=== PATIENT | female | born 1965 | race Caucasian/White ===

== ENCOUNTER → 2019-07-25 09:21 | Outpatient (CLI) | payer OTHER, MEDICARE, SELFPAY ==
--- NOTE | ~2019-07-25 | CT_ITS ---
EXAMINATION: CT chest abdomen pelvis w con EXAM DATE: 07/25/2019 10:00 INDICATION: Secondary malignant neoplasm of liver, intrahepatic bile duct, small cell lung cancer, le ft lower lobectomy, history and irritable bowel syndrome, cholecystectomy, hysterectomy. Nausea and d iarrhea. TECHNIQUE: Spiral CT of the chest, abdomen and pelvis was performed following intravenous injection o f 100 mL Omnipaque 350. Axial, coronal and sagittal images were reviewed. Coronal maximum intensity pixel images of chest reviewed. The dose-length product (DLP) for this examination was 521.46 mGy-c m. The exposure was tailored according to patient size (auto mA exposure control), and iterative rec onstruction (ASIR) was used as additional dose reduction technique. Comparison is made to prior exami nation from 05/01/2019. FINDINGS: CHEST: Again there is left suprahilar paramedian opacity, appearance most consistent with treated ca ncer, radiation fibrosis. There is left-sided volume loss from partial pneumonectomy. Some faint righ t upper lobe groundglass airspace disease, probably perihilar distribution. Possible mild pulmonary e vidya. There is mild emphysema. There are no pleural or pericardial effusions. Previously seen smal l left pleural effusion has essentially resolved. There is a right-sided Chemo-Port. There is no med iastinal, hilar or axillary lymphadenopathy. There is no pneumothorax. Heart normal in size. Th ere is mild coronary arterial calcification, arterial sclerosis. There are no central pulmonary embo li. ABDOMEN PELVIS: Again there are about 5 subcentimeter liver hypodensities, likely the treated liver m etastatic disease previously described, stable. There are cholecystectomy clips. Portal and splenic veins are patent. Kidneys enhance symmetrically. There is no hydronephrosis. The uterus is not i dentified and has likely been surgically resected. The bladder is distended but otherwise unremarkab le. There is no retroperitoneal or pelvic lymphadenopathy. There is mild scattered arterioscleroti c disease. The appendix is normal. There is mild to moderate scattered colonic diverticulosis. There is scatter ed is no adjacent inflammatory change to suggest diverticulitis. Tiny umbilical fat-containing herni a. There is a 3 cm duodenal cyst along its third portion. There is expected amount of colonic stool . No free intraperitoneal gas. There are no osteoblastic or osteolytic lesions identified. IMPRESSION: 1. Left suprahilar airspace disease, volume loss consistent with treated cancer, radiation fibrosis. 2. Stable scattered liver lesions. 3. Mild to moderate colonic diverticulosis. 4. Possible mild pulmonary edema. 5. Mild emphysema. 6. Duodenal diverticulum. Reviewed, dictated and finalized at location B. LY [employer] MANAGEMENT SPECIALIST IMPRESSION: 1. Left suprahilar airspace disease, volume loss consistent with treated cance r, radiation fibrosis. 2. Stable scattered liver lesions. 3. Mild to moderate colonic diverticulosis. 4. Possible mild pulmonary edema. 5. Mild emphysema. 6. Duodenal diverticulum.
== END ==
PROVIDERS: PCP Internal Medicine; Visit Provider Internal Medicine Hematology & Oncology
DX: C78.7 Secondary malignant neoplasm of liver and intrahepatic bile duct (principal); K76.89 Other specified diseases of liver; R91.8 Other nonspecific abnormal finding of lung field; J43.9 Emphysema, unspecified; K57.10 Diverticulosis of small intestine without perforation or abscess without bleeding
CPT/HCPCS: 71260; 74177; Q9967

== ENCOUNTER → 2019-09-10 09:48 | Outpatient (CLI) | payer OTHER, MEDICARE, SELFPAY ==
--- NOTE | ~2019-09-10 | CT_ITS ---
EXAMINATION: CT facial bones wo con EXAM DATE: 09/10/2019 10:10 INDICATION: Small cell lung cancer. Left mandibular lesion. TECHNIQUE: Spiral CT of the facial bones was acquired in the axial plane without contrast. Coronal reformatted images were also reviewed. The dose-length product (DLP) for this examination was 286.85 mGy-cm. The exposure was tailored according to patient size, and iterative reconstruction (ASIR) wa s used as additional dose reduction technique. There is no prior study for comparison. FINDINGS: There is a mandibular angle lesion deep to the impacted left lower wisdom tooth (#17) which is expanding the medial aspect of the mandible, including small region of complete bone dehiscence, and causing endosteal scalloping along the outer aspect. This is also touching the adjacent molar nora t (#18). Osteolytic region measures 2.4 x 1.3 cm in greatest axial dimensions. 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 Oral maxillofacial jose de jesus gical consult for probable curettage. No upper cervical lymphadenopathy. Submandibular, parotid gland s are symmetric and unremarkable. Sinuses, mastoid air cells are well aerated. Upper cervical spondyl osis. IMPRESSION: Left mandibular osteolytic expansile mass; recommend or oral maxillofacial surgical cons ult for probable curettage, histologic correlation. Reviewed, dictated and finalized at location A. IMPRESSION: Left mandibular osteolytic expansile mass; recommend or oral maxil lofacial surgical consult for probable curettage, histologic correlation.
== END ==
PROVIDERS: PCP Internal Medicine
DX: M27.40 Unspecified cyst of jaw (principal)
CPT/HCPCS: 70486

== ENCOUNTER 2019-10-12 14:29 | Emergency (ER) | payer OTHER, MEDICARE, SELFPAY ==
--- NOTE | ~2019-10-12 | CT_ITS ---
EXAMINATION: CT abdomen pelvis wo con DATE: 10/12/2019 15:39 INDICATION: Pelvic and left flank pain TECHNIQUE: Computed tomography (CT) of the abdomen and pelvis was performed without intravenous contr ast. The dose-length product was 262.37 mGy-cm. Automated exposure control and iterative reconstructi on technique were employed. COMPARISON: CT dated 07/25/2019 FINDINGS: Lung bases are unremarkable. No significant pleural or pericardial effusion. Small hiatal h ernia. No significant vascular abnormality. There are multiple nonobstructing bilateral renal stones. No ureteral stones or hydronephrosis. There is mild thickening of the sigmoid colon. Colonic diverti culosis without evidence for diverticulitis. Bladder is unremarkable. Status post cholecystectomy. No rmal appendix. No free air or free fluid. The liver, spleen, pancreas, adrenal glands are unremarkable. No acute osseous abnormality. IMPRESSION: 1. Mild thickening of the sigmoid colon without obstruction. Consider colitis in the appropriate clin ical setting. No evidence for diverticulitis. 2: Nonobstructing bilateral nephrolithiasis. Reviewed, dictated and finalized at location A. IMPRESSION: 1. Mild thickening of the sigmoid colon without obstruction. Consider colitis i n the appropriate clinical setting. No evidence for diverticulitis. 2: Nonobstructing bilateral nephrolithiasis.
[2019-10-12 14:40] VITALS: BP 145/89; PULSE 78; RESP 16; TEMP 36.9; O2SAT 100
[2019-10-12 15:01] LABS: Add Urine Microscopic? YES; Appearance Urine Clear (Clear); Bilirubin Urine Negative (Negative); Blood Urine 2+ (Negative); Color Urine Straw (Yellow); Glucose Urine UA Negative (Negative); Ketones Urine Negative (Negative); Leukocyte Esterase Ur Negative LEU/UL (Negative); Mucus Urine Rare /lpf; Nitrate Urine Negative (Negative); Protein Urine Negative (Negative); RBC Urine 0-2 /hpf (0-2); Squamous Epithelial Cell Urine Moderate /hpf (Few); Urobilinogen Urine Negative mg/dL (<2.0); WBC Urine 0-3 /hpf
[2019-10-12 15:05] LABS: Specific Grav Ur 1.004 (1.001-1.035)
--- NOTE | 2019-10-12 15:10 | ED.ABDPAIN ---
HPI - Abdominal Pain General Chief Complaint: Urogenital-Female Stated Complaint: Flank pain Time Seen by Provider: 10/12/19 14:36 History of Present Illness HPI narrative: Patient presents with 2 days of severe pelvic pain and left flank pain. Her PCP put her on nitrofurantoin antibiotic yesterday. She has had 3 doses of that already without improvement of her symptoms. She says her urine has odor and she has had UTIs before with similar odor. She has no burning urination or increase in frequency. She has diffuse pelvic pain, and left flank pain. She has a history of kidney stones that have bad to be removed with lithotripsy. She suspects this is a kidney stone. She has had no fever chills lethargy or malaise. Her appetite is good she has no diarrhea or constipation. She has nausea with codeine and morphine, so I offered fentanyl with Zofran. Her pain is 5 out of 10 both the flank and the pelvis. She has a history of small cell lung cancer, with partial left lung resection. That was 2 years ago and she has no known mets. She has no cough or fever, and has been staying at home to be safe. MD elicited complaint: abdominal pain and flank pain Onset (ago): day(s) Pain Consistency: constant Location: L flank and suprapubic Severity: moderate Quality: aching and fullness Radiation: L flank Relieving factors: nothing Context: denies foreign travel, denies possible food poisoning, denies sick contacts, confirms recent antibiotic use, denies recent surgery/procedure, denies recent injury and confirms history of similar episodes Associated symptoms: nausea, vomiting, diarrhea, fever, chills and constipation Treatments prior to arrival: other (Macrobid BID) Related Data Patient : No Home Medications Medication Instructions Recorded Confirmed aspirin 81 mg PO DAILY 04/18/19 10/12/19 budesonide-formoterol [Symbicort] 2 puff INHALATION Q12H 04/18/19 10/12/19 elderberry fruit and flower 1 cap PO DAILY 04/18/19 10/12/19 lorazepam 0.5 mg tablet 0.5 mg PO DAILY PRN 06/01/19 10/12/19 mirtazapine 15 mg tablet 15 mg PO DAILY 06/01/19 10/12/19 omeprazole 40 mg capsule,delayed 40 mg PO DAILY 06/01/19 08/21/19 release trazodone 50 mg tablet 50 mg PO TID 06/01/19 08/21/19 Allergies Allergy/AdvReac Type Severity Reaction Status Date / Time amoxicillin Allergy Unknown Unknown Verified 10/12/19 14:43 clindamycin Allergy Unknown Unknown Verified 10/12/19 14:43 codeine Allergy Unknown Nausea and Verified 10/12/19 14:43 Vomiting Iodinated Contrast Media Allergy Unknown Unknown Verified 10/12/19 14:43 levofloxacin Allergy Unknown itching, Verified 10/12/19 16:26 better with benadryl morphine Allergy Unknown Nausea and Verified 10/12/19 14:43 Vomiting Penicillins Allergy Unknown Unknown Verified 10/12/19 14:43 piperacillin Allergy Unknown Unknown Verified 10/12/19 14:43 tazobactam Allergy Unknown Unknown Verified 10/12/19 14:43 Review of Systems Review of Systems: All systems reviewed & are unremarkable except as noted in HPI and below Constitutional: Constitutional: Reports no additional constitutional complaints, Denies chills, Denies fever(s) and Denies weakness Cardiovascular: Cardiovascular: Reports no additional cardiovascular complaints Respiratory: Respiratory: Reports no additional respiratory complaints Gastrointestinal: Gastrointestinal: Reports no additional gastrointestinal complaints and Denies nausea Genitourinary: Genitourinary: Reports as per HPI, Denies nocturia, Denies dysuria, Reports pelvic pain, Reports flank pain and Denies urinary incontinence Musculoskeletal: Musculoskeletal: Reports no additional musculoskeletal complaints Neurologic: Reports system reviewed and no additional complaints, except as documented Psychiatric: Psychiatric: Reports no additional psychiatric complaints PMFSH Past Medical History Medical History Anxiety Ar
[2019-10-12] MEDS: SODIUM CHLORIDE 0.9% IV 1,000 ML 999 ML IV CONT (15:19)
[2019-10-12] MEDS: ONDANSETRON INJ 4 MG/2 ML VIAL IV PUSH (15:19)
[2019-10-12 15:22] LABS: Basophils Percent Auto 0.5 % (0.2-1.2); Eosinophils Absolute Auto 0.1 K/mm3 (0-0.3); Eosinophils Percent Auto 1.4 % (0-4.4); Hematocrit 33.4 % (37.0-47.0); Immature Granulocyte Absolute 0.04 K/mm3 (0.00-0.031); Immature Granulocyte Percent A 0.6 % (0-0.5); Lymphocytes Absolute Auto 1.26 K/mm3 (0.9-3.2); Mean Corpuscular HGB Conc 32.9 g/dl (32-36); Mean Corpuscular Hemoglobin 32.7 pg (26-34); Mean Corpuscular Volume 99.4 fl (80-100); Mean Platelet Volume 9.8 fl (7.4-10.4); Monocytes Absolute Auto 0.3 K/mm3 (0.1-0.6); Monocytes Percent Auto 5.2 % (2.6-8.5); Neutrophils Absolute Auto 4.6 K/mm3 (1.3-6.7); Neutrophils Percent Auto 72.3 % (45.5-73.1); Platelet Count Result 331 k/mm3 (150-375); Red Blood Count 3.36 M/mm3 (4.2-5.4); White Blood Count 6.3 K/mm3 (4.5-10.0)
[2019-10-12 15:29] LABS: Alanine Aminotransferase 18 U/L (4-35); Alkaline Phosphatase 111 U/L (38-126); Aspartate Amino Transferase 25 U/L (14-36); Bilirubin,Total 0.5 mg/dL (0.2-1.3); Blood Urea Nitrogen 12 mg/dL (7-17); Calcium 8.7 mg/dL (8.4-10.2); Carbon Dioxide 31 mmol/L (22-30); Chloride 100 mmol/L (98-107); Estimated CRCL calculation 51 ml/min; Estimated Glomerular Filt Rate > 60; Glucose 95 mg/dL (65-105); Potassium 3.5 mmol/L (3.4-5.0); Sodium 138 mmol/L (137-145)
[2019-10-12] MEDS: metroNIDAZOLE 250 MG TABLET 500 MG PO (16:39)
[2019-10-12] MEDS: CIPROFLOXACIN 500 MG TAB PO (16:40)
== END 2019-10-12 17:05 | disposition home or self-care (01) ==
PROVIDERS: Emergency Provider Emergency Medicine; PCP Internal Medicine
DX: K52.9 Noninfective gastroenteritis and colitis, unspecified (principal); C34.32 Malignant neoplasm of lower lobe, left bronchus or lung; F41.9 Anxiety disorder, unspecified; M19.90 Unspecified osteoarthritis, unspecified site; I10 Essential (primary) hypertension; K21.9 Gastro-esophageal reflux disease without esophagitis; Z79.82 Long term (current) use of aspirin
CPT/HCPCS: 36415; 74176; 80053; 81001; 85025; 96361; 96374; 96375; 99284; A9270; J2405; J3010; J7030

== ENCOUNTER 2019-10-16 09:02 | Outpatient (CLI) | payer OTHER, MEDICARE, SELFPAY ==
--- NOTE | ~2019-10-16 | CT_ITS ---
EXAMINATION: CT chest abdomen pelvis w con EXAM DATE: 10/16/2019 09:55 INDICATION: Small cell lung cancer, right lung. TECHNIQUE: Spiral CT of the chest, abdomen and pelvis was performed following intravenous injection o f 100 mL Omnipaque 350. Axial, coronal and sagittal images were reviewed. Coronal maximum intensity pixel images of chest reviewed. The dose-length product (DLP) for this examination was 361.34 mGy-c m. The exposure was tailored according to patient size (auto mA exposure control), and iterative rec onstruction (ASIR) was used as additional dose reduction technique. Comparison is made to prior exami nation from 07/25/2019. FINDINGS: There is a right-sided Chemo-Port. No central pulmonary emboli. There is left suprahilar pa ramedian opacity, appearance most consistent with treated cancer, radiation fibrosis. There is left-s ided volume loss from partial pneumonectomy. Some faint right upper lobe groundglass airspace disease , probably perihilar distribution. There is mild emphysema. There are no pleural or pericardial effu sions. There is no mediastinal, hilar or axillary lymphadenopathy. There is no pneumothorax. He art normal in size. There is mild coronary arterial calcification, arterial sclerosis. There are n o central pulmonary emboli. ABDOMEN PELVIS: Again there are about 5 subcentimeter liver hypodensities, likely the treated liver m etastatic disease previously described, stable. There are cholecystectomy clips. Portal and splenic veins are patent. Kidneys enhance symmetrically. There is no hydronephrosis. Bilateral kidney ston es probably visualized on this postcontrast study. The uterus is not identified and has likely been s urgically resected. The bladder is distended but otherwise unremarkable. There is no retroperitonea l or pelvic lymphadenopathy. There is mild scattered arteriosclerotic disease. Tiny umbilical fat-c ontaining hernia. The appendix is normal. There is mild to moderate scattered colonic diverticulosis. There is scatter ed is no adjacent inflammatory change to suggest diverticulitis. Tiny umbilical fat-containing herni a. There is a 3 cm duodenal diverticulum along its third portion. There is expected amount of colon ic stool. No free intraperitoneal gas. There are no osteoblastic or osteolytic lesions identified . IMPRESSION: 1. Stable left perihilar treated cancer, radiation fibrosis. 2. Stable scattered liver lesions. 3. Mild to moderate colonic diverticulosis. 4. Bilateral nonobstructing kidney stones. 5. Mild emphysema. 6. Duodenal diverticulum. Reviewed, dictated and finalized at location G.
== END 2019-10-16 09:03 | disposition home or self-care (01) ==
LOC: ANHIMG 09:06
PROVIDERS: PCP Internal Medicine; Visit Provider Internal Medicine Hematology & Oncology
DX: C34.91 Malignant neoplasm of unspecified part of right bronchus or lung (principal); J70.1 Chronic and other pulmonary manifestations due to radiation; K76.9 Liver disease, unspecified; K57.90 Diverticulosis of intestine, part unspecified, without perforation or abscess without bleeding; N20.0 Calculus of kidney; J43.9 Emphysema, unspecified; K57.10 Diverticulosis of small intestine without perforation or abscess without bleeding
CPT/HCPCS: 71260; 74177; Q9967

== ENCOUNTER 2020-01-08 08:37 | Outpatient (CLI) | payer OTHER, MEDICARE, SELFPAY ==
--- NOTE | ~2020-01-08 | CT_ITS ---
EXAMINATION: CT chest abdomen pelvis w con DATE: 01/08/2020 09:05 INDICATION: Malignant neoplasm of lower lobe of left lung. TECHNIQUE: Computed tomography (CT) of the chest, abdomen, and pelvis was performed with 100 mL Omnip aque 350 intravenous contrast. Automated exposure control and iterative reconstruction technique were employed. The dose-length product was 350.14 mGy-cm. COMPARISON: CT chest, abdomen, and pelvis 10/16/2019, 07/24/18, 10/06/17 FINDINGS: CHEST CT: There is mild emphysema. There are airspace opacities in perihilar left upper lobe with volume loss, architectural distortion, and varicose bronchiectasis, consistent with radiation fibrosis. There are changes of left lower lobectomy. A calcified right lung nodule and calcified right hilar and mediasti nal lymph nodes are consistent with old granulomatous disease. There is chronic pleural thickening in left upper lung zone. No pleural effusion. The heart size is normal. No pericardial effusion. There is a right subclavian port with tip in superior vena cava. ABDOMEN/PELVIS CT: There is a small sliding hiatal hernia. There are two 6 mm low-attenuation lesions in the liver witho ut change. Other liver lesions have resolved. There are changes of cholecystectomy. The spleen, pancr eas, adrenal glands are normal. There is a 7 mm stone in right kidney. There is a 4 mm stone in right renal pelvis. There are 4 mm and 4 mm stones in left kidney. There is diverticulosis of the colon wi thout evidence of diverticulitis. There are no dilated loops of bowel. The appendix is normal. There are no pathologically enlarged lymph nodes. There is no free intraperitoneal fluid. There is a 7 mm n onaggressive lytic lesion in right ilium without change, likely benign. IMPRESSION: 1. Two 6 mm low-attenuation lesions in the liver without change, which may be cysts or metastatic dis ease. Other liver masses have resolved. 2. Perihilar radiation fibrosis in left lung. Reviewed, dictated and finalized at location A. IMPRESSION: 1. Two 6 mm low-attenuation lesions in the liver without change, which may be c ysts or metastatic disease. Other liver masses have resolved. 2. Perihilar radiation fibrosis in left lung.
== END 2020-01-08 08:38 | disposition home or self-care (01) ==
LOC: ANHIMG 08:38
PROVIDERS: PCP Internal Medicine; Visit Provider Internal Medicine Hematology & Oncology
DX: C34.32 Malignant neoplasm of lower lobe, left bronchus or lung (principal); K76.9 Liver disease, unspecified; J70.1 Chronic and other pulmonary manifestations due to radiation
CPT/HCPCS: 71260; 74177; Q9967

== ENCOUNTER 2020-03-19 07:41 | Outpatient (CLI) | payer OTHER, MEDICARE, SELFPAY ==
--- NOTE | ~2020-03-19 | DEXA_ITS ---
Bone Density Report Name: Divina Harrington Age: 54 Sex: Female Ethnicity: White Date of : 1965 Indication: postmenopausal; height loss; inflammatory bowel disease; cancer; asthma or emphysema; hysterectomy; Referring Provider: Joseph Arshad Study: Bone densitometry was performed. Exam Date: March 19, 2020 Accession number: [id number] Bone Density: Region BMD T-score Z-score Classification AP Spine (L1-L4) 0.722 -3.0 -1.8 Osteoporosis Femoral Neck (Left) 0.591 -2.3 -1.2 Osteopenia Total Hip (Left) 0.655 -2.4 -1.6 Osteopenia Total Hip Bilateral Avg 0.675 -2.2 -1.5 Osteopenia Femoral Neck (Right) 0.615 -2.1 -1.0 Osteopenia Total Hip (Right) 0.695 -2.0 -1.3 Osteopenia World Health Organization criteria for BMD impression classify patients as: Normal (T-score at or above -1.0), Osteopenia (T-score between -1.0 and -2.5), or Osteoporosis (T-score at or below -2.5). 10-year Fracture Risk: FRAX not reported because: Some T-score for Spine Total or Hip Total or Femoral Neck at or below -2.5 Clinical Information Provided by Patient: Has used the following medications: Vitamin D Has the following medical conditions: Asthma or Emphysema, Cancer, Inflammatory bowel diseases, Hysterectomy Patient maximum height was 64 Menopause Age: 40 No regular weight bearing exercise Drinks caffeinated beverages Onset of menses at age 10 Number of children 3 Impression: The patient has osteoporosis, based on the Total Spine T-score. Discussion: INCREASED RISK OF FRACTURE. BONE DENSITY IS UNDESIRABLY LOW AT ONE OR MORE SKELETAL SITES, CONSISTENT WITH POSTMENOPAUSAL OSTEOPOROSIS. This patient's lowest T-score meets the World Health Organization's (WHO) criteria for osteoporosis at one or more sites (T-score -2.5 or below). In untreated patients, the risk of osteoporotic fracture increases approximately two-fold for each 1.0 SD decrease in T-score. Low bone density is not the only risk factor for fracture; also consider factors such as patient's age, frailty or poor health, risk of falling, risk of injury, previous osteoporotic fracture, family history of osteoporosis, cigarette smoking, low body weight, etc. Not everyone with low bone mineral density has osteoporosis; osteomalacia and other metabolic bone disorders should also be considered. Patients who have osteoporosis should be evaluated for specific diseases and conditions (secondary causes) that may cause or contribute to bone loss. The [place] [employer]ocrinologists (AACE) and National Osteoporosis Foundation (NOF) recommend pharmacologic intervention for all postmenopausal women whose T-score is in this range. The patient should follow a healthful lifestyle (good nutrition with adequate calcium and vitamin D, and appropriate weight-bearing exercise). Follow
== END 2020-03-19 07:42 | disposition home or self-care (01) ==
LOC: ANHIMG 07:45
PROVIDERS: PCP Internal Medicine; Visit Provider Internal Medicine Hematology & Oncology
DX: M81.0 Age-related osteoporosis without current pathological fracture (principal); M85.852 Other specified disorders of bone density and structure, left thigh; M85.851 Other specified disorders of bone density and structure, right thigh
CPT/HCPCS: 77080

== ENCOUNTER 2020-04-02 07:28 | Outpatient (CLI) | payer OTHER, MEDICARE, SELFPAY ==
--- NOTE | ~2020-04-02 | CT_ITS ---
EXAMINATION: CT chest abdomen pelvis w con EXAM DATE: 04/02/2020 08:07 INDICATION: Malignant neoplasm of the left lower lobe. TECHNIQUE: Spiral CT of the chest, abdomen and pelvis was performed following intravenous injection o f 100 mL Omnipaque 350. Axial, coronal and sagittal images were reviewed. Coronal maximum intensity pixel images of chest reviewed. The dose-length product (DLP) for this examination was 365.98 mGy-c m. The exposure was tailored according to patient size (auto mA exposure control), and iterative rec onstruction (ASIR) was used as additional dose reduction technique. Comparison is made to prior exami nation from 01/08/2020. FINDINGS: CHEST: There is a right-sided Chemo-Port. Again there is left-sided volume loss, partial pneumonecto my, with medial opacity consistent with scarring and radiation fibrosis. This is stable compared to p rior study. No superimposed acute airspace disease. There is calcified right lower lobe granuloma. Tr acheobronchial tree is patent. There is no mediastinal, hilar or axillary lymphadenopathy. There is no pneumothorax. Mild cardiomegaly. No evidence of coronary arterial calcification. ABDOMEN PELVIS: Several tiny liver lesions are less well visualized on this examination, could be vesna ated metastatic disease or cysts. There are cholecystectomy clips. Bilateral nephrolithiasis, larges t on the right up to 1.2 cm. There is a 5 mm stone in the dependent aspect of the right renal pelvis. No hydronephrosis. Kidneys enhance symmetrically. The uterus is not identified and has likely been surgically resected. The bladder is undistended at time of imaging. There is no retroperitoneal or pelvic lymphadenopathy. There is mild scattered arteriosclerotic disease. Small umbilical fat-conta ining hernia. The appendix is normal. The stomach and small bowel are unremarkable. There is moderate amount of c olonic stool. There is moderate scattered colonic diverticulosis. There is no adjacent inflammatory change to suggest diverticulitis. No free intraperitoneal gas. There are no osteoblastic or osteol ytic lesions identified. IMPRESSION: 1. Stable left lung surgical changes, scarring/radiation fibrosis. 2. Several subcentimeter liver hypodensities, continued decrease in conspicuity. Cyst versus treated metastatic disease. Reviewed, dictated and finalized at location B. IMPRESSION: 1. Stable left lung surgical changes, scarring/radiation fibrosis. 2. Several subcentimeter liver hypodensities, continued decrease in conspicuit y. Cyst versus treated metastatic disease.
== END 2020-04-02 07:29 | disposition home or self-care (01) ==
PROVIDERS: PCP Internal Medicine; Referring Provider Internal Medicine Gastroenterology; Visit Provider Internal Medicine Hematology & Oncology
DX: C34.32 Malignant neoplasm of lower lobe, left bronchus or lung (principal); K76.9 Liver disease, unspecified
CPT/HCPCS: 71260; 74177; Q9967

== ENCOUNTER 2020-06-24 08:46 | Outpatient (CLI) | payer OTHER, MEDICARE, SELFPAY ==
--- NOTE | ~2020-06-24 | CT_ITS ---
EXAMINATION: CT chest abdomen pelvis w con DATE: 06/24/2020 09:19 INDICATION: Restaging of malignant neoplasm of left lower lobe TECHNIQUE: Computed tomography (CT) of the chest, abdomen, and pelvis was performed with 100 cc Omnip aque 350 intravenous contrast. Automated exposure control and iterative reconstruction technique were employed. Exam dose: 349.60 mGy-cm total exam DLP. COMPARISON: 04/02/2020 CT chest abdomen pelvis FINDINGS: CHEST CT: Again noted is right-sided Port-A-Cath catheter, with catheter tip at superior cavoatrial junction. Status post left lower lobectomy. Stable chronic prominent left upper paramediastinal soft tissue thickening and left perihilar soft ti ssue opacification with air bronchograms, likely postradiation fibrosis. No hilar or mediastinal mass lesion or lymphadenopathy. Cardiomegaly. No thoracic aortic aneurysm or dissection. Calcified right lower lobe pulmonary granuloma. Calcified right hilar and mediastinal lymph nodes. Fi ndings are consistent with old granulomatous disease. No interval pulmonary infiltrate or consolidation or pulmonary mass lesion is detected. No pleural effusion. Small sliding hiatal hernia. ABDOMEN/PELVIS CT: Approximately 6 mm left hepatic hypoattenuating lesion may be a small cyst, less likely a metastasis. Numerous other hypoattenuating lesions noted on 07/24/2018 CT examination nearly completely resolved, consistent with nearly complete resolution of hepatic metastatic lesions. Status post cholecystectomy. No bile duct dilatation. No pancreatic mass lesion, calcification or ductal dilatation. Splenic size is within normal limits. There is occasional calcified splenic granulomas consistent with old granulomatous disease. No adrenal mass lesion. Bilateral nephrolithiasis. No ureteral calculus or hydroureteronephrosis. The urinary bladder is unre markable. Status post hysterectomy. Normal caliber of the abdominal aorta. No intraperitoneal or retroperitoneal or pelvic mass lesion or adenopathy or ascites. Normal appendix. Diverticulosis of left and right colon; no CT evidence of diverticulitis. No bowel obstruction, bowel wall thickening, pneumatosis or intraperitoneal free air. No suspicious osteolytic or osteoblastic lesions are noted. IMPRESSION: No interval pulmonary mass or metastatic disease is identified Status post left lower lobectomy and stable left postradiation changes Reviewed, dictated and finalized at Location A. Reviewed, dictated and finalized at location A. ER OPERATOR
== END 2020-06-24 08:47 | disposition home or self-care (01) ==
PROVIDERS: PCP Internal Medicine; Visit Provider Internal Medicine Hematology & Oncology
DX: C34.32 Malignant neoplasm of lower lobe, left bronchus or lung (principal)
CPT/HCPCS: 71260; 74177; Q9967

== ENCOUNTER 2020-09-02 09:15 | Outpatient (CLI) | payer BC, MEDICARE, SELFPAY ==
--- NOTE | ~2020-09-02 | CT_ITS ---
EXAMINATION: CT diagnostic chest w con EXAM DATE: 09/02/2020 09:50 INDICATION: Left-sided lung cancer. TECHNIQUE: Spiral CT of the chest following intravenous injection of 75 mL Omnipaque 350. Axial, cor onal and sagittal images were reviewed. Coronal maximum intensity pixel images of chest reviewed. T he dose-length product (DLP) for this examination was 150.98 mGy-cm. The exposure was tailored accor ding to patient size (auto mA exposure control), and iterative reconstruction (ASIR) was used as huyen tional dose reduction technique. Comparison is made to prior examination from 06/24/2020. FINDINGS: There is a right-sided portacatheter. Left-sided volume loss, likely from both partial pne umonectomy and perihilar scarring/radiation fibrosis. This appears stable compared to prior study. Th ere is mild emphysema. No suspicious pulmonary nodules. Scattered granulomata. Cholecystectomy clips. There are no pleural or pericardial effusions. Tracheobronchial tree is patent. There is no med iastinal, hilar or axillary lymphadenopathy. There is no pneumothorax. Heart normal in size. No evidence of coronary arterial calcification. There is thoracic spondylosis without osteoblastic o r osteolytic lesions identified. IMPRESSION: 1. Stable lung scarring consistent with treated lung cancer, radiation fibrosis. 2. Mild emphysema. Reviewed, dictated and finalized at location B. LY SERVICE ASSISTANT IMPRESSION: 1. Stable lung scarring consistent with treated lung cancer, radiation fibrosi s. 2. Mild emphysema.
== END 2020-09-02 09:16 | disposition home or self-care (01) ==
PROVIDERS: PCP Internal Medicine; Visit Provider Internal Medicine Hematology & Oncology
DX: C34.32 Malignant neoplasm of lower lobe, left bronchus or lung (principal); J43.9 Emphysema, unspecified
CPT/HCPCS: 71260; Q9967

== ENCOUNTER 2020-12-01 09:04 | Outpatient (CLI) | payer BC, MEDICARE, SELFPAY ==
--- NOTE | ~2020-12-01 | CT_ITS ---
EXAMINATION: CT diagnostic chest w con EXAM DATE: 12/01/2020 09:32 INDICATION: Left-sided lung cancer, follow-up. TECHNIQUE: Spiral CT of the chest following intravenous injection of 75 mL Omnipaque 350. Axial, cor onal and sagittal images of the chest were reviewed. Coronal maximum intensity pixel images of chest reviewed. The dose-length product (DLP) for this examination was 144.81 mGy-cm. The exposure was t ailored according to patient size (auto mA exposure control), and iterative reconstruction (ASIR) was used as additional dose reduction technique. Comparison is made to prior examination from 09/02/2020. FINDINGS: Mild emphysema. There is a right-sided portacatheter. There is left-sided volume loss with medial opacity, consistent with radiation fibrosis, treated lung cancer. Appearance is stable compare d to previous exam. There are no pleural or pericardial effusions. Tracheobronchial tree is patent . There is no mediastinal, hilar or axillary lymphadenopathy. There is no pneumothorax. Heart n ormal in size. No evidence of coronary arterial calcification. There is small sliding gastroesophag eal hiatal hernia. There are cholecystectomy clips. There is hepatic steatosis. There is thoracic s pondylosis without osteoblastic or osteolytic lesions identified. IMPRESSION: 1. Stable treated left-sided lung cancer, radiation fibrosis. 2. Mild emphysema. Reviewed, dictated and finalized at location A.
== END 2020-12-01 09:05 | disposition home or self-care (01) ==
PROVIDERS: PCP Internal Medicine; Visit Provider Internal Medicine Hematology & Oncology
DX: C34.32 Malignant neoplasm of lower lobe, left bronchus or lung (principal); J43.9 Emphysema, unspecified; J70.1 Chronic and other pulmonary manifestations due to radiation
CPT/HCPCS: 71260; Q9967

== ENCOUNTER 2021-02-13 09:26 | Outpatient (CLI) | payer BC, MEDICARE, SELFPAY ==
--- NOTE | ~2021-02-13 | CT_ITS ---
EXAMINATION:CT diagnostic chest w con DATE: 02/13/2021 10:10 INDICATION: Malignant neoplasm of lower lobe of left lung. TECHNIQUE: Computed tomography (CT) of the chest was performed with 75 mL Omnipaque 350 intravenous c ontrast. Automated exposure control and iterative reconstruction technique were employed. The dose-le ngth product (DLP) was 139.62 mGy-cm. COMPARISON: Chest CT 12/01/20, 03/08/2017, 04/18/18 FINDINGS: There is mild emphysema. Calcified pulmonary nodules and calcified hilar and mediastinal ly mph nodes are consistent with old granulomatous disease. There are changes of left lower lobectomy. T here are airspace opacities with volume loss and varicose bronchiectasis in left perihilar region, co nsistent with radiation fibrosis. No pleural effusion. The heart the heart size is normal. No pericar dial effusion. There is a right subclavian port with tip in superior vena cava. There is a small slid ing hiatal hernia. There are changes of cholecystectomy. The adrenal glands are normal. There is a 6 mm stone in left kidney. There is mild thoracic spondylosis. There is an old healed fracture of left eighth rib. There is a chronic sclerotic lesion in T10 vertebral body. IMPRESSION: 1. Stable sclerotic lesion in T10 vertebral body, consistent with metastatic disease. 2. Stable left perihilar radiation fibrosis. 3. Left lower lobectomy. 4. Mild emphysema. Reviewed, dictated and finalized at location A. IMPRESSION: 1. Stable sclerotic lesion in T10 vertebral body, consistent with metastatic di sease. 2. Stable left perihilar radiation fibrosis. 3. Left lower lobectomy. 4. Mild emphysema.
== END 2021-02-13 09:27 | disposition home or self-care (01) ==
LOC: ANHIMG 09:31
PROVIDERS: PCP Internal Medicine; Visit Provider Internal Medicine Hematology & Oncology
DX: C34.32 Malignant neoplasm of lower lobe, left bronchus or lung (principal); J43.9 Emphysema, unspecified; R91.8 Other nonspecific abnormal finding of lung field
CPT/HCPCS: 71260; Q9967

== ENCOUNTER 2021-04-14 09:17 | Outpatient (CLI) | payer BC, MEDICARE, SELFPAY ==
--- NOTE | ~2021-04-14 | XR_ITS ---
EXAMINATION: XR fl port a cath w contrast DATE: 04/14/2021 10:09 INDICATION: Port dysfunction. Malignant neoplasm of lower lobe of left lung. TECHNIQUE: I performed fluoroscopy while the port was injected with contrast. 496 images were obtaine d. Fluoroscopy exposure time was 0.3 minutes. COMPARISON: Chest CT 02/13/2021 FINDINGS: There is a right subclavian port with tip at superior cavoatrial junction. There is materia l around the tip of the catheter. Injected contrast collects around the tip of the catheter, and some contrast moves retrograde into the superior vena cava before then continuing with the blood flow int o the right atrium. Calcified mediastinal and right hilar lymph nodes are consistent with old granulo matous disease. IMPRESSION: 1. Material around the tip of the port catheter, likely a fibrin sheath. Reviewed, dictated and finalized at location A.
== END 2021-04-14 09:18 | disposition home or self-care (01) ==
LOC: ANHIMG 09:22
PROVIDERS: PCP Internal Medicine; Visit Provider Internal Medicine Hematology & Oncology
DX: C34.32 Malignant neoplasm of lower lobe, left bronchus or lung (principal)
CPT/HCPCS: 36598; Q9966

== ENCOUNTER 2021-05-11 07:50 | Outpatient (CLI) | payer BC, MEDICARE, SELFPAY ==
--- NOTE | ~2021-05-11 | CT_ITS ---
EXAMINATION: CT diagnostic chest w con EXAM DATE: 05/11/2021 08:23 INDICATION: Malignant Neoplasm Of Lower Lobe Of Left Lung. Shortness of breath. TECHNIQUE: Spiral CT of the chest following intravenous injection of 75 mL Omnipaque 350. Axial, cor onal and sagittal images of the chest were reviewed. Coronal maximum intensity pixel images of chest reviewed. The dose-length product (DLP) for this examination was 126.67 mGy-cm. The exposure was t ailored according to patient size (auto mA exposure control), and iterative reconstruction (ASIR) was used as additional dose reduction technique. Comparison is made to prior examination from 02/13/2021. FINDINGS: There is a right-sided portacatheter. Partial left-sided pneumonectomy. There is left upper lobe scarring and volume loss, radiation fibrosis and possibly treated lung cancer, appearance uncha nged. There is right lower lobe calcified granuloma. There are no pleural or pericardial effusions. Tracheobronchial tree is patent. There is no mediastinal, hilar or axillary lymphadenopathy. The re is no pneumothorax. Heart normal in size. No evidence of coronary arterial calcification. The re are cholecystectomy clips. Small vague slightly increased sclerotic area in T10 unchanged. IMPRESSION: 1. Stable partial left pneumonectomy, suprahilar radiation fibrosis. 2. Small vague sclerotic T10 region unchanged. Reviewed, dictated and finalized at location B. OFFICER
== END 2021-05-11 07:51 | disposition home or self-care (01) ==
PROVIDERS: PCP Internal Medicine; Visit Provider Internal Medicine Hematology & Oncology
DX: C34.32 Malignant neoplasm of lower lobe, left bronchus or lung (principal)
CPT/HCPCS: 71260; Q9967

== ENCOUNTER 2021-08-02 10:43 | Emergency (ER) | payer BC, MEDICARE, SELFPAY ==
--- NOTE | ~2021-08-02 | CT_ITS ---
EXAMINATION: CT abdomen pelvis wo con DATE: 08/02/2021 11:47 INDICATION: Left flank pain. History of kidney stones. TECHNIQUE: Computed tomography (CT) of the abdomen and pelvis was performed without intravenous contr ast. The dose-length product was 311.01 mGy-cm. Automated exposure control and iterative reconstructi on technique were employed. COMPARISON: CT dated 06/24/2020. FINDINGS: Lung bases are unremarkable. No significant pleural or pericardial effusion. Small hiatal h ernia. Status post cholecystectomy. Fatty infiltration of the liver. No significant vascular abnormal ity. No lymphadenopathy. Colonic diverticulosis without evidence for diverticulitis. There is a 3 mm proximal left ureteral stone with mild left hydronephrosis and perinephric edema. There are nonobstru cting bilateral renal stones. No free air or free fluid. Normal appendix. IMPRESSION: 1. Proximal right ureteral stone measuring 3 mm with mild hydronephrosis and periureteral edema. 2: Nonobstructing bilateral nephrolithiasis. Reviewed, dictated and finalized at location A. MOUNTER OPERATOR IMPRESSION: 1. Proximal right ureteral stone measuring 3 mm with mild hydronephrosis and pe riureteral edema. 2: Nonobstructing bilateral nephrolithiasis.
--- NOTE | ~2021-08-02 | XR_ITS ---
EXAMINATION: XR abdomen/kub 1V EXAM DATE: 08/02/2021 16:04 INDICATION: Ureterolithiasis, Abd Pain To Back Pain X 1 Week, Hx Stones. TECHNIQUE: Frontal projection(s) of the abdomen for interpretation. Correlation is made to CT abdomen pelvis same date. FINDINGS: The left UPJ 5 mm stone seen on CT at the L3 inferior endplate level is not specifically i dentified on this x-ray despite its size. Bilateral nephrolithiasis is identified. Nonobstructive bow el gas pattern. There are cholecystectomy clips. Right basilar granuloma. IMPRESSION: 1. Left UPJ 5 mm stone confirmed on CT not well visualized. 2. Bilateral nephrolithiasis. Reviewed, dictated and finalized at location G. S LINED TANK REPAIRER
[2021-08-02 10:48] VITALS: PULSE 67; RESP 14; TEMP 36.3; O2SAT 100
[2021-08-02 11:24] LABS: Basophils Percent Auto 0.8 % (0.2-1.2); Eosinophils Absolute Auto 0.1 K/mm3 (0-0.3); Hemoglobin 11.6 g/dL (12.0-15.0); Immature Granulocyte Absolute 0.06 K/mm3 (0.00-0.031); Immature Granulocyte Percent A 1.2 % (0-0.5); Lymphocytes Absolute Auto 1.05 K/mm3 (0.9-3.2); Lymphocytes Percent Auto 21.3 % (18.3-44.2); Mean Corpuscular HGB Conc 33.1 g/dl (32-36); Mean Corpuscular Volume 99.7 fl (80-100); Mean Platelet Volume 9.1 fl (7.4-10.4); Monocytes Absolute Auto 0.5 K/mm3 (0.1-0.6); Monocytes Percent Auto 10.5 % (2.6-8.5); Neutrophils Absolute Auto 3.2 K/mm3 (1.3-6.7); Neutrophils Percent Auto 64.2 % (45.5-73.1); Platelet Count Result 297 k/mm3 (150-375); Red Blood Count 3.51 M/mm3 (4.2-5.4); Red Cell Distribution Width 14.6 % (11.5-14.5); White Blood Count 4.9 K/mm3 (4.5-10.0)
[2021-08-02 11:35] LABS: Alanine Aminotransferase 19 U/L (4-35); Albumin Level 3.9 g/dL (3.5-5.1); Alkaline Phosphatase 88 U/L (38-126); Anion Gap 5 mmol/L (8-16); Aspartate Amino Transferase 27 U/L (14-36); Bilirubin,Total 0.5 mg/dL (0.2-1.3); Blood Urea Nitrogen 13 mg/dL (7-17); Calcium 8.9 mg/dL (8.4-10.2); Carbon Dioxide 27 mmol/L (22-30); Chloride 107 mmol/L (98-107); Estimated CRCL calculation 37 ml/min; Estimated Glomerular Filt Rate 42; Glucose 116 mg/dL (65-110); Lipase 62 U/L (23-300); Potassium 4.3 mmol/L (3.4-5.0); Sodium 139 mmol/L (137-145)
[2021-08-02] MEDS: ONDANSETRON INJ 4 MG/2 ML VIAL IV PUSH (11:36)
[2021-08-02] MEDS: MORPHINE SULFATE (*CRX) 4 MG/ML INJ IV PUSH (12:00)
[2021-08-02 12:11] VITALS: BP 140/72; PULSE 51; RESP 13; O2SAT 93
--- NOTE | 2021-08-02 12:39 | ED.BACK ---
HPI - Back Pain/Injury General Chief Complaint: Back Pain/Injury Stated Complaint: FLANK PAIN, HX STONES Time Seen by Provider: 08/02/21 11:06 Source: patient Mode of arrival: ambulatory Limitations: no limitations History of Present Illness HPI Narrative: This is a 55-year-old female that presents to the emergency department for left flank pain present x2 days. Reports history of kidney stones and that this pain feels similar. The pain radiates into her abdomen. Associated with nausea. Denies fever, vomiting, dysuria, or hematuria. Related Data Home Medications Medication Instructions Recorded Confirmed aspirin 81 mg PO DAILY 04/18/19 07/21/21 budesonide-formoterol [Symbicort] 2 puff INHALATION Q12H 04/18/19 07/21/21 elderberry fruit and flower 1 cap PO DAILY 04/18/19 07/21/21 lorazepam 0.5 mg tablet 0.5 mg PO DAILY PRN 06/01/19 07/21/21 omeprazole 40 mg capsule,delayed 40 mg PO BID 06/01/19 07/21/21 release trazodone 50 mg tablet 50 mg PO TID PRN 06/01/19 07/21/21 loperamide [Imodium A-D] 2 mg PO Q4H PRN 12/11/19 07/21/21 cholecalciferol (vitamin D3) 50 mcg PO DAILY 03/18/20 07/21/21 mirtazapine 15 mg tablet 15 mg PO DAILY 11/12/20 07/21/21 Allergies Allergy/AdvReac Type Severity Reaction Status Date / Time amoxicillin Allergy Unknown Rash Verified 08/02/21 10:55 clindamycin Allergy Unknown Itching Verified 08/02/21 10:55 codeine Allergy Unknown Nausea and Verified 08/02/21 10:55 Vomiting Iodinated Contrast Media Allergy Unknown Hives Verified 08/02/21 10:55 levofloxacin Allergy Unknown itching, Verified 08/02/21 10:55 better with benadryl morphine Allergy Unknown Nausea and Verified 08/02/21 10:55 Vomiting Penicillins Allergy Unknown rash Verified 08/02/21 10:55 piperacillin Allergy Unknown Rash Verified 08/02/21 10:55 tazobactam Allergy Unknown Rash Verified 08/02/21 10:55 doxycycline Allergy Vomiting Verified 08/02/21 10:55 Review of Systems Review of Systems: CONSTITUTIONAL: Denies fever GASTROINTESTINAL: Reports abdominal pain, nausea. Denies vomiting, or diarrhea. GENITOURINARY: Denies dysuria or hematuria. All systems reviewed & are unremarkable except as noted in HPI and below PMFSH Past Medical History Medical History (Updated 08/02/21 @ 15:54 by Sary Harp PA-C) Anxiety Arthritis Benign essential hypertension Cholecystectomy planned Chronic GERD FH: cholecystectomy Insomnia disorder Irritable bowel syndrome Lesion of pelvic bone Lumbar spondylosis Malignant neoplasm of lower lobe of left lung Other and unspecified hyperlipidemia Small cell carcinoma of right lung Surgical History Surgical History H/O: hysterectomy History of bilateral tubal ligation Family History Family History Other Family history of alcoholism Family history of kidney disease Family history of malignant neoplasm Family history of seizure disorder Social History Social History Smoking status: Former smoker Alcohol intake: current Gender identity (if verbalized by the patient): Female Exam Narrative: GENERAL: Well-appearing, well-nourished, and in no acute distress. HEAD: Normocephalic, atraumatic. EYES: EOMI. CHEST: Clear to auscultation. No respiratory distress. No wheezes rales or rhonchi HEART: Regular rate and rhythm. No murmur heard. Normal peripheral pulses. ABDOMEN: Soft, nondistended, normal active bowel sounds. Mild tenderness to palpation throughout the left side of the abdomen, without guarding. No CVA tenderness EXTREMITIES: Normal range of motion. No edema. SKIN: Warm, dry, no rash. NEURO: No focal deficits. Alert and oriented x3. PSYCH: Normal mood and affect Course Consultations Consultation #1: Spoke with Dr. Marques about patient and workup. Date: 08/02/21 Time: 15:30 Vital Signs Vital
[2021-08-02] MEDS: SODIUM CHLORIDE 0.9% IV 1,000 ML 999 ML IV CONT (13:28)
[2021-08-02 13:30] VITALS: BP 155/75; PULSE 61; RESP 14; O2SAT 100
--- NOTE | 2021-08-02 13:30 | PC.NURSE ---
pt unable to urinate at this time. pt refusing straight cath at this time. pt states she will try after receiving fluids.
[2021-08-02 14:42] LABS: Add Urine Microscopic? YES; Appearance Urine Clear (Clear); Bacteria Urine Trace /hpf; Bilirubin Urine Negative (Negative); Blood Urine 2+ (Negative); Color Urine Straw (Yellow); Glucose Urine UA Negative (Negative); Ketones Urine Negative (Negative); Leukocyte Esterase Ur 2+ LEU/UL (Negative); Mucus Urine Rare /lpf; Nitrate Urine Negative (Negative); Protein Urine Negative (Negative); Squamous Epithelial Cell Urine Moderate /hpf (Few); Urobilinogen Urine Negative mg/dL (<2.0)
[2021-08-02 16:11] VITALS: BP 150/83; PULSE 66; RESP 18; O2SAT 97
[2021-08-02 16:34] VITALS: BP 150/83; PULSE 72; RESP 18; O2SAT 99
== END 2021-08-02 16:37 | disposition home or self-care (01) ==
PROVIDERS: Physician Assistant; Emergency Provider Emergency Medicine; PCP Internal Medicine
DX: N13.2 Hydronephrosis with renal and ureteral calculous obstruction (principal); E78.5 Hyperlipidemia, unspecified; I10 Essential (primary) hypertension; K21.9 Gastro-esophageal reflux disease without esophagitis; K58.9 Irritable bowel syndrome, unspecified; M19.90 Unspecified osteoarthritis, unspecified site; G47.00 Insomnia, unspecified; F41.9 Anxiety disorder, unspecified; Z79.82 Long term (current) use of aspirin; Z87.891 Personal history of nicotine dependence
CPT/HCPCS: 36415; 74018; 74176; 80053; 81001; 83690; 85025; 87086; 87088; 96361; 96365; 96375; 99284; J0131; J2270; J2405; J7030

== ENCOUNTER 2021-08-17 07:05 | Outpatient (CLI) | payer BC, MEDICARE, SELFPAY ==
--- NOTE | ~2021-08-17 | CT_ITS ---
EXAMINATION: CT diagnostic chest w con DATE: 08/17/2021 07:40 INDICATION: Malignant neoplasm of the left lung TECHNIQUE: Transaxial computed tomographic images of the chest were obtained after the administration of 75 cc of Omnipaque 350 intravenous contrast. The dose-length product (DLP) was 126.49 mGy-cm. Ite rative reconstruction was used. COMPARISON: 05/11/2021 FINDINGS: There are surgical changes of left lower lobectomy. Left perihilar bronchiectasis and airsp blanca opacities persist without significant change. No new airspace opacities are identified. There is no pleural effusion or pneumothorax. There is mild emphysema. Calcified pulmonary nodules and calcifi ed mediastinal lymph nodes are consistent with old granulomatous disease. No pathologically enlarged thoracic lymph nodes are identified. The heart size is normal. A right subclavian Port-A-Cath ends wi th its tip in the distal superior vena cava. A small sliding hiatal hernia is noted. There is mild th oracic spondylosis. Again noted is a subtle, stable sclerotic lesion of the T10 vertebral body. IMPRESSION: 1. Stable radiation fibrosis in the left perihilar region. No suspicious interval change. 2. Stable subtle sclerotic lesion of the T10 vertebral body, consistent with metastatic disease. Reviewed, dictated and finalized at location F. L HOLE GAUGER IMPRESSION: 1. Stable radiation fibrosis in the left perihilar region. No suspicious interv al change. 2. Stable subtle sclerotic lesion of the T10 vertebral body, consistent with me tastatic disease.
--- NOTE | ~2021-08-17 | XR_ITS ---
EXAMINATION: XR abdomen/kub 1V INDICATION: Left ureteral stone TECHNIQUE: Supine views of the abdomen were obtained on 2 radiographs. COMPARISON: 08/02/2021 FINDINGS: A 1.2 cm stone projects in the lower pole of the right kidney. There is a 3 mm stone of the left kidney lower pole. Punctate left upper quadrant calcifications are consistent with old granulom atous disease of the spleen. Cholecystectomy clips are noted. The bowel gas pattern is normal. IMPRESSION: 1. Bilateral nephrolithiasis. Reviewed, dictated and finalized at location F. URE ANALYSIS ENGINEER
--- NOTE | ~2021-08-17 | CT_ITS ---
EXAMINATION: CT abdomen pelvis wo con DATE: 08/17/2021 07:40 INDICATION: Left ureteral stone TECHNIQUE: Computed tomography (CT) of the abdomen and pelvis was performed without intravenous contr ast. The dose-length product (DLP) was 176.53 mGy-cm. Automated exposure control and iterative recons truction technique were employed. COMPARISON: 08/02/2021 FINDINGS: The lung bases are clear. The heart size is normal. Again noted is volume loss in the left hemithorax related to left lower lobectomy. The gallbladder is surgically absent. Punctate calcificat ions in an otherwise normal spleen likely represent healed granulomatous disease. The liver, pancreas , and adrenal glands are normal. The previously described 3 mm stone of the left proximal ureter is n o longer identified. No stones are identified in the ureters or bladder. There is no hydronephrosis o r hydroureter. A 9 mm nonobstructing stone is present in the lower pole of the right kidney. Nonobstr ucting stones of the left kidney measure up to 7 mm. No pathologically enlarged abdominal or pelvic l ymph nodes are identified. There is calcified atherosclerosis of the aorta and many of the other anthony dmitriy. There is no free intraperitoneal gas or evidence of bowel obstruction. The appendix is normal. Colonic diverticulosis is present without evidence of diverticulitis. IMPRESSION: 1. Interval treatment or passage of the previously described proximal left ureteral stone. 2. Bilateral nonobstructing nephrolithiasis. Reviewed, dictated and finalized at location F. LAYER MACHINE OPERATOR IMPRESSION: 1. Interval treatment or passage of the previously described proximal left uret eral stone. 2. Bilateral nonobstructing nephrolithiasis.
== END 2021-08-17 07:06 | disposition home or self-care (01) ==
PROVIDERS: PCP Internal Medicine; Visit Provider Internal Medicine Hematology & Oncology
DX: C34.32 Malignant neoplasm of lower lobe, left bronchus or lung (principal); N20.0 Calculus of kidney; R91.8 Other nonspecific abnormal finding of lung field
CPT/HCPCS: 71260; 74018; 74176; Q9967

== ENCOUNTER 2021-09-01 14:29 | Outpatient (CLI) | payer BC, MEDICARE, SELFPAY ==
--- NOTE | 2021-09-01 14:28 | ECG_ITS ---
Measurements Intervals [place] Rate: 69 P: 39 ND: 170 QRS: 50 QRSD: 85 T: 48 QT: 373 QTc: 401 Interpretive Statements SINUS RHYTHM NORMAL ECG NO PREVIOUS ECG AVAILABLE FOR COMPARISON Electronically Signed On 09-01-2021 14:59:46 PEARL RESTORER by Cricket Zamudio M.D.
[2021-09-01 15:14] LABS: Prothrombin Time 13.1 Seconds (11.1-14.7)
[2021-09-01 15:15] LABS: Partial Thromboplastin Time 24.8 SECONDS (22.3-36.8)
== END 2021-09-01 14:30 | disposition home or self-care (01) ==
LOC: ANHSURGERY 14:32
PROVIDERS: PCP Internal Medicine; Visit Provider Urology
DX: N20.0 Calculus of kidney (principal); Z87.891 Personal history of nicotine dependence; Z01.818 Encounter for other preprocedural examination
CPT/HCPCS: 36415; 85610; 85730; 87086; 93005

== ENCOUNTER 2021-09-04 02:20 | Day surgery (SDC) | payer BC, MEDICARE, SELFPAY ==
[2021-08-31 09:12] VITALS: BMI 23.7
--- NOTE | 2021-08-31 09:29 | PC.NURSE ---
Report to the Outpatient Waiting Room, entrance under the green pavilion located off [facility], at time 8:00 on date 09/04/21. OR Time: 10:00. - You and your visitor will be asked a series of questions to screen for COVID 19 for your protection. - A mask is required within the hospital. One visitor will be allowed to accompany the patient into the hospital. Patients visitor will be instructed to remain with patient at all times or leave the building. We will allow the visitor to come back to the postoperative area when patient is ready. Preoperative COVID Testing Requirements: No COVID Test needed if: (proof is required; if not received patient will have Rapid Test prior to entry) - Patient has received COVID Vaccine at least 14 days prior to procedure date or - Patient has positive COVID test result within last 90 days of surgery date. COVID Test needed if above criteria is not met Patients may have clear liquids (water, carbonated beverages, clear teas, apple juice) until 3 hours prior to surgery (7:00) with a maximum of 20 ounces. - No food from midnight until time of surgery Take the following medications with a SIP of water the morning of surgery: INHALER, LORAZEPAM (IF NEEDED) Medications to discontinue per physician: VITAMINS/SUPPLEMENTS Date to take last dose: 08/31/21 ASPIRIN STOPPED 3/ PER PT. Please no make-up, nail frisian, hairspray, perfume, deodorant, or body powder the day of surgery. No jewelry (including any body piercings) or valuables the day of surgery, leave them at home. Please take a shower or bath the night before, or the morning of, surgery with an antibacterial soap. Wear comfortable, loose fitting clothing. - Jewelry must be removed prior to entering the operating room. Rings and piercings that are not removed may be cut off. - The hospital will not accept responsibility for valuables. - Please leave all valuables, including medications, at home the day of surgery. If you are going home after surgery, a licensed [employer] driver must drive you home. - NO public transportation without another adult. - We recommend that an adult stay with you for 24 hours following discharge. - We also recommend that you do not drive, make important decision, drink alcoholic beverages, or take any drugs that were not prescribed by your health care provider for at least 24 hours after your discharge time. Follow any additional instructions given to you from your surgeon. Telephone instructions given to VELVET KIRK and asked if any additional questions and then verbalized understanding. Patient advised to call surgeon office or pre surgery nurse liaison [phone] if any additional questions.
[2021-09-04] VITALS (9 sets, daily range): BP systolic 104–139; BP diastolic 57–77; PULSE 58–74; RESP 14–21; TEMP 36.4–36.7; O2SAT 94–99; BMI 23.4
--- NOTE | ~2021-09-04 | XR_ITS ---
EXAMINATION: XR abdomen/kub 1V DATE: 09/04/2021 08:21 INDICATION: Urolithiasis. TECHNIQUE: A supine view of the abdomen on 2 radiographs was obtained. COMPARISON: Abdomen radiographs 08/17/2021, CT abdomen and pelvis 08/17/2021 FINDINGS: There are no dilated loops of bowel. Surgical clips in the right upper quadrant are likely from cholecystectomy. There is a 10 mm stone in right kidney. There is a 4 mm on the left kidney. The re are phleboliths in the pelvis. IMPRESSION: 1. Bilateral kidney stones. Reviewed, dictated and finalized at location A. L ORDER CUTTER IMPRESSION: 1. Bilateral kidney stones.
--- NOTE | 2021-09-04 06:33 | WPDHPUPDATE1 ---
History and Physical Update Update Date/Time: 09/04/21 06:33 History and Physical has been reviewed, including an updated exam of the patient. There are NO changes in the patient's condition. Risks, benefits, and alternatives have been discussed and questions answered. Patient agrees to proceed with procedure.
[2021-09-04] MEDS: LACTATED RINGERS 1,000 ML 30 ML IV CONT (08:55)
--- NOTE | 2021-09-04 09:05 | P.OP_ITS ---
Procedure Note - Detailed Date of Procedure 09/04/21 Pre-op Diagnosis Left renal stone Post-op Diagnosis Same Procedure Performed Cystoscopy, left stent removal and left ESWL Surgeon Terence Puckett MD Anesthesia General Description of Procedure The patient was brought to the operative suite where she was placed in the frog- legged position on the Dornier lithotripter table. Flexible cystoscopy was undertaken with a 16F flexible cystoscopy. Her urethra and bladder neck were endoscopically normal. The bladder mucosa was normal and there was a single, orthotopic ureteral orifice bilaterally. The indwelling stent was grasped and removed with ease. The patient was then repositioned in the supine position and the focal point of the lithotriptor was placed at a 6-7mm left mid-ureteral calculus. A total of 2500 shocks were delivered at a power setting of 4. There appeared to be good fragmentation of the stone. The patient tolerated the procedure well and was taken to the recovery room in good condition. Estimated Blood Loss 0 Drains No Packing No Pathology None sent Complications No immediate complications Condition Stable Disposition PACU
--- NOTE | 2021-09-04 09:21 | WPDANESEPPF ---
Anes - Initial Pre Proc Eval Procedure: Operation Date: 09/04/21 10:00 Proposed Procedures p Right Extracorporeal Shock Wave Lithotripsy - Terence Puckett MD Date/Time: 09/04/21 09:21 Surgeon: Terence Puckett MD Pre Op Diagnosis: renal stones Patient Data Age: 55 Gender: F Height: 1.61 m Weight: 61 kg Last Vital Signs Temp 36.7 C 09/04/21 08:58 Pulse 62 09/04/21 08:58 Resp 18 09/04/21 08:58 BP 128/76 09/04/21 08:58 Pulse Ox 98 09/04/21 08:58 Allergies Allergy/AdvReac Type Severity Reaction Status Date / Time amoxicillin Allergy Unknown Rash Verified 09/04/21 08:21 clindamycin Allergy Unknown Itching Verified 09/04/21 08:21 codeine Allergy Unknown Nausea and Verified 09/04/21 08:21 Vomiting Iodinated Contrast Media Allergy Unknown Hives Verified 09/04/21 08:21 levofloxacin Allergy Unknown itching, Verified 09/04/21 08:21 better with benadryl morphine Allergy Unknown Nausea and Verified 09/04/21 08:21 Vomiting Penicillins Allergy Unknown rash Verified 09/04/21 08:21 piperacillin Allergy Unknown Rash Verified 09/04/21 08:21 tazobactam Allergy Unknown Rash Verified 09/04/21 08:21 doxycycline Allergy Vomiting Verified 09/04/21 08:21 Home Medications Medication Instructions Recorded Confirmed Type aspirin 81 mg PO DAILY 04/18/19 09/04/21 History budesonide-formoterol [Symbicort] 2 puff INHALATION Q12H 04/18/19 08/31/21 History elderberry fruit and flower 1 cap PO DAILY 04/18/19 09/04/21 History lorazepam 0.5 mg tablet 0.5 mg PO DAILY PRN 06/01/19 08/31/21 History omeprazole 40 mg capsule,delayed 40 mg PO DAILY 06/01/19 08/31/21 History release loperamide [Imodium A-D] 2 mg PO Q4H PRN 12/11/19 08/31/21 History cholecalciferol (vitamin D3) 50 mcg PO DAILY 03/18/20 09/04/21 History mirtazapine 15 mg tablet 15 mg PO DAILY PRN 11/12/20 08/31/21 History hydrocodone-acetaminophen 1 - 2 tablet PO Q6H PRN #20 tablet 09/04/21 Rx sulfamethoxazole-trimethoprim 1 tablet PO Q12H #6 tablet 09/04/21 Rx Patient hx anesthesia problems: none Family hx anesthesia problems: none Results Review: All pre-operative results and documents have been reviewed as part of the pre-operative evaluation. [facility] Past Medical History Medical History Anxiety Arthritis Benign essential hypertension Cholecystectomy planned Chronic GERD FH: cholecystectomy Insomnia disorder Irritable bowel syndrome Lesion of pelvic bone Lumbar spondylosis Malignant neoplasm of lower lobe of left lung Other and unspecified hyperlipidemia Small cell carcinoma of right lung Surgical History Surgical History H/O: hysterectomy History of bilateral tubal ligation Family History Family History Other Family history of alcoholism Family history of kidney disease Family history of malignant neoplasm Family history of seizure disorder Social History Social History Smoking packs per day: 1 Smoking cigarettes per day: 20.0 Years smoked: 32 Smoking pack-years: 32.00 Smoking status: Former smoker Tobacco type: cigarettes Smoking end date: 06/27/15 Alcohol intake: current Alcohol use details: 1-2 EVERY FEW MONTHS Substance use: current Substance use type: marijuana Other substance usage details: CBD OIL Living arrangements: with family Gender identity (if verbalized by the patient): Female Spiritual care concerns: No Anes - Eval Final PreProcedure Day of Procedure 09/04/21 09:21 Patient weight: normal Heart: regular rate and rhythm Lungs: decreased breath sounds Airway: Mallampati scale class II Neurological: alert and oriented Last oral intake: >/= 8 hours ASA classification: III Emergent: no Anesthetic plan: proceed Anesthes
--- NOTE | 2021-09-04 10:36 | W.PM.PROC2 ---
Procedure Note - Detailed Date of Procedure 09/04/21 Pre-op Diagnosis Bilateral renal stones Post-op Diagnosis Same Procedure Performed Right ESWL Surgeon Terence Puckett MD Anesthesia General Description of Procedure The patient was brought to the operative suite where he was placed in the supine position on the Dornier lithotripsy table. The focal point of the lithotripter was placed at a 10mm right renal calculus. A total of 2500 shocks were delivered at a power setting of 4. There appeared to be good fragmentation of the stone. The patient tolerated the procedure well and was taken to the recovery room in good condition. Estimated Blood Loss 0 Drains No Packing No Pathology None sent Complications No immediate complications Condition Stable Disposition PACU
== END 2021-09-04 13:27 | disposition home or self-care (01) ==
PROVIDERS: PCP Internal Medicine; Visit Provider Urology
PROC: (CPT 50590; principal; 2021-09-04 10:00)
DX: N20.2 Calculus of kidney with calculus of ureter (principal); I10 Essential (primary) hypertension; K21.9 Gastro-esophageal reflux disease without esophagitis; K58.9 Irritable bowel syndrome, unspecified; E78.5 Hyperlipidemia, unspecified; F41.9 Anxiety disorder, unspecified; F12.90 Cannabis use, unspecified, uncomplicated; Z87.891 Personal history of nicotine dependence; Z79.82 Long term (current) use of aspirin; Z79.84 Long term (current) use of oral hypoglycemic drugs
CPT/HCPCS: 50590; 74018; J0131; J1100; J2250; J2405; J2704; J7120

== ENCOUNTER 2021-12-17 09:20 | Outpatient (CLI) | payer OTHER, MEDICARE, SELFPAY ==
--- NOTE | ~2021-12-17 | XR_ITS ---
EXAMINATION: XR abdomen/kub 1V INDICATION: Bilateral renal stones follow-up TECHNIQUE: Supine views of the abdomen were obtained on 2 radiographs. COMPARISON: 09/04/2021 FINDINGS: A 10 mm stone previously seen in the right kidney lower pole is no longer identified. There is a 4 mm stone of the left kidney. No stone fragments are identified along the expected courses of ureters or within the urinary bladder. There are phleboliths in the pelvis. The bowel gas pattern is normal. There is moderate lower lumbar spondylosis. IMPRESSION: 1. Interval treatment of the previously described 10 mm right kidney stone. Reviewed, dictated and finalized at location F.
== END 2021-12-17 09:21 | disposition home or self-care (01) ==
PROVIDERS: PCP Internal Medicine; Visit Provider Urology
DX: N20.0 Calculus of kidney (principal)
CPT/HCPCS: 74018

== ENCOUNTER 2022-01-06 08:32 | Outpatient (CLI) | payer OTHER, MEDICARE, SELFPAY ==
--- NOTE | ~2022-01-06 | CT_ITS ---
EXAMINATION: CT chest abdomen pelvis w con DATE: 01/06/2022 09:21 INDICATION: TECHNIQUE: Computed tomography (CT) of the chest, abdomen, and pelvis was performed without intraveno us contrast. Automated exposure control and iterative reconstruction technique were employed. Exam do se: 403.90 mGy-cm total exam DLP. COMPARISON: 08/17/2021 CT chest FINDINGS: CHEST CT: Right kena-cath, catheter tip in lower superior vena cava. Status post left lower lobectomy. Chronic left upper lobe scarring, stable since 08/17/2021. Bilateral calcified hilar and mediastinal nodes and bilateral calcified pulmonary granulomas, consist ent with old pulmonary granulomatous disease No pulmonary infiltrate or consolidation or interval pulmonary mass lesion. No hilar or mediastinal mass lesion or lymphadenopathy. No thoracic aortic aneurysm or dissection. ABDOMEN/PELVIS CT: There is diffuse hepatic steatosis. No hepatic space occupying mass lesion. Status post cholecystectomy. No abnormal bile duct or pancreatic duct dilatation is evident consideri ng cholecystectomy. No pancreatic mass lesion or calcification. Normal splenic size. Calcified spleni c granulomas. Normal morphology of the adrenal glands. No renal mass lesion. Nonobstructing 2.5 x 5 mm and 2 mm left renal calculi. No ureteral calculus or hydroureteronephrosis. Normal caliber of the abdominal aorta. No intraperitoneal or retroperitoneal or pelvic mass lesion or adenopathy or ascites. Diverticulosis of the left and right colon; no CT evidence of diverticulitis. Normal appendix. No bow el obstruction, bowel wall thickening, pneumatosis or intraperitoneal free air. Small fat-containing umbilical hernia. Subtle sclerotic area in the posterior inferior 10th thoracic vertebral body is again noted, of uncer tain significance. Consider including bone scan No suspicious osteolytic or osteosclerotic lesions ar e noted otherwise. IMPRESSION: Status post left lower lobectomy for lung cancer; stable chronic left upper lobe scarrin g Old granulomatous disease Hepatic steatosis Nonobstructive left nephrolithiasis Diverticulosis of the colon; no evidence of diverticulitis Subtle sclerotic area in the posterior inferior 10th thoracic vertebral body; consider bone scan for further evaluation Reviewed, dictated and finalized at Location A. Reviewed, dictated and finalized at location A. IMPRESSION: Status post left lower lobectomy for lung cancer; stable chronic l eft upper lobe scarring Old granulomatous disease Hepatic steatosis Nonobstructive left nephrolithiasis Diverticulosis of the colon; no evidence of diverticulitis Subtle sclerotic area in the posterior inferior 10th thoracic vertebral body; c onsider bone scan for further evaluation
--- NOTE | ~2022-01-06 | NM_ITS ---
EXAMINATION: NM bone scan whole body DATE: 01/06/2022 12:49 INDICATION: Malignant neoplasm of the lower lobe of the left lung. TECHNIQUE: 23.6 mCi Tc-99m HDP was administered intravenously. Delayed whole-body scintigrams were o btained. COMPARISON: Bone scan dated 03/21/[address] chest, abdomen and pelvis dated 01/06/2022 FINDINGS: Likely degenerative mild joint centered uptake at the bilateral acromioclavicular joints, bilateral s acroiliac joints and right sternoclavicular articulation. There is increased uptake at the left side of the mandible or bone scan with corresponding to an expansile lytic lesion surrounding an impacted left posterior molar on CT dated 09/10/2019. Additional likely degenerative facet joint centered uptak e at the left and to lesser degree right sides of the mid cervical spine. No evident bone uptake asso ciated with a likely benign 8 mm peripherally sclerotic lesion in the right ilium just remained uncha nged since PET CT dated 03/15/2017. No other suspicious foci of abnormal bone activity. IMPRESSION: 1. . Increased uptake at the left side of the mandible corresponds to expansile lytic lesion associat ed with an unerupted tooth on CT dated 09/11/2019. The lesion at that time was increased in present si ze but had been present since at least PET/CT dated 03/15/2017 favoring a benign etiology such as a de ntigerous cyst. Oral maxillofacial surgical consultation was recommended at that time and would corre late with clinical history. 2. A few scattered foci of likely degenerative joint centered uptake with typical distribution. No ot her lesions suspicious for metastatic disease. Reviewed, dictated and finalized at location B. IMPRESSION: 1. . Increased uptake at the left side of the mandible corresponds to expansile lytic lesion associated with an unerupted tooth on CT dated 09/11/2019. The les ion at that time was increased in present size but had been present since at le ast PET/CT dated 03/15/2017 favoring a benign etiology such as a dentigerous cys t. Oral maxillofacial surgical consultation was recommended at that time and wo uld correlate with clinical history. 2. A few scattered foci of likely degenerative joint centered uptake with typic al distribution. No other lesions suspicious for metastatic disease.
== END 2022-01-06 08:33 | disposition home or self-care (01) ==
PROVIDERS: PCP Internal Medicine; Visit Provider Internal Medicine Hematology & Oncology
DX: C34.32 Malignant neoplasm of lower lobe, left bronchus or lung (principal); K76.0 Fatty (change of) liver, not elsewhere classified; K57.30 Diverticulosis of large intestine without perforation or abscess without bleeding; N20.0 Calculus of kidney; K42.9 Umbilical hernia without obstruction or gangrene; Z90.49 Acquired absence of other specified parts of digestive tract
CPT/HCPCS: 71260; 74177; 78306; A9561; Q9967

== ENCOUNTER 2022-05-28 09:30 | Outpatient (RCR) | payer OTHER, MEDICARE, SELFPAY ==
--- NOTE | 2022-04-21 15:58 | PTOPEVAL1 ---
Assessment and note entered by Ginger Corbin, PT Evaluation Information Assessment Status Evaluation Diagnosis neck pain Onset December 2021 Subjective Information was driving and heard a car, jerked her head quickly to the L and instant pain; improved since onset, but still hurts; delayed in starting therapy due to change in her insurance and issues with insurance. Reported Pain Level Pain Score Self Report Additional Pain Score Comments pain range of 0-4/10; R lateral-upper neck ache and tender; increase pain with turning head to the L/R and when wake up in AM; problems getting comfortable to fall asleep; decrease pain--lie down and support head; use heat pad PRN--helps; Assessment PT Clinical Summary Divina has the diagnosis of neck pain. Onset of pain with quickly turning her head when driving in January, pain has decreased since but still there. She is able to do her usual home and self care tasks, but slower due to neck pain. Reports having difficulty getting her neck comfortable for falling asleep, pain when awaken in AM and when turning her head to R and L sides. Her medical history includes lung cancer and she is currently undergoing chemotherapy once/week. And she has a port a cath in R upper trunk. With the evaluation, she reports increased neck pain with cervical rotation to R and L, flexion and side bending to R; has poor standing position of cervical-thoracic spine and spasms over neck and upper traps. B shoulder AROM is WNL and not painful. Skilled PT services are indicated for modalities to decrease pain and spasms, therapeutic exercises to stretch and strengthen her cervical-thoracic musculature and education for home exercises and posture correction. Plan of Care Interventions Hot Pack/Cold Pack,Manual Therapy,Neuro Re- education,Patient/Caregiver Education,Therapeutic Activities,Therapeutic Exercise PT Services Indicated Yes Treatment Frequency and 1x/wk for 5 weeks Duration These treatments will address the objective and functional deficits as defined above. The patient will be advanced safely and appropriately in order for the patient to progress towards his/her prior level of function. Additional exercises will be introduced and as well as a comprehensive home exercise program upon discharge, if needed, ?to ensure carryover of functional gains achieved in the clinic. This treatment plan has been reviewed and a
--- NOTE | 2022-05-28 10:17 | PTOPDC ---
Assessment and note entered by Ginger Corbin, PT Evaluation Information Assessment Status Discharge Diagnosis neck pain Onset December 2021 Subjective Information Divina reports: neck is better, not hurting as much; sometimes pops in neck, but not painful; can feel sometimes when turn head, but less than it was; doing the exercises at home; agrees to discharge from therapy. Reported Pain Level Pain Score Self Report Additional Pain Score Comments pain range of 0-1/10, neck, sharp pain that is short, pressure pain; no issues with falling asleep, use a towel roll under neck and helps; decrease pain with reposition neck, heat; pain is not that bad now, is better; the kinesiotape helps and have some at home; demo and used self massage tools--theracane and occipital release tools; she reported good reduction of tightness with them and is interested in obtaining--wrote the names on paper and issued to her. Assessment PT Clinical Summary Divina has received 4 PT sessions for cervical pain. Compared to the initial evaluation: pain rating has decreased from 5 to 1/10 at the worst; does not have issues with sleeping and getting comfortable; posture has improved; active motion of cervical rotation to R has increased; no longer has pain with rotation R and L, or flexion. Kinesiotape and self massage tools help to decrease her pain. She is independent with her home exercises. The goals were achieved, except continues to have pain with side bending to R. Discharge PT services and she is to continue with her home exercises. Plan of Care PT Services Indicated No
== END 2022-07-05 11:34 | disposition home or self-care (01) ==
LOC: ANHPT 09:30
PROVIDERS: PCP Internal Medicine; Visit Provider Internal Medicine
DX: S16.1XXD Strain of muscle, fascia and tendon at neck level, subsequent encounter (principal)
CPT/HCPCS: 97110; 97140; 97161; 97530

== ENCOUNTER 2022-06-01 12:40 | Outpatient (CLI) | payer OTHER, MEDICARE, SELFPAY ==
--- NOTE | 2022-06-01 | ECG_ITS ---
Measurements Intervals [place] Rate: 67 P: -12 PA: 165 QRS: 70 QRSD: 84 T: 58 QT: 414 QTc: 438 Interpretive Statements SINUS RHYTHM COMPARED TO ECG 09/01/2021 14:56:44 NO SIGNIFICANT CHANGES Electronically Signed On 06-01-2022 15:34:00 ACCOUNT CONTACT ASSOCIATE by Indira Nichols M.D.
== END 2022-06-01 12:41 | disposition home or self-care (01) ==
PROVIDERS: PCP Internal Medicine; Visit Provider Internal Medicine Hematology & Oncology
DX: R07.9 Chest pain, unspecified (principal)
CPT/HCPCS: 36415; 80047; 80053; 85025; 85380; 93005; 96367; 96372; 96375; 96413; 96415; J0461; J1100; J2469; J7040; J9206

== ENCOUNTER 2022-06-02 15:03 | Outpatient (CLI) | payer OTHER, MEDICARE, SELFPAY ==
--- NOTE | ~2022-06-02 | CT_ITS ---
EXAMINATION: CTA chest PE protocol DATE: 06/02/2022 15:27 INDICATION: Chest pain. Shortness of breath. Elevated d-dimer. History of lung cancer. TECHNIQUE: Computed tomography angiography (CTA) of the chest was performed with 100 mL Omnipaque-350 intravenous contrast timed to evaluate the pulmonary arteries. Coronal maximum intensity projection 3D-reconstructions were created by the technologist. Automated exposure control and iterative reconst ruction technique were employed. Exam dose: 263.04 mGy-cm total exam DLP. COMPARISON: 01/06/2022 CT chest abdomen pelvis 05/11/2021 CT chest FINDINGS: There is diagnostic contrast enhancement of the pulmonary arteries and no evidence of pulmo nary embolism. Right Port-A-Cath catheter in superior vena cava. No thoracic aortic aneurysm or dissection. Borderline heart size. No pericardial or pleural effusion. No hilar or mediastinal mass lesion or lymphadenopathy. Status post left lower lobectomy. Left upper lobe atelectasis/scarring is again noted, present since 05/11/2021. Left inferior vena cava, anatomic variant. Status post cholecystectomy.. Left nephrolithiasis is noted. No adrenal mass lesion is detected. IMPRESSION: No evidence of pulmonary embolism Prominent stable left upper lung scarring Status post left lower lobectomy Status post cholecystectomy Left nephrolithiasis Reviewed, dictated and finalized at Location A. Reviewed, dictated and finalized at location B. ATIONS OFFICER
== END 2022-06-02 15:04 | disposition home or self-care (01) ==
LOC: ANHIMG 15:04
PROVIDERS: PCP Internal Medicine; Visit Provider Internal Medicine Hematology & Oncology
DX: R07.9 Chest pain, unspecified (principal); N20.0 Calculus of kidney
CPT/HCPCS: 71275; Q9967

== ENCOUNTER 2022-06-10 13:11 | Outpatient (CLI) | payer OTHER, MEDICARE, SELFPAY ==
--- NOTE | ~2022-06-10 | DEXA_ITS ---
Bone Density Report Name: VELVET KIRK Age: 56 Sex: Female Ethnicity: White Date of : 1965 Indication: postmenopausal; screening for osteoporosis; height loss; inflammatory bowel disease; history of glucocorticoids; cancer; asthma or emphysema; hysterectomy; secondary osteoporosis; Referring Provider: LEX SHELL Study: Bone densitometry was performed. Exam Date: June 10, 2022 Accession number: [id number] Bone Density: Region BMD T-score Z-score Classification AP Spine(L1-L4) 0.746 -2.7 -1.4 Osteoporosis Femoral Neck (Left) 0.595 -2.3 -1.1 Osteopenia Total Hip (Left) 0.722 -1.8 -0.9 Osteopenia Femoral Neck (Right) 0.623 -2.0 -0.8 Osteopenia Total Hip (Right) 0.723 -1.8 -0.9 Osteopenia Total Hip Mean 0.723 -1.8 -0.9 Osteopenia World Health Organization criteria for BMD impression classify patients as: Normal (T-score at or above -1.0), Osteopenia (T-score between -1.0 and -2.5), or Osteoporosis (T-score at or below -2.5). 10-year Fracture Risk: FRAX not reported because: Some T-score for Spine Total or Hip Total or Femoral Neck at or below -2.5 Clinical Information Provided by Patient: Has taken Glucocorticoids Has secondary osteoporosis Has used the following medications: HRT (i.e. estrogen/hormone therapy), Vitamin D Has the following medical conditions: Asthma or Emphysema, Cancer, Inflammatory bowel diseases, Hysterectomy Patient maximum height was 64 Menopause Age: 40 No regular weight bearing exercise Drinks caffeinated beverages Onset of menses at age 10 Number of children 3 Impression: The patient has osteoporosis, based on the Total Spine T-score. The patient has risk factors, including: history of glucocorticoid therapy. Discussion: INCREASED RISK OF FRACTURE. BONE DENSITY IS UNDESIRABLY LOW AT ONE OR MORE SKELETAL SITES, CONSISTENT WITH POSTMENOPAUSAL OSTEOPOROSIS. This patient's lowest T-score meets the World Health Organization's (WHO) criteria for osteoporosis at one or more sites (T-score -2.5 or below). In untreated patients, the risk of osteoporotic fracture increases approximately two-fold for each 1.0 SD decrease in T-score. Low bone density is not the only risk factor for fracture; also consider factors such as patient's age, frailty or poor health, risk of falling, risk of injury, previous osteoporotic fracture, family history of osteoporosis, cigarette smoking, low body weight, etc. Not everyone with low bone mineral density has osteoporosis; osteomalacia and other metabolic bone disorders should also be considered. Patients who have osteoporosis should be evaluated for specific diseases and conditions (secondary causes) that may cause or contribute to bone loss. The [place] [employer] (AACE) and National Osteoporosis Foun
== END 2022-06-10 13:12 | disposition home or self-care (01) ==
PROVIDERS: PCP Internal Medicine; Visit Provider Internal Medicine Hematology & Oncology
DX: M81.0 Age-related osteoporosis without current pathological fracture (principal); M85.852 Other specified disorders of bone density and structure, left thigh; M85.851 Other specified disorders of bone density and structure, right thigh
CPT/HCPCS: 77080

== ENCOUNTER 2022-09-21 08:28 | Outpatient (CLI) | payer OTHER, MEDICARE, SELFPAY ==
--- NOTE | ~2022-09-21 | CT_ITS ---
Clinical Indication: Lung cancer CT Scan of the Chest with Contrast: Technique: Contiguous sections were acquired throughout the chest after intravenous administration of 75 cc of Omnipaque 350. Dose reduction technique was used on this scan by utilizing automated exposu re control and iterative reconstruction technique. The dose-length product (DLP) was 140.84 mGy-cm. COMPARISON: 06/02/2022 Findings: There is no evidence of any significant mediastinal, hilar or axillary lymphadenopathy. Calcified med iastinal and hilar lymphadenopathy is present. There is no filling defect in the pulmonary arterial t ree to suggest pulmonary embolus. There is no evidence of aortic dissection or aneurysm. There is no evidence of pleural or pericardial effusion. There is evidence of prior left lower lobectomy. There is stable chronic left-sided volume loss, with stable consolidative change and possible bronchiectatic change in the left upper lobe/left apex celeste on. Stable mild pleural thickening of the left apex region. Right lung is hyperinflated, and remains clear aside from calcified right lower lobe granuloma. Images through the upper abdomen reveal no abnormalities. Impression: No acute abnormality seen. No definite evidence for active malignancy or metastatic disease. Prior left lower lobectomy with chronic left-sided volume loss and chronic consolidative change and p ossible bronchial ectatic change in the left upper lobe/left lung apex. Evidence of prior granulomatous disease. Reviewed, dictated and finalized at location . Impression: No acute abnormality seen. No definite evidence for active malignancy or metast atic disease. Prior left lower lobectomy with chronic left-sided volume loss and chronic cons olidative change and possible bronchial ectatic change in the left upper lobe/l eft lung apex. Evidence of prior granulomatous disease.
== END 2022-09-21 08:29 | disposition home or self-care (01) ==
PROVIDERS: PCP Internal Medicine; Visit Provider Internal Medicine Hematology & Oncology
DX: C34.32 Malignant neoplasm of lower lobe, left bronchus or lung (principal)
CPT/HCPCS: 71260; Q9967

== ENCOUNTER 2023-01-11 08:40 | Outpatient (CLI) | payer OTHER, MEDICARE, SELFPAY ==
--- NOTE | ~2023-01-11 | CT_ITS ---
CT Scan of the Chest without Contrast: Clinical Indication: Lung cancer Technique: Contiguous sections were acquired throughout the chest without intravenous contrast. Dose reduction technique was used on this scan by utilizing automated exposure control and iterative recon struction technique. The dose-length product (DLP) was 127.88 mGy-cm. COMPARISON: 09/21/2022 Findings: There is no evidence of any significant mediastinal, hilar or axillary lymphadenopathy. Calcified med iastinal and right hilar lymph nodes are present. The mediastinal soft tissues appear normal. There is no evidence of pleural or pericardial effusion. Patient is status post left lower lobectomy. There is stable airspace disease and bronchiectatic moeller ge at the left lung apex, which could reflect chronic post radiation change. Right lung is clear asid e from calcified granuloma. Images through the upper abdomen reveal 7 mm nonobstructing left renal stone. Impression: No evidence for recurrent malignancy or metastatic disease. Status post left lower lobectomy with stable right-sided volume loss. Stable left apical airspace con solidation and bronchiectatic change, possibly postradiation change. Evidence of prior granulomatous disease. Reviewed, dictated and finalized at location . Impression: No evidence for recurrent malignancy or metastatic disease. Status post left lower lobectomy with stable right-sided volume loss. Stable le ft apical airspace consolidation and bronchiectatic change, possibly postradiat ion change. Evidence of prior granulomatous disease.
== END 2023-01-11 08:41 | disposition home or self-care (01) ==
PROVIDERS: PCP Family Medicine; Visit Provider Internal Medicine Hematology & Oncology
DX: C34.32 Malignant neoplasm of lower lobe, left bronchus or lung (principal)
CPT/HCPCS: 71250

== ENCOUNTER 2023-02-24 08:41 | Outpatient (CLI) | payer OTHER, MEDICARE, SELFPAY ==
--- NOTE | ~2023-02-24 | XR_ITS ---
EXAMINATION: XR fl port a cath w contrast DATE: 02/24/2023 09:48 INDICATION: Left lower lobe lung cancer. No blood return from a right subclavian central venous port catheter. TECHNIQUE: 408 fluoroscopic images of the upper chest were obtained during injection of a total of 8 mL Omnipaque 240 contrast in the patient's existing port catheter. The amount of fluoroscopy time use d during this procedure was 0.3 minutes. COMPARISON: Chest CT dated 01/11/2023 FINDINGS: The tip of a right subclavian central venous port catheter projects over the caudal superior vena cav a. Calcified right paratracheal lymph node projects in the tip of the catheter and along with additio nal calcified right hilar lymph nodes is likely related to old granulomatous disease. Contrast inject ion demonstrates tracking for approximately 3.5 cm from the tip of the catheter in retrograde fashion along side the catheter likely within a fibrin sleeve. IMPRESSION: 1. Likely fibrin sleeve surrounding the distal 3.5 cm of a right subclavian central venous port faith ter which interferes with the free flow of contrast from the tip of the catheter. Reviewed, dictated and finalized at location A. IMPRESSION: 1. Likely fibrin sleeve surrounding the distal 3.5 cm of a right subclavian zoila tral venous port catheter which interferes with the free flow of contrast from the tip of the catheter.
== END 2023-02-24 08:42 | disposition home or self-care (01) ==
PROVIDERS: PCP Family Medicine; Visit Provider Internal Medicine Hematology & Oncology
DX: C34.32 Malignant neoplasm of lower lobe, left bronchus or lung (principal)
CPT/HCPCS: 36598; Q9966

== ENCOUNTER 2023-03-01 11:04 | Observation (INO) | payer OTHER, MEDICARE, SELFPAY ==
[2023-03-01] VITALS (40 sets, daily range): BP systolic 90–111; BP diastolic 65–83; PULSE 84–105; RESP 14–33; TEMP 36.6; O2SAT 95–100
--- NOTE | ~2023-03-01 | CT_ITS ---
EXAMINATION: CTA chest PE protocol DATE: 03/02/2023 13:21 INDICATION: Cough. Lung cancer. TECHNIQUE: Computed tomography angiography (CTA) of the chest was performed with 100 mL Omnipaque-350 intravenous contrast timed to evaluate the pulmonary arteries. Coronal maximum intensity projection 3D-reconstructions were created by the technologist. Automated exposure control and iterative reconst ruction technique were employed. The dose-length product was 200.95 mGy-cm. COMPARISON: Chest CT 01/11/2023 FINDINGS: There are changes of left lower lobectomy. There is mild emphysema. There are airspace opac ities with volume loss and varicose bronchiectasis involving left upper lobe in the mid and upper julian g zones, consistent with radiation fibrosis. There are groundglass opacities in the upper lobes and r ight lower lobe. A calcified right lung nodule and calcified right hilar and mediastinal lymph nodes are consistent with old granulomatous disease. There is a trace left pleural effusion. There is a rig ht subclavian port with tip at superior cavoatrial junction. There is thrombus in superior vena cava around the catheter. The heart size is normal. No pericardial effusion. There is no pulmonary embolus . There is a 6 mm stone in left kidney. There is a small sliding hiatal hernia. There is mild thoraci c spondylosis. IMPRESSION: 1. No pulmonary embolus. 2. Thrombus in superior vena cava around the port catheter. 3. Groundglass opacities in the upper lobes and right lower lobe, likely mild pulmonary edema. 4. Left lower lobectomy. Radiation fibrosis in left upper lobe. Reviewed, dictated and finalized at location A. IMPRESSION: 1. No pulmonary embolus. 2. Thrombus in superior vena cava around the port catheter. 3. Groundglass opacities in the upper lobes and right lower lobe, likely mild p ulmonary edema. 4. Left lower lobectomy. Radiation fibrosis in left upper lobe.
--- NOTE | ~2023-03-01 | NM_ITS ---
EXAMINATION: NM lung vent and perfusion DATE: 03/01/2023 20:39 INDICATION: Dyspnea. History of lung cancer, recent Covid infection, and recent immobility. Reported contrast allergy. Prior left lower lobectomy. TECHNIQUE: The patient breathed 21.6 mCi xenon-133 for ventilation images. 5.34 mCi Tc-99m MAA was ad ministered intravenously for perfusion images. Scintigraphic images of the chest were obtained. COMPARISON: X-ray chest, same date; CT chest 01/11/2023 FINDINGS: The single breath ventilation image demonstrates Decreased ventilation on the left with an upper lung ventilation defect. Ventilation washout images show persistence of the left upper lung defect with l eft lower lung air trapping. Perfusion images show a triple matched defect in the left upper lung co rresponding with a region of scar/treated malignancy. Moderate sized lingular defects in the left julian g. IMPRESSION: Intermediate probability for pulmonary embolism (20-80% chance of pulmonary embolism). Recommend eboni tment based on pretest probability. Consider CTPA following appropriate pretreatment. Reviewed, dictated and finalized at location K. IMPRESSION: Intermediate probability for pulmonary embolism (20-80% chance of pulmonary emb olism). Recommend treatment based on pretest probability. Consider CTPA followi ng appropriate pretreatment.
--- NOTE | ~2023-03-01 | XR_ITS ---
EXAMINATION: XR chest 2V DATE: 03/01/2023 14:35 INDICATION: Shortness of breath, recent COVID, history of lung cancer TECHNIQUE: PA and lateral views of the chest are obtained. COMPARISON: 02/24/2023, 06/17/2019 FINDINGS: The lungs are free of acute opacities. There is chronic volume loss of the left hemithorax. There is stable left perihilar masslike opacity, consistent with treated malignancy. A right subclav lucia Port-A-Cath ends with its tip in the superior vena cava. Calcified pulmonary nodules and calcifie d right hilar and subcarinal lymph nodes are consistent with old granulomatous disease. Surgical clip s in the right upper quadrant are likely from prior cholecystectomy. There is mild thoracic spondylos is. IMPRESSION: 1. Changes consistent with treated malignancy in the left lung without acute cardiopulmonary abnormal ity identified. Reviewed, dictated and finalized at location L. IMPRESSION: 1. Changes consistent with treated malignancy in the left lung without acute ca rdiopulmonary abnormality identified.
--- NOTE | 2023-03-01 14:18 | ECG_ITS ---
Measurements Intervals [place] Rate: 83 P: 39 [place]: 165 QRS: 80 QRSD: 78 T: 144 QT: 371 QTc: 436 Interpretive Statements SINUS RHYTHM LOW QRS VOLTAGE IN PRECORDIAL LEADS CANNOT RULE OUT SEPTAL INFARCT, AGE INDETERMINATE BORDERLINE T WAVE ABNORMALITY- DIFFUSE LEADS BASELINE ARTIFACT- I, III, AVR, AVL, V1, V4-V6 ABNORMAL ECG COMPARED TO ECG 06/01/2022 13:31:08 NO SIGNIFICANT CHANGES Electronically Signed On 03-01-2023 15:14:12 CDT by Anthony Vines D.O.
[2023-03-01 15:18] LABS: Basophils Absolute Auto 0.1 K/mm3 (0.0-0.1); Basophils Percent Auto 0.8 % (0.2-1.2); Eosinophils Percent Auto 0.3 % (0-4.4); Hematocrit 36.4 % (37.0-47.0); Hemoglobin 11.6 g/dL (12.0-15.0); Immature Granulocyte Absolute 0.48 K/mm3 (0.00-0.031); Immature Granulocyte Percent A 4.5 % (0-0.5); Lymphocytes Absolute Auto 1.35 K/mm3 (0.9-3.2); Lymphocytes Percent Auto 12.7 % (18.3-44.2); Mean Corpuscular HGB Conc 31.9 g/dl (32-36); Mean Corpuscular Hemoglobin 32.8 pg (26-34); Mean Corpuscular Volume 102.8 fl (80-100); Mean Platelet Volume 9.9 fl (7.4-10.4); Monocytes Absolute Auto 1.2 K/mm3 (0.1-0.6); Monocytes Percent Auto 11.4 % (2.6-8.5); Neutrophils Absolute Auto 7.5 K/mm3 (1.3-6.7); Neutrophils Percent Auto 70.3 % (45.5-73.1); Nucleated Red Blood Cells Perc 0.2 % (0.0-0.2); Platelet Count Result 259 k/mm3 (150-375); Red Blood Count 3.54 M/mm3 (4.2-5.4); Red Cell Distribution Width 13.4 % (11.5-14.5); White Blood Count 10.7 K/mm3 (4.5-10.0)
[2023-03-01 15:29] LABS: Alanine Aminotransferase 21 U/L (6-35); Albumin Level 3.5 g/dL (3.5-5.1); Alkaline Phosphatase 120 U/L (38-126); Anion Gap 7 mmol/L (8-16); Aspartate Amino Transferase 40 U/L (14-36); Bilirubin,Total 1.2 mg/dL (0.2-1.3); Blood Urea Nitrogen 14 mg/dL (7-17); Calcium 8.5 mg/dL (8.4-10.2); Carbon Dioxide 31 mmol/L (22-30); Chloride 97 mmol/L (98-107); Estimated CRCL calculation 40 ml/min; Estimated Glomerular Filt Rate 51; Glucose 115 mg/dL (65-110); Potassium 3.4 mmol/L (3.4-5.0); Sodium 135 mmol/L (137-145)
--- NOTE | 2023-03-01 17:18 | ED.GENADULT ---
HPI - General Adult General Chief complaint: Shortness of Breath/Dyspnea <Edward Sánchez MD - Last Filed: 03/01/23 19:45> Stated complaint: covid + 1.5 weeks ago - shortness of breath <Edward Sánchez MD - Last Filed: 03/01/23 19:45> Time Seen by Provider: 03/01/23 16:16 <Edward Sánchez MD - Last Filed: 03/01/23 19:45> History of Present Illness HPI narrative: This is a 57-year-old female, with past history of lung cancer status post lobectomy, diagnosed with COVID 1-1/2 weeks ago, who presents emergency department complaining of persistent generalized fatigue. She states she has had dry cough without blood. She states she has had decreased appetite but denies abdominal pain, nausea, vomiting, chest pain or loss of consciousness. <Edward Sánchez MD - Last Filed: 03/01/23 19:45> Related Data Home medications: Home Medications Medication Instructions Recorded Confirmed aspirin 81 mg chewable tablet 81 mg PO DAILY 04/18/19 02/02/23 budesonide-formoterol HFA 160 2 puff inhalation Q12H 04/18/19 02/02/23 mcg-4.5 mcg/actuation aerosol inhaler (Symbicort) omeprazole 40 mg capsule,delayed 40 mg PO DAILY 06/01/19 02/02/23 release loperamide 2 mg capsule (Imodium 2 mg PO Q4H PRN Diarrhea 12/11/19 02/02/23 A-D) mirtazapine 15 mg tablet 15 mg PO DAILY PRN Nausea 11/12/20 02/02/23 <Edward Sánchez MD - Last Filed: 03/01/23 19:45> Allergies/adverse reactions: Allergies Allergy/AdvReac Type Severity Reaction Status Date / Time amoxicillin Allergy Unknown Rash Verified 02/09/23 09:52 clindamycin Allergy Unknown Itching Verified 02/09/23 09:52 codeine Allergy Unknown Nausea and Verified 02/09/23 09:52 Vomiting Iodinated Contrast Media Allergy Unknown Hives Verified 02/09/23 09:52 levofloxacin Allergy Unknown itching, Verified 02/09/23 09:52 better with benadryl morphine Allergy Unknown Nausea and Verified 02/09/23 09:52 Vomiting Penicillins Allergy Unknown rash Verified 02/09/23 09:52 piperacillin Allergy Unknown Rash Verified 02/09/23 09:52 tazobactam Allergy Unknown Rash Verified 02/09/23 09:52 doxycycline Allergy Vomiting Verified 02/09/23 09:52 Sulfa (Sulfonamide Allergy Redness of Verified 02/09/23 09:52 Antibiotics) Skin sulfamethoxazole AdvReac Mild redness Verified 02/09/23 09:52 [From Sulfamethoxazole-Trimethoprim] trimethoprim AdvReac Mild redness Verified 02/09/23 09:52 [From Sulfamethoxazole-Trimethoprim] <Edward Sánchez MD - Last Filed: 03/01/23 19:45> Review of Systems Review of Systems: CONSTITUTIONAL: Denies fever, chills, or sweats. CARDIOVASCULAR: Denies chest pain, palpitations, or edema. RESPIRATORY: Dry nonbloody cough denies dyspnea. GASTROINTESTINAL: Denies abdominal pain, nausea, vomiting, or diarrhea. GENITOURINARY: Denies dysuria or hematuria. SKIN: Denies rash or itching. MUSCULOSKELETAL: Denies back pain, joint pain, or myalgia. NEUROLOGIC: Denies headache, numbness, dizziness, or weakness. PSYCHIATRIC: Denies anxiety or depression. <Edward Sánchez MD - Last Filed: 03/01/23 19:45> [facility] Past Medical History Medical History: Medical History Anxiety Arthritis Benign essential hypertension Cholecystectomy planned Chronic GERD FH: cholecystectomy Insomnia disorder Irritable bowel syndrome Lesion of pelvic bone Lumbar spondylosis Malignant neoplasm of lower lobe of left lung Other and unspecified hyperlipidemia Small cell carcinoma of right lung <Edward Sánchez MD - Last Filed: 03/01/23 19:45> Surgical History Surgical History: Surgical History H/O: hysterectomy History of bilateral tubal ligation S/P lobectomy of lung <Edward Sánchez MD - Last Filed: 03/01/23 19:45> Family History Family History: Family History (Review
[2023-03-01 18:20] LABS: D Dimer 1.78 ug/mL (<0.48)
--- NOTE | 2023-03-01 20:17 | PC.NURSE ---
pt taken to nuclear med.
--- NOTE | 2023-03-01 20:45 | PC.NURSE ---
pt back to room @[id number]
[2023-03-01] MEDS: ALBUTEROL SULFATE (*SP) AEROSOL 1 PUFF 2 PUFF INHALATION (21:16)
[2023-03-01] MEDS: diphenhydrAMINE HCl CAP 25 MG CAPSULE 50 MG PO (21:55)
[2023-03-01] MEDS: predniSONE 40 MG, predniSONE 10 MG 50 MG PO (22:15)
--- NOTE | 2023-03-01 22:31 | PC.NURSE ---
unable to verify pt and give medication with room scanner. manual verification was needed and a work order was placed for the scanner to get fixed.
--- NOTE | 2023-03-01 23:32 | PC.NURSE ---
pt report and care given to SULLY Beltre. all questions answered.
[2023-03-02] VITALS (9 sets, daily range): BP systolic 93–112; BP diastolic 68–74; PULSE 70–101; RESP 14–26; TEMP 36.7–36.8; O2SAT 96–100; BMI 21.5
--- NOTE | 2023-03-02 01:03 | ADMGEN ---
This patient, Divina Harrington, was admitted to 2 Medical Room 254-01. Patient/family oriented to hospital policies and general routines including ID bracelet, bed and alarms, visiting hours, pain management, procedures, bathroom and other care routines, personal items, smoking policy, room service/diet, and visiting hours. Information on how to activate the Rapid Response Team has been discussed. Patient/Family are encouraged to report perceived risks to care and to ask questions if they do not understand what they are told or what they should do.
[2023-03-02] MEDS: predniSONE 40 MG, predniSONE 10 MG 50 MG PO ×2 (04:41→11:59)
[2023-03-02 08:16] LABS: Anion Gap 8 mmol/L (8-16); Blood Urea Nitrogen 12 mg/dL (7-17); Calcium 8.4 mg/dL (8.4-10.2); Carbon Dioxide 27 mmol/L (22-30); Chloride 99 mmol/L (98-107); Estimated CRCL calculation 49 ml/min; Estimated Glomerular Filt Rate > 60; Glucose 185 mg/dL (65-110); Potassium 3.4 mmol/L (3.4-5.0); Sodium 134 mmol/L (137-145)
[2023-03-02] MEDS: PANTOPRAZOLE 40 MG TABLET PO (09:39)
[2023-03-02] MEDS: ASPIRIN 81 MG CHEWABLE TABLET PO (09:39)
--- NOTE | 2023-03-02 11:10 | PM.IMHP ---
H&P: HPI History of Present Illness Date/Time: 03/02/23 11:10 Chief Complaint: Failure to thrive ?This is a 57-year-old female, with past history of lung cancer status post lobectomy, diagnosed with COVID 1-1/2 weeks ago, who presents emergency department complaining of persistent generalized fatigue.? She states she has had dry cough without blood.? She states she has had decreased appetite but denies abdominal pain, nausea, vomiting, chest pain or loss of consciousness.? Review of Systems Review of Systems: 10 point review systems negative [facility] Past Medical History Medical History Anxiety Arthritis Benign essential hypertension Cholecystectomy planned Chronic GERD FH: cholecystectomy Insomnia disorder Irritable bowel syndrome Lesion of pelvic bone Lumbar spondylosis Malignant neoplasm of lower lobe of left lung Other and unspecified hyperlipidemia Small cell carcinoma of right lung Surgical History Surgical History H/O: hysterectomy History of bilateral tubal ligation S/P lobectomy of lung Family History Family History Mother Family history of malignant neoplasm Other Family history of alcoholism Family history of kidney disease Family history of seizure disorder Social History Social History Smoking packs per day: 1 Smoking cigarettes per day: 20.0 Years smoked: 32 Smoking pack-years: 32.00 Smoking status: Former smoker Tobacco type: cigarettes Smoking end date: 06/27/16 Alcohol intake: never Alcohol use details: 1-2 EVERY FEW MONTHS Substance use: never Substance use type: does not use Other substance usage details: CBD OIL Lack of Transportation: No Lack of Food: Never True Current Housing: I Have Housing Concerned About Future Housing: No Difficulty Paying Gas/Electric Bills: No Difficulty Paying for Meds: No Currently Unemployed: No Education: High School Diploma/GED Difficulty w/ Childcare or Family Care: No Living arrangements: with family Gender identity (if verbalized by the patient): Female Spiritual care concerns: No Meds Home Medications and Allergies Home Medications Medication Instructions Recorded Confirmed Type aspirin 81 mg chewable tablet 81 mg PO DAILY 04/18/19 03/02/23 History budesonide-formoterol HFA 160 2 puff inhalation Q12H 04/18/19 03/02/23 History mcg-4.5 mcg/actuation aerosol inhaler (Symbicort) omeprazole 40 mg capsule,delayed 40 mg PO DAILY 06/01/19 03/02/23 History release loperamide 2 mg capsule (Imodium 2 mg PO Q4H PRN Diarrhea 12/11/19 03/02/23 History A-D) mirtazapine 15 mg tablet 15 mg PO DAILY PRN Nausea 11/12/20 03/02/23 History trazodone 50 mg tablet 50 mg PO QHS PRN sleep #30 tabs 01/01/22 03/02/23 Rx lorazepam 0.5 mg tablet 0.5 mg PO DAILY PRN Anxiety #30 01/07/22 03/02/23 Rx tabs Allergies Allergy/AdvReac Type Severity Reaction Status Date / Time amoxicillin Allergy Unknown Rash Verified 02/09/23 09:52 clindamycin Allergy Unknown Itching Verified 02/09/23 09:52 codeine Allergy Unknown Nausea and Verified 02/09/23 09:52 Vomiting Iodinated Contrast Media Allergy Unknown Hives Verified 02/09/23 09:52 levofloxacin Allergy Unknown itching, Verified 02/09/23 09:52 better with benadryl morphine Allergy Unknown Nausea and Verified 02/09/23 09:52 Vomiting Penicillins Allergy Unknown rash Verified 02/09/23 09:52 piperacillin Allergy Unknown Rash Verified 02/09/23 09:52 tazobactam Allergy Unknown Rash Verified 02/09/23 09:52 doxycycline Allergy Vomiting Verified 02/09/23 09:52 Sulfa (Sulfonamide Allergy Redness of Verified 02/09/23 09:52 Antibiotics) Skin sulfamethoxazole AdvReac Mild redness Verified 02/09/23 09:52 [From
--- NOTE | 2023-03-02 11:17 | PM.DS ---
DS: Admitting Diagnosis Discharge Date March 02, 2023 Admitting Diagnosis Post COVID, failure to thrive DS: Discharge Diagnosis Discharge Diagnosis (1) Dyslipidemia: Code(s): E78.5 - Hyperlipidemia, unspecified Status: Acute Assessment and Plan: Admit and monitor. Not any oxygen (2) COVID: Code(s): U07.1 - COVID-19 Status: Acute DS: Summary Hospital Course Hospital Course: Patient is an 57-year-old female came in with failure to thrive and some shortness of breath, she did not require any oxygen. She she is currently satting 100% on room air. She was diagnosed with COVID a week and half ago and is currently fighting cancer and has had chemotherapy recently as well. She is eating and drinking. Labs are okay. She wants to go home and we are not offering her anything here. She can be discharged. Time Spent with Patient Time attestation: Total time spent providing and/or coordinating discharge services: Exam Narrative: General: alert and oriented Psych: appropriate mood nad affect Eyes: PERRLA Neck: Trachea midline, no new lesions Skin: no changes Lungs: CTA Cardiac: Normal S1,S2, no MGR ABD: soft, nd, nt, nbs Ext: no new lesions, no cce Vasc: Pulses intact DS: Data Data Completed and Pending Labs on day of discharge: Labs from last 24 hours 03/02/23 03/01/23 02:17 15:09 WBC 10.7 H RBC 3.54 L Hgb 11.6 L Hct 36.4 L MCV 102.8 H MCH 32.8 MCHC 31.9 L RDW 13.4 Plt Count 259 MPV 9.9 Immature Gran % (Auto) 4.5 H Neut % (Auto) 70.3 Lymph % (Auto) 12.7 L [place] % (Auto) 11.4 H Eos % (Auto) 0.3 Baso % (Auto) 0.8 Lymph # (Auto) 1.35 [place] # (Auto) 1.2 H Eos # (Auto) 0.0 Baso # (Auto) 0.1 Abs Immat Gran (auto) 0.48 H Absolute Neuts (auto) 7.5 H Absolute Nucleated RBC 0.0 Nucleated RBC % 0.2 D-Dimer 1.78 H Sodium 134 L 135 L Potassium 3.4 3.4 Chloride 99 97 L Carbon Dioxide 27 31 H Anion Gap 8 7 L BUN 12 14 D Creatinine 0.90 1.10 H Estim Creat Clear Calc 49 40 Estimated GFR > 60 51 L Glucose 185 H 115 H Calcium 8.4 8.5 Total Bilirubin 1.2 AST 40 H ALT 21 Alkaline Phosphatase 120 Total Protein 7.0 Albumin 3.5 Discharge Plan Discharge Attending physician on discharge: Lalit Talavera Discharging Clinician: Lalit Talavera Patient Disposition: Home, Self-Care Activity: as tolerated Diet: as tolerated Patient Instructions: Antibiotic Form Patient Language: Amharic Stand Alone Forms: General Discharge Information Follow-up/Referrals: Juan Rasheed MD [Primary Care Provider] - Discharge Medications: Continued aspirin 81 mg Tablet,Chewable 81 mg PO DAILY Hold Instructions: Resume on 09/07/21. budesonide-formoterol [Symbicort] 160-4.5 mcg/actuation Hfa Aerosol Inhaler 2 puff INHALATION Q12H loperamide [Imodium A-D] 2 mg Capsule 2 mg PO Q4H PRN (Reason: Diarrhea) omeprazole 40 mg capsule,delayed release(DR/EC) 40 mg PO DAILY mirtazapine 15 mg tablet 15 mg PO DAILY PRN (Reason: Nausea) Rx Instructions: nausea and anxiety trazodone 50 mg tablet 50 mg PO QHS PRN (Reason: sleep) Qty: 30 1RF lorazepam 0.5 mg tablet 0.5 mg PO DAILY PRN (Reason: Anxiety) Qty: 30 1RF Date of admission: 03/01/23 23:04 Primary Care Provider: Juan Rasheed Admitting Provider: Milka Peralta Attending physician on admission: Milka Peralta Condition: Stable
[2023-03-02] MEDS: diphenhydrAMINE HCl CAP 25 MG CAPSULE 50 MG PO (11:58)
== END 2023-03-02 16:24 | disposition home or self-care (01) ==
LOC: ANHED 23:16 → ANH2MED 03-02 11:16
PROVIDERS: Admitting Provider Internal Medicine; Emergency Provider Preventive Medicine Aerospace Medicine; PCP Family Medicine; Visit Provider Chiropractor
DX: C34.92 Malignant neoplasm of unspecified part of left bronchus or lung (principal); Z90.2 Acquired absence of lung [part of]; U07.1 COVID-19; R63.0 Anorexia; I10 Essential (primary) hypertension; K21.9 Gastro-esophageal reflux disease without esophagitis; G47.00 Insomnia, unspecified; K58.0 Irritable bowel syndrome with diarrhea; R94.31 Abnormal electrocardiogram [ECG] [EKG]; E78.5 Hyperlipidemia, unspecified; F41.9 Anxiety disorder, unspecified; Z68.21 Body mass index [BMI] 21.0-21.9, adult; Z87.891 Personal history of nicotine dependence; F14.90 Cocaine use, unspecified, uncomplicated; Z79.82 Long term (current) use of aspirin; Z79.51 Long term (current) use of inhaled steroids; Z79.899 Other long term (current) drug therapy; Z80.9 Family history of malignant neoplasm, unspecified
CPT/HCPCS: 36415; 71046; 71275; 78582; 80048; 80053; 85025; 85380; 87040; 93005; 94664; 99285; A9270; A9540; A9558; G0378; J7512; Q9967

== ENCOUNTER 2023-04-02 18:35 | Inpatient (IN) | payer OTHER, MEDICARE, SELFPAY ==
[2023-04-02 18:38] VITALS: BP 147/91; PULSE 109; RESP 18; TEMP 36.9; O2SAT 100
--- NOTE | 2023-04-02 18:43 | ED.ANXIETY ---
HPI - Anxiety General Chief Complaint: Anxiety <Leann Zamarripa APRN - Last Filed: 04/02/23 22:40> Stated Complaint: PANIC ATTACK <Leann Zamarripa APRN - Last Filed: 04/02/23 22:40> Time Seen by Provider: 04/02/23 18:43 <Leann Zamarripa APRN - Last Filed: 04/02/23 22:40> Source: patient, family and EMS <Leann Zamarripa APRN - Last Filed: 04/02/23 22:40> Mode of arrival: wheelchair <Leann Zamarripa APRN - Last Filed: 04/02/23 22:40> Limitations: no limitations <Leann Zamarripa APRN - Last Filed: 04/02/23 22:40> History of Present Illness HPI narrative: Patient is a pleasant 57-year-old female who presents emergency department today for evaluation of an anxiety attack after she saw her sister pass out. She states her sister fell down and hit her head and it took a long time for her to wake up and she states I thought she was . she states she felt like an elephant was sitting on her chest and she was very diaphoretic and nauseated. She has known anxiety and has oral ativan prn. Shes states the EMS advised her to come here. She currently denies any chest pain, shortness of breath, dizziness, nausea, vomiting, numbness/tingling to upper or lower extremities, headache, or any other symptoms. denies hx of HTN, HLD, CAD. denies 1st degree family relative with CAD-state she is unsure of her history. <Leann Zamarripa APRN - Last Filed: 04/02/23 22:40> Related Data Home Medications: Home Medications Medication Instructions Recorded Confirmed aspirin 81 mg chewable tablet 81 mg PO DAILY 04/18/19 04/02/23 budesonide-formoterol HFA 160 2 puff inhalation Q12H 04/18/19 04/02/23 mcg-4.5 mcg/actuation aerosol inhaler (Symbicort) omeprazole 40 mg capsule,delayed 40 mg PO DAILY 12/06/19 10/07/23 release loperamide 2 mg capsule (Imodium 2 mg PO PRN PRN Diarrhea 12/11/19 04/02/23 A-D) mirtazapine 15 mg tablet 15 mg PO PRN PRN Nausea 11/12/20 04/02/23 <Leann Zamarripa, REHAB OFFICE COORDINATOR - Last Filed: 04/02/23 22:40> Allergies/Adverse Reactions: Allergies Allergy/AdvReac Type Severity Reaction Status Date / Time amoxicillin Allergy Unknown Rash Verified 03/23/23 08:41 clindamycin Allergy Unknown Itching Verified 03/23/23 08:41 codeine Allergy Unknown Nausea and Verified 03/23/23 08:41 Vomiting Iodinated Contrast Media Allergy Unknown Hives Verified 03/23/23 08:41 levofloxacin Allergy Unknown itching, Verified 03/23/23 08:41 better with benadryl morphine Allergy Unknown Nausea and Verified 03/23/23 08:41 Vomiting Penicillins Allergy Unknown rash Verified 03/23/23 08:41 piperacillin Allergy Unknown Rash Verified 03/23/23 08:41 tazobactam Allergy Unknown Rash Verified 03/23/23 08:41 doxycycline Allergy Vomiting Verified 03/23/23 08:41 Sulfa (Sulfonamide Allergy Redness of Verified 03/23/23 08:41 Antibiotics) Skin sulfamethoxazole AdvReac Mild redness Verified 03/23/23 08:41 [From Sulfamethoxazole-Trimethoprim] trimethoprim AdvReac Mild redness Verified 03/23/23 08:41 [From Sulfamethoxazole-Trimethoprim] <Leann Zamarripa, REHAB OFFICE COORDINATOR - Last Filed: 04/02/23 22:40> Review of Systems Review of Systems: CONSTITUTIONAL: Denies fever, chills, or sweats. EYES: Denies visual changes, redness, or discharge. ENT: Denies rhinorrhea, congestion, sore throat, or otalgia. CARDIOVASCULAR: chest heaviness like an elephant during anxiety attack. currently none. Denies chest pain, palpitations, or edema. RESPIRATORY: Denies cough or dyspnea. GASTROINTESTINAL: Denies abdominal pain, nausea, vomiting, or diarrhea. GENITOURINARY: Denies dysuria or hematuria. SKIN: Denies rash or itching. MUSCULOSKELETAL: Denies back pain, joint pain, or myalgia. NEUROLOGIC: Denies headache, numbness, or weakness. PSYCHIATRIC: anxiety attack. Denies depression. Denies SI/HI. <Leann Zamarripa, REHAB OFFICE COORDINATOR - Last Filed: 04/02/23 22:40> All systems reviewed & are unremarkable except as n
[2023-04-02] MEDS: LORazepam INJ (*CRX) 2 MG/ML VIAL 1.5 MG IM (18:53)
--- NOTE | 2023-04-02 19:11 | ECG_ITS ---
Measurements Intervals [place] Rate: 88 P: 44 [place]: 159 QRS: 77 QRSD: 81 T: 124 QT: 354 QTc: 429 Interpretive Statements SINUS RHYTHM NONSPECIFIC ST AND T-WAVE ABNORMALITY. ABNORMAL ECG COMPARED TO ECG 03/01/2023 15:03:48 NO SIGNIFICANT CHANGES Electronically Signed On 04-03-2023 8:50:08 CDT by Benedict Brown M.D.
[2023-04-02 19:59] LABS: Basophils Percent Auto 0.7 % (0.2-1.2); Eosinophils Percent Auto 0.7 % (0-4.4); Hematocrit 33.6 % (37.0-47.0); Immature Granulocyte Absolute 0.02 K/mm3 (0.00-0.031); Immature Granulocyte Percent A 0.3 % (0-0.5); Lymphocytes Absolute Auto 0.77 K/mm3 (0.9-3.2); Lymphocytes Percent Auto 12.9 % (18.3-44.2); Mean Corpuscular HGB Conc 32.7 g/dl (32-36); Mean Corpuscular Hemoglobin 32.3 pg (26-34); Mean Corpuscular Volume 98.5 fl (80-100); Mean Platelet Volume 9.1 fl (7.4-10.4); Monocytes Absolute Auto 0.5 K/mm3 (0.1-0.6); Monocytes Percent Auto 8.5 % (2.6-8.5); Neutrophils Absolute Auto 4.6 K/mm3 (1.3-6.7); Neutrophils Percent Auto 76.9 % (45.5-73.1); Platelet Count Result 354 k/mm3 (150-375); Red Blood Count 3.41 M/mm3 (4.2-5.4)
[2023-04-02 20:09] LABS: Alanine Aminotransferase 18 U/L (6-35); Albumin Level 4.1 g/dL (3.5-5.1); Alkaline Phosphatase 113 U/L (38-126); Anion Gap 9 mmol/L (8-16); Aspartate Amino Transferase 28 U/L (14-36); Bilirubin,Total 0.4 mg/dL (0.2-1.3); Blood Urea Nitrogen 13 mg/dL (7-17); Carbon Dioxide 26 mmol/L (22-30); Chloride 104 mmol/L (98-107); Estimated CRCL calculation 44 ml/min; Estimated Glomerular Filt Rate 57; Glucose 131 mg/dL (65-110); Potassium 3.2 mmol/L (3.4-5.0); Sodium 139 mmol/L (137-145)
[2023-04-02 20:35] LABS: Troponin I 0.455 ng/mL (0.000-0.034)
[2023-04-02 20:56] VITALS: BP 119/91; PULSE 89; RESP 15; O2SAT 96
[2023-04-02] MEDS: ASPIRIN 325 MG TABLET PO (21:00)
[2023-04-02 21:02] VITALS: BP 114/80; PULSE 91; RESP 15; O2SAT 96
[2023-04-02 21:05] VITALS: BP 97/77; PULSE 82; RESP 19; O2SAT 100
[2023-04-02 22:00] VITALS: BP 90/58; PULSE 78; RESP 14; TEMP 36.4; O2SAT 98; BMI 23.8
--- NOTE | 2023-04-02 22:11 | ADMGEN ---
This patient, Divina Harrington, was admitted to IMU Room 212-01 @2200 Patient/family oriented to hospital policies and general routines including ID bracelet, bed and alarms, visiting hours, pain management, procedures, bathroom and other care routines, personal items, smoking policy, room service/diet, and visiting hours. Information on how to activate the Rapid Response Team has been discussed. Patient/Family are encouraged to report perceived risks to care and to ask questions if they do not understand what they are told or what they should do.
[2023-04-02 22:43] VITALS: BMI 49.6
--- NOTE | 2023-04-02 23:36 | PM.IMHP ---
H&P: HPI History of Present Illness Date/Time: 04/02/23 23:36 Chief Complaint: Patient got the ER for evaluation with chest pain after having an anxiety attack Narrative: 57 years old white female was in her usual state of health when she saw her sister pass out and she had an anxiety attack. Her sister fell down and hit her head and took a long time to wake up and she thought that she was ! Her sister was taken to her hospital and she was brought to our hospital. She complained of chest pain intensity 5 out of 10, like an elephant sitting on the chest, located in anterior chest without any radiation, associated with diaphoresis but no palpitations. She was nauseated as well. She took her oral Ativan which helped with her anxiety. Patient was brought to the ER for evaluation and treated and her chest pain improved. Workup was done which showed mildly elevated troponin, which bumped significantly on follow-up of 2nd set of cardiac enzymes. Cardiology was consulted, patient was started on IV heparin and is being admitted to IMU for cardiac monitoring and close follow-up. Review of Systems Review of Systems: She denies any abdominal pain, falls, loss of consciousness or blurred vision. All systems reviewed & are unremarkable except as noted in HPI and below PMFSH Past Medical History Medical History Anxiety Arthritis Benign essential hypertension Cholecystectomy planned Chronic GERD FH: cholecystectomy Insomnia disorder Irritable bowel syndrome Lesion of pelvic bone Lumbar spondylosis Malignant neoplasm of lower lobe of left lung Other and unspecified hyperlipidemia Small cell carcinoma of right lung Surgical History Surgical History H/O: hysterectomy History of bilateral tubal ligation S/P lobectomy of lung Family History Family History Mother Family history of malignant neoplasm Other Family history of alcoholism Family history of kidney disease Family history of seizure disorder Social History Social History Smoking packs per day: 1 Smoking cigarettes per day: 20.0 Years smoked: 30 Smoking pack-years: 30.00 Smoking status: Former smoker Tobacco type: cigarettes Second hand tobacco smoke exposure: No Smoking end date: 04/10/14 Alcohol intake: current Drinks per week: 1 Alcohol use details: 1-2 EVERY FEW MONTHS Substance use: never Substance use type: does not use Other substance usage details: CBD oil Lack of Transportation: No Lack of Food: Never True Current Housing: I Have Housing Concerned About Future Housing: No Difficulty Paying Gas/Electric Bills: No Difficulty Paying for Meds: No Currently Unemployed: No Education: Trade/Vocational Certificate Difficulty w/ Childcare or Family Care: No Living arrangements: with family Gender identity (if verbalized by the patient): Female Spiritual care concerns: No Meds Home Medications and Allergies Home Medications Medication Instructions Recorded Confirmed Type aspirin 81 mg chewable tablet 81 mg PO DAILY 04/18/19 04/02/23 History budesonide-formoterol HFA 160 2 puff inhalation Q12H 04/18/19 04/02/23 History mcg-4.5 mcg/actuation aerosol inhaler (Symbicort) omeprazole 40 mg capsule,delayed 40 mg PO DAILY 06/01/19 04/02/23 History release loperamide 2 mg capsule (Imodium 2 mg PO PRN PRN Diarrhea 12/11/19 04/02/23 History A-D) mirtazapine 15 mg tablet 15 mg PO PRN PRN Nausea 11/12/20 04/02/23 History trazodone 50 mg tablet 50 mg PO QHS PRN sleep #30 tabs 01/01/22 04/02/23 Rx lorazepam 0.5 mg tablet 0.5 mg PO DAILY PRN Anxiety #30 01/07/22 04/02/23 Rx tabs apixaban 5 mg tablet 5 mg PO BID #60 tabs 03/02/23 04/02/23 Rx Allergies Allergy/AdvReac Type Severity Reac
[2023-04-02 23:41] VITALS: BP 82/58; PULSE 77; RESP 14; TEMP 36.4; O2SAT 100
[2023-04-03] VITALS (16 sets, daily range): BP systolic 91–126; BP diastolic 66–88; PULSE 70–94; RESP 12–20; TEMP 36.5–37.1; O2SAT 95–100
[2023-04-03 01:38] LABS: Basophils Percent Auto 0.8 % (0.2-1.2); Eosinophils Absolute Auto 0.1 K/mm3 (0-0.3); Eosinophils Percent Auto 1.4 % (0-4.4); Hematocrit 30.3 % (37.0-47.0); Hemoglobin 9.7 g/dL (12.0-15.0); Immature Granulocyte Absolute 0.04 K/mm3 (0.00-0.031); Immature Granulocyte Percent A 0.8 % (0-0.5); Lymphocytes Absolute Auto 1.58 K/mm3 (0.9-3.2); Lymphocytes Percent Auto 31.8 % (18.3-44.2); Mean Corpuscular Hemoglobin 32.1 pg (26-34); Mean Corpuscular Volume 100.3 fl (80-100); Mean Platelet Volume 9.5 fl (7.4-10.4); Monocytes Absolute Auto 0.5 K/mm3 (0.1-0.6); Monocytes Percent Auto 10.1 % (2.6-8.5); Neutrophils Absolute Auto 2.7 K/mm3 (1.3-6.7); Neutrophils Percent Auto 55.1 % (45.5-73.1); Platelet Count Result 329 k/mm3 (150-375); Red Blood Count 3.02 M/mm3 (4.2-5.4)
[2023-04-03 01:53] LABS: INR 1.1; Prothrombin Time 15.2 Seconds (11.1-14.7)
[2023-04-03 01:54] LABS: Partial Thromboplastin Time 29.9 SECONDS (22.3-36.8)
[2023-04-03] MEDS: POTASSIUM CHLORIDE 20 MEQ ER TABLET 40 MEQ PO (02:24)
[2023-04-03] MEDS: HEPARIN SODIUM 5,000 UNITS/ML VIAL 4000 UNITS IV PUSH (02:26)
[2023-04-03] MEDS: HEPARIN SOD/D5W 100 UNITS/ML 25,000 UNITS/250 ML BAG 10 UNITS IV CONT (02:33)
[2023-04-03] MEDS: SODIUM CHLORIDE 0.9% IV 1,000 ML 100 ML IV CONT (02:42)
[2023-04-03] MEDS: KCL 20 MEQ/SW 100 ML 100 ML 50 MEQ IVPB (02:43)
--- NOTE | 2023-04-03 07:00 | ECG_ITS ---
Measurements Intervals [place] Rate: 84 P: 41 SD: 186 QRS: 93 QRSD: 81 T: 161 QT: 417 QTc: 493 Interpretive Statements SINUS RHYTHM BORDERLINE RIGHT AXIS DEVIATION [QRS AXIS > 90] LOW QRS VOLTAGE IN PRECORDIAL LEADS [QRS DEFLECTION < 1.0 mV IN CHEST LEADS] MODERATE T-WAVE ABNORMALITY, CONSIDER LATERAL ISCHEMIA [-0.1+ mV T WAVE IN I/aVL/V5/V6] ABNORMAL ECG COMPARED TO ECG 04/02/2023 19:17:51 NO SIGNIFICANT CHANGES Electronically Signed On 04-03-2023 8:53:10 CDT by Benedict Brown M.D.
[2023-04-03 09:04] LABS: Anion Gap 4 mmol/L (8-16); Blood Urea Nitrogen 10 mg/dL (7-17); Calcium 8.5 mg/dL (8.4-10.2); Carbon Dioxide 25 mmol/L (22-30); Chloride 109 mmol/L (98-107); Estimated CRCL calculation 49 ml/min; Estimated Glomerular Filt Rate > 60; Glucose 115 mg/dL (65-110); Sodium 138 mmol/L (137-145)
[2023-04-03 09:06] LABS: Partial Thromboplastin Time 108.3 SECONDS (22.3-36.8)
[2023-04-03] MEDS: PANTOPRAZOLE 40 MG TABLET PO ×2 (09:36→16:25)
[2023-04-03] MEDS: ASPIRIN 81 MG CHEWABLE TABLET PO (09:36)
[2023-04-03] MEDS: FLUTICASONE/SALMETEROL 115-21 MCG INHALER 1 PUFF 2 PUFF INHALATION ×2 (09:39→20:32)
--- NOTE | 2023-04-03 10:30 | PM.CNCAR ---
Assessment and Plan Assessment and plan (1) NSTEMI (non-ST elevated myocardial infarction): Code(s): I21.4 - Non-ST elevation (NSTEMI) myocardial infarction Status: Acute Assessment and Plan: She appears to have had a non ST-elevation myocardial infarction. While possible that this may be related to stress-induced cardiomyopathy, given her EKG abnormalities, acute plaque rupture is also high on the list of possibilities. Will keep her NPO after midnight. Will check a 2D echocardiogram with Doppler. Heparin drip per protocol. Aspirin 81 mg p.o. daily. Will start her on atorvastatin 40 mg p.o. daily and check a lipid panel. Metoprolol tartrate 12.5 mg p.o. b.i.d. will be initiated. She likely will progress to a coronary angiogram later tomorrow or maybe Tuesday (2) Chest heaviness: Code(s): R07.89 - Other chest pain Status: Acute Assessment and Plan: Now resolved. P.r.n. nitro and treatment as above (3) Anxiety attack: Code(s): F41.0 - Panic disorder [episodic paroxysmal anxiety] Status: Acute (4) Dyslipidemia: Code(s): E78.5 - Hyperlipidemia, unspecified Status: Acute Assessment and Plan: Will initiate statin as detailed above (5) Small cell carcinoma of right lung: Code(s): C34.91 - Malignant neoplasm of unspecified part of right bronchus or lung Status: Acute Assessment and Plan: Stable History of Present Illness History of Present Illness Consult date/time: 04/03/23 10:30 Requesting physician: Bhupendra Liao MD Consult reason: chest pain and Other (Elevated troponin) Reason For Visit: Elevated Troponin Narrative: Date of service 04/03/2023 Reason for consultation: Elevated troponin, chest pain Requesting provider: Dr. Liao History: Patient 57-year-old female who does not have known coronary history. She does have anxiety issues. She also has a history of lung cancer status post partial lobectomy and is undergoing maintenance chemo. She has had a clotted port and is on Eliquis. She has not taken Eliquis in a couple of days. She saw her sister pass out yesterday and she thought that she was . She started having chest pain which is 5/10 in severity and felt like a tightness an elephant sitting on her chest. It did not radiate but she was diaphoretic and nauseated. 911 was called and EN route she started to feel little bit better. She did take Ativan which also helped her anxiety. By time she came to the ER her pain was essentially resolved but in totality her chest pain lasted about 1 hour. Her EKG has shown some lateral T-wave inversions consistent with ischemia. Troponins were elevated in and have peaked at over 4. There are now downtrending. She has been started on IV heparin she has she has not been on Eliquis for couple of days. She currently is pain free and feels okay and denies any syncope, presyncope, paroxysmal nocturnal dyspnea, orthopnea, edema or palpitations. Review of Systems Review of Systems: All systems reviewed & are unremarkable except as noted in HPI and below Constitutional: Constitutional: Denies body ache(s) Eyes: Eyes: Denies blurry vision ENT: Reports Normal hearing present Cardiovascular: Cardiovascular: Reports chest pain Respiratory: Respiratory: Denies chest congestion Gastrointestinal: Gastrointestinal: Denies abdominal pain Genitourinary: Genitourinary: Denies hematuria Musculoskeletal: Musculoskeletal: Denies back pain Integumentary/Breasts: Skin/Breast: Denies dry skin Neurologic: Denies Abnormal speech present Psychiatric: Psychiatric: Denies behavioral changes Endocrine: Endocrine: Denies excessive sweating Hematologic/Lymphatic: Hematologic/Lymphatic: Denies easy bleeding Allergic/Immunologic: Allergic/Immunologic: Denies GI upset with certain foods PMFSH Past Medical History Medical History Anxiety
[2023-04-03 11:15] LABS: Cholesterol 205 mg/dL (0-200); HDL Direct 38 mg/dL; Triglycerides 127 mg/dL (<150)
[2023-04-03 11:26] LABS: LDL Cholesterol Direct 129 mg/dL
[2023-04-03] MEDS: ATORVASTATIN 40 MG TABLET PO (11:29)
[2023-04-03] MEDS: METOPROLOL TARTRATE 12.5 MG TABLET PO ×2 (11:30→21:04)
--- NOTE | 2023-04-03 12:46 | PM.IMPN ---
Progress Note: A&P Assessment and Plan (1) NSTEMI (non-ST elevated myocardial infarction): Code(s): I21.4 - Non-ST elevation (NSTEMI) myocardial infarction Status: Acute (2) Chest heaviness: Code(s): R07.89 - Other chest pain Status: Acute (3) Anxiety attack: Code(s): F41.0 - Panic disorder [episodic paroxysmal anxiety] Status: Acute (4) Elevated troponin level: Code(s): R79.89 - Other specified abnormal findings of blood chemistry Status: Acute (5) Acute hypokalemia: Code(s): E87.6 - Hypokalemia Status: Acute (6) Dyslipidemia: Code(s): E78.5 - Hyperlipidemia, unspecified Status: Acute (7) Osteoporosis: Code(s): M81.0 - Age-related osteoporosis without current pathological fracture Status: Acute (8) Chronic pain syndrome: Code(s): G89.4 - Chronic pain syndrome Status: Acute (9) GERD (gastroesophageal reflux disease): Qualifiers: Esophagitis presence: esophagitis presence not specified Qualified Code(s): K21.9 - Gastro-esophageal reflux disease without esophagitis Code(s): K21.9 - Gastro-esophageal reflux disease without esophagitis Status: Acute (10) Anemia in neoplastic disease: Code(s): D63.0 - Anemia in neoplastic disease Status: Acute (11) Small cell carcinoma of right lung: Code(s): C34.91 - Malignant neoplasm of unspecified part of right bronchus or lung Status: Acute Plan Non ST-elevation [place] presented with chest pain along with EKG changes and elevated troponin with dynamic change. On heparin drip. Cardiology consulted. On aspirin and statin. Beta-kassandra as tolerated. Plan for echocardiogram in a.m. and eventually cardiac catheterization. LDL 129 high-intensity statin. Recent severe psychosocial stress Hypotension mild resolved Anemia mild no signs of bleeding could be hemodilutional. Hypokalemia replace and monitor History of DVT PE chest CTA 03/19 with thrombus in superior vena cava around the port catheter. On chronic anticoagulation with Eliquis. Currently switched to IV heparin History of lung cancer with metastatic disease to T10 vertebral body status post left lower lobectomy and radiation on chemotherapy Diverticulosis of left and right colon DVT prophylaxis on IV heparin Code status full code Subjective Date/time seen: 04/03/23 12:46 Interval history: Remains chest pain-free. Denies any shortness of breath. No leg swelling. Review of Systems Review of Systems: All systems reviewed & are unremarkable except as noted in HPI and below Exam Narrative: General physical exam: Morbidly obese female, lying in bed, not in acute distress Head/eyes: Atraumatic, EOMI, PERRLA ENT: Moist mucous membranes, nasal passages clear Neck: Supple, full range of motion, trachea midline CVS: S1 + S2, regular rate and rhythm, no murmurs Respiratory: Bilaterally fair air entry in both lung lea, no respiratory distress Abdomen: Soft, non-tender, bowel sounds +ve, no organomegaly Extremities: No clubbing, no cyanosis, no edema, no calf tenderness Musculoskeletal: Moves all, adequate range of motion, no muscle spasms Skin: Warm, dry, no jaundice, no cyanosis Neurological: Awake, alert, oriented x 3, cranial nerves II-XII intact, no focal neurological deficits Psychiatric: Normal mood non suicidal Objective Data Vital Signs Vital Signs: Vital Signs - 24 hr 04/02/23 18:38 04/02/23 20:56 04/02/23 21:02 Temperature 98.5 F Pulse Rate 109 H 89 91 Respiratory Rate 18 15 15 Blood Pressure 147/91 H 119/91 H 114/80 Pulse Oximetry 100 96 96 Oxygen Delivery Room Air 04/02/23 21:05 04/02/23 22:00 04/02/23 23:41 Temperature 97.5 F L 97.5 F L Pulse Rate 82 78 77 Respiratory Rate 19 14 14 Blood Pressure 97/77 L 90/58 L 82/58 L Pulse Oximetry 100 98 100 Oxygen Delivery 04/03/23 03:44 04/03/23 04:00 04/03/23 08:00 Temperature 98.4 F
[2023-04-03 16:06] LABS: Partial Thromboplastin Time 66.1 SECONDS (22.3-36.8)
[2023-04-03] MEDS: HEPARIN SODIUM 5,000 UNITS/ML VIAL 2500 UNITS IV PUSH (16:25)
[2023-04-03 22:50] LABS: Partial Thromboplastin Time 153.9 SECONDS (22.3-36.8)
[2023-04-04] VITALS (17 sets, daily range): BP systolic 89–136; BP diastolic 48–81; PULSE 68–111; RESP 16–20; TEMP 36.2–37.1; O2SAT 96–100
--- NOTE | 2023-04-04 | ECHO_ITS ---
Patient Info Name: Divina Harrington Age: 57 years : 1965 Gender: Female Ht: 63 in Wt: 128 lbs BSA: 1.61 m2 HR: 74 bpm BP: 101 / 79 mmHg Heart Rhythm: Sinus Rhythm Technical Quality: Fair Exam Date: 04/04/2023 8:16 AM Exam Location: [facility] Patient Status: Inpatient Admit Date: 04/03/2023 Staff Ordering Physician: Bhupendra Liao MD [employer] Helper: Veronica Garcia RDCS Attending Provider: Bhupendra Liao MD Exam Type: CA echo dop bubble study w con Study Info Indications - NON ST ELEVATED MD Complete two-dimensional, color flow and Doppler transthoracic echocardiogram is performed with contrast to opacify the left ventricle and to improve the deliniation of the left ventricle endocardial borders. Contrast/Agitated Saline Contrast/Ag. Saline: Definity Amount: 2.00 ml Administered By: Veronica Garcia RDCS Existing IV Access: Yes IV Access Condition: patent with no signs of infiltration Summary 1. Left ventricular chamber dimension is normal. 2. Left ventricular systolic function is mildly reduced, estimated at 45-50%. 3. There is no increased left ventricular wall thickness. 4. The left ventricular diastolic function is grade II diastolic dysfunction. 5. The apical cap is akinetic. 6. The inferior wall, anterior wall, inferoseptal wall, and anteroseptal wall are hypokinetic. 7. Left atrial chamber dimension is mildly enlarged. 8. There is mild mitral valve regurgitation. 9. There is mild tricuspid valve regurgitation. 10. There is small pericardial effusion. Left Ventricle Left ventricular chamber dimension is normal. Left ventricular systolic function is mildly reduced, estimated at 45-50%. There is no increased left ventricular wall thickness. The left ventricular diastolic function is grade II diastolic dysfunction. The apical cap is akinetic. The inferior wall, anterior wall, inferoseptal wall, and anteroseptal wall are hypokinetic. All other collins appear normal. Right Ventricle Right ventricular chamber dimension is normal. Right ventricular systolic function is normal. Left Atria Left atrial chamber dimension is mildly enlarged. Right Atria Right atrial chamber dimension is normal. Atrial Septum Intact interatrial septum visualized by color flow imaging. Aortic Valve The aortic valve is trileaflet. There is mild aortic valve sclerosis. There is no aortic valve stenosis. There is trace aortic valve regurgitation. Pulmonic Valve The pulmonic valve is normal. There is no pulmonic valve stenosis. There is trace pulmonic regurgitation. Mitral Valve The mitral valve has thickened leaflets. There is no mitral valve stenosis. There is mild mitral valve regurgitation. Tricuspid Valve The tricuspid valve leaflets are normal. There is no significant tricuspid valve stenosis. There is mild tricuspid valve regurgitation. No pulmonary hypertension, estimated pulmonary arterial systolic pressure is 32 mmHg. Pericardium/Pleural The pericardium appears normal. There is small pericardial effusion. Inferior Vena Cava Normal inferior vena cava with >50% collapse upon inspiration consistent with normal right atrial pressure, 10 mmHg. Aorta The aortic root size at the sinus of Valsalva is normal. Left Ventricular Outflow Tract Name Value Normal LVOT 2D
[2023-04-04 05:24] LABS: Eosinophils Absolute Auto 0.1 K/mm3 (0-0.3); Eosinophils Percent Auto 2.5 % (0-4.4); Hematocrit 29.2 % (37.0-47.0); Hemoglobin 9.3 g/dL (12.0-15.0); Immature Granulocyte Absolute 0.04 K/mm3 (0.00-0.031); Lymphocytes Absolute Auto 1.55 K/mm3 (0.9-3.2); Lymphocytes Percent Auto 38.2 % (18.3-44.2); Mean Corpuscular HGB Conc 31.8 g/dl (32-36); Mean Corpuscular Hemoglobin 32.2 pg (26-34); Mean Platelet Volume 9.3 fl (7.4-10.4); Monocytes Absolute Auto 0.5 K/mm3 (0.1-0.6); Monocytes Percent Auto 11.8 % (2.6-8.5); Neutrophils Absolute Auto 1.9 K/mm3 (1.3-6.7); Neutrophils Percent Auto 45.5 % (45.5-73.1); Platelet Count Result 292 k/mm3 (150-375); Red Blood Count 2.89 M/mm3 (4.2-5.4); Red Cell Distribution Width 14.1 % (11.5-14.5); White Blood Count 4.1 K/mm3 (4.5-10.0)
[2023-04-04 05:37] LABS: Anion Gap 5 mmol/L (8-16); Blood Urea Nitrogen 6 mg/dL (7-17); Calcium 8.4 mg/dL (8.4-10.2); Carbon Dioxide 24 mmol/L (22-30); Chloride 108 mmol/L (98-107); Estimated CRCL calculation 44 ml/min; Estimated Glomerular Filt Rate 57; Glucose 100 mg/dL (65-110); Magnesium 1.9 mg/dL (1.6-2.3); Partial Thromboplastin Time 86.2 SECONDS (22.3-36.8); Phosphorus 4.2 mg/dL (2.5-4.5); Potassium 3.8 mmol/L (3.4-5.0); Sodium 137 mmol/L (137-145)
[2023-04-04] MEDS: HEPARIN SOD/D5W 100 UNITS/ML 25,000 UNITS/250 ML BAG 8 UNITS IV CONT (07:49)
[2023-04-04] MEDS: PERFLUTREN LIPID MICROSPHERES 1.5 ML VIAL DILUTED TO 10 ML TOTAL VOLUME IV PUSH (09:00)
[2023-04-04] MEDS: FLUTICASONE/SALMETEROL 115-21 MCG INHALER 1 PUFF 2 PUFF INHALATION ×2 (09:22→20:29)
[2023-04-04] MEDS: ASPIRIN 81 MG CHEWABLE TABLET PO (09:27)
[2023-04-04] MEDS: ATORVASTATIN 40 MG TABLET PO (09:27)
[2023-04-04] MEDS: PANTOPRAZOLE 40 MG TABLET PO ×2 (09:27→17:25)
[2023-04-04 09:37] LABS: Partial Thromboplastin Time 54.4 SECONDS (22.3-36.8)
--- NOTE | 2023-04-04 09:47 | PM.IMPN ---
Progress Note: A&P Assessment and Plan (1) NSTEMI (non-ST elevated myocardial infarction): Code(s): I21.4 - Non-ST elevation (NSTEMI) myocardial infarction Status: Acute (2) Chest heaviness: Code(s): R07.89 - Other chest pain Status: Acute (3) Anxiety attack: Code(s): F41.0 - Panic disorder [episodic paroxysmal anxiety] Status: Acute (4) Elevated troponin level: Code(s): R79.89 - Other specified abnormal findings of blood chemistry Status: Acute (5) Acute hypokalemia: Code(s): E87.6 - Hypokalemia Status: Acute (6) Dyslipidemia: Code(s): E78.5 - Hyperlipidemia, unspecified Status: Acute (7) Osteoporosis: Code(s): M81.0 - Age-related osteoporosis without current pathological fracture Status: Acute (8) Chronic pain syndrome: Code(s): G89.4 - Chronic pain syndrome Status: Acute (9) GERD (gastroesophageal reflux disease): Qualifiers: Esophagitis presence: esophagitis presence not specified Qualified Code(s): K21.9 - Gastro-esophageal reflux disease without esophagitis Code(s): K21.9 - Gastro-esophageal reflux disease without esophagitis Status: Acute (10) Anemia in neoplastic disease: Code(s): D63.0 - Anemia in neoplastic disease Status: Acute (11) Small cell carcinoma of right lung: Code(s): C34.91 - Malignant neoplasm of unspecified part of right bronchus or lung Status: Acute Plan Non ST-elevation [place] presented with chest pain along with EKG changes and elevated troponin with dynamic change. On heparin drip. Cardiology consulted. On aspirin and statin. Beta-kassandra as tolerated. Plan for echocardiogram and eventual catheterization if needed. LDL 129 high-intensity statin. Recent severe psychosocial stress Hypotension mild resolved Anemia mild no signs of bleeding could be hemodilutional. Hypokalemia replace and monitor History of DVT PE chest CTA 03/19 with thrombus in superior vena cava around the port catheter. On chronic anticoagulation with Eliquis. Currently switched to IV heparin History of lung cancer with metastatic disease to T10 vertebral body status post left lower lobectomy and radiation on chemotherapy Diverticulosis of left and right colon DVT prophylaxis on IV heparin Code status full code Subjective Date/time seen: 04/04/23 09:47 Interval history: Remains chest pain-free. Denies any shortness of breath. No leg swelling. Review of Systems Review of Systems: All systems reviewed & are unremarkable except as noted in HPI and below Exam Narrative: General physical exam: Morbidly obese female, lying in bed, not in acute distress Head/eyes: Atraumatic, EOMI, PERRLA ENT: Moist mucous membranes, nasal passages clear Neck: Supple, full range of motion, trachea midline CVS: S1 + S2, regular rate and rhythm, no murmurs Respiratory: Bilaterally fair air entry in both lung lea, no respiratory distress Abdomen: Soft, non-tender, bowel sounds +ve, no organomegaly Extremities: No clubbing, no cyanosis, no edema, no calf tenderness Musculoskeletal: Moves all, adequate range of motion, no muscle spasms Skin: Warm, dry, no jaundice, no cyanosis Neurological: Awake, alert, oriented x 3, cranial nerves II-XII intact, no focal neurological deficits Psychiatric: Normal mood non suicidal Objective Data Vital Signs Vital Signs: Vital Signs - 24 hr 04/03/23 11:30 04/03/23 12:00 04/03/23 12:00 Temperature 98.8 F Pulse Rate 90 90 93 Respiratory Rate 16 Blood Pressure 126/85 Pulse Oximetry 100 04/03/23 10:00 04/03/23 14:00 04/03/23 12:00 Temperature 98.8 F Pulse Rate 93 75 90 Respiratory Rate 16 Blood Pressure 126/85 Pulse Oximetry 100 04/03/23 16:00 04/03/23 16:00 04/03/23 18:00 Temperature 98.6 F Pulse Rate 79 79 93 Respiratory Rate 16 Blood Pressure 91/66 L Pulse Oximetry 100 04/03/23 19:40
[2023-04-04] MEDS: HEPARIN SODIUM 5,000 UNITS/ML VIAL 4000 UNITS IV PUSH (10:17)
--- NOTE | 2023-04-04 10:43 | IVDEFINITY ---
Prior to administration of IV Definity the patient was educated on the risks and benefits of the imaging enhancing agent including potential adverse side effects. The patient verbalized understanding. Allergies were verified. No exclusion criteria were identified and at least one of the following inclusion criteria were met: 1) physician request, 2) patient technically difficult to image (per the [place] [employer] guidelines of two or more segments not discernable within the apical view), or 3) questionable left ventricular function. ?
[2023-04-04 11:06] LABS: Iron 62 ug/dL (37-170)
[2023-04-04 11:23] LABS: Percent Iron Saturation 32 % (20-50)
[2023-04-04 11:48] LABS: Folic Acid 7.3 ng/mL (2.76->20)
--- NOTE | 2023-04-04 14:53 | PM.PNCARD ---
Progress Note: A&P Assessment and Plan (1) NSTEMI (non-ST elevated myocardial infarction): Code(s): I21.4 - Non-ST elevation (NSTEMI) myocardial infarction Status: Acute Assessment and Plan: She appears to have had a non ST-elevation myocardial infarction. While possible that this may be related to stress-induced cardiomyopathy, given her EKG abnormalities, acute plaque rupture is also high on the list of possibilities. Will keep her NPO after midnight. Continue Heparin drip per protocol until angiogram tomorrow. Aspirin 81 mg p.o. daily. Will start her on atorvastatin 40 mg p.o. daily and check a lipid panel. Metoprolol tartrate 12.5 mg p.o. b.i.d. will be initiated. Will pre medicate for contrast allergy prior to procedure tomorrow. (2) Chest heaviness: Code(s): R07.89 - Other chest pain Status: Acute Assessment and Plan: Now resolved. P.r.n. nitro and treatment as above (3) Anxiety attack: Code(s): F41.0 - Panic disorder [episodic paroxysmal anxiety] Status: Acute (4) Dyslipidemia: Code(s): E78.5 - Hyperlipidemia, unspecified Status: Acute Assessment and Plan: Will initiate statin as detailed above (5) Small cell carcinoma of right lung: Code(s): C34.91 - Malignant neoplasm of unspecified part of right bronchus or lung Status: Acute Assessment and Plan: Stable Subjective Date/time seen: 04/04/23 14:53 Interval history: Cardiology follow up for chest pain, elevated troponin Feeling much better today. Denies any chest pain. Review of Systems Review of Systems: All systems reviewed & are unremarkable except as noted in HPI and below Constitutional: Constitutional: Denies body ache(s) and Denies excessive sweating Eyes: Eyes: Denies blurry vision ENT: Reports Normal hearing present Cardiovascular: Cardiovascular: Reports chest pain Respiratory: Respiratory: Denies chest congestion Gastrointestinal: Gastrointestinal: Denies abdominal pain Genitourinary: Genitourinary: Denies hematuria Musculoskeletal: Musculoskeletal: Denies back pain Integumentary/Breasts: Skin/Breast: Denies dry skin Neurologic: Reports Normal hearing present, Denies Abnormal speech present and Denies behavioral changes Psychiatric: Psychiatric: Denies behavioral changes Endocrine: Endocrine: Denies excessive sweating Hematologic/Lymphatic: Hematologic/Lymphatic: Denies easy bleeding Allergic/Immunologic: Allergic/Immunologic: Denies GI upset with certain foods Exam Narrative: Awake alert oriented appears to be in no acute distress. Appears stated age Const: General: comfortable and no acute distress HENMT: Face/Nose/Sinus: Normal nares present Mouth: Yes moist mucous membranes Other: Alopecia noted Eyes: General: appearance normal, both eyes and all related structures Sclera: sclerae normal Neck: Neck: supple and no JVD Carotids: no bruits Chest: Other: No reproducible chest wall pain to palpation Resp: Effort & Inspection: normal respiratory effort Auscultation: diminished lung sounds Cardio: Rate: regular rate Rhythm: regular rhythm Heart sounds: no murmurs GI: Inspection: non-distended Auscultation: normal bowel sounds Skin: General skin exam: normal color Neuro: Cranial nerves: Yes Normal hearing present Speech: normal speech and No Abnormal speech present Sensory Exam: normal sensation Extrem: General: normal to inspection Psych: Mental Status: mental status grossly normal Objective Data Vital Signs Vital Signs: Vital Signs - 24 hr 04/03/23 16:00 04/03/23 16:00 04/03/23 18:00 Temperature 37.0 C Pulse Rate 79 79 93 Respiratory Rate 16 Blood Pressure 91/66 L Pulse Oximetry 100 Oxygen Delivery 04/03/23 19:40 04/03/23 20:35 04/03/23 21:04 Temperature 36.7 C Pulse Rate 70 83 82 Respiratory Rate 12 20 Blood Pressure 93/69 L Pulse Oximetry 95 O
[2023-04-04 17:02] LABS: Partial Thromboplastin Time > 200.0 SECONDS (22.3-36.8)
[2023-04-04] MEDS: predniSONE 40 MG, predniSONE 10 MG 50 MG PO (20:25)
[2023-04-04] MEDS: METOPROLOL TARTRATE 12.5 MG TABLET PO (20:26)
[2023-04-04 23:43] LABS: Partial Thromboplastin Time 101.2 SECONDS (22.3-36.8)
[2023-04-05] VITALS (25 sets, daily range): BP systolic 95–165; BP diastolic 50–108; PULSE 62–92; RESP 14–20; TEMP 36.5–37.2; O2SAT 85–100
[2023-04-05 05:31] LABS: Basophils Percent Auto 0.7 % (0.2-1.2); Hematocrit 32.4 % (37.0-47.0); Hemoglobin 10.6 g/dL (12.0-15.0); Immature Granulocyte Absolute 0.04 K/mm3 (0.00-0.031); Immature Granulocyte Percent A 1.4 % (0-0.5); Lymphocytes Absolute Auto 0.39 K/mm3 (0.9-3.2); Lymphocytes Percent Auto 13.8 % (18.3-44.2); Mean Corpuscular HGB Conc 32.7 g/dl (32-36); Mean Corpuscular Hemoglobin 32.9 pg (26-34); Mean Corpuscular Volume 100.6 fl (80-100); Mean Platelet Volume 9.6 fl (7.4-10.4); Monocytes Absolute Auto 0.1 K/mm3 (0.1-0.6); Monocytes Percent Auto 1.8 % (2.6-8.5); Neutrophils Absolute Auto 2.3 K/mm3 (1.3-6.7); Neutrophils Percent Auto 82.3 % (45.5-73.1); Platelet Count Result 347 k/mm3 (150-375); Red Blood Count 3.22 M/mm3 (4.2-5.4); White Blood Count 2.8 K/mm3 (4.5-10.0)
[2023-04-05] MEDS: predniSONE 40 MG, predniSONE 10 MG 50 MG PO ×2 (05:34→08:35)
[2023-04-05 05:57] LABS: Anion Gap 8 mmol/L (8-16); Blood Urea Nitrogen 7 mg/dL (7-17); Calcium 9.2 mg/dL (8.4-10.2); Carbon Dioxide 25 mmol/L (22-30); Chloride 105 mmol/L (98-107); Estimated CRCL calculation 44 ml/min; Estimated Glomerular Filt Rate 57; Glucose 181 mg/dL (65-110); Magnesium 1.9 mg/dL (1.6-2.3); Potassium 4.1 mmol/L (3.4-5.0); Sodium 138 mmol/L (137-145)
[2023-04-05 06:09] LABS: Anisocytosis 1+ (NORMAL); Large Platelets Present; Ovalocytes 1+ (NORMAL); Platelet Estimate Adequate (Adequate); Schistocytes None Seen (NORMAL)
[2023-04-05 06:15] LABS: Partial Thromboplastin Time 66.5 SECONDS (22.3-36.8)
[2023-04-05] MEDS: HEPARIN SODIUM 5,000 UNITS/ML VIAL 2500 UNITS IV PUSH (06:25)
[2023-04-05] MEDS: METOPROLOL TARTRATE 12.5 MG TABLET PO ×2 (08:33→21:19)
[2023-04-05] MEDS: ASPIRIN 81 MG CHEWABLE TABLET PO (08:33)
[2023-04-05] MEDS: PANTOPRAZOLE 40 MG TABLET PO ×2 (08:34→16:43)
[2023-04-05] MEDS: ATORVASTATIN 40 MG TABLET PO (08:34)
[2023-04-05] MEDS: FLUTICASONE/SALMETEROL 115-21 MCG INHALER 1 PUFF 2 PUFF INHALATION ×2 (09:07→21:54)
[2023-04-05] MEDS: diphenhydrAMINE HCl INJ 50 MG/ML VIAL IV PUSH (09:15)
--- NOTE | 2023-04-05 10:27 | WPDMODSED ---
Moderate Sedation Note-Pt Data Patient Data Diagnosis: NSTEMI Present Complaint: NSTEMI Procedure to be performed/Plan: Coronary angiography, left heart cath, +/- PCI Allergies Allergy/AdvReac Type Severity Reaction Status Date / Time amoxicillin Allergy Unknown Rash Verified 03/23/23 08:41 clindamycin Allergy Unknown Itching Verified 03/23/23 08:41 codeine Allergy Unknown Nausea and Verified 03/23/23 08:41 Vomiting Iodinated Contrast Media Allergy Unknown Hives Verified 03/23/23 08:41 levofloxacin Allergy Unknown itching, Verified 03/23/23 08:41 better with benadryl morphine Allergy Unknown Nausea and Verified 03/23/23 08:41 Vomiting Penicillins Allergy Unknown rash Verified 03/23/23 08:41 piperacillin Allergy Unknown Rash Verified 03/23/23 08:41 tazobactam Allergy Unknown Rash Verified 03/23/23 08:41 doxycycline Allergy Vomiting Verified 03/23/23 08:41 Sulfa (Sulfonamide Allergy Redness of Verified 03/23/23 08:41 Antibiotics) Skin sulfamethoxazole AdvReac Mild redness Verified 03/23/23 08:41 [From Sulfamethoxazole-Trimethoprim] trimethoprim AdvReac Mild redness Verified 03/23/23 08:41 [From Sulfamethoxazole-Trimethoprim] Home Medications Medication Instructions Recorded Confirmed Type aspirin 81 mg chewable tablet 81 mg PO DAILY 04/18/19 04/02/23 History budesonide-formoterol HFA 160 2 puff inhalation Q12H 04/18/19 04/02/23 History mcg-4.5 mcg/actuation aerosol inhaler (Symbicort) omeprazole 40 mg capsule,delayed 40 mg PO DAILY 06/01/19 04/02/23 History release loperamide 2 mg capsule (Imodium 2 mg PO PRN PRN Diarrhea 12/11/19 04/02/23 History A-D) mirtazapine 15 mg tablet 15 mg PO PRN PRN Nausea 11/12/20 04/02/23 History trazodone 50 mg tablet 50 mg PO QHS PRN sleep #30 tabs 01/01/22 04/02/23 Rx lorazepam 0.5 mg tablet 0.5 mg PO DAILY PRN Anxiety #30 01/07/22 04/02/23 Rx tabs apixaban 5 mg tablet 5 mg PO BID #60 tabs 03/02/23 04/02/23 Rx Current Medications: Active Medications Acetaminophen (Acetaminophen 325 Mg Tablet) 650 mg PO Q4H PRN PRN Reason: Mild Pain (1-3) or Fever Al Hydrox/Mg Hydrox/Simethicone (Mag Hydrox/Al Hydrox/Simeth 30 Ml Udc) 30 ml PO QID PRN PRN Reason: Dyspepsia Alprazolam (Alprazolam (*Crx) 0.25 Mg Tablet) 0.25 mg PO TID PRN PRN Reason: Anxiety Aspirin (Aspirin 81 Mg Chewable Tablet) 81 mg PO DAILY [facility] Last Admin: 04/05/23 08:33 Dose: 81 mg Atorvastatin Calcium (Atorvastatin 40 Mg Tablet) 40 mg PO DAILY [facility] Last Admin: 04/05/23 08:34 Dose: 40 mg Heparin Sodium (Porcine) (Heparin Sodium 5,000 Units/Ml Vial) 4,000 units IV PUSH PRN PRN PRN Reason: aPTT less than 55 seconds Last Admin: 04/04/23 10:17 Dose: 4,000 units Heparin Sodium (Porcine) (Heparin Sodium 5,000 Units/Ml Vial) 2,500 units IV PUSH PRN PRN PRN Reason: aPTT 55 - 70 seconds Last Admin: 04/05/23 06:25 Dose: 2,500 units Heparin Sodium/Dextrose (Heparin Sodium/D5w 100 Units/Ml) 25,000 units in 250 mls @ 10 mls/hr IV CONT .Q24H RADHA; Protocol Last Titration: 04/05/23 06:29 Dose: 1,000 units/hr, 10 mls/hr Loperamide HCl (Loperamide Hcl 2 Mg Capsule) 2 mg PO PRN PRN PRN Reason: Diarrhea Metoprolol Tartrate (Metoprolol Tartrate 12.5 Mg Tablet) 12.5 mg PO Q12HR [facility] Last Admin: 04/05/23 08:33 Dose: 12.5 mg Mirtazapine (Mirtazapine 15 Mg Tablet) 15 mg PO PRN PRN PRN Reason: Nausea Nitroglycerin (Nitroglycerin Ointment 1 Inch Dose) 1 inch TRANSDERM Q4-6H PRN PRN Reason: chest pain Ondansetron HCl (Ondansetron Inj 4 Mg/2 Ml Vial) 4 mg IV PUSH Q4H PRN PRN Reason: Nausea Pantoprazole Sodium (Pantoprazole 40 Mg Tablet) 40 mg PO BID [facility] Last Admin: 04/05/23 08:34 Dose: 40 mg Fluticasone/Salmeterol (Fluticasone/Salmeterol 115-21 Mcg Inhaler 1 Puff) 2 puff INHALATION Q12HRT [facility] Last Admin: 04/05/23 09:07 Dose: 2 puff Trazodone HCl (Trazodone Hcl 50 Mg Tablet) 50 mg PO QHS PRN PRN Reason: sleep Sedation/Anesthes
--- NOTE | 2023-04-05 11:44 | ECG_ITS ---
Measurements Intervals [place] Rate: 83 P: 73 [place]: 189 QRS: 73 QRSD: 87 T: 132 QT: 408 QTc: 481 Interpretive Statements SINUS RHYTHM MODERATE T-WAVE ABNORMALITY, CONSIDER ANTEROLATERAL ISCHEMIA [-0.1+ mV T WAVE IN V3-V6] COMPARED TO ECG 04/03/2023 07:15:50 NO SIGNIFICANT CHANGES Electronically Signed On 04-05-2023 16:33:16 CDT by Indira Nichols M.D.
--- NOTE | 2023-04-05 11:47 | WPDCARDPROC ---
Cardiac Cath Procedure Note Date of procedure:: 04/05/23 Performing physician:: CATHETERIZATION LABORATORY REPORT Procedure Date: 04/05/2023 Photo Tube Assembler: Indira Nichols M.D., [facility]? Referring Physician: Michael Brown M.D. Anesthesia: Versed and Fentanyl were ordered and given in my presence at 10:36, procedure ended at 11:38. Supervision of nurse monitored moderate sedation with Versed and Fentanyl was provided for 62 minutes. Total of Versed 2mg and Fentanyl 100mcg were administered by the Actuary Clerk RN Matt Hernandez. Pre-op Diagnosis: NSTEMI, Coronary artery disease Post-op Diagnosis: 1. Significant obstructive mid LAD stenosis s/p successful IVUS guided PCI with RANJIT x 1. 2. Elevated left ventricular end-diastolic pressure of 39mmHg Procedure(s): 1. Moderate sedation 2. Attempted right radial artery access 3. Ultrasound-guided access of the right common femoral artery 4. Coronary angiography 5. Left heart cath 6. Left ventricular angiogram 7. IFR of the LAD 8. IVUS-guided PCI of the mid LAD with RANJIT x 1. 9. Angioseal closure of the right common femoral artery Access Site: Right common femoral artery Brief History and Clinical Indications: Patient is a 57 year old female who is referred for cardiac cath for NSTEMI. All risks, benefits and alternatives to left heart catheterization with or without percutaneous coronary intervention was discussed at length with the patient. Risk of complications including but not limited to bleeding, infection, arrhythmia, stroke, worsening kidney function, blood loss, groin hematoma, limb loss, emergency coronary artery bypass grafting, and even were discussed with the patient and all questions were answered. The patient understood and wished to proceed. Time out called, patient name, date of , medical record number, allergies, procedure performed, identify Photo Tube Assembler, patient and staff member concurred with accurate data, procedure carried on. Findings: LEFT HEART CATHETERIZATION FINDINGS: 1. Left main: Large caliber vessel. The left main coronary artery is widely patent without any significant obstructive disease. 2. Left anterior descending: Large caliber vessel that tapers to small caliber distally. There is mild ostial disease. The proximal LAD has luminal irregularities. The mid LAD has a 70-80% stenosis. Remainder of the LAD has luminal irregularities. 3. Left circumflex: Large caliber vessel. The left circumflex artery and the main marginal branches have mild luminal irregularities without any significant obstructive angiographic disease. 4. Right coronary artery: Large caliber vessel. The RCA has mild luminal irregularities without any significant obstructive angiographic disease. The RCA is the dominant vessel. 5. Left ventricle: A. End-diastolic pressure 39mmHg. B. LV gram: Left ventricular ejection fraction appears mildly reduced. The apex is hypokinetic. C. No significant gradient across aortic valve on catheter pullback. Description of Procedure and PCI: Informed consent signed and placed in the chart. Patient transferred to collaborating supervising physician room. Prepped and draped in usual sterile fashion. 2% lidocaine injected subcutaneously in right wrist area. 22-gauge venipuncture catheter used to access the right radial artery under ultrasound guidance. Unable to wire the right radial artery despite multiple attempts, therefore, femoral access pursued. Hemostasis of the radial artery obtained by manual pressure. 2% lidocaine in right groin area. Micropuncture needle used to access right common femoral artery under ultrasound guidance. J wire advanced, micropuncture cannula placed. Right iliofemoral angiogram performed, access confirmed and micropuncture cannula exchanged for 5-FR sheath. 5F FL 4 diagnostic catheter engaged Left Main Coronary Artery. 5F FR 4 diagnostic catheter engaged Right Coronary Artery. Multiple orthogonal angiogram obtained and reviewed 5F
--- NOTE | 2023-04-05 12:04 | PM.PNCARD ---
Progress Note: A&P Assessment and Plan (1) NSTEMI (non-ST elevated myocardial infarction): Code(s): I21.4 - Non-ST elevation (NSTEMI) myocardial infarction Status: Acute Assessment and Plan: Cardiac cath 04/05 showed: 1. Significant obstructive mid LAD stenosis s/p successful IVUS guided PCI with RANJIT x 1. 2. Elevated left ventricular end-diastolic pressure of 39mmHg ASA 81mg QD indefinitely. Loaded with Plavix 600mg prior to cardiac cath. Continue with Plavix 75mg once daily indefinitely. High intensity statin. Beta kassandra. Referral to cardiac rehab placed. (2) Dyslipidemia: Code(s): E78.5 - Hyperlipidemia, unspecified Status: Acute Assessment and Plan: Continue statin. (3) Cardiomyopathy: Code(s): I42.9 - Cardiomyopathy, unspecified Status: Acute Assessment and Plan: LVEF mildly reduced on echo. Will start Losartan and switch Metoprolol tartrate to Metoprolol succinate. Plan Anticipate discharge tomorrow. Subjective Date/time seen: 04/05/23 12:04 Interval history: Reason for visit: NSTEMI HPI: Patient 57-year-old female who does not have known coronary history.? She does have anxiety issues.? She also has a history of lung cancer status post partial lobectomy and is undergoing maintenance chemo.? She has had a clotted port and is on Eliquis.? She has not taken Eliquis in a couple of days.? She saw her sister pass out yesterday and she thought that she was .? She started having chest pain which is 5/10 in severity and felt like a tightness an elephant sitting on her chest.? It did not radiate but she was diaphoretic and nauseated.? 911 was called and EN route she started to feel little bit better.? She did take Ativan which also helped her anxiety.? By time she came to the ER her pain was essentially resolved but in totality her chest pain lasted about 1 hour.? Her EKG has shown some lateral T-wave inversions consistent with ischemia.? Troponins were elevated in and have peaked at over 4.? There are now downtrending.? She has been started on IV heparin she has she has not been on Eliquis for couple of days.? She currently is pain free and feels okay and denies any syncope, presyncope, paroxysmal nocturnal dyspnea, orthopnea, edema or palpitations. Date of service 04/04: Feeling much better today.? Denies any chest pain.? Date of service 04/05: Cardiac cath today. Review of Systems Review of Systems: All systems reviewed & are unremarkable except as noted in HPI and below (HPI) Exam Const: General: comfortable and no acute distress HENMT: Mouth: Yes moist mucous membranes Eyes: General: appearance normal, both eyes and all related structures Sclera: sclerae normal Neck: Neck: supple Resp: Effort & Inspection: normal respiratory effort Auscultation: clear to auscultation bilaterally Cardio: Rate: regular rate Rhythm: regular rhythm Heart sounds: no murmurs Skin: General skin exam: normal color Neuro: Speech: normal speech Psych: Mental Status: mental status grossly normal Affect: normal affect Objective Data Vital Signs Vital Signs: Vital Signs - 24 hr 04/04/23 16:00 04/04/23 16:00 04/04/23 14:00 Temperature 37.1 C Pulse Rate 97 73 Respiratory Rate 18 Blood Pressure 136/81 Pulse Oximetry 99 100 Oxygen Delivery Room Air 04/04/23 16:00 04/04/23 18:00 04/04/23 20:00 Temperature 36.6 C Pulse Rate 111 H 86 74 Respiratory Rate 18 Blood Pressure 112/63 Pulse Oximetry 100 Oxygen Delivery 04/04/23 20:26 04/04/23 20:31 04/04/23 20:35 Temperature Pulse Rate 85 72 Respiratory Rate 20 Blood Pressure Pulse Oximetry 96 Oxygen Delivery Room Air 04/04/23 20:00 04/04/23 22:17 04/04/23 20:00 Temperature Pulse Rate 72 77 81 Respiratory Rate 20 Blood Pressure Pulse Oximetry 96 Oxygen Delivery Room Air 04/04/23 23:21 04/05/23 00:00 04/05/23 00:00 Temperature 36.4 C L Pu
[2023-04-05] MEDS: SODIUM CHLORIDE 0.9% IV 1,000 ML 125 ML IV CONT (12:55)
--- NOTE | 2023-04-05 14:00 | PC.NURSE ---
Pt reports upper middle back pain/pressure rated 3-5/10. Groin site soft and free of hematoma. No discoloration to back. BP 160s/80s. Dr. Nichols made aware. No new orders noted. PRN Tylenol given.
[2023-04-05] MEDS: ACETAMINOPHEN 325 MG TABLET 650 MG PO (14:02)
--- NOTE | 2023-04-05 14:03 | PM.IMPN ---
Progress Note: A&P Assessment and Plan (1) NSTEMI (non-ST elevated myocardial infarction): Code(s): I21.4 - Non-ST elevation (NSTEMI) myocardial infarction Status: Acute (2) Chest heaviness: Code(s): R07.89 - Other chest pain Status: Acute (3) Anxiety attack: Code(s): F41.0 - Panic disorder [episodic paroxysmal anxiety] Status: Acute (4) Elevated troponin level: Code(s): R79.89 - Other specified abnormal findings of blood chemistry Status: Acute (5) Acute hypokalemia: Code(s): E87.6 - Hypokalemia Status: Acute (6) Dyslipidemia: Code(s): E78.5 - Hyperlipidemia, unspecified Status: Acute (7) Osteoporosis: Code(s): M81.0 - Age-related osteoporosis without current pathological fracture Status: Acute (8) Chronic pain syndrome: Code(s): G89.4 - Chronic pain syndrome Status: Acute (9) GERD (gastroesophageal reflux disease): Qualifiers: Esophagitis presence: esophagitis presence not specified Qualified Code(s): K21.9 - Gastro-esophageal reflux disease without esophagitis Code(s): K21.9 - Gastro-esophageal reflux disease without esophagitis Status: Acute (10) Anemia in neoplastic disease: Code(s): D63.0 - Anemia in neoplastic disease Status: Acute (11) Small cell carcinoma of right lung: Code(s): C34.91 - Malignant neoplasm of unspecified part of right bronchus or lung Status: Acute Plan Non ST-elevation [place] presented with chest pain along with EKG changes and elevated troponin with dynamic change. On heparin drip. Cardiology consulted. Echo 04/04/2023: EF 45-50% grade 2 diastolic dysfunction apical cap akinetic inferior wall and anterior wall and inferoseptal wall and anteroseptal collins are hypokinetic. Status post cardiac catheterization 04/05/2023: Significant obstructive mid LAD stenosis status post PCI with RANJIT x1 On aspirin Plavix beta-kassandra and statin. Since also on Eliquis will continue triple therapy for 1 month Hyperlipidemia: LDL 129 high-intensity statin. Cardiomyopathy EF 45-50%. On losartan and beta-kassandra Recent severe psychosocial stress Hypotension mild resolved Anemia mild no signs of bleeding could be hemodilutional. Hypokalemia replace and monitor History of DVT PE chest CTA 03/19 with thrombus in superior vena cava around the port catheter. On chronic anticoagulation with Eliquis. Currently switched to IV heparin History of lung cancer with metastatic disease to T10 vertebral body status post left lower lobectomy and radiation on chemotherapy Diverticulosis of left and right colon DVT prophylaxis on IV heparin Code status full code Subjective Date/time seen: 04/05/23 14:03 Interval history: Underwent cardiac catheterization today. Catheterization finding reviewed. Review of Systems Review of Systems: All systems reviewed & are unremarkable except as noted in HPI and below Exam Narrative: General physical exam: Morbidly obese female, lying in bed, not in acute distress Head/eyes: Atraumatic, EOMI, PERRLA ENT: Moist mucous membranes, nasal passages clear Neck: Supple, full range of motion, trachea midline CVS: S1 + S2, regular rate and rhythm, no murmurs Respiratory: Bilaterally fair air entry in both lung lea, no respiratory distress Abdomen: Soft, non-tender, bowel sounds +ve, no organomegaly Extremities: No clubbing, no cyanosis, no edema, no calf tenderness Musculoskeletal: Moves all, adequate range of motion, no muscle spasms Skin: Warm, dry, no jaundice, no cyanosis Neurological: Awake, alert, oriented x 3, cranial nerves II-XII intact, no focal neurological deficits Psychiatric: Normal mood non suicidal Objective Data Vital Signs Vital Signs: Vital Signs - 24 hr 04/04/23 16:00 04/04/23 16:00 04/04/23 16:00 Temperature 98.7 F Pulse Rate 97 111 H Respiratory Rate 18 Blood Pressure 136/81 Pulse Oximetry 99 100
[2023-04-05] MEDS: traZODone HCL 50 MG TABLET PO (21:19)
[2023-04-05] MEDS: ALPRAZolam (*CRX) 0.25 MG TABLET PO (21:19)
[2023-04-06] VITALS (9 sets, daily range): BP systolic 117–124; BP diastolic 61–74; PULSE 73–89; RESP 16–18; TEMP 36.4–37.1; O2SAT 96–100
[2023-04-06 05:23] LABS: Basophils Percent Auto 0.3 % (0.2-1.2); Hematocrit 29.9 % (37.0-47.0); Hemoglobin 9.4 g/dL (12.0-15.0); Immature Granulocyte Percent A 1.3 % (0-0.5); Lymphocytes Absolute Auto 0.92 K/mm3 (0.9-3.2); Lymphocytes Percent Auto 11.6 % (18.3-44.2); Mean Corpuscular HGB Conc 31.4 g/dl (32-36); Mean Corpuscular Hemoglobin 32.1 pg (26-34); Mean Platelet Volume 9.7 fl (7.4-10.4); Monocytes Absolute Auto 0.9 K/mm3 (0.1-0.6); Monocytes Percent Auto 11.8 % (2.6-8.5); Neutrophils Absolute Auto 5.9 K/mm3 (1.3-6.7); Platelet Count Result 334 k/mm3 (150-375); Red Blood Count 2.93 M/mm3 (4.2-5.4); Red Cell Distribution Width 14.9 % (11.5-14.5); White Blood Count 7.9 K/mm3 (4.5-10.0)
[2023-04-06 05:42] LABS: Alanine Aminotransferase 15 U/L (6-35); Albumin Level 3.5 g/dL (3.5-5.1); Alkaline Phosphatase 101 U/L (38-126); Anion Gap 5 mmol/L (8-16); Aspartate Amino Transferase 36 U/L (14-36); Bilirubin,Total 0.4 mg/dL (0.2-1.3); Blood Urea Nitrogen 14 mg/dL (7-17); Calcium 8.8 mg/dL (8.4-10.2); Carbon Dioxide 27 mmol/L (22-30); Chloride 105 mmol/L (98-107); Estimated CRCL calculation 40 ml/min; Estimated Glomerular Filt Rate 51; Glucose 133 mg/dL (65-110); Sodium 137 mmol/L (137-145)
[2023-04-06] MEDS: FLUTICASONE/SALMETEROL 115-21 MCG INHALER 1 PUFF 2 PUFF INHALATION (08:16)
[2023-04-06] MEDS: ONDANSETRON INJ 4 MG/2 ML VIAL IV PUSH (08:34)
[2023-04-06] MEDS: ATORVASTATIN 40 MG TABLET PO (09:42)
[2023-04-06] MEDS: CLOPIDOGREL BISULFATE 75 MG TABLET PO (09:42)
[2023-04-06] MEDS: PANTOPRAZOLE 40 MG TABLET PO (09:42)
[2023-04-06] MEDS: LOSARTAN POTASSIUM 25 MG TABLET PO (09:42)
[2023-04-06] MEDS: METOPROLOL SUCCINATE EXT REL 25 MG TABCR PO (09:42)
[2023-04-06] MEDS: ASPIRIN 81 MG CHEWABLE TABLET PO (09:43)
--- NOTE | 2023-04-06 13:20 | PM.PNCARD ---
Progress Note: A&P Assessment and Plan (1) NSTEMI (non-ST elevated myocardial infarction): Code(s): I21.4 - Non-ST elevation (NSTEMI) myocardial infarction Status: Acute Assessment and Plan: Cardiac cath 04/05 showed: 1. Significant obstructive mid LAD stenosis s/p successful IVUS guided PCI with RANJIT x 1. 2. Elevated left ventricular end-diastolic pressure of 39mmHg ASA 81mg QD indefinitely. Loaded with Plavix 600mg prior to cardiac cath. Continue with Plavix 75mg once daily indefinitely. Continue beta-kassandra, losartan (2) Dyslipidemia: Code(s): E78.5 - Hyperlipidemia, unspecified Status: Acute Assessment and Plan: Continue statin. (3) Cardiomyopathy: Code(s): I42.9 - Cardiomyopathy, unspecified Status: Acute Assessment and Plan: LVEF mildly reduced on echo. Continue metoprolol and losartan (4) Small cell carcinoma of right lung: Code(s): C34.91 - Malignant neoplasm of unspecified part of right bronchus or lung Status: Acute Assessment and Plan: She does have a history of a clotted port. She should remain on dual antiplatelet therapy. Will resume apixaban 5 mg p.o. b.i.d.. Dual anti-platelet therapy for 1 month with anticoagulation than likely will discontinue the aspirin Subjective Date/time seen: 04/06/23 13:20 Interval history: 57-year-old admitted for non-STEMI who underwent PCI yesterday to an LAD stenosis Date of service 04/06/2023: Feels fine. No chest pain, shortness breath, and groin pain. Review of Systems Review of Systems: All systems reviewed & are unremarkable except as noted in HPI and below (HPI) Constitutional: Constitutional: Denies body ache(s) and Denies excessive sweating Eyes: Eyes: Denies blurry vision ENT: Reports Normal hearing present Cardiovascular: Cardiovascular: Reports chest pain Respiratory: Respiratory: Denies chest congestion Gastrointestinal: Gastrointestinal: Denies abdominal pain Genitourinary: Genitourinary: Denies hematuria Musculoskeletal: Musculoskeletal: Denies back pain Integumentary/Breasts: Skin/Breast: Denies dry skin Neurologic: Reports Normal hearing present, Denies Abnormal speech present and Denies behavioral changes Psychiatric: Psychiatric: Denies behavioral changes Endocrine: Endocrine: Denies excessive sweating Hematologic/Lymphatic: Hematologic/Lymphatic: Denies easy bleeding Allergic/Immunologic: Allergic/Immunologic: Denies GI upset with certain foods Exam Narrative: Awake alert oriented appears to be in no acute distress. Appears stated age Const: General: comfortable and no acute distress HENMT: Face/Nose/Sinus: Normal nares present Mouth: Yes moist mucous membranes Other: Alopecia noted Eyes: General: appearance normal, both eyes and all related structures Sclera: sclerae normal Neck: Neck: supple and no JVD Carotids: no bruits Chest: Other: No reproducible chest wall pain to palpation Resp: Effort & Inspection: normal respiratory effort Auscultation: clear to auscultation bilaterally and diminished lung sounds Cardio: Rate: regular rate Rhythm: regular rhythm Heart sounds: no murmurs GI: Inspection: non-distended Auscultation: normal bowel sounds Skin: General skin exam: normal color Neuro: Cranial nerves: Yes Normal hearing present Speech: normal speech and No Abnormal speech present Sensory Exam: normal sensation Extrem: General: normal to inspection Other: Right groin is free of bruit or hematoma Psych: Mental Status: mental status grossly normal Affect: normal affect Objective Data Vital Signs Vital Signs: Vital Signs - 24 hr 04/05/23 13:44 04/05/23 14:00 04/05/23 14:19 Temperature 37.0 C 37.0 C Pulse Rate 87 88 86 Respiratory Rate 16 16 Blood Pressure 146/90 H 137/74 Pulse Oximetry 97 96 Oxygen Delivery Fraction of Inspired Oxygen 04/05/23 16:00 04/05/23 16:00 04/05
--- NOTE | 2023-04-06 14:29 | PM.DS ---
DS: Admitting Diagnosis Discharge Date 04/06/23 Admitting Diagnosis chest pain DS: Summary Hospital Course Reason for hospitalization: NSTEMI Hospital Course: Assessment and Plan (1) NSTEMI (non-ST elevated myocardial infarction): ?Code(s): I21.4 - Non-ST elevation (NSTEMI) myocardial infarction ?Status:?Acute (2) Chest heaviness: ?Code(s): R07.89 - Other chest pain ?Status:?Acute (3) Anxiety attack: ?Code(s): F41.0 - Panic disorder [episodic paroxysmal anxiety] ?Status:?Acute (4) Elevated troponin level: ?Code(s): R79.89 - Other specified abnormal findings of blood chemistry ?Status:?Acute (5) Acute hypokalemia: ?Code(s): E87.6 - Hypokalemia ?Status:?Acute (6) Dyslipidemia: ?Code(s): E78.5 - Hyperlipidemia, unspecified ?Status:?Acute (7) Osteoporosis: ?Code(s): M81.0 - Age-related osteoporosis without current pathological fracture ?Status:?Acute (8) Chronic pain syndrome: ?Code(s): G89.4 - Chronic pain syndrome ?Status:?Acute (9) GERD (gastroesophageal reflux disease): ?Qualifiers: ?Esophagitis presence:?esophagitis presence not specified? Qualified Code(s):?K21.9 - Gastro-esophageal reflux disease without esophagitis ?Code(s): K21.9 - Gastro-esophageal reflux disease without esophagitis ?Status:?Acute (10) Anemia in neoplastic disease: ?Code(s): D63.0 - Anemia in neoplastic disease ?Status:?Acute (11) Small cell carcinoma of right lung: ?Code(s): C34.91 - Malignant neoplasm of unspecified part of right bronchus or lung ?Status:?Acute Plan S/p cardiac cath with LAD stent cardioogy placed on Plavix, Apsirin and to continue liquis. will drop Aspirin after 1 month. ? Echo 04/04/2023: EF 45-50% grade 2 diastolic dysfunction apical cap akinetic inferior wall and anterior wall and inferoseptal wall and anteroseptal collins are hypokinetic. Continue Losartan adn Metoprolol and follow up with cardiology as instructed F/u with PCP in 3-5 days Hypokalemia and hypotension reolved Time Spent with Patient Time attestation: Total time spent providing and/or coordinating discharge services: DS: Data Data Completed and Pending Labs on day of discharge: Labs from last 24 hours 04/06/23 04:48 WBC 7.9 RBC 2.93 L Hgb 9.4 L Hct 29.9 L MCV 102.0 H MCH 32.1 MCHC 31.4 L RDW 14.9 H Plt Count 334 MPV 9.7 Immature Gran % (Auto) 1.3 H Neut % (Auto) 75.0 H Lymph % (Auto) 11.6 L [place] % (Auto) 11.8 H Eos % (Auto) 0.0 Baso % (Auto) 0.3 Lymph # (Auto) 0.92 [place] # (Auto) 0.9 H Eos # (Auto) 0.0 Baso # (Auto) 0.0 Abs Immat Gran (auto) 0.10 H Absolute Neuts (auto) 5.9 Absolute Nucleated RBC 0.0 Nucleated RBC % 0.0 Sodium 137 Potassium 4.0 Chloride 105 Carbon Dioxide 27 Anion Gap 5 L BUN 14 D Creatinine 1.10 H Estim Creat Clear Calc 40 Estimated GFR 51 L Glucose 133 H Calcium 8.8 Magnesium 2.0 Total Bilirubin 0.4 AST 36 ALT 15 Alkaline Phosphatase 101 Total Protein 6.0 L Albumin 3.5 Discharge Plan Discharge Consulting providers: Leann Zamarripa; Benedict Brown Discharging Clinician: Essie Perdomo Patient Disposition: Home, Self-Care Activity: as tolerated Diet: heart healthy Discharge Instructions: [facility] [address] [place] [address] DISCHARGE INSTRUCTIONS - POST PCI Activity 1. No driving until 04/18/
== END 2023-04-06 15:09 | disposition home or self-care (01) | DRG 322 ==
LOC: ANHED 20:58 → ANHIMU 21:28
PROVIDERS: Internal Medicine; Internal Medicine Cardiovascular Disease; Admitting Provider Family Medicine; Emergency Provider Nurse Practitioner; PCP Family Medicine; Visit Provider Internal Medicine
PROC: 4A023N7 Measurement of Cardiac Sampling and Pressure, Left Heart, Percutaneous Approach (ICD-10-PCS; CPT 93452; principal; 2023-04-05 09:30)
PROC: 4A033BC Measurement of Arterial Pressure, Coronary, Percutaneous Approach (ICD-10-PCS; CPT 93571; 2023-04-05 09:30)
PROC: 4A023N7 Measurement of Cardiac Sampling and Pressure, Left Heart, Percutaneous Approach (ICD-10-PCS; 2023-04-05 09:30)
PROC: 4A023N7 Measurement of Cardiac Sampling and Pressure, Left Heart, Percutaneous Approach (ICD-10-PCS; 2023-04-05 09:30)
PROC: 4A023N7 Measurement of Cardiac Sampling and Pressure, Left Heart, Percutaneous Approach (ICD-10-PCS; 2023-04-05 09:30)
DX: I21.4 Non-ST elevation (NSTEMI) myocardial infarction (principal); C34.91 Malignant neoplasm of unspecified part of right bronchus or lung; C79.51 Secondary malignant neoplasm of bone; I43 Cardiomyopathy in diseases classified elsewhere; I25.10 Atherosclerotic heart disease of native coronary artery without angina pectoris; D63.0 Anemia in neoplastic disease; E78.5 Hyperlipidemia, unspecified; E87.6 Hypokalemia; F41.0 Panic disorder [episodic paroxysmal anxiety]; G89.4 Chronic pain syndrome; I11.9 Hypertensive heart disease without heart failure; I95.9 Hypotension, unspecified; K57.90 Diverticulosis of intestine, part unspecified, without perforation or abscess without bleeding; K21.9 Gastro-esophageal reflux disease without esophagitis; M47.816 Spondylosis without myelopathy or radiculopathy, lumbar region; M81.0 Age-related osteoporosis without current pathological fracture; Z90.2 Acquired absence of lung [part of]; Z28.21 Immunization not carried out because of patient refusal; Z87.891 Personal history of nicotine dependence; Z79.82 Long term (current) use of aspirin; Z79.01 Long term (current) use of anticoagulants; Z88.0 Allergy status to penicillin; Z90.710 Acquired absence of both cervix and uterus; Z86.711 Personal history of pulmonary embolism
CPT/HCPCS: 36415; 80048; 80053; 80061; 82607; 82728; 82746; 83540; 83550; 83735; 84100; 84484; 85025; 85610; 85730; 92978; 93005; 93458; 93571; 94640; 96372; 96375; 99285; A9270; C1725; C1753; C1760; C1769; C1874; C1887; C1894; C8929; C9600; G0269; J0583; J1200; J1644; J2060; J2250; J2305; J2405; J3010; J3480; J7030; J7040; J7512; Q9957

== ENCOUNTER 2023-04-21 23:13 | Emergency (ER) | payer OTHER, MEDICARE, SELFPAY ==
--- NOTE | ~2023-04-21 | CT_ITS ---
EXAMINATION: CT facial & cervical spine wo DATE: 04/22/2023 01:50 INDICATION: Head injury. TECHNIQUE: Computed tomography (CT) of the maxillofacial region and cervical spine was performed with out intravenous contrast. Automated exposure control and iterative reconstruction technique were empl oyed. The dose-length product was 335.76 mGy-cm. COMPARISON: Maxillofacial CT 09/10/2019 FINDINGS: MAXILLOFACIAL CT: There are fracture deformities of the nasal processes of maxilla. There is rightward deviation of the nasal septum. The mastoid air cells are normal. There is left lateral scalp soft tissue swelling. Th e orbits are normal. CERVICAL SPINE CT: The visualized portions of the lung apices demonstrate loss of volume loss and airspace opacities in both thickening, consistent with radiation pneumonitis. A calcified left lung nodule and calcified me diastinal lymph nodes are consistent with old granulomatous disease. There is 7 degrees levocurvature of cervical spine. There is 2 mm anterolisthesis of C3 on C4. Vertebral body heights are normal. The re is mildly decreased disc height at C4-C5 and moderately decreased disc height at C5-C6 and C6-C7. The following disc levels are specifically discussed: C2-C3: There is ankylosis of right uncovertebral joint. There is severe bilateral facet joint osteoar thritis. There is mild bilateral neural foraminal stenosis. There is no central canal stenosis. C3-C4: There is severe right uncovertebral joint osteoarthritis. There is severe bilateral facet join t osteoarthritis. There is moderate right and mild left neural foraminal stenosis. There is mild cent ral canal stenosis. C4-C5: There is moderate bilateral uncovertebral joint osteoarthritis. There is severe bilateral face t joint osteoarthritis. There is mild bilateral neural foraminal stenosis. There is mild central mayra l stenosis. C5-C6: There is severe bilateral uncovertebral joint osteoarthritis. There is moderate bilateral face t joint osteoarthritis. There is mild right and moderate left neural foraminal stenosis. There is mil d central canal stenosis. C6-C7: There is severe bilateral uncovertebral joint osteoarthritis. There is severe bilateral facet joint osteoarthritis. There is mild right and moderate left neural foraminal stenosis. There is mild central canal stenosis. C7-T1: There is no uncovertebral joint osteoarthritis. There is severe bilateral facet joint osteoart hritis. There is mild bilateral neural foraminal stenosis. There is no central canal stenosis. IMPRESSION: 1. Old fracture deformities of the nasal processes of maxilla. No acute fracture. 2. Moderate cervical spondylosis. Reviewed, dictated and finalized at location E. IMPRESSION: 1. Old fracture deformities of the nasal processes of maxilla. No acute fractur e. 2. Moderate cervical spondylosis.
--- NOTE | ~2023-04-21 | XR_ITS ---
EXAMINATION: XR chest 1V portable DATE: 04/22/2023 01:12 INDICATION: Chest injury. TECHNIQUE: A single frontal view of the chest was obtained. COMPARISON: Chest 2 views 03/01/2023, chest CT 03/02/2023 FINDINGS: There is volume loss of left lung status post left lower lobectomy. There are airspace opac ities in left perihilar region and left upper lung zone with volume loss and architectural distortion , consistent with radiation pneumonitis. There is pleural thickening at left lung apex. Calcified rig ht lung nodules and calcified right hilar lymph nodes are consistent with old granulomatous disease. No pleural effusion or pneumothorax. The heart size is normal. There is a right subclavian port with tip in superior vena cava. Surgical clips in the right upper quadrant are likely from cholecystectomy . IMPRESSION: 1. Stable left lung radiation pneumonitis status post left lower lobectomy. Reviewed, dictated and finalized at location E.
--- NOTE | ~2023-04-21 | CT_ITS ---
EXAMINATION: CT brain wo con DATE: 04/22/2023 01:50 INDICATION: Head injury. TECHNIQUE: Computed tomography (CT) of the head was performed without intravenous contrast. The mA wa s adjusted according to patient size. Iterative reconstruction technique was employed. The dose-lengt h product was 605.33 mGy-cm. COMPARISON: Head CT 03/18/2017 FINDINGS: There is a 5.4 cm mass involving the right temporoparietal occipital region with surroundin g extensive vasogenic edema. There is 12 mm leftward midline shift at the foramen of Monro. There is right-sided uncal herniation. There is no acute ischemic infarct or intracranial hemorrhage. There is mild mucosal thickening in the paranasal sinuses. The mastoid air cells are normal. There is left-si ded scalp soft tissue swelling. IMPRESSION: 1. 5.4 cm mass in right temporoparietal occipital region, consistent with metastatic disease versus g lioblastoma. 2. 12 mm leftward midline shift and right-sided uncal herniation. Reviewed, dictated and finalized at location E. IMPRESSION: 1. 5.4 cm mass in right temporoparietal occipital region, consistent with metas tatic disease versus glioblastoma. 2. 12 mm leftward midline shift and right-sided uncal herniation.
[2023-04-21 23:17] VITALS: BP 141/70; PULSE 64; RESP 18; TEMP 37.2; O2SAT 100
[2023-04-22] VITALS (12 sets, daily range): BP systolic 100–141; BP diastolic 59–90; PULSE 54–84; RESP 12–16; O2SAT 99–100
--- NOTE | 2023-04-22 00:59 | ECG_ITS ---
Measurements Intervals [place] Rate: 61 P: -4 ME: 191 QRS: 87 QRSD: 88 T: 166 QT: 474 QTc: 481 Interpretive Statements SINUS RHYTHM MODERATE T-WAVE ABNORMALITY, CONSIDER LATERAL ISCHEMIA [-0.1+ mV T WAVE IN V3-V6] ABNORMAL ECG COMPARED TO ECG 04/05/2023 12:53:57 NO SIGNIFICANT CHANGES Electronically Signed On 04-22-2023 7:37:40 CDT by Lalit Suarez M.D.
--- NOTE | 2023-04-22 01:02 | ED.FALL ---
HPI - Fall General Chief Complaint: Fall Stated Complaint: fall Time Seen by Provider: 04/22/23 00:06 Source: patient and family (son and ) Limitations: no limitations History of Present Illness HPI Narrative: Patient is a 57-year-old female present to the emergency department for a fall. Patient notes the fall occurred just approxi-1 hour ago and just prior to arrival. Patient states she was getting up to go to the bathroom and was walking to the bathroom when she felt lightheaded like she was going to pass out and was feeling slightly off balance and fell hitting the left side of her face on a door. Patient denies loss of consciousness. Patient admits to use of Eliquis for blood clots. Patient admits to a history of non-small cell lung cancer for which she has been on chemotherapy in the past most recently as 1 month ago however she had a heart attack approximately 2 weeks ago and had a stent placed and so she has not been getting chemotherapy. Patient states that she has been feeling lightheaded when she stands up and off balance when she stands up since the heart attack and has not followed up with anyone about this. Patient denies chest pain, shortness of breath, abdominal pain, nausea, vomiting, melena, hematochezia, dysuria, hematuria, urinary frequency, urinary urgency, numbness, weakness, vision changes, sore throat, difficulty swallowing, dysphonia, headache, confusion. Patient admits to a small amount of pain over the left side of her face where she hit her head. Patient denies getting up to ambulate after the injury. Patient has not taken anything for the pain. Patient admits to normal p.o. intake and denies any diarrhea. Patient notes that she has upcoming appointment with a monitoring specialist in a couple weeks. Patient speech has sounds slightly slurred lately per family however unsure as to the onset. Related Data Home Medications Medication Instructions Recorded Confirmed aspirin 81 mg chewable tablet 81 mg PO DAILY 04/18/19 04/02/23 budesonide-formoterol HFA 160 2 puff inhalation Q12H 04/18/19 04/02/23 mcg-4.5 mcg/actuation aerosol inhaler (Symbicort) omeprazole 40 mg capsule,delayed 40 mg PO DAILY 06/01/19 04/02/23 release loperamide 2 mg capsule (Imodium 2 mg PO PRN PRN Diarrhea 12/11/19 04/02/23 A-D) mirtazapine 15 mg tablet 15 mg PO PRN PRN Nausea 11/12/20 04/02/23 Allergies Allergy/AdvReac Type Severity Reaction Status Date / Time amoxicillin Allergy Unknown Rash Verified 03/23/23 08:41 clindamycin Allergy Unknown Itching Verified 03/23/23 08:41 codeine Allergy Unknown Nausea and Verified 03/23/23 08:41 Vomiting Iodinated Contrast Media Allergy Unknown Hives Verified 03/23/23 08:41 levofloxacin Allergy Unknown itching, Verified 03/23/23 08:41 better with benadryl morphine Allergy Unknown Nausea and Verified 03/23/23 08:41 Vomiting Penicillins Allergy Unknown rash Verified 03/23/23 08:41 piperacillin Allergy Unknown Rash Verified 03/23/23 08:41 tazobactam Allergy Unknown Rash Verified 03/23/23 08:41 doxycycline Allergy Vomiting Verified 03/23/23 08:41 Sulfa (Sulfonamide Allergy Redness of Verified 03/23/23 08:41 Antibiotics) Skin sulfamethoxazole AdvReac Mild redness Verified 03/23/23 08:41 [From Sulfamethoxazole-Trimethoprim] trimethoprim AdvReac Mild redness Verified 03/23/23 08:41 [From Sulfamethoxazole-Trimethoprim] Review of Systems Review of Systems: A 10 system review of systems was completed on the patient and is negative except for what is stated in the HPI. Nursing and ancillary documentation was reviewed. PMFSH Past Medical History Medical History Anxiety Arthritis Benign essential hypertension Cholecystectomy planned Chronic GERD FH: cholecystectomy Insomnia disorder Irritable bowel syndrome Lesion of pelvic bone Lumbar spondylosis Malignant neoplasm of lower lobe of
[2023-04-22] MEDS: SODIUM CHLORIDE 0.9% IV 500 ML 999 ML IV CONT (01:19)
[2023-04-22 01:39] LABS: Basophils Absolute Auto 0.1 K/mm3 (0.0-0.1); Basophils Percent Auto 0.8 % (0.2-1.2); Eosinophils Absolute Auto 0.1 K/mm3 (0-0.3); Eosinophils Percent Auto 1.3 % (0-4.4); Hematocrit 33.3 % (37.0-47.0); Hemoglobin 10.7 g/dL (12.0-15.0); Immature Granulocyte Absolute 0.08 K/mm3 (0.00-0.031); Immature Granulocyte Percent A 0.9 % (0-0.5); Lymphocytes Percent Auto 15.3 % (18.3-44.2); Mean Corpuscular HGB Conc 32.1 g/dl (32-36); Mean Corpuscular Hemoglobin 32.1 pg (26-34); Mean Platelet Volume 10.1 fl (7.4-10.4); Monocytes Absolute Auto 0.7 K/mm3 (0.1-0.6); Monocytes Percent Auto 8.2 % (2.6-8.5); Neutrophils Absolute Auto 6.3 K/mm3 (1.3-6.7); Neutrophils Percent Auto 73.5 % (45.5-73.1); Platelet Count Result 308 k/mm3 (150-375); Red Blood Count 3.33 M/mm3 (4.2-5.4); Red Cell Distribution Width 14.2 % (11.5-14.5); White Blood Count 8.5 K/mm3 (4.5-10.0)
[2023-04-22 01:50] LABS: Lipase 70 U/L (23-300)
[2023-04-22 01:53] LABS: Prothrombin Time 13.4 Seconds (11.1-14.7)
[2023-04-22 01:54] LABS: Partial Thromboplastin Time 26.1 SECONDS (22.3-36.8)
[2023-04-22 02:15] LABS: Troponin I 0.051 ng/mL (0.000-0.034)
[2023-04-22 02:40] LABS: Appearance Urine Clear (Clear); Bacteria Urine None Seen /hpf; Bilirubin Urine Negative (Negative); Blood Urine Negative (Negative); Color Urine Yellow (Yellow); Glucose Urine UA Negative (Negative); Ketones Urine Negative (Negative); Leukocyte Esterase Ur 2+ LEU/UL (Negative); Nitrate Urine Negative (Negative); Non Pathogenic Casts 0-2; Protein Urine Negative (Negative); RBC Urine 0-2 /hpf (0-2); Specific Grav Ur 1.005 (1.001-1.035); Squamous Epithelial Cell Urine Occasional /hpf (Few); Urobilinogen Urine 0.2 mg/dL (<2.0); WBC Clumps Urine Present /HPF
[2023-04-22 02:44] LABS: Add Urine Microscopic? YES
[2023-04-22 02:52] LABS: NT Pro B Type Natriuretic Pept 1860 pg/mL (19.9-100)
[2023-04-22 03:19] LABS: Lactic Acid Reflex 1.5 mmol/L (0.7-2.0)
[2023-04-22 03:20] LABS: Alanine Aminotransferase 16 U/L (6-35); Albumin Level 3.6 g/dL (3.5-5.1); Alkaline Phosphatase 84 U/L (38-126); Anion Gap 6 mmol/L (8-16); Aspartate Amino Transferase 28 U/L (14-36); Bilirubin,Total 0.6 mg/dL (0.2-1.3); Blood Urea Nitrogen 10 mg/dL (7-17); Calcium 8.9 mg/dL (8.4-10.2); Carbon Dioxide 25 mmol/L (22-30); Chloride 106 mmol/L (98-107); Estimated CRCL calculation 44 ml/min; Estimated Glomerular Filt Rate 57; Glucose 100 mg/dL (65-110); Magnesium 2.1 mg/dL (1.6-2.3); Potassium 3.6 mmol/L (3.4-5.0); Sodium 137 mmol/L (137-145)
--- NOTE | 2023-04-22 03:29 | PC.NURSE ---
Report called to SULLY Camacho at [facility].
== END 2023-04-22 04:24 | disposition short-term general hospital (02) ==
PROVIDERS: Emergency Provider Student in an Organized Health Care Education/Training Program; PCP Family Medicine
DX: S02.2XXA Fracture of nasal bones, initial encounter for closed fracture (principal); S00.83XA Contusion of other part of head, initial encounter; G93.89 Other specified disorders of brain; R77.8 Other specified abnormalities of plasma proteins; C34.92 Malignant neoplasm of unspecified part of left bronchus or lung; C34.91 Malignant neoplasm of unspecified part of right bronchus or lung; I25.2 Old myocardial infarction; I10 Essential (primary) hypertension; E78.49 Other hyperlipidemia; K21.9 Gastro-esophageal reflux disease without esophagitis; K58.9 Irritable bowel syndrome, unspecified; Z95.5 Presence of coronary angioplasty implant and graft; Z87.891 Personal history of nicotine dependence; Z79.01 Long term (current) use of anticoagulants; Z79.60 Long term (current) use of unspecified immunomodulators and immunosuppressants; Z79.82 Long term (current) use of aspirin; Z90.2 Acquired absence of lung [part of]; Z90.710 Acquired absence of both cervix and uterus; R94.31 Abnormal electrocardiogram [ECG] [EKG]; W18.39XA Other fall on same level, initial encounter
CPT/HCPCS: 36415; 70450; 70486; 71045; 72125; 80053; 81001; 83605; 83690; 83735; 83880; 84484; 85025; 85610; 85730; 86850; 86900; 86901; 87086; 87088; 93005; 96360; 99285; J7040

== ENCOUNTER 2023-07-20 09:41 | Outpatient (CLI) | payer OTHER, MEDICARE, SELFPAY ==
--- NOTE | ~2023-07-20 | CT_ITS ---
Clinical Indication: Lung cancer CT Scan of the Chest, Abdomen, and Pelvis with Contrast: Technique: Contiguous sections were acquired throughout the chest, abdomen, and pelvis after intraven ous administration of 100 cc of Omnipaque 350. Dose reduction technique was used on this scan by checo wyatting automated exposure control and iterative reconstruction technique. The dose-length product (DL P) was 369.28 mGy-cm. COMPARISON: 03/02/2023 Findings: There is no evidence of any significant mediastinal, hilar or axillary lymphadenopathy. There is foca l intraluminal thrombus at the tip of the right Mediport catheter. The mediastinal soft tissues and v ascular structures otherwise appear normal. There is no evidence of pleural or pericardial effusion. Patient is status post left lower lobectomy. There is chronic left sided volume loss with stable left apical airspace consolidation and left upper lobe bronchiolectasis, which could reflect element of p ost radiation change. Right lung is clear, aside from calcified granuloma. The liver, spleen, pancreas, adrenals and kidneys are within normal limits. Cholecystectomy clips are present. No evidence of aortic aneurysm. No lymphadenopathy. Questionable areas of mild large bowel wall thickening. No bowel obstruction. No abscess or free air. Urinary bladder is unremarkable. No pelvic mass seen. No ascites. Impression: No evidence for active malignancy or metastatic disease. Stable left lower lobectomy and left upper l obe post radiation change. Focal intraluminal thrombus at the tip of the right Mediport catheter. Questionable areas of mild large bowel wall thickening. Correlate for any possibility of infectious/i nflammatory colitis, versus underdistention. Reviewed, dictated and finalized at [facility]. S FINISHER Impression: No evidence for active malignancy or metastatic disease. Stable left lower lobe ctomy and left upper lobe post radiation change. Focal intraluminal thrombus at the tip of the right Mediport catheter. Questionable areas of mild large bowel wall thickening. Correlate for any possi bility of infectious/inflammatory colitis, versus underdistention.
== END 2023-07-20 09:42 | disposition home or self-care (01) ==
LOC: ANHIMG 09:43
PROVIDERS: PCP Family Medicine; Visit Provider Internal Medicine Hematology & Oncology
DX: C34.32 Malignant neoplasm of lower lobe, left bronchus or lung (principal)
CPT/HCPCS: 71260; 74177; Q9967

== ENCOUNTER 2023-07-26 08:03 | Outpatient (CLI) | payer OTHER, MEDICARE, SELFPAY ==
[2023-07-26 10:53] LABS: Hemoglobin A1C 5.4 % (<5.7)
== END 2023-07-26 08:04 | disposition home or self-care (01) ==
LOC: ANHLAB 08:15
PROVIDERS: PCP Family Medicine; Visit Provider Internal Medicine Hematology & Oncology
DX: R73.01 Impaired fasting glucose (principal)
CPT/HCPCS: 36415; 83036

== ENCOUNTER 2023-08-16 13:41 | Outpatient (CLI) | payer OTHER, MEDICARE, SELFPAY ==
--- NOTE | ~2023-08-16 | CT_ITS ---
EXAMINATION: CT brain wo con INDICATION: Head injury COMPARISON: 04/22/2023 TECHNIQUE: Standard unenhanced head CT. The dose-length product (DLP) was 605.33 mGy-cm. The mA was a djusted according to patient size. Iterative reconstruction technique was employed. FINDINGS: No intracranial hemorrhage, acute infarction, or abnormal mass lesion. There has been inter chantel resection of the previously described right temporoparietal occipital region mass. An overlying c raniotomy defect is noted. There is an old lacunar infarct of the left basal ganglia. No abnormal mas s effect or midline shift. The love-white matter differentiation is normal. The basal cisterns are pa tent. The orbits are normal. The paranasal sinuses, mastoids and calvarium are normal. IMPRESSION: 1. Interval resection of the previously described right temporoparietal occipital region mass without acute intracranial abnormality. Reviewed, dictated and finalized at location L. BAILER IMPRESSION: 1. Interval resection of the previously described right temporoparietal occipit al region mass without acute intracranial abnormality.
== END 2023-08-16 13:42 | disposition home or self-care (01) ==
PROVIDERS: PCP Family Medicine; Visit Provider Internal Medicine Hematology & Oncology
DX: C34.32 Malignant neoplasm of lower lobe, left bronchus or lung (principal)
CPT/HCPCS: 36415; 70450; 80047; 80053; 85025; 96367; 96372; 96375; 96413; 96415; J0461; J1100; J2469; J7040; J9206

== ENCOUNTER 2023-09-16 09:29 | Outpatient (CLI) | payer OTHER, MEDICARE, SELFPAY ==
--- NOTE | ~2023-09-16 | MR_ITS ---
MRI of the brain Clinical History: Secondary malignancy Technique: Axial and sagittal T1-weighted images were acquired. These were followed by axial T2-weigh leanne, diffusion weighted, gradient, and FLAIR images. Following intravenous administration of 10 cc Mu ltiHance gadolinium, T1-weighted fat-sat imaging was performed in the axial, coronal, and sagittal pl anes. COMPARISON: 04/18/2018 Findings: No acute infarct or intracranial hemorrhage seen. There is postsurgical cystic encephalomal acia in the right parietal lobe with surrounding gliosis versus residual vasogenic edema. No nodular or masslike postcontrast enhancement seen to suggest recurrent or residual mass lesion. No other abnormal signal seen in the brain parenchyma. Ventricles and subarachnoid spaces otherwise are unremarkable. Orbits are unremarkable. Paranasal sin uses and mastoid air cells are clear. Major intracranial flow voids are intact. Sagittal midline structures are intact. IMPRESSION: Postsurgical encephalomalacia in the right parietal lobe with surrounding gliosis or residual vasogen ic edema. No recurrent/residual mass lesion seen. No acute infarct or intracranial hemorrhage. Reviewed, dictated and finalized at [facility]. IMPRESSION: Postsurgical encephalomalacia in the right parietal lobe with surrounding glios is or residual vasogenic edema. No recurrent/residual mass lesion seen. No acute infarct or intracranial hemorr sunil.
== END 2023-09-16 09:30 ==
PROVIDERS: PCP Internal Medicine Hematology & Oncology; Visit Provider Radiology Radiation Oncology
DX: C79.31 Secondary malignant neoplasm of brain (principal)
CPT/HCPCS: 70553; A9577

== ENCOUNTER 2023-10-10 09:38 | Outpatient (CLI) | payer OTHER, MEDICARE, SELFPAY ==
--- NOTE | ~2023-10-10 | CT_ITS ---
Clinical Indication: Lung cancer CT Scan of the Chest, Abdomen, and Pelvis without Contrast: Technique: Contiguous sections were acquired throughout the chest, abdomen, and pelvis without IV con trast administration. Dose reduction technique was used on this scan by utilizing automated exposure control and iterative reconstruction technique. The dose-length product (DLP) was 522.77 mGy-cm. COMPARISON: 07/20/2023 Findings: There is no evidence of any significant mediastinal, hilar or axillary lymphadenopathy. Stable calcif ied mediastinal and right hilar lymph nodes. The mediastinal soft tissues appear normal. There is no evidence of pleural or pericardial effusion. Right lung is clear, aside from calcified right lower lobe granuloma. Status post left lower lobectom y. There is associated left-sided volume loss and chronic areas of consolidation in the left upper lo be/left perihilar region. The liver, spleen, pancreas, adrenals and right kidney are within normal limits. Cholecystectomy clip s are present. Nonobstructing left renal stones are present. There are atherosclerotic calcifications of the aorta. No lymphadenopathy. No bowel obstruction or bowel wall thickening. There is no evidence to suggest acute appendicitis. Urinary bladder is unremarkable. No pelvic mass seen. No ascites. Impression: No evidence for active malignancy or metastatic disease. Status post left lower lobectomy with stable chronic postradiation change in the left upper lobe/left perihilar region. Nonobstructing left renal stones. Reviewed, dictated and finalized at [facility]. Impression: No evidence for active malignancy or metastatic disease. Status post left lower lobectomy with stable chronic postradiation change in th e left upper lobe/left perihilar region. Nonobstructing left renal stones.
== END 2023-10-10 09:39 ==
LOC: MICIMG 09:40
PROVIDERS: PCP Family Medicine; Visit Provider Internal Medicine Hematology & Oncology
DX: C34.32 Malignant neoplasm of lower lobe, left bronchus or lung (principal); N20.0 Calculus of kidney
CPT/HCPCS: 71250; 74176

== ENCOUNTER 2023-12-30 08:47 | Outpatient (CLI) | payer OTHER, MEDICARE, SELFPAY ==
--- NOTE | ~2023-12-30 | MR_ITS ---
EXAMINATION: MR brain/brain stem wo/w con DATE: 12/30/2023 09:34 INDICATION: Lung cancer with brain metastases. TECHNIQUE: Magnetic resonance imaging (MRI) of the brain and brainstem was performed without and with 10 mL MultiHance intravenous contrast. COMPARISON: Brain MRI 09/16/2023 FINDINGS: There is a resection cavity in right parietal-occipital region with thin marginal enhanceme nt. There are scattered areas of nonspecific increased T2-weighted signal intensity in the cerebral w hilario matter, which is within normal limits for the patient's age. There is a new 11 mm enhancing mass in the cerebellar vermis. There are 3 new enhancing masses at the collins of the lateral ventricles. T here is no acute ischemic infarct. There is ex vacuo dilatation of the trigone and occipital horn of right lateral ventricle. The orbits are normal. The paranasal sinuses are clear. There is a trace rig ht mastoid effusion. IMPRESSION: 1. New brain masses, consistent with metastatic disease. Reviewed, dictated and finalized at location A.
== END 2023-12-30 08:48 ==
PROVIDERS: PCP Internal Medicine Hematology & Oncology; Visit Provider Radiology Radiation Oncology
DX: C79.31 Secondary malignant neoplasm of brain (principal)
CPT/HCPCS: 70553; A9577

== ENCOUNTER 2024-01-03 09:30 | Outpatient (RCR) | payer OTHER, MEDICARE, SELFPAY ==
--- NOTE | 2023-08-26 13:43 | PC.NURSE ---
MRI is scheduled for 09/20/23 at 0900, patient has been notified.
--- NOTE | 2023-08-26 13:51 | PC.NURSE ---
Ms Harrington son called she has chemo on 09/20/23, so 0900 would not work. MRI is moved to 0800 and he is fine with this time.
--- NOTE | 2023-08-30 10:27 | PC.NURSE ---
Ms Harrington referwilliam for the MRI is approved for [facility], and is rescheduled for 09/16/23 at 10am. Cancelled the 09/20/23 at [place]. The authorization number is [id number] and is valid from today (08/30/23) till . Patient and her son has been notified of the change and no questions at this time.
[2023-09-27 09:58] VITALS: BMI 22.1
[2023-09-27 10:06] VITALS: BP 146/80; PULSE 72; TEMP 36.4; O2SAT 100
--- NOTE | 2023-09-27 10:35 | PDRADONCFUV ---
Follow Up Note - Date/Time 09/27/23 10:35 - Interval History RADIATION ONCOLOGY FOLLOW UP DOS: 09/27/2023 DIAGNOSIS: 57 y.o. female with extensive stage small cell lung cancer.?Oncologist is .??She had undergone prior RT with Dr. Candelario at [facility] ?1) thoracic RT 62Gy/31 Fx 2017 2) prophylactic whole brain RT 25Gy/10 Fx 2017 3) palliative liver RT 30Gy/10 2017. 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 Dang). I treated her with adjuvant SRS 30 Gy/5Fx to the resection cavity completed 06/21/23. She is now on irinotecan systemic therapy (). HISTORY & NARRATIVE: Divina Harrington is a 57 y.o. female with a history as above. She completed a course of radiation on 06/21/23 and returns today for her first follow-up since completion of radiation. Since completing radiation, Ms. Harrington reports feeling generally well. She does have residual confusion and visual changes. She has intermittent head discomfort. She denies any NEW neurologic symptoms. PHYSICAL EXAMINATION: Vital signs: There were no vitals taken for this visit. ECOG: (1) Restricted in physically strenuous activity, ambulatory and able to do work of light nature General Appearance: The patient is a well-developed, well-nourished female, sitting, in no acute distress. HEENT: normocephalic, atraumatic. Mucus membranes moist Lungs: Breathing comfortably at rest without wheeze Neurologic: Patient awake and alert, responds to questions appropriately RADIOLOGY REVIEW: 09/16/23 Brain MRI with contrast IMPRESSION: Post surgical encephalomalacia in the right parietal lobe with surrounding gliosis or residual vasogenic edema. No recurrent/residual mass lesion seen. No acute infarct or intracranial hemorrhage. ASSESSMENT & PLAN: Divina Harrington is a 57 y.o. female with a history as above. She is now 3 months status post completion of radiation and is doing well without clinical evidence of disease in the brain. I have asked Ms. Harrington to return to see me back in 3 months with brain MRI prior. She will continue to follow with and I defer systemic restaging to him. She knows to contact me with questions or concerns prior to the return visit. Ms. Harrington is noted to have 0/10 pain in clinic today. Her individualized pain management will therefore consist of no intervention needed as the patient notes no pain of significance. I spent 30 minutes on visit today, including chart review, time with patient, documentation, and coordination of care. Javier French MD H&P - Exam - Vital Signs Vital Signs - 24 hr 09/27/23 10:06 Temperature 36.4 C Pulse Rate 72 Blood Pressure 146/80 H Pulse Oximetry 100
--- NOTE | 2023-12-09 13:20 | PC.NURSE ---
Spoke to P[facility] for [facility] on the MRI for Ms. Harrington. Authorization is [id number] good from 12/09/23-06/06/24 and will be scheduled at [facility]. MRI is scheduled for 12/30/23 at 0900, her son Luis is aware of the date and time and has no other questions at this time.
--- NOTE | 2024-01-03 09:07 | PDRADONCFUV ---
Follow Up Note - Date/Time 01/03/24 09:07 - Interval History RADIATION ONCOLOGY FOLLOW UP DOS: 01/03/2024 DIAGNOSIS: 57 y.o. female with extensive stage small cell lung cancer.?Oncologist is .??She had undergone prior RT with Dr. Candelario at [facility] ?1) thoracic RT 62Gy/31 Fx 2017 2) prophylactic whole brain RT 25Gy/10 Fx 2017 3) palliative liver RT 30Gy/10 2017. 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 Dang). I treated her with adjuvant SRS 30 Gy/5Fx to the resection cavity completed 06/21/23. She is now on irinotecan systemic therapy (). HISTORY & NARRATIVE: Divina Harrington is a 57 y.o. female with a history as above. She completed a course of radiation on 06/21/23 and returns today for follow-up. Here with her son. Ms. Harrington reports feeling generally well. She does have residual confusion and visual changes. She has intermittent head discomfort. She denies any NEW neurologic symptoms. PHYSICAL EXAMINATION: Vital signs: There were no vitals taken for this visit. ECOG: (1) Restricted in physically strenuous activity, ambulatory and able to do work of light nature General Appearance: The patient is a well-developed, well-nourished female, sitting, in no acute distress. HEENT: normocephalic, atraumatic. Mucus membranes moist Lungs: Breathing comfortably at rest without wheeze Neurologic: Patient awake and alert, responds to questions appropriately RADIOLOGY REVIEW: 12/30/23 Brain MRI with contrast FINDINGS: There is a resection cavity in right parietal-occipital region with thin marginal enhancement. There are scattered areas of nonspecific increased T2-weighted signal intensity in the cerebral white matter, which is within normal limits for the patient's age. There is a new 11 mm enhancing mass in the cerebellar vermis. There are 3 new enhancing masses at the collins of the lateral ventricles. There is no acute ischemic infarct. There is ex vacuo dilatation of the trigone and occipital horn of right lateral ventricle. The orbits are normal. The paranasal sinuses are clear. There is a trace right mastoid effusion. IMPRESSION: 1. New brain masses, consistent with metastatic disease. ASSESSMENT & PLAN: Divina Harrington is a 57 y.o. female with a history as above. I recommend SRS to treat her new brain metastases. I will coordinate this at [facility] [place] in [facility]. She knows to contact me with questions or concerns prior to the return visit. Ms. Harrington is noted to have 0/10 pain in clinic today. Her individualized pain management will therefore consist of no intervention needed as the patient notes no pain of significance. I spent 30 minutes on visit today, including chart review, time with patient, documentation, and coordination of care. Javier French MD
[2024-01-03 09:48] VITALS: BP 126/86; PULSE 72; TEMP 36.6; O2SAT 100
== END 2024-01-03 10:36 ==
LOC: AMCRADONC 09:30
PROVIDERS: Referring Provider Internal Medicine Hematology & Oncology; Visit Provider Radiology Radiation Oncology
DX: C79.31 Secondary malignant neoplasm of brain (principal); C34.91 Malignant neoplasm of unspecified part of right bronchus or lung; C78.7 Secondary malignant neoplasm of liver and intrahepatic bile duct; Z08 Encounter for follow-up examination after completed treatment for malignant neoplasm; R41.0 Disorientation, unspecified; G93.89 Other specified disorders of brain; H53.9 Unspecified visual disturbance; Z98.890 Other specified postprocedural states; Z92.3 Personal history of irradiation; Z79.634 Long term (current) use of topoisomerase inhibitor
CPT/HCPCS: 99212; G0463

== ENCOUNTER 2024-02-20 16:27 | Outpatient (CLI) | payer OTHER, MEDICARE, SELFPAY ==
--- NOTE | ~2024-02-20 | CT_ITS ---
EXAMINATION: CT chest abdomen pelvis wo con DATE: 02/20/2024 16:56 INDICATION: Malignant neoplasm of lower lobe of left lung. TECHNIQUE: Computed tomography (CT) of the chest, abdomen, and pelvis was performed without intraveno us contrast. Automated exposure control and iterative reconstruction technique were employed. The dos e-length product was 364.74 mGy-cm. COMPARISON: CT 10/10/2023 FINDINGS: CHEST CT: There are changes of left lower lobectomy. There are airspace opacities with volume loss and varicose bronchiectasis in left upper lobe, consistent with radiation pneumonitis. There is peripheral septal thickening in right upper lobe. A calcified right lung nodule and calcified right hilar and mediasti nal lymph nodes are consistent with old granulomatous disease. No pleural effusion. The heart size is normal. There are coronary artery calcifications. There is a trace pericardial effusion. There is a right subclavian port with tip at superior cavoatrial junction. ABDOMEN/PELVIS CT: The liver is normal. There are changes of cholecystectomy. Calcifications in the spleen are consisten t with old granulomatous disease. The pancreas, adrenal glands, and right kidney are normal. There ar e 2 stones in left kidney with the larger measuring 6 mm. There is diverticulosis of the colon withou t evidence of diverticulitis. There are no dilated loops of bowel. The appendix is normal. There is c alcified atherosclerosis of the aorta and many of the other arteries. There are no pathologically enl arged lymph nodes. There is no free intraperitoneal fluid. There is a right inguinal hernia containin g fat. There is a 7 mm nonaggressive lytic lesion with rim calcification in right ilium, likely benig n. IMPRESSION: 1. No evidence of metastatic disease. Reviewed, dictated and finalized at location A.
== END 2024-02-20 16:28 | disposition home or self-care (01) ==
LOC: ANHIMG 16:34
PROVIDERS: PCP Family Medicine; Visit Provider Internal Medicine Hematology & Oncology
DX: C34.32 Malignant neoplasm of lower lobe, left bronchus or lung (principal)
CPT/HCPCS: 71250; 74176

== ENCOUNTER 2024-03-15 12:45 | Inpatient (IN) | payer OTHER, MEDICARE, SELFPAY ==
[2024-03-15] VITALS (11 sets, daily range): BP systolic 105–144; BP diastolic 68–88; PULSE 60–88; RESP 14–20; TEMP 36.4–36.9; O2SAT 99–100; BMI 22.6
--- NOTE | 2024-03-15 | ECHOL_ITS ---
Patient Info Name: Divina Harrington Age: 58 years : 1965 Gender: Female Ht: 62 in Wt: 126 lbs BSA: 1.59 m2 HR: 60 bpm BP: 105 / 72 mmHg Heart Rhythm: Sinus Rhythm Technical Quality: Fair Exam Date: 03/15/2024 4:55 PM Exam Location: Echo Lab Patient Status: Emergency Admit Date: 03/15/2024 Staff Ordering Physician: Leif Navarrete MD Supervisor [employer]: Gregg Hilton [facility] Attending Provider: Leif Navarrete MD Referring Physician: Rosalba STONE; Exam Type: CA echo limited Study Info Indications I21.4 - Non-ST elevation (NSTEMI) myocardial infarction Limited two-dimensional transthoracic echocardiogram is performed. Summary 1. Left ventricular enlargement with severe hypokinesis, low ejection fraction. 2. Akinesia of the majority of the anterior wall and septum and dyskinesia of the apex. 3. Grade 1 diastolic noncompliance. 4. [id number] left atrial enlargement. 5. Mild MR. Left Ventricle Left ventricular chamber dimension is moderately enlarged. Left ventricular systolic function is severely reduced, estimated at 20-25%. The left ventricular diastolic function is grade I diastolic dysfunction. Right Ventricle Right ventricular chamber dimension is normal. Left Atria Left atrial chamber dimension is moderately enlarged. Right Atria Right atrial chamber dimension is normal. Aortic Valve The aortic valve is normal. Pulmonic Valve The pulmonic valve is not well visualized. Mitral Valve The mitral valve has normal leaflets. There is mild mitral valve regurgitation. Tricuspid Valve The tricuspid valve leaflets are normal. Pericardium/Pleural The pericardium appears normal. Aorta The aortic root size at the sinus of Valsalva is normal. Pulmonic Valve Name Value Normal PV Doppler PV Peak Gradient 2 mmHg PV Regurgitation Doppler AR Peak End Diastolic Velocity 165 cm/s Mitral Valve Name Value Normal MV Doppler MV Decel [place] 596 cm/s2 MV PHT 34 ms MV Area (PHT) 6.4 cm2 4.0-5.0 MV Diastolic Function MV E Peak Velocity 70 cm/s MV A Peak Velocity 86 cm/s MV E/A 0.8 MV Decel Time 118 ms Tricuspid Valve Name Value Normal TV Regurgitation Doppler TR Peak Velocity 227 cm/s TR Peak Gradient 21 mmHg Ventricles Name
--- NOTE | ~2024-03-15 | XR_ITS ---
Clinical Indication: Chest pain PA and lateral views of the chest: Comparison: 04/22/2023 Findings: Right-sided Mediport in place. There is retraction of the left hilum with left suprahilar c onsolidation of focal bronchiectasis. There is left apical pleural thickening. Right lung clear aside from small calcified right basilar granuloma.. Cardiomediastinal silhouette is within normal limits . Bones and soft tissues are unremarkable. Impression: Suspected post treatment/post radiation change at the left hilum/left upper lobe region, similar over all to prior exam. No definite acute reality seen. No evidence of prior granular disc disease. Left-sided Mediport. Reviewed, dictated and finalized at location . Impression: Suspected post treatment/post radiation change at the left hilum/left upper lob e region, similar overall to prior exam. No definite acute reality seen. No evidence of prior granular disc disease. Left-sided Mediport.
--- NOTE | 2024-03-15 12:48 | ECG_ITS ---
Test Date: 2024-03-15 12:56:04 Measurements Intervals [place] Rate: 72 P: 48 AR: 180 QRS: -52 QRSD: 95 T: 102 QT: 383 QTc: 421 Interpretive Statements SINUS RHYTHM LEFT ANTERIOR FASCICULAR BLOCK T WAVE ABNORMALITY IN HIGH LATERAL LEADS- CONSIDER ISCHEMIA ABNORMAL ECG No previous ECG available for comparison Electronically Signed On 03-15-2024 13:06:35 CDT by Anthony Vines D.O.
[2024-03-15] MEDS: ASPIRIN 81 MG CHEWABLE TABLET 324 MG PO (13:06)
[2024-03-15 13:19] LABS: Basophils Absolute Auto 0.1 K/mm3 (0.0-0.1); Basophils Percent Auto 0.8 % (0.2-1.2); Eosinophils Absolute Auto 0.1 K/mm3 (0-0.3); Eosinophils Percent Auto 1.5 % (0-4.4); Hematocrit 37.4 % (37.0-47.0); Hemoglobin 12.4 g/dL (12.0-15.0); Immature Granulocyte Absolute 0.06 K/mm3 (0.00-0.031); Lymphocytes Absolute Auto 1.44 K/mm3 (0.9-3.2); Lymphocytes Percent Auto 23.2 % (18.3-44.2); Mean Corpuscular HGB Conc 33.2 g/dl (32-36); Mean Corpuscular Hemoglobin 33.8 pg (26-34); Mean Corpuscular Volume 101.9 fl (80-100); Mean Platelet Volume 9.8 fl (7.4-10.4); Monocytes Absolute Auto 0.5 K/mm3 (0.1-0.6); Monocytes Percent Auto 8.2 % (2.6-8.5); Neutrophils Absolute Auto 4.1 K/mm3 (1.3-6.7); Neutrophils Percent Auto 65.3 % (45.5-73.1); Platelet Count Result 239 k/mm3 (150-375); Red Blood Count 3.67 M/mm3 (4.2-5.4); Red Cell Distribution Width 13.6 % (11.5-14.5); White Blood Count 6.2 K/mm3 (4.5-10.0)
[2024-03-15 13:31] LABS: INR 1.2; Prothrombin Time 15.1 Seconds (11.1-14.7)
[2024-03-15 13:35] LABS: Alanine Aminotransferase 13 U/L (6-35); Albumin Level 4.1 g/dL (3.5-5.1); Alkaline Phosphatase 113 U/L (38-126); Anion Gap 7 mmol/L (4-12); Aspartate Amino Transferase 21 U/L (14-36); Bilirubin,Total 0.5 mg/dL (0.2-1.3); Blood Urea Nitrogen 14 mg/dL (7-17); Calcium 8.8 mg/dL (8.4-10.2); Carbon Dioxide 26 mmol/L (22-30); Chloride 100 mmol/L (98-107); Estimated CRCL calculation 33 ml/min; Estimated Glomerular Filt Rate 42; Glucose 124 mg/dL (65-110); Lipase 127 U/L (23-300); Potassium 3.8 mmol/L (3.4-5.0); Sodium 133 mmol/L (137-145)
[2024-03-15 13:41] LABS: Troponin I < 0.012 ng/mL (0.000-0.034)
--- NOTE | 2024-03-15 15:59 | ECG_ITS ---
Test Date: 2024-03-15 16:03:57 Measurements Intervals [place] Rate: 61 P: 44 WI: 200 QRS: -13 QRSD: 82 T: 97 QT: 410 QTc: 414 Interpretive Statements SINUS RHYTHM BORDERLINE AV CONDUCTION DELAY DELAYED PRECORDIAL R/S TRANSITION LOW QRS VOLTAGE IN PRECORDIAL LEADS BORDERLINE T WAVE ABNORMALITY- ANTEROLAT/HIGH LAT LEADS BASELINE ARTIFACT- I, II, III, AVR, AVL, AVF, V1 BORDERLINE ECG Compared to ECG 03/15/2024 12:56:04 NO SIGNIFICANT CHANGE Electronically Signed On 03-15-2024 16:44:38 CDT by Anthony Vines D.O.
[2024-03-15 16:17] LABS: Troponin I 0.392 ng/mL (0.000-0.034)
--- NOTE | 2024-03-15 16:40 | ED.CHESTPAIN ---
HPI - Chest Pain General Chief Complaint: Chest Pain Stated Complaint: chest tightness, nausea Time Seen by Provider: 03/15/24 13:28 History of Present Illness HPI narrative: 58-year-old female with a past medical history including coronary artery disease with 1 drug-eluting stent. She also has a history of small-cell lung cancer currently being treated with chemotherapy. Patient presents to the ED today for evaluation of chest discomfort she describes as a crushing chest sensation while she ascended a flight of stairs. She states that the pain was not present until she finished going up the stairs and that was suddenly onset and lasted about 45 minutes before self-limiting. She is not taking anything for pain including aspirin nitroglycerin. Endorses nausea with several episodes of vomiting on the way here. Presently she is not having any chest discomfort, shortness of breath, nausea, vomiting, headache, vision changes. She states she feels completely resolved but is concerned that could have been related to her heart prompting her to seek evaluation. She states it feels very similar to last time she was found to have a heart attack. Presently is on Plavix and Eliquis. Has a history of thrombosis but she is not clear if it was a PE or DVT. No new calf swelling or leg swelling. No shortness of breath. Related Data Home Medications Medication Instructions Recorded Confirmed aspirin 81 mg chewable tablet 81 mg PO DAILY 04/18/19 02/28/24 budesonide-formoterol HFA 160 2 puff inhalation Q12H 04/18/19 02/28/24 mcg-4.5 mcg/actuation aerosol inhaler (Symbicort) omeprazole 40 mg capsule,delayed 40 mg PO DAILY 06/01/19 02/28/24 release loperamide 2 mg capsule (Imodium 2 mg PO PRN PRN Diarrhea 12/11/19 02/28/24 A-D) mirtazapine 15 mg tablet 15 mg PO PRN PRN Nausea 11/12/20 02/28/24 clopidogrel 75 mg tablet (Plavix) 75 mg PO DAILY 06/06/23 02/28/24 Allergies Allergy/AdvReac Type Severity Reaction Status Date / Time amoxicillin Allergy Unknown Rash Verified 02/28/24 15:53 clindamycin Allergy Unknown Itching Verified 02/28/24 15:53 codeine Allergy Unknown Nausea and Verified 02/28/24 15:53 Vomiting Iodinated Contrast Media Allergy Unknown Hives Verified 02/28/24 15:53 levofloxacin Allergy Unknown itching, Verified 02/28/24 15:53 better with benadryl morphine Allergy Unknown Nausea and Verified 02/28/24 15:53 Vomiting Penicillins Allergy Unknown rash Verified 02/28/24 15:53 piperacillin Allergy Unknown Rash Verified 02/28/24 15:53 tazobactam Allergy Unknown Rash Verified 02/28/24 15:53 doxycycline Allergy Vomiting Verified 02/28/24 15:53 Sulfa (Sulfonamide Allergy Redness of Verified 02/28/24 15:53 Antibiotics) Skin sulfamethoxazole AdvReac Mild redness Verified 02/28/24 15:53 [From Sulfamethoxazole-Trimethoprim] trimethoprim AdvReac Mild redness Verified 02/28/24 15:53 [From Sulfamethoxazole-Trimethoprim] Review of Systems Review of Systems: As reviewed above in the HPI [facility] Past Medical History Medical History Anxiety Arthritis Benign essential hypertension Cholecystectomy planned Chronic GERD FH: cholecystectomy Insomnia disorder Irritable bowel syndrome Lesion of pelvic bone Lumbar spondylosis Malignant neoplasm of lower lobe of left lung Other and unspecified hyperlipidemia Small cell carcinoma of right lung Surgical History Surgical History H/O: hysterectomy History of bilateral tubal ligation S/P lobectomy of lung Family History Family History Mother Family history of malignant neoplasm Other Family history of alcoholism Family history of kidney disease Family history of seizure disorder Social History Social History Smoking
--- NOTE | 2024-03-15 18:17 | ADMGEN ---
This patient, Divina Harrington, was admitted to IMU Room 203-01. Patient/family oriented to hospital policies and general routines including ID bracelet, bed and alarms, visiting hours, pain management, procedures, bathroom and other care routines, personal items, smoking policy, room service/diet, and visiting hours. Information on how to activate the Rapid Response Team has been discussed. Patient/Family are encouraged to report perceived risks to care and to ask questions if they do not understand what they are told or what they should do.
--- NOTE | 2024-03-15 19:24 | PM.IMHP ---
H&P: HPI History of Present Illness Date/Time: 03/15/24 19:24 Chief Complaint: Chest Pain Narrative: 58 y/o F presents here with chest pain with PMH of CAD (x1 stent, March 2023), small cell lung cancer on chemotherapy, HTN, IBS, and anxiety. The patient presents here from home for further evaluation chest pain. She reports at 12-12:30 that she was walking up a flight of stairs. When she arrived to the top she reports acute onset of midsternal chest pain, chest heaviness, shortness of breath, and nausea with one episode of vomiting (small in volume). She further describes the chest pain as dull, pressure/tight, nonradiating, constant, and no alleviating/aggravating factors. Endorses associated dizziness, diaphoresis, and clamminess. Pain lasted for approximately 45 minutes. Chest pain and associated symptoms resolved without intervention and rest. No medications taken at home. Denies associated palpitations or syncope. Patient has history of NC, stented in March of 2023 here at [facility]. Patient is on Eliquis and Plavix, placed on these medications post-NC per patient. Initial VS at presentation: 97.6? F, HR 70, RR 14, 144/77, and 99% on RA. ED workup showed: No leukocytosis, no anemia, INR 1.2, sodium 133, creatinine 1.3 and GFR 42 (previously 1.1 and GFR 51 on 02/28/2024), initial troponin negative and 2nd troponin was is 0.392. CXR showed suspected post treatment/post radiation change to the left hilum/left upper lobe region that is similar overall to prior exam, no definite acute abnormality seen, left-sided MediPort. Review of Systems Review of Systems: All systems reviewed & are unremarkable except as noted in HPI and below PMFSH Past Medical History Medical History Anemia in neoplastic disease Anxiety Benign essential hypertension Cardiomyopathy Chronic pain syndrome Dyslipidemia GERD (gastroesophageal reflux disease) Insomnia disorder Irritable bowel syndrome Kidney stone on left side Lesion of pelvic bone Lumbar spondylosis Malignant neoplasm of lower lobe of left lung Osteoarthritis Osteoporosis Other and unspecified hyperlipidemia Small cell carcinoma of right lung Surgical History Surgical History H/O: hysterectomy History of bilateral tubal ligation S/P lobectomy of lung Family History Family History Mother Family history of malignant neoplasm Other Family history of alcoholism Family history of kidney disease Family history of seizure disorder Social History Social History Smoking packs per day: 1 Smoking cigarettes per day: 20.0 Years smoked: 36 Smoking pack-years: 36.00 Smoking status: Former smoker Tobacco type: cigarettes Second hand tobacco smoke exposure: No Smoking end date: 06/27/16 Alcohol intake: never Drinks per week: 1 Alcohol use details: 1-2 EVERY FEW MONTHS Substance use: current Substance use type: does not use Other substance usage details: CBD oils Do You Feel Safe in your Home?: Yes Lack of Transportation: YES Lack of Food: Never True Current Housing: I Have Housing Concerned About Future Housing: No Difficulty Paying Gas/Electric Bills: No Difficulty Paying for Meds: No Currently Unemployed: No Education: Bachelor's Degree Difficulty w/ Childcare or Family Care: No Living arrangements: with family Gender identity (if verbalized by the patient): Female Spiritual care concerns: No Meds Home Medications and Allergies Home Medications Medication Instructions Recorded Confirmed Type budesonide-formoterol HFA 160 2 puff inhalation Q12H 04/18/19 03/15/24 History mcg-4.5 mcg/actuation aerosol inhaler (Symbicort) omeprazole 40 mg capsule,delayed 40 mg PO DAILY 12
[2024-03-15 20:03] LABS: Troponin I 0.971 ng/mL (0.000-0.034)
[2024-03-15] MEDS: CLOPIDOGREL BISULFATE 75 MG TABLET PO (21:09)
[2024-03-15] MEDS: APIXABAN 5 MG TABLET PO (21:09)
[2024-03-15] MEDS: LORazepam (*CRX) 0.5 MG TABLET PO (21:09)
[2024-03-16] VITALS (18 sets, daily range): BP systolic 113–142; BP diastolic 68–89; PULSE 63–92; RESP 16–20; TEMP 36.4–36.8; O2SAT 96–100
[2024-03-16 05:04] LABS: Basophils Absolute Auto 0.1 K/mm3 (0.0-0.1); Basophils Percent Auto 1.1 % (0.2-1.2); Eosinophils Absolute Auto 0.2 K/mm3 (0-0.3); Eosinophils Percent Auto 3.1 % (0-4.4); Hematocrit 34.1 % (37.0-47.0); Hemoglobin 11.5 g/dL (12.0-15.0); Immature Granulocyte Absolute 0.04 K/mm3 (0.00-0.031); Immature Granulocyte Percent A 0.7 % (0-0.5); Lymphocytes Absolute Auto 1.15 K/mm3 (0.9-3.2); Lymphocytes Percent Auto 21.1 % (18.3-44.2); Mean Corpuscular HGB Conc 33.7 g/dl (32-36); Mean Corpuscular Hemoglobin 34.1 pg (26-34); Mean Corpuscular Volume 101.2 fl (80-100); Mean Platelet Volume 10.2 fl (7.4-10.4); Monocytes Absolute Auto 0.6 K/mm3 (0.1-0.6); Neutrophils Absolute Auto 3.4 K/mm3 (1.3-6.7); Platelet Count Result 243 k/mm3 (150-375); Red Blood Count 3.37 M/mm3 (4.2-5.4); Red Cell Distribution Width 13.6 % (11.5-14.5); White Blood Count 5.4 K/mm3 (4.5-10.0)
[2024-03-16 05:14] LABS: INR 1.2
[2024-03-16 05:15] LABS: Partial Thromboplastin Time 26.5 Seconds (22.3-36.8)
[2024-03-16 05:17] LABS: Alanine Aminotransferase 11 U/L (6-35); Albumin Level 3.2 g/dL (3.5-5.1); Alkaline Phosphatase 93 U/L (38-126); Anion Gap 7 mmol/L (4-12); Aspartate Amino Transferase 21 U/L (14-36); Bilirubin,Total 0.3 mg/dL (0.2-1.3); Blood Urea Nitrogen 16 mg/dL (7-17); Calcium 8.6 mg/dL (8.4-10.2); Carbon Dioxide 27 mmol/L (22-30); Chloride 104 mmol/L (98-107); Cholesterol 201 mg/dL (0-200); Estimated CRCL calculation 44 ml/min; Estimated Glomerular Filt Rate 57; Glucose 101 mg/dL (65-110); HDL Direct 40 mg/dL; Sodium 138 mmol/L (137-145); Triglycerides 125 mg/dL (<150)
[2024-03-16 05:28] LABS: LDL Cholesterol Direct 147 mg/dL
[2024-03-16 05:35] LABS: Troponin I 0.685 ng/mL (0.000-0.034)
--- NOTE | 2024-03-16 06:30 | ECG_ITS ---
Test Date: 2024-03-16 08:10:42 Measurements Intervals [place] Rate: 66 P: 36 NC: 209 QRS: -52 QRSD: 83 T: 72 QT: 419 QTc: 440 Interpretive Statements SINUS RHYTHM WITH FIRST DEGREE AV BLOCK LEFT ANTERIOR FASCICULAR BLOCK BORDERLINE T WAVE ABNORMALITY- ANTEROLATERAL LEADS BASELINE ARTIFACT- I, II, AVR, AVL, AVF, V1 ABNORMAL ECG Compared to ECG 03/15/2024 16:03:57 LEFT ANTERIOR FASCICULAR BLOCK NOW PRESENT Electronically Signed On 03-16-2024 10:44:26 CDT by Anthony Vines D.O.
--- NOTE | 2024-03-16 08:32 | PM.CNCAR ---
Assessment and Plan Assessment and plan (1) Non-STEMI (non-ST elevated myocardial infarction): Code(s): I21.4 - Non-ST elevation (NSTEMI) myocardial infarction Status: Acute Assessment and Plan: Patient with history of CAD s/p PCI to the LAD in March 2023 presents with episode of exertional chest pain. Her EKGs do not demonstrate any ischemic changes. Her initial troponin was negative but subsequent levels were elevated at 0.392, 0.971, 1.010, and 0.685. Her description of pain, associated symptoms, and troponin leak warrant further evaluation with coronary angiogram. Unfortunately she is anticoagulated with apixaban and received a dose last night. Therefore, will not be able to proceed with left heart cath today. I am going to hold her apixaban and anticoagulate her with heparin. She should also be on a beta kassandra and losartan which apparently were stopped by a neurologist following a craniotomy last year because of soft blood pressures. She should also be on high intensity statin. Plan to continue heparin and proceed with LHC on Tuesday. She has a contrast dye allergy and premeds for IV contrast have been ordered. (2) Cardiomyopathy: Code(s): I42.9 - Cardiomyopathy, unspecified Status: Acute Assessment and Plan: Following NE in 2022 she had a mildly reduced EF, 45-50% with grade II diastolic dysfunction and hypokinesis of the inferior, anterior, inferoseptal, and anteroseptal collins. As above, will start metoprolol and losartan. History of Present Illness History of Present Illness Consult date/time: 03/16/24 08:32 Requesting physician: Leif Navarrete MD Consult reason: Other (NSTEMI) Reason For Visit: NSTEMI Narrative: Divina Harrington is a 4-year-old female with coronary artery disease status post PCI to the LAD [place] [address] Nichols. She came to our office for one follow up visit and planned to see a different nuclear security officer after that visit but I am unsure which doctor. She also has small cell lung cancer and is undergoing chemotherapy. She presents to the hospital following an episode of exertional chest pain that she experienced when climbing a flight of stairs. She had associated nausea and diaphoresis. She describes the pain as a heaviness/pressure identical to the pain she experienced with her first NE. She denies any palpitations, shortness of breath, syncope, pre-syncope. The pain did subside with rest but it took quite some time for the pain to resolve. This is the first episode of chest pain she has had since her intervention last fall. She is free from any chest pain now and has no active complaints. Review of Systems Review of Systems: All systems reviewed & are unremarkable except as noted in HPI and below PMFSH Past Medical History Medical History (Updated 03/16/24 @ 11:25 by FIORDALIZA Bernabe) Anemia in neoplastic disease Anxiety Benign essential hypertension Cardiomyopathy Chronic pain syndrome Dyslipidemia GERD (gastroesophageal reflux disease) Insomnia disorder Irritable bowel syndrome Kidney stone on left side Lesion of pelvic bone Lumbar spondylosis Malignant neoplasm of lower lobe of left lung Osteoarthritis Osteoporosis Other and unspecified hyperlipidemia Small cell carcinoma of right lung Surgical History Surgical History H/O: hysterectomy History of bilateral tubal ligation S/P lobectomy of lung Family History Family History Mother Family history of malignant neoplasm Other Family history of alcoholism Family history of kidney disease Family history of seizure disorder Social History Social History Smoking packs per day: 1 Smoking cigarettes per day: 20.0 Years smoked: 36 Smoking pack-years: 36.00 Smoking status: Former smoker Tobacco type:
--- NOTE | 2024-03-16 08:45 | PM.IMPN ---
Progress Note: A&P Assessment and Plan (1) Non-STEMI (non-ST elevated myocardial infarction): Code(s): I21.4 - Non-ST elevation (NSTEMI) myocardial infarction Status: Acute Plan 58 y/o F presents here with chest pain with PMH of CAD (x1 stent, March 2023), small cell lung cancer on chemotherapy, HTN, IBS, and anxiety. The patient presents here from home for further evaluation chest pain. She reports at 12-12:30 that she was walking up a flight of stairs. When she arrived to the top she reports acute onset of midsternal chest pain, chest heaviness, shortness of breath, and nausea with one episode of vomiting (small in volume). She further describes the chest pain as dull, pressure/tight, nonradiating, constant, and no alleviating/aggravating factors. Endorses associated dizziness, diaphoresis, and clamminess. Pain lasted for approximately 45 minutes. Chest pain and associated symptoms resolved without intervention and rest. No medications taken at home. Denies associated palpitations or syncope. Patient has history of [place], stented in March of 2023 here at [facility]. Patient is on Eliquis and Plavix, placed on these medications post-[place] per patient. Initial VS at presentation: 97.6? F, HR 70, RR 14, 144/77, and 99% on RA. ED workup showed: No leukocytosis, no anemia, INR 1.2, sodium 133, creatinine 1.3 and GFR 42 (previously 1.1 and GFR 51 on 02/28/2024), initial troponin negative and 2nd troponin was is 0.392.Followed by 0.971 to 1.010 CXR showed suspected post treatment/post radiation change to the left hilum/left upper lobe region that is similar overall to prior exam, no definite acute abnormality seen, left-sided MediPort. EKG:Sinus rhythm, left anterior fascicular block, T-wave abnormality in high lateral leads consider ischemia. - ASA 324 given and SL nitro PRN. Already on Eliquis and Plavix.Which has been switched to heparin drip. Apixaban on hold. Continue on Plavix. Cardiology consulted - add lipid panel - echo ordered on heparin drip. Plan for cardiac catheterization Tuesday - cardiac catheterization, previous (04/05/2023): 1. Significant obstructive mid LAD stenosis s/p successful IVUS guided PCI with RANJIT x 1. 2. Elevated left ventricular end-diastolic pressure of 39mmHg Hypertension Chronic pain syndrome Hyperlipidemia metastatic Small cell carcinoma of right lung With history of radiation history of brain metastasis status post resection 2022. Currently on systemic therapy GERD Lumbar spondylosis Chronic anemia Diet: Heart healthy, NPO been night GI Prophylaxis: Not currently indicated DVT Prophylaxis: Lines: Peripheral Code Status: Full code Subjective Date/time seen: 03/16/24 08:45 Interval history: No further chest pain. No shortness of breath. Chart reviewed. Discussed the nursing staff. Labs reviewed. Review of Systems Review of Systems: All systems reviewed & are unremarkable except as noted in HPI and below Exam Narrative: GENERAL: [Well-appearing, well-nourished, and in no acute distress.] HEAD: [Normocephalic, atraumatic.] EYES: [PERRLA and EOMI.] ENT: Nares clear, no rhinorrhea or epistaxis. Mucous membranes moist. NECK: Supple. CHEST: [Clear to auscultation. No respiratory distress.] HEART: [Regular rate and rhythm]. No murmur heard. [Normal peripheral pulses.] ABDOMEN: [Soft, nondistended], [nontender], [No rigidity or guarding] EXTREMITIES: Normal range of motion. [No edema.] SKIN: Warm, dry, no rash. NEURO: [No focal deficits]. Alert and oriented [x3.] PSYCH: [Normal mood and affect.] Objective Data Vital Signs Vital Signs: Vital Signs - 24 hr 03/15/24 12:54 03/15/24 13:00 03/15/24 13:28 Temperature 97.6 F Pulse Rate 70 74 Respiratory Rate 14 Blood Pressure 144/77 H Pulse Oximetry 99 99 Oxygen Delivery Room Air 03/15/24 13:40 03/15/24 15:01 03/15/24 17:17 Temperature 97.8 F Pulse Rate 63 60 88 Respiratory Rate
[2024-03-16] MEDS: FLUTICASONE/SALMETEROL 115-21 MCG INHALER 1 PUFF 2 PUFF INHALATION ×3 (08:55→20:06)
[2024-03-16] MEDS: PANTOPRAZOLE 40 MG TABLET PO ×2 (09:11→18:19)
[2024-03-16] MEDS: HEPARIN SOD/D5W 100 UNITS/ML 25,000 UNITS/250 ML BAG 7 UNITS IV CONT (09:11)
[2024-03-16] MEDS: HEPARIN SODIUM 5,000 UNITS/ML VIAL 3500 UNITS IV PUSH (09:11)
[2024-03-16 10:35] LABS: Basophils Absolute Auto 0.1 K/mm3 (0.0-0.1); Eosinophils Absolute Auto 0.1 K/mm3 (0-0.3); Eosinophils Percent Auto 2.1 % (0-4.4); Hematocrit 37.5 % (37.0-47.0); Hemoglobin 12.4 g/dL (12.0-15.0); Immature Granulocyte Absolute 0.06 K/mm3 (0.00-0.031); Lymphocytes Absolute Auto 1.19 K/mm3 (0.9-3.2); Lymphocytes Percent Auto 19.3 % (18.3-44.2); Mean Corpuscular HGB Conc 33.1 g/dl (32-36); Mean Corpuscular Hemoglobin 33.6 pg (26-34); Mean Corpuscular Volume 101.6 fl (80-100); Mean Platelet Volume 9.7 fl (7.4-10.4); Monocytes Absolute Auto 0.5 K/mm3 (0.1-0.6); Monocytes Percent Auto 8.6 % (2.6-8.5); Neutrophils Absolute Auto 4.2 K/mm3 (1.3-6.7); Platelet Count Result 247 k/mm3 (150-375); Red Blood Count 3.69 M/mm3 (4.2-5.4); Red Cell Distribution Width 13.6 % (11.5-14.5); White Blood Count 6.2 K/mm3 (4.5-10.0)
[2024-03-16 10:46] LABS: INR 1.1
[2024-03-16 11:07] LABS: Partial Thromboplastin Time 177.8 Seconds (22.3-36.8)
[2024-03-16 18:37] LABS: Partial Thromboplastin Time 42.4 Seconds (22.3-36.8)
[2024-03-16] MEDS: HEPARIN SODIUM 5,000 UNITS/ML VIAL 4000 UNITS IV PUSH (18:48)
[2024-03-16] MEDS: LORazepam (*CRX) 0.5 MG TABLET PO (21:02)
[2024-03-16] MEDS: CLOPIDOGREL BISULFATE 75 MG TABLET PO (21:02)
[2024-03-17] VITALS (16 sets, daily range): BP systolic 98–130; BP diastolic 63–86; PULSE 62–91; RESP 16–20; TEMP 36.4–36.7; O2SAT 98–100
[2024-03-17 01:02] LABS: Basophils Absolute Auto 0.1 K/mm3 (0.0-0.1); Basophils Percent Auto 0.8 % (0.2-1.2); Eosinophils Absolute Auto 0.1 K/mm3 (0-0.3); Eosinophils Percent Auto 1.6 % (0-4.4); Hematocrit 37.2 % (37.0-47.0); Hemoglobin 12.5 g/dL (12.0-15.0); Immature Granulocyte Absolute 0.05 K/mm3 (0.00-0.031); Immature Granulocyte Percent A 0.8 % (0-0.5); Lymphocytes Absolute Auto 1.64 K/mm3 (0.9-3.2); Lymphocytes Percent Auto 26.4 % (18.3-44.2); Mean Corpuscular HGB Conc 33.6 g/dl (32-36); Mean Corpuscular Hemoglobin 33.8 pg (26-34); Mean Corpuscular Volume 100.5 fl (80-100); Mean Platelet Volume 9.7 fl (7.4-10.4); Monocytes Absolute Auto 0.6 K/mm3 (0.1-0.6); Monocytes Percent Auto 10.3 % (2.6-8.5); Neutrophils Absolute Auto 3.7 K/mm3 (1.3-6.7); Neutrophils Percent Auto 60.1 % (45.5-73.1); Platelet Count Result 263 k/mm3 (150-375); Red Cell Distribution Width 13.8 % (11.5-14.5); White Blood Count 6.2 K/mm3 (4.5-10.0)
[2024-03-17 01:19] LABS: Partial Thromboplastin Time 127.6 Seconds (22.3-36.8)
[2024-03-17 01:45] LABS: Alanine Aminotransferase 12 U/L (6-35); Albumin Level 3.6 g/dL (3.5-5.1); Alkaline Phosphatase 98 U/L (38-126); Anion Gap 10 mmol/L (4-12); Aspartate Amino Transferase 22 U/L (14-36); Bilirubin,Total 0.5 mg/dL (0.2-1.3); Blood Urea Nitrogen 10 mg/dL (7-17); Calcium 8.8 mg/dL (8.4-10.2); Carbon Dioxide 25 mmol/L (22-30); Chloride 102 mmol/L (98-107); Estimated CRCL calculation 44 ml/min; Estimated Glomerular Filt Rate 57; Glucose 110 mg/dL (65-110); Potassium 3.9 mmol/L (3.4-5.0); Sodium 137 mmol/L (137-145)
[2024-03-17 07:54] LABS: Partial Thromboplastin Time 66.3 Seconds (22.3-36.8)
--- NOTE | 2024-03-17 08:12 | PM.PNCARD ---
Progress Note: A&P Assessment and Plan (1) NSTEMI (non-ST elevated myocardial infarction): Code(s): I21.4 - Non-ST elevation (NSTEMI) myocardial infarction Status: Acute Plan 58-year-old lady with coronary artery disease also with stage IV small cell lung cancer. Admitted with chest pain concerning for myocardial ischemia. With known history of coronary disease and stenting of her LAD last year follow-up angiography has been recommended and planned for Tuesday. Patient is still desirous of an aggressive approach to her heart disease despite her poor prognosis regarding her malignancy. Follow-up angiography will take place on Tuesday and further recommendations pending those results. Lalit Suarez MD [facility] Subjective Date/time seen: Date of service:03/17/24 08:12 Interval history: Follow-up visit in this 58-year-old lady with: Coronary artery disease with previous PCI to the LAD in 2022. Patent enters the hospital with chest pain, modest troponin rise and clinical diagnosis of ACS. She is asymptomatic this morning and feels well. Her obvious other major comorbidity is small cell lung cancer which is known to be metastatic. Exam Const: General: comfortable and no acute distress HENMT: Mouth: Yes moist mucous membranes Eyes: Sclera: sclerae normal Neck: Neck: supple and no JVD Resp: Effort & Inspection: normal respiratory effort Other: Tubular quality diminished breath sounds throughout both lung lea Cardio: Rate: regular rate Rhythm: regular rhythm Other: no murmur no gallop GI: GI Palp: Yes Soft to palpation Auscultation: normal bowel sounds Skin: General skin exam: normal color Neuro: Other: alert and oriented x3 Extrem: Other: no edema, adequate pulses Objective Data Vital Signs Vital Signs: Vital Signs - 24 hr 03/16/24 08:56 03/16/24 08:59 03/16/24 12:00 Temperature 36.8 C Pulse Rate 65 80 Respiratory Rate 20 18 Blood Pressure 117/78 Pulse Oximetry 96 98 Oxygen Delivery Room Air 03/16/24 10:00 03/16/24 12:00 03/16/24 12:00 Temperature Pulse Rate 72 71 Respiratory Rate Blood Pressure Pulse Oximetry Oxygen Delivery Room Air 03/16/24 14:00 03/16/24 16:00 03/16/24 16:00 Temperature Pulse Rate 63 74 Respiratory Rate Blood Pressure Pulse Oximetry Oxygen Delivery Room Air 03/16/24 16:00 03/16/24 18:00 03/16/24 20:07 Temperature 36.4 C L Pulse Rate 71 72 Respiratory Rate 16 Blood Pressure 128/89 Pulse Oximetry 100 96 Oxygen Delivery Room Air 03/16/24 20:00 03/16/24 20:00 03/16/24 22:00 Temperature 36.4 C Pulse Rate 68 92 82 Respiratory Rate 18 Blood Pressure 142/89 H Pulse Oximetry 100 Oxygen Delivery 03/16/24 20:00 03/16/24 23:57 03/17/24 00:00 Temperature 36.5 C Pulse Rate 81 Respiratory Rate 18 Blood Pressure 119/88 Pulse Oximetry 100 Oxygen Delivery Room Air Room Air 03/17/24 00:00 03/17/24 02:00 03/17/24 04:00 Temperature Pulse Rate 71 78 Respiratory Rate Blood Pressure Pulse Oximetry Oxygen Delivery Room Air 03/17/24 04:00 03/17/24 04:00 03/17/24 06:00 Temperature 36.4 C Pulse Rate 75 67 72 Respiratory Rate 18 Blood Pressure 130/86 Pulse Oximetry 100 Oxygen Delivery Intake/Output Intake/Output: Intake & Output 03/14/24 03/15/24 03/16/24 03/17/24 23:59 23:59 23:59 23:59 Intake Total 1254.3 196 Balance 1254.3 196 Meds/Results Medications: Active Medications Generic Name Dose Route Start Last Admin Trade Name Freq PRN Reason Stop Dose Admin Apixaban 5 mg 03/15/24 21:00 03/15/24 21:09 Apixaban 5 Mg Tablet PO 5 mg Q12HR RADHA Administration Atorvastatin Calcium 80 mg 03/17/24 09:00 Atorvastatin 40 Mg Tablet PO DAILY [facility] Clopidogrel Bisulfate 75 mg 03/15/24 21:00 03/16/24 21:02 Clopidogrel Bisulfate 75 Mg Tablet PO 75 mg
[2024-03-17] MEDS: HEPARIN SODIUM 5,000 UNITS/ML VIAL 2500 UNITS IV PUSH (08:13)
[2024-03-17] MEDS: ATORVASTATIN 40 MG TABLET 80 MG PO (08:14)
[2024-03-17] MEDS: LOSARTAN POTASSIUM 12.5 MG TABLET PO (08:15)
[2024-03-17] MEDS: PANTOPRAZOLE 40 MG TABLET PO ×2 (08:15→16:43)
[2024-03-17] MEDS: METOPROLOL SUCCINATE EXT REL 25 MG TABCR PO (08:15)
[2024-03-17] MEDS: FLUTICASONE/SALMETEROL 115-21 MCG INHALER 1 PUFF 2 PUFF INHALATION ×2 (08:40→20:29)
--- NOTE | 2024-03-17 08:52 | PM.IMPN ---
Progress Note: A&P Assessment and Plan (1) Non-STEMI (non-ST elevated myocardial infarction): Code(s): I21.4 - Non-ST elevation (NSTEMI) myocardial infarction Status: Acute Plan 58 y/o F presents here with chest pain with PMH of CAD (x1 stent, March 2023), small cell lung cancer on chemotherapy, HTN, IBS, and anxiety. The patient presents here from home for further evaluation chest pain. She reports at 12-12:30 that she was walking up a flight of stairs. When she arrived to the top she reports acute onset of midsternal chest pain, chest heaviness, shortness of breath, and nausea with one episode of vomiting (small in volume). She further describes the chest pain as dull, pressure/tight, nonradiating, constant, and no alleviating/aggravating factors. Endorses associated dizziness, diaphoresis, and clamminess. Pain lasted for approximately 45 minutes. Chest pain and associated symptoms resolved without intervention and rest. No medications taken at home. Denies associated palpitations or syncope. Patient has history of [place], stented in March of 2023 here at [facility]. Patient is on Eliquis and Plavix, placed on these medications post-[place] per patient. Initial VS at presentation: 97.6? F, HR 70, RR 14, 144/77, and 99% on RA. ED workup showed: No leukocytosis, no anemia, INR 1.2, sodium 133, creatinine 1.3 and GFR 42 (previously 1.1 and GFR 51 on 02/28/2024), initial troponin negative and 2nd troponin was is 0.392.Followed by 0.971 to 1.010 CXR showed suspected post treatment/post radiation change to the left hilum/left upper lobe region that is similar overall to prior exam, no definite acute abnormality seen, left-sided MediPort. EKG:Sinus rhythm, left anterior fascicular block, T-wave abnormality in high lateral leads consider ischemia. - ASA 324 given and SL nitro PRN. Already on Eliquis and Plavix.Which has been switched to heparin drip. Apixaban on hold. Continue on Plavix. Cardiology consulted - add lipid panel - echo ordered on heparin drip. Plan for cardiac catheterization Tuesday - cardiac catheterization, previous (04/05/2023): 1. Significant obstructive mid LAD stenosis s/p successful IVUS guided PCI with RANJIT x 1. 2. Elevated left ventricular end-diastolic pressure of 39mmHg Hypertension Chronic pain syndrome Hyperlipidemia metastatic Small cell carcinoma of right lung With history of radiation history of brain metastasis status post resection 2022. Currently on systemic therapy GERD Lumbar spondylosis Chronic anemia Diet: Heart healthy, NPO been night GI Prophylaxis: Not currently indicated DVT Prophylaxis: Lines: Peripheral Code Status: Full code Subjective Date/time seen: 03/17/24 08:52 Interval history: no overnight events, no further chest pain. remains on heparin gtt. no nausea, vomiting. abdominal pain Review of Systems Review of Systems: All systems reviewed & are unremarkable except as noted in HPI and below Exam Narrative: GENERAL: [Well-appearing, well-nourished, and in no acute distress.] HEAD: [Normocephalic, atraumatic.] EYES: [PERRLA and EOMI.] ENT: Nares clear, no rhinorrhea or epistaxis. Mucous membranes moist. NECK: Supple. CHEST: [Clear to auscultation. No respiratory distress.] HEART: [Regular rate and rhythm]. No murmur heard. [Normal peripheral pulses.] ABDOMEN: [Soft, nondistended], [nontender], [No rigidity or guarding] EXTREMITIES: Normal range of motion. [No edema.] SKIN: Warm, dry, no rash. NEURO: [No focal deficits]. Alert and oriented [x3.] PSYCH: [Normal mood and affect.] Objective Data Vital Signs Vital Signs: Vital Signs - 24 hr 03/16/24 08:56 03/16/24 08:59 03/16/24 12:00 Temperature 98.2 F Pulse Rate 65 80 Respiratory Rate 20 18 Blood Pressure 117/78 Pulse Oximetry 96 98 Oxygen Delivery Room Air 03/16/24 10:00 03/16/24 12:00 03/16/24 12:00 Temperature Pulse Rate 72 71 Respiratory Rate Blood Press
[2024-03-17 14:50] LABS: Partial Thromboplastin Time 105.7 Seconds (22.3-36.8)
[2024-03-17 20:24] LABS: Partial Thromboplastin Time 71.3 Seconds (22.3-36.8)
[2024-03-17] MEDS: LORazepam (*CRX) 0.5 MG TABLET PO (21:16)
[2024-03-17] MEDS: CLOPIDOGREL BISULFATE 75 MG TABLET PO (21:16)
[2024-03-17] MEDS: HEPARIN SOD/D5W 100 UNITS/ML 25,000 UNITS/250 ML BAG 7 UNITS IV CONT (21:39)
[2024-03-18] VITALS (17 sets, daily range): BP systolic 102–127; BP diastolic 59–77; PULSE 58–83; RESP 14–18; TEMP 36.4–36.8; O2SAT 97–100
[2024-03-18 04:45] LABS: Partial Thromboplastin Time 59.3 Seconds (22.3-36.8)
[2024-03-18] MEDS: HEPARIN SODIUM 5,000 UNITS/ML VIAL 2500 UNITS IV PUSH (05:41)
[2024-03-18] MEDS: FLUTICASONE/SALMETEROL 115-21 MCG INHALER 1 PUFF 2 PUFF INHALATION ×2 (07:59→20:25)
[2024-03-18] MEDS: ATORVASTATIN 40 MG TABLET 80 MG PO (08:46)
[2024-03-18] MEDS: LOSARTAN POTASSIUM 12.5 MG TABLET PO (08:46)
[2024-03-18] MEDS: METOPROLOL SUCCINATE EXT REL 25 MG TABCR PO (08:46)
[2024-03-18] MEDS: PANTOPRAZOLE 40 MG TABLET PO ×2 (08:47→17:54)
--- NOTE | 2024-03-18 09:30 | PM.PNCARD ---
Progress Note: A&P Assessment and Plan (1) Chest heaviness: Code(s): R07.89 - Other chest pain Status: Acute Plan 58-year-old lady with: Coronary artery disease previous PCI of the LAD. Patient is anticipating follow-up angiography tomorrow which was recommended upon admission. Procedure had to be delayed for withdrawal of anticoagulation. pre medication has been ordered for contrast allergy Lalit Suarez MD [facility] Subjective Date/time seen: date of service:03/18/24 09:30 Interval history: Follow-up visit in this 58-year-old lady with: Coronary artery disease with previous PCI to the LAD in 2022. Patent enters the hospital with chest pain, modest troponin rise and clinical diagnosis of ACS. She is asymptomatic this morning and feels well. Her obvious other major comorbidity is small cell lung cancer which is known to be metastatic. 2023: No cardiac symptoms or complaints today. Does have waxing and waning abdominal discomfort to the left of the mid abdominal region. No chest pain Exam Const: General: comfortable, no acute distress, alert and awake Orientation/consciousness: patient oriented x3 HENMT: Head: normal to inspection Mouth: Yes moist mucous membranes Eyes: General: appearance normal, both eyes and all related structures Sclera: sclerae normal Pupils: Equal, round and reactive pupils present Neck: Neck: normal visual inspection, supple and no JVD Carotids: normal carotid upstroke Resp: Effort & Inspection: normal respiratory effort Auscultation: clear to auscultation bilaterally Other: Tubular quality diminished breath sounds throughout both lung lea Cardio: Rate: regular rate Rhythm: regular rhythm Heart sounds: S1 normal heart sound present, S2 normal heart sound present and no murmurs Other: no murmur no gallop GI: Auscultation: normal bowel sounds Skin: General skin exam: normal color Neuro: General: patient oriented x3 Cranial nerves: Yes Equal, round and reactive pupils present Other: alert and oriented x3 Extrem: General: normal to inspection Other: no edema, adequate pulses Psych: Appearance: grossly normal Mental Status: mental status grossly normal Objective Data Vital Signs Vital Signs: Vital Signs - 24 hr 03/17/24 10:00 03/17/24 11:35 03/17/24 12:00 Temperature 36.4 C L Pulse Rate 91 74 74 Respiratory Rate 16 Blood Pressure 125/82 Pulse Oximetry 100 Oxygen Delivery 03/17/24 12:00 03/17/24 12:00 03/17/24 14:00 Temperature Pulse Rate 73 63 Respiratory Rate Blood Pressure Pulse Oximetry 99 Oxygen Delivery Room Air 03/17/24 16:01 03/17/24 16:00 03/17/24 16:00 Temperature 36.7 C Pulse Rate 62 70 Respiratory Rate 16 Blood Pressure 115/77 Pulse Oximetry 100 98 Oxygen Delivery Room Air 03/17/24 18:00 03/17/24 20:00 03/17/24 20:00 Temperature 36.5 C Pulse Rate 72 65 Respiratory Rate 18 Blood Pressure 98/77 L Pulse Oximetry 99 Oxygen Delivery Room Air 03/17/24 20:00 03/17/24 22:00 03/18/24 00:00 Temperature 36.5 C Pulse Rate 67 62 66 Respiratory Rate 18 Blood Pressure 127/77 Pulse Oximetry 100 Oxygen Delivery 03/18/24 00:00 03/18/24 00:00 03/18/24 04:00 Temperature 36.4 C Pulse Rate 72 72 Respiratory Rate 18 Blood Pressure 108/60 Pulse Oximetry 100 Oxygen Delivery Room Air 03/18/24 04:00 03/18/24 02:00 03/18/24 04:00 Temperature Pulse Rate 83 68 Respiratory Rate Blood Pressure Pulse Oximetry Oxygen Delivery Room Air 03/18/24 06:00 03/18/24 07:59 03/18/24 08:00 Temperature 36.4 C L Pulse Rate 70 72 71 Respiratory Rate 18 18 Blood Pressure 123/77 Pulse Oximetry 99 Oxygen Delivery 03/18/24 08:46 Temperature Pulse Rate 75 Respiratory Rate Blood Pressure Pulse Oximetry Oxygen Delivery Intake/Output Intake/Output: Intake & Outpu
--- NOTE | 2024-03-18 11:59 | PM.IMPN ---
Progress Note: A&P Assessment and Plan (1) Non-STEMI (non-ST elevated myocardial infarction): Code(s): I21.4 - Non-ST elevation (NSTEMI) myocardial infarction Status: Acute Plan 58 y/o F presents here with chest pain with PMH of CAD (x1 stent, March 2023), small cell lung cancer on chemotherapy, HTN, IBS, and anxiety. The patient presents here from home for further evaluation chest pain. She reports at 12-12:30 that she was walking up a flight of stairs. When she arrived to the top she reports acute onset of midsternal chest pain, chest heaviness, shortness of breath, and nausea with one episode of vomiting (small in volume). She further describes the chest pain as dull, pressure/tight, nonradiating, constant, and no alleviating/aggravating factors. Endorses associated dizziness, diaphoresis, and clamminess. Pain lasted for approximately 45 minutes. Chest pain and associated symptoms resolved without intervention and rest. No medications taken at home. Denies associated palpitations or syncope. Patient has history of [place], stented in March of 2023 here at [facility]. Patient is on Eliquis and Plavix, placed on these medications post-[place] per patient. Initial VS at presentation: 97.6? F, HR 70, RR 14, 144/77, and 99% on RA. ED workup showed: No leukocytosis, no anemia, INR 1.2, sodium 133, creatinine 1.3 and GFR 42 (previously 1.1 and GFR 51 on 02/28/2024), initial troponin negative and 2nd troponin was is 0.392.Followed by 0.971 to 1.010 CXR showed suspected post treatment/post radiation change to the left hilum/left upper lobe region that is similar overall to prior exam, no definite acute abnormality seen, left-sided MediPort. EKG:Sinus rhythm, left anterior fascicular block, T-wave abnormality in high lateral leads consider ischemia. - ASA 324 given and SL nitro PRN. Already on Eliquis and Plavix.Which has been switched to heparin drip. Apixaban on hold. Continue on Plavix. Cardiology consulted - add lipid panel - echo ordered on heparin drip. Plan for cardiac catheterization Tuesday - cardiac catheterization, previous (04/05/2023): 1. Significant obstructive mid LAD stenosis s/p successful IVUS guided PCI with RANJIT x 1. 2. Elevated left ventricular end-diastolic pressure of 39mmHg Hypertension Chronic pain syndrome Hyperlipidemia metastatic Small cell carcinoma of right lung With history of radiation history of brain metastasis status post resection 2022. Currently on systemic therapy Left upper abdominal pain already on PPI. left Kidney stones present also has hx of left lobectomy GERD Lumbar spondylosis Chronic anemia Diet: Heart healthy, NPO been night GI Prophylaxis: Not currently indicated DVT Prophylaxis: Lines: Peripheral Code Status: Full code Subjective Date/time seen: 03/18/24 11:59 Interval history: Reports Some discomfort in upper abdominal area to the left side no nausea vomiting. No chest pain remains on heparin drip Review of Systems Review of Systems: All systems reviewed & are unremarkable except as noted in HPI and below Exam Narrative: GENERAL: [Well-appearing, well-nourished, and in no acute distress.] HEAD: [Normocephalic, atraumatic.] EYES: [PERRLA and EOMI.] ENT: Nares clear, no rhinorrhea or epistaxis. Mucous membranes moist. NECK: Supple. CHEST: [Clear to auscultation. No respiratory distress.] HEART: [Regular rate and rhythm]. No murmur heard. [Normal peripheral pulses.] ABDOMEN: [Soft, nondistended], [nontender], [No rigidity or guarding] EXTREMITIES: Normal range of motion. [No edema.] SKIN: Warm, dry, no rash. NEURO: [No focal deficits]. Alert and oriented [x3.] PSYCH: [Normal mood and affect.] Objective Data Vital Signs Vital Signs: Vital Signs - 24 hr 03/17/24 12:00 03/17/24 12:00 03/17/24 12:00 Temperature Pulse Rate 74 73 Respiratory Rate Blood Pressure Pulse Oximetry 99 Oxygen Delivery Room Air 03/17/24 14
[2024-03-18 12:17] LABS: Partial Thromboplastin Time 131.3 Seconds (22.3-36.8)
[2024-03-18 20:13] LABS: Partial Thromboplastin Time 74.4 Seconds (22.3-36.8)
[2024-03-18] MEDS: predniSONE 40 MG, predniSONE 10 MG 50 MG PO (20:56)
[2024-03-18] MEDS: LORazepam (*CRX) 0.5 MG TABLET PO (20:57)
[2024-03-18] MEDS: CLOPIDOGREL BISULFATE 75 MG TABLET PO (20:58)
[2024-03-19] VITALS (29 sets, daily range): BP systolic 93–139; BP diastolic 49–80; PULSE 62–100; RESP 14–20; TEMP 36.1–37.1; O2SAT 95–100
[2024-03-19] MEDS: predniSONE 40 MG, predniSONE 10 MG 50 MG PO ×2 (02:05→11:23)
[2024-03-19 02:18] LABS: Basophils Percent Auto 0.7 % (0.2-1.2); Eosinophils Percent Auto 0.2 % (0-4.4); Hematocrit 36.3 % (37.0-47.0); Hemoglobin 12.3 g/dL (12.0-15.0); Immature Granulocyte Absolute 0.06 K/mm3 (0.00-0.031); Immature Granulocyte Percent A 1.1 % (0-0.5); Lymphocytes Absolute Auto 0.56 K/mm3 (0.9-3.2); Lymphocytes Percent Auto 10.1 % (18.3-44.2); Mean Corpuscular HGB Conc 33.9 g/dl (32-36); Mean Corpuscular Hemoglobin 34.2 pg (26-34); Mean Corpuscular Volume 100.8 fl (80-100); Mean Platelet Volume 9.9 fl (7.4-10.4); Monocytes Absolute Auto 0.1 K/mm3 (0.1-0.6); Monocytes Percent Auto 2.3 % (2.6-8.5); Neutrophils Absolute Auto 4.7 K/mm3 (1.3-6.7); Neutrophils Percent Auto 85.6 % (45.5-73.1); Platelet Count Result 272 k/mm3 (150-375); Red Cell Distribution Width 13.7 % (11.5-14.5); White Blood Count 5.5 K/mm3 (4.5-10.0)
[2024-03-19 02:27] LABS: Alanine Aminotransferase 15 U/L (6-35); Albumin Level 3.8 g/dL (3.5-5.1); Alkaline Phosphatase 105 U/L (38-126); Anion Gap 9 mmol/L (4-12); Aspartate Amino Transferase 28 U/L (14-36); Bilirubin,Total 0.4 mg/dL (0.2-1.3); Blood Urea Nitrogen 15 mg/dL (7-17); Calcium 9.2 mg/dL (8.4-10.2); Carbon Dioxide 25 mmol/L (22-30); Chloride 102 mmol/L (98-107); Estimated CRCL calculation 40 ml/min; Estimated Glomerular Filt Rate 51; Glucose 160 mg/dL (65-110); Potassium 4.2 mmol/L (3.4-5.0); Sodium 136 mmol/L (137-145)
[2024-03-19 02:30] LABS: Partial Thromboplastin Time 67.7 Seconds (22.3-36.8)
[2024-03-19] MEDS: HEPARIN SOD/D5W 100 UNITS/ML 25,000 UNITS/250 ML BAG 8 UNITS IV CONT (06:09)
[2024-03-19] MEDS: FLUTICASONE/SALMETEROL 115-21 MCG INHALER 1 PUFF 2 PUFF INHALATION ×2 (07:56→20:47)
[2024-03-19] MEDS: METOPROLOL SUCCINATE EXT REL 25 MG TABCR PO (08:33)
[2024-03-19] MEDS: LOSARTAN POTASSIUM 12.5 MG TABLET PO (08:33)
[2024-03-19] MEDS: ATORVASTATIN 40 MG TABLET 80 MG PO (08:33)
[2024-03-19] MEDS: PANTOPRAZOLE 40 MG TABLET PO ×2 (08:33→19:04)
[2024-03-19 09:07] LABS: Partial Thromboplastin Time 63.8 Seconds (22.3-36.8)
[2024-03-19] MEDS: HEPARIN SODIUM 5,000 UNITS/ML VIAL 2500 UNITS IV PUSH (09:39)
--- NOTE | 2024-03-19 10:15 | PM.PNCARD ---
Progress Note: A&P Assessment and Plan (1) Non-STEMI (non-ST elevated myocardial infarction): Code(s): I21.4 - Non-ST elevation (NSTEMI) myocardial infarction Status: Acute (2) Cardiomyopathy: Qualifiers: Cardiomyopathy type: ischemic Qualified Code(s): I25.5 - Ischemic cardiomyopathy Code(s): I42.9 - Cardiomyopathy, unspecified Status: Acute (3) Paroxysmal atrial fibrillation: Code(s): I48.0 - Paroxysmal atrial fibrillation Status: Acute Plan 58 yo woman with CAD (NSTEMI) sp PCI to the LAD, Small Cell Lung Cancer (Stage IV), and pAF presented with chest pain whose clinical presentation is consistent with NSTEMI NSTEMI - on heparin drip; [facility] today - continue plavix; not on asa due to eliquis which is held for the [facility] - continue toprol 25mg PO daily Ischemic CMP - low GFR, soft blood pressure, and fall risk preventing addition of ARB at this time; can reconsider outpatient pAF - rate is controlled in the 70s - eliquis can be resumed tomorrow am Subjective Date/time seen: 03/19/24 10:15 Interval history: no chest pain today. no dyspnea or orthopnea Review of Systems Review of Systems: All systems reviewed & are unremarkable except as noted in HPI and below Exam Const: General: comfortable and no acute distress HENMT: Mouth: Yes moist mucous membranes Eyes: EOM: EOMs intact bilaterally Neck: Neck: no JVD Resp: Effort & Inspection: normal respiratory effort Auscultation: clear to auscultation bilaterally Cardio: Rate: regular rate Heart sounds: no gallops, no murmurs and no rubs GI: GI Palp: Yes Soft to palpation Auscultation: normal bowel sounds Neuro: Speech: normal speech Extrem: General: normal to inspection Objective Data Vital Signs Vital Signs: Vital Signs - 24 hr 03/18/24 12:00 03/18/24 12:00 03/18/24 12:00 Temperature 36.8 C Pulse Rate 65 58 L Respiratory Rate 16 Blood Pressure 117/70 Pulse Oximetry 100 Oxygen Delivery Room Air Fraction of Inspired Oxygen 03/18/24 14:00 03/18/24 16:00 03/18/24 16:00 Temperature 36.6 C Pulse Rate 67 63 69 Respiratory Rate 16 Blood Pressure 104/59 L Pulse Oximetry 97 Oxygen Delivery Fraction of Inspired Oxygen 03/18/24 16:00 03/18/24 18:00 03/18/24 19:13 Temperature 36.7 C Pulse Rate 66 64 Respiratory Rate 14 Blood Pressure 102/62 Pulse Oximetry 100 Oxygen Delivery Room Air Fraction of Inspired Oxygen 03/18/24 19:54 03/18/24 20:26 03/18/24 20:00 Temperature Pulse Rate 64 71 72 Respiratory Rate 14 18 Blood Pressure Pulse Oximetry 100 Oxygen Delivery Room Air Fraction of Inspired Oxygen 03/18/24 22:08 03/19/24 00:00 03/19/24 00:00 Temperature 36.1 C L Pulse Rate 67 73 74 Respiratory Rate 18 Blood Pressure 93/49 L Pulse Oximetry 99 Oxygen Delivery Fraction of Inspired Oxygen 03/19/24 00:00 03/19/24 02:00 03/19/24 04:00 Temperature Pulse Rate 74 72 100 Respiratory Rate 18 Blood Pressure Pulse Oximetry 99 Oxygen Delivery Room Air Fraction of Inspired Oxygen 03/19/24 04:00 03/19/24 04:00 03/19/24 06:42 Temperature 36.3 C L Pulse Rate 68 68 76 Respiratory Rate 18 18 Blood Pressure 112/68 Pulse Oximetry 100 100 Oxygen Delivery Room Air Fraction of Inspired Oxygen 03/19/24 07:57 03/19/24 07:57 03/19/24 07:59 Temperature 36.8 C Pulse Rate 77 76 Respiratory Rate 20 18 Blood Pressure 122/74 Pulse Oximetry 98 100 Oxygen Delivery Room Air Fraction of Inspired Oxygen 21 03/19/24 08:00 03/19/24 08:00 Temperature Pulse Rate 80 76 Respiratory Rate 18 Blood Pressure Pulse Oximetry 100 Oxygen Delivery Room Air Fraction of Inspired Oxygen 21 Intake/Output Intake/Output: Intake & Output 03/16/24 03/17/24 03/18/24 03/19/24 23:59 23:59 23:59 23:59 Intake Total 1254.3 2151.0 1102.7 503.9 Balance 1254.3 2151.0 1102.7 5
--- NOTE | 2024-03-19 10:47 | WPDMODSED ---
Moderate Sedation Note-Pt Data Patient Data Allergies Allergy/AdvReac Type Severity Reaction Status Date / Time amoxicillin Allergy Unknown Rash Verified 02/28/24 15:53 clindamycin Allergy Unknown Itching Verified 02/28/24 15:53 codeine Allergy Unknown Nausea and Verified 02/28/24 15:53 Vomiting Iodinated Contrast Media Allergy Unknown Hives Verified 02/28/24 15:53 levofloxacin Allergy Unknown itching, Verified 02/28/24 15:53 better with benadryl morphine Allergy Unknown Nausea and Verified 02/28/24 15:53 Vomiting Penicillins Allergy Unknown rash Verified 02/28/24 15:53 piperacillin Allergy Unknown Rash Verified 02/28/24 15:53 tazobactam Allergy Unknown Rash Verified 02/28/24 15:53 doxycycline Allergy Vomiting Verified 02/28/24 15:53 Sulfa (Sulfonamide Allergy Redness of Verified 02/28/24 15:53 Antibiotics) Skin sulfamethoxazole AdvReac Mild redness Verified 02/28/24 15:53 [From Sulfamethoxazole-Trimethoprim] trimethoprim AdvReac Mild redness Verified 02/28/24 15:53 [From Sulfamethoxazole-Trimethoprim] Home Medications Medication Instructions Recorded Confirmed Type budesonide-formoterol HFA 160 2 puff inhalation Q12H 04/18/19 03/15/24 History mcg-4.5 mcg/actuation aerosol inhaler (Symbicort) omeprazole 40 mg capsule,delayed 40 mg PO DAILY 06/01/19 03/15/24 History release loperamide 2 mg capsule (Imodium 2 mg PO PRN PRN Diarrhea 12/11/19 03/15/24 History A-D) mirtazapine 15 mg tablet 15 mg PO PRN PRN Nausea 11/12/20 03/15/24 History trazodone 50 mg tablet 50 mg PO QHS PRN sleep #30 tabs 01/01/22 03/15/24 Rx clopidogrel 75 mg tablet (Plavix) 75 mg PO HS 06/06/23 03/15/24 History lorazepam 0.5 mg tablet 0.5 mg PO DAILY PRN Anxiety #30 01/04/24 03/15/24 Rx tabs apixaban 5 mg tablet (Eliquis) 5 mg PO BID #180 tabs 02/28/24 03/15/24 Rx Current Medications: Active Medications Apixaban (Apixaban 5 Mg Tablet) 5 mg PO Q12HR [facility] Last Admin: 03/15/24 21:09 Dose: 5 mg Atorvastatin Calcium (Atorvastatin 40 Mg Tablet) 80 mg PO DAILY [facility] Last Admin: 03/19/24 08:33 Dose: 80 mg Clopidogrel Bisulfate (Clopidogrel Bisulfate 75 Mg Tablet) 75 mg PO HS [facility] Last Admin: 03/18/24 20:58 Dose: 75 mg Heparin Sodium (Porcine) (Heparin Sodium 5,000 Units/Ml Vial) 4,000 units IV PUSH PRN PRN PRN Reason: aPTT less than 55 seconds Last Admin: 03/16/24 18:48 Dose: 4,000 units Heparin Sodium (Porcine) (Heparin Sodium 5,000 Units/Ml Vial) 2,500 units IV PUSH PRN PRN PRN Reason: aPTT 55 - 70 seconds Last Admin: 03/19/24 09:39 Dose: 2,500 units Heparin Sodium/Dextrose (Heparin Sodium/D5w 100 Units/Ml) 25,000 units in 250 mls @ 9 mls/hr IV CONT .Q24H [facility]; Protocol Last Titration: 03/19/24 09:40 Dose: 900 units/hr, 9 mls/hr Loperamide HCl (Loperamide Hcl 2 Mg Capsule) 2 mg PO PRN PRN PRN Reason: Diarrhea Lorazepam (Lorazepam (*Crx) 0.5 Mg Tablet) 0.5 mg PO DAILY PRN PRN Reason: Anxiety Last Admin: 03/18/24 20:57 Dose: 0.5 mg Losartan Potassium (Losartan Potassium 12.5 Mg Tablet) 12.5 mg PO DAILY [facility] Last Admin: 03/19/24 08:33 Dose: 12.5 mg Metoprolol Succinate (Metoprolol Succinate Ext Rel 25 Mg Tabcr) 25 mg PO QAM [facility] Last Admin: 03/19/24 08:33 Dose: 25 mg Mirtazapine (Mirtazapine 15 Mg Tablet) 15 mg PO DAILY PRN PRN Reason: Nausea Nitroglycerin (Nitroglycerin Sl 0.4 Mg Tablet) 0.4 mg SUBLINGUAL Q5MIN PRN PRN Reason: Chest Pain Pantoprazole Sodium (Pantoprazole 40 Mg Tablet) 40 mg PO BID [facility] Last Admin: 03/19/24 08:33 Dose: 40 mg Fluticasone/Salmeterol (Fluticasone/Salmeterol 115-21 Mcg Inhaler 1 Puff) 2 puff INHALATION Q12HRT [facility] Last Admin: 03/19/24 07:56 Dose: 2 puff Trazodone HCl (Trazodone Hcl 50 Mg Tablet) 50 mg PO QHS PRN PRN Reason: sleep Sedation/Anesthesia: No previous sedation/anesthesia problems (including family history). PMFSH Past Medical History Medical History (Updated 03/19/24 @ 10:22 by Wi
--- NOTE | 2024-03-19 10:51 | WPDCARDPROC ---
Cardiac Cath Procedure Note Date of procedure:: 03/19/24 Performing physician:: CATHETERIZATION LABORATORY REPORT Procedure Date: 03/19/2024 Referring Physician: Dr. Mora Anesthesia: Versed and Fentanyl were ordered and given in my presence at 1153, procedure ended at 1211 for a total of 18 minutes. Supervision of nurse monitored moderate sedation with 1mg Versed and 25mcg Fentanyl was provided for 18 minutes. Pre-op Diagnosis: NSTEMI Post-op Diagnosis: NSTEMI Procedure(s): Left heart catheterization with coronary angiography Access Site: Right Common Femoral Artery. Angioseal was used for hemostasis Brief History and Clinical Indications: All risks, benefits and alternatives to left heart catheterization with or without percutaneous coronary intervention was discussed at length with the patient. Risk of complications including but not limited to bleeding, infection, arrhythmia, stroke, worsening kidney function, blood loss, groin hematoma, limb loss, emergency coronary artery bypass grafting, and even were discussed with the patient and all questions were answered. The patient understood and wished to proceed. Time out called, patient name, date of , medical record number, allergies, procedure performed, identify Quality Assurance Supervisor Trim, patient and staff member concurred with accurate data, procedure carried on. Findings: LEFT HEART CATHETERIZATION FINDINGS: 1. Left main: The left main coronary artery is short and widely patent without any significant obstructive disease. 2. Left anterior descending: The LAD in its ostium has 50% stenosis followed by an occluded stent in the mid vessel. The visualized diagonal branch is diminutive. 3. Left circumflex: The left circumflex artery and the main marginal branches have mild luminal irregularities without any significant obstructive angiographic disease. 4. Right coronary artery: The RCA has mild luminal irregularities without any significant obstructive angiographic disease. The RCA is the dominant vessel. There are right to left collaterals. 5. Left ventricle: A. End-diastolic pressure 21 mmHg. B. LV gram deferred. C. No significant gradient across aortic valve on catheter pullback. 6. Right iliofemoral angiogram: no significant obstructive disease Description of Procedure: Informed consent signed and placed in the chart. Patient transferred to drop crew laborer room. Prepped and draped in usual sterile fashion. 2% lidocaine injected subcutaneously in right groin area. Micropuncture needle used to access right common femoral artery with Seldinger technique under fluoroscopic guidance. J wire advanced, micropuncture cannula placed. JL4 diagnostic catheter engaged Left Main Coronary Artery. JR4 diagnostic catheter engaged Right Coronary Artery. Multiple orthogonal angiogram obtained and reviewed Pigtail diagnostic catheter crossed aortic valve to obtain LVEDP, LV angiogram deferred. Assessment: CAD Post Operative Condition: Stable No significant blood loss Disposition: Floor Plan: Can discontinue heparin drip. May resume eliquis tomorrow morning Continue aggressive medical therapy and risk factor modification. Consider outpatient echo with contrast for apical thrombus rule out Consider outpatient ACEi or ARB therapy Most likely discharge tomorrow morning Karl Pantoja Inter[facility] Card[facility]
[2024-03-19] MEDS: diphenhydrAMINE HCl INJ 50 MG/ML VIAL IV PUSH (11:23)
--- NOTE | 2024-03-19 11:29 | PM.IMPN ---
Progress Note: A&P Assessment and Plan (1) Non-STEMI (non-ST elevated myocardial infarction): Code(s): I21.4 - Non-ST elevation (NSTEMI) myocardial infarction Status: Acute Plan 58 y/o F presents here with chest pain with PMH of CAD (x1 stent, March 2023), small cell lung cancer on chemotherapy, HTN, IBS, and anxiety. The patient presents here from home for further evaluation chest pain. She reports at 12-12:30 that she was walking up a flight of stairs. When she arrived to the top she reports acute onset of midsternal chest pain, chest heaviness, shortness of breath, and nausea with one episode of vomiting (small in volume). She further describes the chest pain as dull, pressure/tight, nonradiating, constant, and no alleviating/aggravating factors. Endorses associated dizziness, diaphoresis, and clamminess. Pain lasted for approximately 45 minutes. Chest pain and associated symptoms resolved without intervention and rest. No medications taken at home. Denies associated palpitations or syncope. Patient has history of IN, stented in March of 2023 here at [facility]. Patient is on Eliquis and Plavix, placed on these medications post-IN per patient. Initial VS at presentation: 97.6? F, HR 70, RR 14, 144/77, and 99% on RA. ED workup showed: No leukocytosis, no anemia, INR 1.2, sodium 133, creatinine 1.3 and GFR 42 (previously 1.1 and GFR 51 on 02/28/2024), initial troponin negative and 2nd troponin was is 0.392.Followed by 0.971 to 1.010 CXR showed suspected post treatment/post radiation change to the left hilum/left upper lobe region that is similar overall to prior exam, no definite acute abnormality seen, left-sided MediPort. EKG:Sinus rhythm, left anterior fascicular block, T-wave abnormality in high lateral leads consider ischemia. - ASA 324 given and SL nitro PRN. Already on Eliquis and Plavix.Which has been switched to heparin drip. Apixaban on hold. Continue on Plavix. Cardiology consulted - add lipid panel - echo ordered on heparin drip. Plan for cardiac catheterization Today - cardiac catheterization, previous (04/05/2023): 1. Significant obstructive mid LAD stenosis s/p successful IVUS guided PCI with RANJIT x 1. 2. Elevated left ventricular end-diastolic pressure of 39mmHg Hypertension Chronic pain syndrome Hyperlipidemia metastatic Small cell carcinoma of right lung With history of radiation history of brain metastasis status post resection 2022. Currently on systemic therapy Left upper abdominal pain already on PPI. left Kidney stones present also has hx of left lobectomy GERD Lumbar spondylosis Chronic anemia Diet: Heart healthy, NPO been night GI Prophylaxis: Not currently indicated DVT Prophylaxis: Lines: Peripheral Code Status: Full code Subjective Date/time seen: 03/19/24 11:29 Interval history: no overnight events. Going for a catheterization today. No further pain in the left upper quadrant reported today. Review of Systems Review of Systems: All systems reviewed & are unremarkable except as noted in HPI and below Exam Narrative: GENERAL: [Well-appearing, well-nourished, and in no acute distress.] HEAD: [Normocephalic, atraumatic.] EYES: [PERRLA and EOMI.] ENT: Nares clear, no rhinorrhea or epistaxis. Mucous membranes moist. NECK: Supple. CHEST: [Clear to auscultation. No respiratory distress.] HEART: [Regular rate and rhythm]. No murmur heard. [Normal peripheral pulses.] ABDOMEN: [Soft, nondistended], [nontender], [No rigidity or guarding] EXTREMITIES: Normal range of motion. [No edema.] SKIN: Warm, dry, no rash. NEURO: [No focal deficits]. Alert and oriented [x3.] PSYCH: [Normal mood and affect.] Objective Data Vital Signs Vital Signs: Vital Signs - 24 hr 03/18/24 12:00 03/18/24 12:00 03/18/24 12:00 Temperature 98.2 F Pulse Rate 65 58 L Respiratory Rate 16 Blood Pressure 117/70 Pulse Oximetry 100 Oxygen Delivery Room Air Fra
[2024-03-19] MEDS: LORazepam (*CRX) 0.5 MG TABLET PO (21:01)
[2024-03-19] MEDS: CLOPIDOGREL BISULFATE 75 MG TABLET PO (21:02)
[2024-03-20] VITALS (12 sets, daily range): BP systolic 95–120; BP diastolic 51–69; PULSE 65–88; RESP 16–20; TEMP 36.5–36.9; O2SAT 98–100
[2024-03-20 05:17] LABS: Basophils Percent Auto 0.2 % (0.2-1.2); Hematocrit 33.6 % (37.0-47.0); Hemoglobin 11.2 g/dL (12.0-15.0); Immature Granulocyte Absolute 0.08 K/mm3 (0.00-0.031); Immature Granulocyte Percent A 0.8 % (0-0.5); Lymphocytes Absolute Auto 0.86 K/mm3 (0.9-3.2); Lymphocytes Percent Auto 8.5 % (18.3-44.2); Mean Corpuscular HGB Conc 33.3 g/dl (32-36); Mean Corpuscular Volume 102.1 fl (80-100); Mean Platelet Volume 10.2 fl (7.4-10.4); Monocytes Absolute Auto 1.1 K/mm3 (0.1-0.6); Monocytes Percent Auto 10.4 % (2.6-8.5); Neutrophils Absolute Auto 8.1 K/mm3 (1.3-6.7); Neutrophils Percent Auto 80.1 % (45.5-73.1); Platelet Count Result 275 k/mm3 (150-375); Red Blood Count 3.29 M/mm3 (4.2-5.4); Red Cell Distribution Width 13.9 % (11.5-14.5); White Blood Count 10.1 K/mm3 (4.5-10.0)
[2024-03-20 05:30] LABS: Alanine Aminotransferase 14 U/L (6-35); Albumin Level 3.7 g/dL (3.5-5.1); Alkaline Phosphatase 83 U/L (38-126); Anion Gap 9 mmol/L (4-12); Aspartate Amino Transferase 21 U/L (14-36); Bilirubin,Total 0.4 mg/dL (0.2-1.3); Blood Urea Nitrogen 22 mg/dL (7-17); Calcium 9.3 mg/dL (8.4-10.2); Carbon Dioxide 23 mmol/L (22-30); Chloride 104 mmol/L (98-107); Estimated CRCL calculation 37 ml/min; Estimated Glomerular Filt Rate 46; Glucose 130 mg/dL (65-110); Potassium 4.1 mmol/L (3.4-5.0); Sodium 136 mmol/L (137-145)
[2024-03-20] MEDS: ATORVASTATIN 40 MG TABLET 80 MG PO (08:36)
[2024-03-20] MEDS: METOPROLOL SUCCINATE EXT REL 25 MG TABCR PO (08:36)
[2024-03-20] MEDS: LOSARTAN POTASSIUM 12.5 MG TABLET PO (08:36)
[2024-03-20] MEDS: PANTOPRAZOLE 40 MG TABLET PO (08:36)
[2024-03-20] MEDS: FLUTICASONE/SALMETEROL 115-21 MCG INHALER 1 PUFF 2 PUFF INHALATION (08:44)
--- NOTE | 2024-03-20 10:39 | PM.PNCARD ---
Progress Note: A&P Assessment and Plan (1) Non-STEMI (non-ST elevated myocardial infarction): Code(s): I21.4 - Non-ST elevation (NSTEMI) myocardial infarction Status: Acute (2) Cardiomyopathy: Qualifiers: Cardiomyopathy type: ischemic Qualified Code(s): I25.5 - Ischemic cardiomyopathy Code(s): I42.9 - Cardiomyopathy, unspecified Status: Acute (3) Paroxysmal atrial fibrillation: Code(s): I48.0 - Paroxysmal atrial fibrillation Status: Acute Plan 58 yo woman with CAD (NSTEMI) sp PCI to the LAD, Small Cell Lung Cancer (Stage IV), and pAF presented with chest pain whose clinical presentation is consistent with NSTEMI NSTEMI -[facility] yesterday. Findings as follows: 1. Left main: The left main coronary artery is short and widely patent without any significant obstructive disease. 2. Left anterior descending: The LAD in its ostium has 50% stenosis followed by an occluded stent in the mid vessel. The visualized diagonal branch is diminutive. 3. Left circumflex: The left circumflex artery and the main marginal branches have mild luminal irregularities without any significant obstructive angiographic disease. 4. Right coronary artery: The RCA has mild luminal irregularities without any significant obstructive angiographic disease. The RCA is the dominant vessel. There are right to left collaterals. 5. Left ventricle: A. End-diastolic pressure 21 mmHg. B. LV gram deferred. C. No significant gradient across aortic valve on catheter pullback. 6. Right iliofemoral angiogram: no significant obstructive disease -medical management - continue plavix; not on asa as she is on Eliquis - continue toprol 25mg PO daily Ischemic CMP - low GFR, soft blood pressure, and fall risk preventing addition of ARB at this time; can reconsider outpatient pAF - rate is controlled in the 70s - eliquis can be resumed today Subjective Date/time seen: 03/20/24 10:39 Interval history: no chest pain today. no dyspnea or orthopnea Date of service 03/20/2024: Feels well this morning and has no complaints. No chest pain. Review of Systems Review of Systems: All systems reviewed & are unremarkable except as noted in HPI and below Exam Const: General: comfortable, no acute distress, alert and awake Orientation/consciousness: patient oriented x3 HENMT: Head: normal to inspection Mouth: Yes moist mucous membranes Eyes: General: appearance normal, both eyes and all related structures Sclera: sclerae normal Pupils: Equal, round and reactive pupils present EOM: EOMs intact bilaterally Neck: Neck: normal visual inspection, supple and no JVD Carotids: normal carotid upstroke Resp: Effort & Inspection: normal respiratory effort Auscultation: clear to auscultation bilaterally and diminished lung sounds Other: Cardio: Rate: regular rate Rhythm: regular rhythm Heart sounds: S1 normal heart sound present, S2 normal heart sound present, no gallops, no murmurs and no rubs GI: Auscultation: normal bowel sounds Skin: General skin exam: normal color Neuro: General: patient oriented x3 Cranial nerves: Yes Equal, round and reactive pupils present Speech: normal speech Other: alert and oriented x3 Extrem: General: normal to inspection Other: no edema, adequate pulses Psych: Appearance: grossly normal Mental Status: mental status grossly normal Objective Data Vital Signs Vital Signs: Vital Signs - 24 hr 03/19/24 12:30 03/19/24 12:25 03/19/24 12:45 Temperature Pulse Rate 75 74 74 Pulse Rate [Right Pedal (Dorsalis Pedis)] Respiratory Rate 17 19 20 Blood Pressure 117/78 124/79 114/74 Pulse Oximetry 98 95 95 Oxygen Delivery Room Air Room Air Room Air Fraction of Inspired Oxygen 03/19/24 13:00 03/19/24 13:30 03/19/24 13:43 Temperature Pulse Rate 72 71 Pulse Rate [Right Pedal (Dorsalis Pedis)] 66 Respiratory Rate 14 16 Blood Pressure 112/69 118
--- NOTE | 2024-03-20 10:56 | PC.NURSE ---
Alert and oriented, sitting up in bed. Denies pain and discomfort at this time, other than at the cardiac catheter site with movement. States When I turn on the side of the procedure, I do feel a little discomfort . Right groin site assessed. Dressing remains on and dry. Area is noted to be soft when palpated, with no signs of swelling or redness. Pulse in the right foot is strong to palpation. Discussed plan of care with patient including medications and possibility for discharge today. Verbalizes understanding at this time. Denies further questions. Heart monitor remains on and functioning at this time.
--- NOTE | 2024-03-20 11:54 | PM.DS ---
DS: Admitting Diagnosis Discharge Date 03/20/2024 Admitting Diagnosis Chest pain DS: Discharge Diagnosis Discharge Diagnosis (1) Non-STEMI (non-ST elevated myocardial infarction): Code(s): I21.4 - Non-ST elevation (NSTEMI) myocardial infarction Status: Acute DS: Summary Hospital Course Hospital Course: 58 y/o F presents here with chest pain with PMH of CAD (x1 stent, March 2023), small cell lung cancer on chemotherapy, HTN, IBS, and anxiety. The patient presents here from home for further evaluation chest pain. She reports at 12-12:30 that she was walking up a flight of stairs. When she arrived to the top she reports acute onset of midsternal chest pain, chest heaviness, shortness of breath, and nausea with one episode of vomiting (small in volume). She further describes the chest pain as dull, pressure/tight, nonradiating, constant, and no alleviating/aggravating factors. Endorses associated dizziness, diaphoresis, and clamminess. Pain lasted for approximately 45 minutes. Chest pain and associated symptoms resolved without intervention and rest. No medications taken at home. Denies associated palpitations or syncope. Patient has history of PR, stented in March of 2023 here at [facility]. Patient is on Eliquis and Plavix, placed on these medications post-PR per patient. Initial VS at presentation: 97.6? F, HR 70, RR 14, 144/77, and 99% on RA. ED workup showed: No leukocytosis, no anemia, INR 1.2, sodium 133, creatinine 1.3 and GFR 42 (previously 1.1 and GFR 51 on 02/28/2024), initial troponin negative and 2nd troponin was is 0.392.Followed by 0.971 to 1.010 CXR showed suspected post treatment/post radiation change to the left hilum/left upper lobe region that is similar overall to prior exam, no definite acute abnormality seen, left-sided MediPort. EKG:Sinus rhythm, left anterior fascicular block, T-wave abnormality in high lateral leads consider ischemia. - ASA 324 given and SL nitro PRN. Already on Eliquis and Plavix.Which has been switched to heparin drip. Apixaban on hold. Continue on Plavix. Cardiology consulted -lipid LDL 147 on atorvastatin. -started on heparin drip. Echo with EF 20-25% akinesia of the majority of anterior wall and septum and dyskinesia of the apex. Grade 1 diastolic dysfunction. Goal-directed medical therapy losartan and metoprolol started - cardiac catheterization, previous (04/05/2023): 1. Significant obstructive mid LAD stenosis s/p successful IVUS guided PCI with RANJIT x 1. 2. Elevated left ventricular end-diastolic pressure of 39mmHg Repeat cardiac catheterization 03/19/24: 1. Left main: The left main coronary artery is short and widely patent without any significant obstructive disease. 2. Left anterior descending: The LAD in its ostium has 50% stenosis followed by an occluded stent in the mid vessel. The visualized diagonal branch is diminutive. 3. Left circumflex: The left circumflex artery and the main marginal branches have mild luminal irregularities without any significant obstructive angiographic disease. 4. Right coronary artery: The RCA has mild luminal irregularities without any significant obstructive angiographic disease. The RCA is the dominant vessel. There are right to left collaterals. 5. Left ventricle: A. End-diastolic pressure 21 mmHg. B. LV gram deferred. C. No significant gradient across aortic valve on catheter pullback. 6. Right iliofemoral angiogram: no significant obstructive disease She has resumed back on Plavix and Eliquis at discharge and aggressive medical therapy and risk factor modification. Okay per Cardiology to discharge. # Hypertension Chronic pain syndrome Hyperlipidemia metastatic Small cell carcinoma of right lung With history of radiation history of brain metastasis status post resection 2022. Currently on systemic therapy Left upper abdominal pain already on PPI. left Kidney stones present also has hx of left lobectomy GERD Lumb
--- NOTE | 2024-03-20 12:32 | PC.NURSE ---
reviewed discharge paperwork. verbalizes understanding of all instructions. copies given to patient and patient wheeled out to personal vehicle with wheelchair.
== END 2024-03-20 12:31 | disposition home or self-care (01) | DRG 281 ==
LOC: ANHED 16:53 → ANHIMU 17:21
PROVIDERS: Internal Medicine; Nurse Practitioner; Student in an Organized Health Care Education/Training Program; Admitting Provider Family Medicine; Emergency Provider Student in an Organized Health Care Education/Training Program; PCP Family Medicine; Visit Provider Internal Medicine
PROC: 4A023N7 Measurement of Cardiac Sampling and Pressure, Left Heart, Percutaneous Approach (ICD-10-PCS; CPT 93452; principal; 2024-03-19 11:30)
PROC: 4A023N7 Measurement of Cardiac Sampling and Pressure, Left Heart, Percutaneous Approach (ICD-10-PCS; 2024-03-19 11:30)
DX: I21.4 Non-ST elevation (NSTEMI) myocardial infarction (principal); C34.32 Malignant neoplasm of lower lobe, left bronchus or lung; C34.91 Malignant neoplasm of unspecified part of right bronchus or lung; C79.9 Secondary malignant neoplasm of unspecified site; T82.598A Other mechanical complication of other cardiac and vascular devices and implants, initial encounter; I25.5 Ischemic cardiomyopathy; I48.0 Paroxysmal atrial fibrillation; I25.10 Atherosclerotic heart disease of native coronary artery without angina pectoris; I10 Essential (primary) hypertension; K21.9 Gastro-esophageal reflux disease without esophagitis; K58.9 Irritable bowel syndrome, unspecified; M19.90 Unspecified osteoarthritis, unspecified site; M47.816 Spondylosis without myelopathy or radiculopathy, lumbar region; G47.00 Insomnia, unspecified; F41.9 Anxiety disorder, unspecified; I25.2 Old myocardial infarction; Z79.01 Long term (current) use of anticoagulants; Z79.02 Long term (current) use of antithrombotics/antiplatelets; Z87.891 Personal history of nicotine dependence; Z95.5 Presence of coronary angioplasty implant and graft
CPT/HCPCS: 36415; 71046; 80053; 80061; 83690; 83735; 84484; 85025; 85610; 85730; 93005; 93308; 93458; 94640; 99285; A9270; C1760; C1769; C1887; C1894; G0269; G0378; J1200; J1644; J2250; J3010; J7040; J7512

== ENCOUNTER 2024-06-28 11:29 | Outpatient (CLI) | payer OTHER, MEDICARE, SELFPAY ==
--- NOTE | ~2024-06-28 | CT_ITS ---
CT Scan of the Chest without Contrast: Clinical Indication: Lung cancer Technique: Contiguous sections were acquired throughout the chest without intravenous contrast. Dose reduction technique was used on this scan by utilizing automated exposure control and iterative recon struction technique. The dose-length product (DLP) was 148.82 mGy-cm. COMPARISON: 02/20/2024 Findings: There is no evidence of any significant mediastinal, hilar or axillary lymphadenopathy. Multiple smal l calcified mediastinal/hilar lymph nodes are present. Coronary artery calcifications are present.. There is no evidence of pleural or pericardial effusion. Status post left lower lobectomy. There is associated left-sided volume loss. There is consolidation at the left lung apex extending to the left hilum with air bronchograms, suggestive of post radiation /post treatment change, stable from prior exam. Right lung clear, aside from calcified right basilar granuloma. Images through the upper abdomen reveal nonobstructing left renal stones. Impression: No change from prior exam. Status post left lower lobectomy with probable post radiation changes in t he left upper lobe/left hilar region. Evidence of prior granulomatous disease. Reviewed, dictated and finalized at location . LFURIZER MACHINE Impression: No change from prior exam. Status post left lower lobectomy with probable post radiation changes in the left upper lobe/left hilar region. Evidence of prior granulomatous disease.
== END 2024-06-28 11:30 | disposition home or self-care (01) ==
PROVIDERS: PCP Family Medicine; Visit Provider Internal Medicine Hematology & Oncology
DX: C34.32 Malignant neoplasm of lower lobe, left bronchus or lung (principal); Z90.2 Acquired absence of lung [part of]
CPT/HCPCS: 71250

== ENCOUNTER 2024-08-22 21:06 | Emergency (ER) | payer OTHER, MEDICARE, SELFPAY ==
--- NOTE | ~2024-08-22 | XR_ITS ---
EXAMINATION: XR chest 2V Exam Date/Time: 08/22/2024 21:19 EQUIPMENT TECH HISTORY: chest pain Comparison: 03/15/2024. RESULT: Lines, tubes, and devices: Right chest port terminating in the superior vena cava. Cholecystomy clip s. Lungs and pleura: Calcified right lung granuloma, right lung otherwise clear. Stable left suprahilar consolidation, bronchiectasis, hilar retraction, and apical pleural thickening all of which are pres umably related to posttreatment/post radiation change in the left hilum/upper lobe and is grossly unc hanged. Cardiomediastinal silhouette: Stable. Calcified lymph nodes. Other: No acute osseous or upper abdominal finding. IMPRESSION: No acute cardiopulmonary process. Reviewed, dictated and finalized at location K. PMENT TECH
--- OUTSIDE RECORDS SUMMARY | 2024-08-22 21:09 | XMS_ITS | Encounter Summary ---
Author Organization [facility] Address [address] [place] [address] Care Team Providers Care Denture Technician Name Role Phone Juan Rasheed MD Primary Care Provider [phone] Encounter Details Date Type Department Care Team (Late Contact Info) Description 05/30/2017 Chart Note [facility] Radiation Therapy [address] [place] [id number] [place] [address] [place] [address] Social History Tobacco Use Types Packs/Day Years Used Date Smoking Tobacco: Former Cigarettes 1 35 0 10/14/1980 - 10/15/2015 Smokeless Tobacco: Never Alcohol Use Standard Drinks/Week Comments Yes 0 (1 standard drink = 0.6 oz pur e alcohol) social Comments No Sex and Gender Information Value Date Recorded Sex Assigned at Not on file Legal Sex Female 9:06 AM CDT Gender Identity Not on file Sexual Orientation Not on file documented as of this encounter Plan of Treatment Upcoming Encounters Date Type Department Care Team (Late Contact Info) Description 09/24/2024 8:30 AM CDT Office Visit [facility] Oncology and Hematology - [place] [address] [place] [address] Joseph Arshad MD [address] [place] [address] documented as of this encounter Visit Diagnoses Not on filedocumented in this encounter Care Teams Denture Technician Relationship Specialty Start Date End Date Juan Rasheed MD [address] [place] [id number] PCP - General Family Practice 04/18/24 documented as of this encounter
--- OUTSIDE RECORDS SUMMARY | 2024-08-22 21:09 | XMS_ITS | Encounter Summary ---
Author Organization [facility] Address [address] [facility] [place] [address] Phone Care Team Providers Care Clinical Documentation Manager Name Role Phone Shadi Walker Primary Care Provider [phone] Reason for Visit * Reason Comments Medication Refill Encounter Details Date Type Department Care Team (Late st Contact Info) Description 06/17/2021 Refill [facility] - Gastroenterology [facility] [address] [place] [address] Fabiola Swenson PAC [address] [place] [address] Medication Refill Social History Tobacco Use Types Packs/Day Years Used Date Smoking Tobacco: Former Cigarettes 1 30 Smokeless Tobacco: Never Alcohol Use Standard Drinks/Week Comments Not Currently 0 (1 standard drink = 0.6 oz pur e alcohol) Sexually Active Control Partners Comments Yes Comments No Sex and Gender Information Value Date Recorded Sex Assigned at Not on file Legal Sex Female 11:03 PM CDT Gender Identity Not on file Sexual Orientation Not on file documented as of this encounter Miscellaneous Notes * Telephone Encounter - Gena Milligan RN - 06/22/2021 9:43 AM SHREDDING MACHINE TENDER [facility]ication [facility] order for pediatric and adult patients. DDING MACHINE TENDER * Telephone Encounter - Gena Milligan RN - 06/22/2021 9:31 AM SHREDDING MACHINE TENDER Pharmacy requesting refill of: Requested Prescriptions Pending Prescriptions Disp Refills ??? omeprazole (PriLOSEC) 40 MG CAPSULE DELAYED RELEASE [Pharmacy Med Name: Omeprazole 40 MG Oral Capsule Delayed Release] 30 Capsule 0 Sig: Take 1 capsule by mouth once daily Last fill: 02/13/2020 Patients last OV with GI: 03/28/2020 Next Office Visit with GI: None scheduled. Called patient, offered an appt. appt scheduled 07/08/2020. DDING MACHINE TENDER documented in this encounter Plan of Treatment Not on file documented as of this encounter Visit Diagnoses Diagnosis Gastroesophageal reflux disease without esophagitis Esophageal reflux documented in this encounter Care Teams Clinical Documentation Manager Relationship Specialty Start Date End Date Shadi Walker DO [address] [address] PCP - General Internal Medicine 02/13/20 documented as of this encounter
--- OUTSIDE RECORDS SUMMARY | 2024-08-22 21:09 | XMS_ITS | Clinical Summary ---
Author Organization [facility] Address [address] [facility], [address] [address] Phone Care Team Providers Care Him Specialists Name Role Phone Rei Walkere Gricel DO Primary Care Provider [phone] Allergies Active Allergy Reactions Criticality Noted Date Comments Amoxicillin Unknown 01/06/2017 Clindamycin Hives 06/09/2015 Egg White (Egg Protein) Nausea,Vomiting Medium 020 Iodinated Contrast Media Hives 06/09/2015 Levofloxacin In D5w Unknown 01/06/2017 Levofloxacin Rash Medium 03/23/2017 Morphine Nausea 10/18/2017 Penicillins Hives,Rash 06/09/2015 Medications budesonide-formo terol fumarate (SYMBICORT) 160-4.5 MCG/ACT Aerosol take 2 Puffs by inhalation 2 times daily. Active aspirin EC 81 MG Tablet Delayed Response Take 81 mg by mouth daily. Active traZODone (DESYREL) 50 MG Tablet Take by mouth. Activ e Cholecalciferol (VITAMIN D) 2000 UNIT Tablet Take by mouth. Act caro ascorbic acid (ASCORBIC ACID) 500 MG Tablet Take by mouth. A ctive MEDICAL CANNABIS Cannabis oil as needed for nausea and appetite. Active Loperamide HCl (IMODIUM A-D PO) Take by mouth. Active lidocaine-priloc shaila 2.5-2.5 % Cream APPLY TO PORT SITE 30 60 MINUTES BEFORE USE 0 Active LORazepam (ATIVAN) 0.5 MG Tablet Take 0.5 mg by mouth. 7 Active predniSONE (DELTASONE) 50 MG Tablet Take 50 mg by mouth. 0 Active omeprazole (PriLOSEC) 40 MG CAPSULE DELAYED RELEASEIndicatio ns:Gastroesophag eal reflux disease without esophagitis Take 1 capsule by mouth once daily 90 Capsule 1 Active Active Problems Problem Noted Date Diagnosed Date Gastroesophageal reflux disease without esophagi tis 02/13/2020 Irritable bowel syndrome with diarrhea 7 Immunizations Immunization Administration Dates Next Due Influenza Vaccine greater than 3 yrs 05/13/2015 Influenza Vaccine, Quadrivalent, PF 04/28/2019,1 07/09/2017,03/26/2017 Influenza, Injectable, Quadrivalent 04/12/2016,1 07/09/2014 Influenza, Seasonal, Injectable, Undefined 05/13 Family History Medical History Relation Name Comments Cancer Mother Relation Name Status Comments Father Did not know fa ther very well. Mother Social History Tobacco Use Types Packs/Day Years Used Date Smoking Tobacco: Former Cigarettes 1 30 Smokeless Tobacco: Never Tobacco Cessation:Counseling Given: No Alcohol Use Standard Drinks/Week Comments Not Currently 0 (1 standard drink = 0.6 oz pur e alcohol) Sexually Active Control Partners Comments Yes Comments No Sex and Gender Information Value Date Recorded Sex Assigned at Not on file Legal Sex Female 11:03 PM CDT Gender Identity Not on file Sexual Orientation Not on file Last Filed Vital Signs Vital Sign Reading Time Taken Comments Blood Pressure 98/56 03/28/2020 1:03 PM CDT Pulse 71 03/28/2020 1:03 PM CDT Temperature 36.7 C (98 F) 03/28/2020 1:03 PM CDT Respiratory Rate 24 03/28/2020 1:03 PM CDT Oxygen Saturation 98% 03/28/2020 1:03 PM CDT Inhaled Oxygen Concentration - - Weight 59 kg (130 lb) 03/28/2020 1:03 PM CDT Height 160 cm (5' 3 ) 03/28/2020 1:03 PM CDT Body Mass Index 23.03 03/28/2020 1:03 PM CDT Plan of Treatment Health Maintenance Due Date Last Done Comments Hepatitis C Virus (HCV) Screening 1965 TdaP Immunization 1965 Cologuard 10/28/2013 Immunochemical Fecal Occult Blood 10/28/2013 Mammogram 10/28/2013 Pneumococcal Immunization (50+ years) (1 of 1 - PCV) 10/28/2013 Zoster Immunization (1 of 2) 10/28/2013 Colonoscopy 12/30/2021 12/30/2016, 06/27/2012 Colorectal Cancer Screening 12/30/2021 Influenza Immunization (#1) 02/26/202404/27, 06/05/2020, 04/28/2019, Additional history exists SARS-COV-2 Immunization ( season) 2024 05/26/2021, 09/01/2020 Respiratory Syncytial Virus (RSV) Immunization (Adult) (1 - 1-dose 75+ series) 10/28/2038 12/30/2016, 06/27/2012 Cervical Cancer Screening (CCS) Discontinued Pap Smear Discontinued 04/27/2015 HPV/Cotest Discontinued Hepatitis B Immunization Aged Out No longer eligible based on patient's age to complete this topic Meningococcal Immunization (ACWY) Aged Out No longer eligible based on patient's age to complete this topic Pneumococcal Immunization Combined Aged Out No longer eligible based on patient's age to complete this topic Rotavirus Immunization Aged Out No lo nger eligible based on patient's age to complete this topic Procedures Procedure Name Priority Date/Time Associated Diagnosis Comments COLONOSCOPY Routine 12/30/2016 from Last 3 Months or Most Recently Relevant to Health Maintenance Results * COLONOSCOPY (12/30/2016) Steven Arias MD PROCEDURE/MINOR SURGICAL ORDER EBER Final Result from Last 3 Months or Most Recently Relevant to Health Maintenance Insurance MEDICARE Care Teams Him Specialists Relationship Specialty Start Date End Date Shadi Walker DO [address] [address] PCP - General Internal Medicine 02/13/20
--- OUTSIDE RECORDS SUMMARY | 2024-08-22 21:10 | XMS_ITS ---
Author Organization [facility] Address [address] [place] [address] Care Team Providers Care Real Estate Valuer Name Role Phone Juan Rasheed MD Primary Care Provider [phone] Active Problems Problem Noted Date Diagnosed Date Paroxysmal atrial fibrillation 05/03/2023 Elevated troponin I level 05/03/2023 S/P drug eluting coronary stent placement 2022 Takotsubo cardiomyopathy 05/03/2023 Left ventricular thrombus 05/03/2023 ACP (advance care planning) 05/03/2023 Palliative care encounter 05/03/2023 Brain mass 05/03/2023 Brain tumor 05/02/[address] elevation myocardial infarction (S ANA) 04/25/2023 H/O heart artery stent 04/25/2023 Metastasis to brain 04/22/2023 Vasogenic brain edema 04/22/2023 Anemia, unspecified 04/22/2023 Small cell lung cancer 04/22/2023 Traumatic hematoma of head 04/22/2023 CAD (coronary atherosclerotic disease) Thrombosis of vascular access port 04/22/2023 Malignant neoplasm of lung 04/22/2023 Osteoporosis 11/18/2020 Secondary malignant neoplasm of liver and intrahepatic bile duct 07/10/2019 Agranulocytosis secondary to cancer chemotherapy (CODE) 07/10/2019 Left hip pain 12/26/2018 Small cell carcinoma of left lung 04/14/2017 Malignant neoplasm of lower lobe of left lung Current Treatment and Therapy Plans No current plan information found. Past Treatment and Therapy Plans No past plan information found. Lifetime Dose Tracking * Chemical Lifetime Dose Automatic Entry Manual Entr y Effective Dose 15.79 mSv 15.79 mSv 0 mSv Total DLP 1,530.65 DLP 1,530.65 DLP 0 DLP CTDIvol Max 49.4 mGy 49.4 mGy 0 mGy CTDIvol Min 4.2 mGy 4.2 mGy 0 mGy Resolved Problems Problem Noted Date Diagnosed Date Resolved Date Preoperative cardiovascular examination 04/23/2023 04/26/2023 Pulmonary fibrosis, unspecified 07/10/2019 07/31/2019
--- OUTSIDE RECORDS SUMMARY | 2024-08-22 21:10 | XMS_ITS | Encounter Summary ---
Author Organization [facility] Address [address] [place] [address] Care Team Providers Care Enterprise Analyst Name Role Phone Juan Rasheed MD Primary Care Provider [phone] Encounter Details Date Type Department Care Team (Latest Contact Info) Description 08/21/2024 2:00 PM ESCROW SECRETARY - 08/21/2024 11:59 PM ESCROW SECRETARY Hospital Encounter [facility] Radiation Therapy [address] [place] [address] Javier French MD [address] [facility] [address] [place] [address] Discharge Disposition: Home or Self Care Social History Tobacco Use Types Packs/Day Years Used Date Smoking Tobacco: Former Cigarettes 1 35 0 10/14/1980 - 10/15/2015 Smokeless Tobacco: Never Alcohol Use Standard Drinks/Week Comments Yes 0 (1 standard drink = 0.6 oz pur e alcohol) social Feeling Safe Answer Date Recorded Are you in a relationship wi th someone who hurts you emotionally and/or physically? No 08/21/2024 Food Insecurity Answer Date Recorded Social/Environmental Concerns No concerns Transportation Needs Answer Date Record ed Social/Environmental Concerns No concerns Housing Stability Answer Date Recorded Social/Environmental Concerns No concerns Utility Needs Answer Date Recorded Social/Environmental Concerns No concerns Comments No Sex and Gender Information Value Date Recorded Sex Assigned at Not on file Legal Sex Female 9:06 AM CDT Gender Identity Not on file Sexual Orientation Not on file documented as of this encounter Discharge Instructions * Discharge Instructions* Arianne Dumont RN - 08/20/2024 3:16 PM ESCROW SECRETARY FOLLOW-UP Follow up with Dr French in 3 months. You have a follow up appointment scheduled with Dr French on ,, November 22, 2024 at 10:00 AM. Prescriptions given? No INSTRUCTIONS: Contact Dr French's nurse, Ariela, at [phone] if you experience any of new or worsening symptoms ACTIVITY Your activity level is: Increase as tolerated Fatigue is a common side effect of radiation and will improve over time. Jocelyn encourages all patients to decrease risks associated with smoking and second hand smoke exposure. If you smoke you are advised to quit. Ask your health care provider for advice if you need assistance to stop smoking. Avoid second-hand smoke exposure and do not let people smoke in your home. Please call [phone], our pulmonary rehabilitation department, to learn more about options to reduce your risks. DIET Your diet is: regular SKIN CARE For your skin: daily visual inspection and fragrant free moisturizer of choice until skin is no longer pink, dry, peeling, or itching. CONTACT US Call the radiation department at :[facility] [phone] and ask to speak to a nurse if you haveany questions or concerns. For immediate emergencies dial 911. For urgent issues you can reach the Radiation Oncologist technical illustrations map inker AFTER HOURS at [phone]. Otherwise contact the radiation oncology department during normal business hours Divina Harrington will be discharged via ambulatory to home. OW SECRETARY documented in this encounter Medications at Time of Discharge omeprazole (PriLOSEC) 40 mg Capsule, Delayed Release(E.C.)Indic ations:Malignant neoplasm of lower lobe of left lung (CMS/HCC),Chronic anemia,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),Agranulo cytosis secondary to cancer chemotherapy (CODE) Take 1 tablet by mouth daily. 90 Capsule 08/16/2024 potassium CHLORIDE (KLOR-CON M20) 20 mEq Extended Release tablet Take 1 Tablet (20 mEq) by mouth 2 times daily. 60 Tablet 2 08/13/2024 dexAMETHasone (DECADRON) 4 mg tablet Take 1 Tablet (4 mg) by mouth daily. Start taking on 07/25/24. 30 Tablet 07/25/2024 atorvastatin (LIPITOR) 40 mg tablet Take 40 mg by mouth daily. metoprolol succinate (TOPROL XL) 25 mg Extended Release 24 hour tablet Take 25 mg by mouth daily. lidocaine-prilocai ne (EMLA) 2.5-2.5 % CreamIndications:M alignant neoplasm of lower lobe of left lung (CMS/HCC) APPLY TOPICALLY TO PORT SITE 30-60 MINUTES BEFORE USE. 30 Gram 02/06/2024 LORazepam (ATIVAN) 0.5 mg tabletIndications: Chemotherapy induced nausea and vomiting take 1 tablet by mouth every 6 hours as needed for anxiety 30 Tablet 12/26/2023 predniSONE (DELTASONE) 50 mg tablet Take 1 tablet 24 hours,12 hours and [address] scan 3 Tablet 07/04/2023 fluticasone propionate (FLONASE) 50 mcg/spray [place], Suspension nasal inhaler Administer 2 Sprays in each nostril 1 time daily as needed for Allergies. 02/13/2023 mirtazapine (REMERON) 15 mg tablet TAKE 1 TABLET BY MOUTH ONCE DAILY AT BEDTIME 30 Tablet 02/15/2022 prochlorperazine maleate (COMPAZINE) 10 mg tabletIndications: Chemotherapy induced nausea and vomiting Take 1 Tablet (10 mg) by mouth every 6 hours as needed for Nausea/Emesis. 120 Tablet 3 09/11/2021 ondansetron (ZOFRAN ODT) 4 mg Tablet, Rapid Dissolve DISSOLVE 1 TABLET IN MOUTH EVERY 8 HOURS NEEDED FOR NAUSEA AND VOMITING 08/02/2021 diphenhydrAMINE (BENADRYL) 25 mg capsuleIndications :Allergy to iodine Take 25 mg one time one hour before the procedure 1 Capsule 04/08/2021 loperamide (IMODIUM) 1 mg/5 mL solution Take by mouth. hydrocortisone (PROCTOZONE-HC) 2.5 % cream with perineal applicator Apply to affected area. 06/16/2017 cyclobenzaprine (FLEXERIL) 10 mg tablet Take 1 Tablet (10 mg) by mouth 3 times daily as needed for Spasm. 30 Tablet 09/18/2019 polyethylene glycol 3350 (MIRALAX) 17 gram/dose Powder Use entire 255g bottle with 64oz of clear liquid as directed for colonoscopy prep. 12/24/2016 medical marijuana, for documentation purposes, Cannabis oil as needed for nausea and appetite. cetirizine (ZyrTEC) 10 mg tablet Take 10 mg by mouth daily. dronabinol (MARINOL) 2.5 mg capsule TAKE 2 CAPSULES BY MOUTH TWICE DAILY 120 Capsule 1 07/31/2018 triamcinolone acetonide (KENALOG) 0.1 % Cream Apply to affected area 2 times daily as needed . 03/29/2018 budesonide-formote rol (SYMBICORT) 160-4.5 mcg/actuation HFA Aerosol Inhaler Take 2 Puffs by inhalation 2 times daily. 1 Gram 3 05/26/2017 documented as of this encounter Progress Notes * Javier French MD - 08/21/2024 2:00 PM CST RADIATION ONCOLOGY ON-TREATMENT VISIT DATE: 08/21/2024 DIAGNOSIS: 58 y.o. female with extensive stage small cell lung cancer. Oncologist is . She had undergone prior RT with Dr. Candelario at [facility] 1) thoracic RT 62Gy/31 Fx 2017 2) prophylactic whole brain RT 25Gy/10 Fx 2017 3) palliative liver RT 30Gy/10 2017 4) single 5.4 cm brain m etastasis in the right parieto-occipital lobe s/p resection on 05/02/23 (Dr. Dang) followed by adjuvant SRS 30 Gy/5Fx completed 06/21/23 5) 3 new intracranial lesions SRS 27Gy/3Fx completed 01/25/24. She now has 2 new brain metastases that I plan to treat with SRS 27Gy/3Fx SITE: Brain DOSE: 2700 cGy of planned 2700 cGy (3 of 3 Fx) HISTORY: Ms. Harrington reports feeling generally well. Here with son. Fatigue. On dex 2 mg daily. EXAM: Well-appearing, NAD. Breathing comfortably on RA ASSESSMENT/PLAN: Tolerating radiotherapy well. Imaging checked. SRS complete. Plan for follow-up at [facility] in 3 mo w/brain MR prior. I will notify the staff at [place] and Dr. Garcia to help arrange. Taper steroids as follows: continue dex 2 mg daily, 3/3 transition to 1 mg daily, 09/03 stop Ms. Harrington is noted to have 0/10 pain in clinic today. Her individualized pain management will therefore consist of no intervention needed as the patient notes no pain of significance. Javier French MD OW SECRETARY documented in this encounter Procedure Notes * Javier French MD - 08/21/2024 2:00 PM CST Procedure Date: 08/21/2024 STEREOTACTIC RADIOSURGERY (SRS) SIMULATION AND PROCEDURE NOTE AND COLLISION CHECK SIMULATION FOR ISOCENTER VERIFICATION PURPOSE: The patient initially underwent virtual CT simulation for stereotactic radiosurgery. A simple simulation was performed on the [employer] Tele[employer]ife unit utilizing the integrated kV imaging platform for isocenter verification and confirmation of plan deliverability (collision check). PATIENT ASSESSMENT: No complaints. EQUIPMENT USED: Simulation was performed on the [employer] linear accelerator. PROCEDURE DETAILS: This simulation was performed prior to the first stereotactic radiotherapy fraction. The patient was placed on the Robocouch treatment bed with their head immobilized with the Qfix mask in treatment position. The couch then moved the patient's head into an approximate treatment position. Using the in-room orthogonal X-ray array, the Robocouch position was adjusted to align with the target. Additional orthogonal x-rays were taken to confirm precise alignment. The patient safety zone was then checked by the therapist with the [employer] wand and no areas of potential collision were identified. ASSESSMENT: The isocenter alignment process was successful and there were no collision issues with any of the planned gantry and couch angles. ORDERS: Proceed with stereotactic radiotherapy treatment as planned. STEREOTACTIC RADIOSURGERY PROCEDURE DIRECTIVE: Treatment Site = PTV 6.1/6.2 (Brain) Fraction #3 of 3 Dose per Fraction = 900 cGy Planned Total Dose = 2700 cGy (Rx isodose 66.7%) PREMEDICATION: Decadron 8 mg PROCEDURE DETAILS: After the above simulation procedure was completed, treatment was delivered using 121 beams. Orthogonal x-rays were used to monitor patient position every 20-40 seconds during treatment. Treatment was delivered as planned. Treatment duration was 31 minutes. The patient tolerated treatment well. SCHEDULING: SRS complete. Plan for 3 mo follow-up and bMRI prior at [place]. I will notify Dr. Garcia. Javier French MD OW SECRETARY documented in this encounter Miscellaneous Notes * Care Plan - Barbie Rivas RN - 08/21/2024 3:25 PM CST Problem: External Beam Radiation (Adult) Goal: Prevent/Manage Potential Problems Description: Signs and symptoms of listed problems will be absent or manageable. Outcome: Deactivate Flowsheets (Taken 08/21/2024 1523) External Beam Radiation: Problems Assessed: fatigue skin reaction alopecia/epilation External Beam Radiation: Problems Present: fatigue Note: Pain: denies Fatigue: 5/10 resting as needed Current dose of Decadron is 2 mg daily and 8 mg on radiation days. Divina and her son were given written and verbal discharge instructions. They verbalizes understanding of all instructions and confirm follow up appointment. OW SECRETARY * Radiation Completion Notes - Javier French MD - 08/21/2024 2:00 PM CST RADIATION ONCOLOGY Completion of Therapy Note Identifying Data: Divina Harrington is a 58 y.o. female with extensive stage small cell lung cancer. Oncologist is . She had undergone prior RT with Dr. Candelario at [facility] 1) thoracic RT 62Gy/31 Fx 2017 2) prophylactic whole brain RT 25Gy/10 Fx 2017 3) palliative liver RT 30Gy/10 2017 4) single 5.4cm brain metastasis in the right parieto-occipital lobe s/p resection on 05/02/23 (Dr. Dang) followed by adjuvant SRS 30 Gy/5Fx completed 06/21/23 5) 3 new intracranial lesions SRS 27Gy/3Fx completed01/25/24. She now has 2 new brain metastases involving right posterior frontal lobe + septum pellucidum that I plan to treat with SRS 27Gy/3Fx She recently completed stereotactic radiosurgery to metastatic disease in the brain. Treatment Delivered: The patient received a total of 27 Gy delivered in 3 Fx to the 2 lesions noted above using CK-basedphoton SRS from 08/14/24 to 08/20/24. Tolerance: Ms. Harrington tolerated therapy very well. Disposition: SRS complete. Plan for follow-up at [facility] in 3 mo w/brain MR prior. I will notify the staff at [place] and Dr. Garcia to help arrange. She will continue to follow closely with in Oncology. Javier French MD OW SECRETARY documented in this encounter Plan of Treatment Upcoming Encounters Date Type Department Care Team (Late st Contact Info) Description 09/24/2024 8:30 AM CDT Office Visit [facility] [address] [facility] [address] [place] [address] Joseph Arshad MD [address] [facility] [address] [place] [address] documented as of this encounter Visit Diagnoses Not on filedocumented in this encounter Care Teams Enterprise Analyst Relationship Specialty Start Date End Date Juan Rasheed MD [address] [place] [id number] PCP - General Family Practice 04/18/24 documented as of this encounter
--- OUTSIDE RECORDS SUMMARY | 2024-08-22 21:10 | XMS_ITS | Clinical Summary ---
Author Organization [facility] Address [address] [place] [address] Care Team Providers Care Banking Services Advisor Name Role Phone Juan Rasheed MD Primary Care Provider [phone] Allergies Active Allergy Reactions Criticality Noted Date Comments Amoxicillin Rash Low 01/06/2017 Clindamycin Rash,Hives High 06/09/2015 Doxycycline Nausea and Vomiting High 05/08/2020 Egg Nausea and Vomiting Medium Egg White Nausea and Vomiting Medium 03/28/2020 Iodinated Contrast Media Rash Low 03/16/2017 Iodine Hives High 10/23/2019 Levofloxacin Rash Medium 03/23/2017 Levofloxacin In D5w Rash Low 01/06/2017 Metrizamide Hives High 06/09/2015 Morphine Nausea and Vomiting Low 03/23/2017 Penicillins Rash,Hives High 06/09/2015 Medications budesonide-formot harshad (SYMBICORT) 160-4.5 mcg/actuation HFA Aerosol Inhaler Take 2 Puffs by inhalation 2 times daily. 1 Gram 3 05/26/20 17 Active triamcinolone acetonide (KENALOG) 0.1 % Cream Apply to affected area 2 times daily as needed . 03/29/20 18 Active dronabinol (MARINOL) 2.5 mg capsule TAKE 2 CAPSULES BY MOUTH TWICE DAILY 120 Capsule 1 07/31/19 19 Active cetirizine (ZyrTEC) 10 mg tablet Take 10 mg by mouth daily. Active polyethylene glycol 3350 (MIRALAX) 17 gram/dose Powder Use entire 255g bottle with 64oz of clear liquid as directed for colonoscopy prep. 12/25/19 17 Active medical marijuana, for documentation purposes, Cannabis oil as needed for nausea and appetite. Active cyclobenzaprine (FLEXERIL) 10 mg tablet Take 1 Tablet (10 mg) by mouth 3 times daily as needed for Spasm. 30 Tablet 09/18/19 20 Active hydrocortisone (PROCTOZONE-HC) 2.5 % cream with perineal applicator Apply to affected area. 06/16/20 17 Active loperamide (IMODIUM) 1 mg/5 mL solution Take by mouth. Act caro diphenhydrAMINE (BENADRYL) 25 mg capsuleIndication s:Allergy to iodine Take 25 mg one time one hour before the procedure 1 Capsule 04/08/20 21 Active ondansetron (ZOFRAN ODT) 4 mg Tablet, Rapid Dissolve DISSOLVE 1 TABLET IN MOUTH EVERY 8 HOURS NEEDED FOR NAUSEA AND VOMITING 08/02/19 22 Active prochlorperazine maleate (COMPAZINE) 10 mg tabletIndications :Chemotherapy induced nausea and vomiting Take 1 Tablet (10 mg) by mouth every 6 hours as needed for Nausea/Emesis. 120 Tablet 3 09/12/19 22 Active mirtazapine (REMERON) 15 mg tablet TAKE 1 TABLET BY MOUTH ONCE DAILY AT BEDTIME 30 Tablet 02/16/20 22 Active fluticasone propionate (FLONASE) 50 mcg/spray [place], Suspension nasal inhaler Administer 2 Sprays in each nostril 1 time daily as needed for Allergies. 02/14/20 23 Active predniSONE (DELTASONE) 50 mg tablet Take 1 tablet 24 hours,12 hours and [address] scan 3 Tablet 07/04/19 24 Active LORazepam (ATIVAN) 0.5 mg tabletIndications :Chemotherapy induced nausea and vomiting take 1 tablet by mouth every 6 hours as needed for anxiety 30 Tablet 12/26/19 24 Active lidocaine-priloca ine (EMLA) 2.5-2.5 % CreamIndications: Malignant neoplasm of lower lobe of left lung (CMS/HCC) APPLY TOPICALLY TO PORT SITE 30-60 MINUTES BEFORE USE. 30 Gram 02/06/20 24 Active atorvastatin (LIPITOR) 40 mg tablet Take 40 mg by mouth daily. Active metoprolol succinate (TOPROL XL) 25 mg Extended Release 24 hour tablet Take 25 mg by mouth daily. Active dexAMETHasone (DECADRON) 4 mg tablet Take 1 Tablet (4 mg) by mouth daily. Start taking on 07/25/24. 30 Tablet 07/25/19 25 Active potassium CHLORIDE (KLOR-CON M20) 20 mEq Extended Release tablet Take 1 Tablet (20 mEq) by mouth 2 times daily. 60 Tablet 2 08/13/19 25 Active omeprazole (PriLOSEC) 40 mg Capsule, Delayed Release(E.C.)Ines cations:Malignant neoplasm of lower lobe of left lung (CMS/HCC),Chronic anemia,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),Agranul ocytosis secondary to cancer chemotherapy (CODE) Take 1 tablet by mouth daily. 90 Capsule 08/16/19 25 Active omeprazole (PriLOSEC) 40 mg Capsule, Delayed Release(E.C.)Ines cations:Malignant neoplasm of lower lobe of left lung (CMS/HCC),Chronic anemia,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),Agranul ocytosis secondary to cancer chemotherapy (CODE) Take 1 tablet by mouth daily. 90 Capsule 12/27/19 24 025 Discontin ued(Reord er) Active Problems Problem Noted Date Diagnosed Date [...] neoplasm of lower lobe of left lung Resolved Problems Problem Noted Date Diagnosed Date Resolved Date Preoperative cardiovascular examination 04/23/2023 04/26/2023 Pulmonary fibrosis, unspecified 07/10/2019 07/31/2019 Encounters Date Type Department Care Team Description 08/21/2024 2:00 PM ELECTRICAL INSTRUMENT MAKER - 08/21/2024 11:59 PM ELECTRICAL INSTRUMENT MAKER Hospital Encounter [facility] Radiation Therapy [address] [place] [address] Javier French MD Discharge Disposition: Home or Self Care 08/20/2024 9:30 AM ELECTRICAL INSTRUMENT MAKER Office Visit [facility] Oncology and Hematology [facility] [address] [place] [address] Joseph Arshad MD Malignant neoplasm of lower lobe of left lung (CMS/HCC) (Primary Dx) 08/20/[address] [facility] Oncology and Hematology [facility] [address] [place] [address] Joseph Arshad MD 08/17/2024 10:00 AM ELECTRICAL INSTRUMENT MAKER - 08/17/2024 11:59 PM ELECTRICAL INSTRUMENT MAKER Hospital Encounter Andrew Jean Paul Maurizio [facility] Radiation Therapy [address] [place] [address] Javier French MD Discharge Disposition: Home or Self Care 08/16/[address] [facility] Oncology and Hematology [facility] [address] [place] [address] Joseph Arshad MD Malignant neoplasm of lower lobe of left lung (CMS/HCC); Chronic anemia; 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); Agranulocytosis secondary to cancer chemotherapy (CODE) 08/15/2024 External Device Data STL ABSTRACTION Provider, Abstract 08/14/2024 1:55 PM ELECTRICAL INSTRUMENT MAKER - 08/14/2024 11:59 PM ELECTRICAL INSTRUMENT MAKER Hospital Encounter Andrew Jean Paul [facility] Radiation Therapy [address] [place] [address] Javier French MD Discharge Disposition: Home or Self Care 08/13/[address] [facility] Oncology and Hematology [place] [address] [place] [address] Joseph Arshad MD Malignant neoplasm of lower lobe of left lung (CMS/HCC) 08/08/2024 6:30 AM ELECTRICAL INSTRUMENT MAKER - 08/08/2024 11:59 PM ELECTRICAL INSTRUMENT MAKER Hospital Encounter [facility] Radiation Therapy [address] [place] [address] Discharge Disposition: Home or Self Care 08/07/2024 12:35 PM ELECTRICAL INSTRUMENT MAKER - 08/07/2024 11:59 PM ELECTRICAL INSTRUMENT MAKER Hospital Encounter [facility] Radiation Therapy [address] [place] [address] Discharge Disposition: Home or Self Care 08/03/2024 11:00 AM ELECTRICAL INSTRUMENT MAKER - 08/03/2024 11:59 PM ELECTRICAL INSTRUMENT MAKER Hospital Encounter [facility] Radiation Therapy [address] [place] [address] Javier French MD Discharge Disposition: Home or Self Care 08/03/2024 10:45 AM ELECTRICAL INSTRUMENT MAKER - 08/03/2024 11:59 PM ELECTRICAL INSTRUMENT MAKER Hospital Encounter [facility] [address] [place] [address] Javier French MD Discharge Disposition: Home or Self Care 07/31/2024 Telephone [facility] Radiation Therapy [address] [place] [address] Arianne Dumont RN questions MRi 07/30/[address] 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 Oncology and Hematology - [place] [address] [place] [id number] Joseph Arshad MD Malignant neoplasm of lower lobe of left lung (CMS/HCC) 07/11/2024 8:45 AM ELECTRICAL INSTRUMENT MAKER Office Visit [facility] Oncology and Hematology - [place] [address] [place] [id number] Joseph Arshad MD Malignant neoplasm of lower lobe of left lung (CMS/HCC) (Primary Dx) 07/11/[address] [facility] Oncology and Hematology - [place] [address] [place] [address] Joseph Arshad MD 07/09/2024 Orders Only [facility] Oncology and Hematology - [place] [address] [place] [id number] Joseph Arshad MD 07/05/2024 Orders Only [facility] Oncology and Hematology - [place] [address] [place] [address] Joseph Arshad MD 07/04/2024 Orders Only [facility] Oncology and Hematology - [place] [address] [place] [phone] Joseph Arshad MD 07/02/[address] [facility] Oncology and Hematology - [place] [address] Joseph Arshad MD Malignant neoplasm of lower lobe of left lung (CMS/HCC) 06/18/[address] [facility] Oncology and Hematology - [place] [address] Joseph Arshad MD Malignant neoplasm of lower lobe of left lung (CMS/HCC) 06/07/[address] [facility] Oncology and Hematology - [place] [address] Joseph Arshad MD 06/04/[address] [facility] Oncology and Hematology - [place] [address] [place] [phone] Joseph Arshad MD Malignant neoplasm of lower lobe of left lung (CMS/HCC) 05/30/[address] [facility] Oncology and Hematology - [place] [address] Joseph Arshad MD from Last 3 Months Immunizations Immunization Administration Dates Next Due Influenza Seasonal Unspecified Formulation IM Family History Medical History Relation Name Comments Healthy Brother 1 Healthy Brother 2 Other Brother 3 Unknown Father Unknown Mother Healthy Sister Relation Name Status Comments Brother 1 Alive Brother 2 Alive Brother 3 Brother 4 Father Mother Sister Alive Social History Tobacco Use Types Packs/Day Years Used Date Smoking Tobacco: Former Cigarettes 1 35 0 10/14/1980 - 10/15/2015 Smokeless Tobacco: Never Tobacco Cessation:Counseling Given: Not Answered Alcohol Use Standard Drinks/Week Comments Yes 0 [...] Sign Reading Time Taken Comments Blood Pressure 121/78 08/20/2024 9:32 AM ELECTRICAL INSTRUMENT MAKER Pulse 98 08/20/2024 9:32 AM ELECTRICAL INSTRUMENT MAKER Temperature 36.9 C (98.5 F) 08/20/2024 9:32 AM ELECTRICAL INSTRUMENT MAKER Respiratory Rate 15 08/20/2024 9:32 AM ELECTRICAL INSTRUMENT MAKER Oxygen Saturation 97% 08/20/2024 9:32 AM ELECTRICAL INSTRUMENT MAKER Inhaled Oxygen Concentration - - Weight 53.2 kg (117 lb 3.2 oz) 08/20/2024 9:32 A M ELECTRICAL INSTRUMENT MAKER Height 160 cm (5' 3 ) 05/02/2023 7:37 AM ELECTRICAL INSTRUMENT MAKER Body Mass Index 20.76 05/02/2023 7:37 AM ELECTRICAL INSTRUMENT MAKER Plan of Treatment Upcoming Encounters Date Type Department Care Team (Late st Contact Info) Description 09/24/2024 8:30 AM CDT Office Visit [facility] Oncology and Hematology [facility] [address] [facility] [address] [place] [address] Joseph Arshad MD [address] [facility] [address] [place] [address] Health Maintenance Due Date Last Done Comments DTAP/TDAP/TD VACCINES (1 - Tdap) 10/28/1982 ZOSTER VACCINE (1 of 2) 10/28/1982 BREAST CANCER SCREENING 2003 FIT-DNA Q 3 years 10/28/2008 FIT/FOBT Q 1 year 10/28/2008 Flex Sig/CT Colonography Q 5 years 10/28/2008 CERVICAL CANCER SCREENING 04/27/2018 04/27/2015 COVID-19 Vaccine (2 - Ron risk series) 09/29/2020 09/01/2020 RSV VACCINE (60+ or ) (1 - Risk 60-74 years 1-dose series) 2023 INFLUENZA VACCINE (#1) 2024 , 04/28/2019, 05/09/2018, Additional history exists COLORECTAL SCREENING 12/30/2026 12/30/2016, 06/27/2012, 06/27/2012, Additional history exists Colorectal Cancer Screening 12/30/2026 HEPATITIS B VACCINES Aged Out No long er eligible based on patient's age to complete this topic Medical Devices Implanted Type Area Ware Finisher Device Identifier Shelf Expiration Date Model / Serial / Lot Duragen + 4x5in Dp-1045 - [id number] Implanted:Qty : 1 on 05/02/2023 by Bibi Dang MD at [facility] Graft Right: Scalp [employer] 06/26/2025 [id number] / / [id number] Hemostatic Surgifoam Sz100 1973 - [id number] Implanted:Qty : 1 on 05/02/2023 by Bibi Dang MD at [facility] Hemostatic Right: Scalp J[employer]J- [employer] 01/26/2027 1974 / / [id number] Hemostatic Surgicel 2x14in 1950 - [id number] Implanted:Qty : 1 on 05/02/2023 by Bibi Dang MD at [facility] Hemostatic Right: Scalp J[employer]- [employer] [id number] 02/24/2027 195 / / [id number] Hemostatic Surgicel 1x2in 1960 - [id number] Implanted:Qty : 1 on 05/02/2023 by Bibi Dang MD at [facility] Hemostatic Right: Scalp J&J- [employer] [id number] 07/27/20241960 / / [id number] Hemostatic Surgiflo 8ml W/ Thrombin 2993 - [id number] Implanted:Qty : 1 on 05/02/2023 by Bibi Dang MD at [facility] Hemostatic Right: Scalp J&J- [employer] 05/26/2024 2994 / / [id number] Plate Matrxneuro Cranial 04.502.06 - [id number] Implanted:Qty : 1 on 05/02/2023 by Bibi Dang MD at [facility] Plate Right: Scalp J&J- DEPUY SYNTHES 502.06 2 / / Description:LOAD 38 Sterilized APR 28 2023 Plate Matrxneuro Bur Hl Cvr 502.021 - [id number] Implanted:Qty : 2 on 05/02/2023 by Bibi Dang MD at [facility] Plate Right: Scalp J&J- DEPU[employer] SYNTHES 502.02 1 / / Description:LOAD 38 APR 28 2023 Screw Matrixneuro Sd .503.104.01 - Ssterilized 04-28-23 Implanted:Qty : 6 on 05/02/2023 by Bibi Dang MD at [facility] Screw Right: Cranial J&J- DEPUY SYNTHES 503.10 4.01 / STERILIZE D 04-28-23 / Description:SYNTHES CMF REQU ISITION# [id number] Sealant Tisseel 10ml [id number] - [id number] Implanted:Qty : 1 on 04/08/2017 by Satnam Vann MD at [facility] Sealant Left: Lung GRUBER- [employer] [id number] 09/24/2018 [id number] / [id number] / [id number] Procedures Procedure Name Priority Date/Time Associated Diagnosis Comments BASIC METABOLIC PANEL Routine 08/20/2024 2:43 PM ELECTRICAL INSTRUMENT MAKER MRI THERAPY PLANNING Routine 08/03/2024 12:15 PM ELECTRICAL INSTRUMENT MAKER 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) MRI BRAIN W WO CONTRAST Stat 07/24/2024 2:30 PM ELECTRICAL INSTRUMENT MAKER 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) BASIC METABOLIC PANEL Routine 07/23/2024 12:53 PM ELECTRICAL INSTRUMENT MAKER COMPREHENSIVE METABOLIC PANEL Routine 07/23/2024 12:47 PM ELECTRICAL INSTRUMENT MAKER CBC WITH DIFFERENTIAL Routine 07/23/2024 11:34 AM ELECTRICAL INSTRUMENT MAKER BASIC METABOLIC PANEL Routine 07/11/2024 2:57 PM ELECTRICAL INSTRUMENT MAKER COMPREHENSIVE METABOLIC PANEL Routine 07/11/2024 2:33 PM ELECTRICAL INSTRUMENT MAKER COMPREHENSIVE METABOLIC PANEL Routine 07/04/2024 11:46 AM ELECTRICAL INSTRUMENT MAKER CT CHEST WO CONTRAST Routine 06/28/2024 12:45 PM ELECTRICAL INSTRUMENT MAKER BASIC METABOLIC PANEL Routine 06/26/2024 4:11 PM ELECTRICAL INSTRUMENT MAKER COMPREHENSIVE METABOLIC PANEL Routine 06/26/2024 4:09 PM ELECTRICAL INSTRUMENT MAKER COMPREHENSIVE METABOLIC PANEL Routine 06/05/2024 2:31 PM ELECTRICAL INSTRUMENT MAKER BASIC METABOLIC PANEL Routine 05/29/2024 1:53 PM ELECTRICAL INSTRUMENT MAKER COMPREHENSIVE METABOLIC PANEL Routine 05/29/2024 12:57 PM ELECTRICAL INSTRUMENT MAKER CBC WITH DIFFERENTIAL Routine 05/29/2024 10:47 AM ELECTRICAL INSTRUMENT MAKER BASIC METABOLIC PANEL Routine 05/29/2024 9:42 AM ELECTRICAL INSTRUMENT MAKER from Last 3 Months Results * BASIC METABOLIC PANEL (08/20/2024 2:43 PM ELECTRICAL INSTRUMENT MAKER) Only the most recent of6 resultswithin the time period is included. Blood us Joesph Arshad MD CHEMISTRY ORDERABLES Final Resu lt * MRI THERAPY PLANNING (08/03/2024 12:15 PM ELECTRICAL INSTRUMENT MAKER) Anatomical Region Laterality Modality Magnetic Resonan ce 08/03/2024 1:39 PM ELECTRICAL INSTRUMENT MAKER Impressions 08/04/2024 7:43 AM ELECTRICAL INSTRUMENT MAKER IMPRESSION: 1. MR localization of intracranial enhancing lesions for radiation treatment planning. DICTATION LOCATION: Location 1 - [facility] Narrative 08/04/2024 7:43 AM ELECTRICAL INSTRUMENT MAKER EXAMINATION: MRI THERAPY PLANNING HISTORY: radiation therapy. 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 FINDINGS: Comparison is made with a study from July 24, 2024. Enhancing lesions in the septum pellucidum unchanged. Enhancing extra-axial lesion along the posterior right frontal lobe is unchanged. Renal enhancement along the right parietal resection cavity is unchanged. No additional enhancing lesions are identified. Ventricles are nondilated. No mass effect or midline shift is seen. Procedure Note Mayur Garcia MD - 08/04/2024 EXAMINATION: MRI THERAPY PLANNING HISTORY: radiation therapy. 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 FINDINGS: Comparison is made with a study from July 24, 2024. Enhancing lesions in the septum pellucidum unchanged. Enhancing extra-axial lesion along the posterior right frontal lobe is unchanged. Renal enhancement along the right parietal resection cavity is unchanged. No additional enhancing lesions are identified. Ventricles are nondilated. No mass effect or midline shift is seen. IMPRESSION: 1. MR localization of intracranial enhancing lesions for radiation treatment planning. DICTATION LOCATION: Location 1 - [facility] Javier French MD MR ORDERABLES Final Result * MRI BRAIN W WO CONTRAST (07/24/2024 2:30 PM ELECTRICAL INSTRUMENT MAKER) Anatomical Region Laterality Modality Head Magnetic Resonan ce 07/24/2024 2:5 7 PM ELECTRICAL INSTRUMENT MAKER Impressions 07/24/2024 3:16 PM ELECTRICAL INSTRUMENT MAKER IMPRESSION: 1. New 1.2 x 0.6 cm enhancing lesion along the septum pellucidum is concerning for disease progression. 2. Postsurgical changes of right parietal tumor resection. DICTATION LOCATION: Location 4 Narrative 07/24/2024 3:16 PM ELECTRICAL INSTRUMENT MAKER MRI BRAIN W WO CONTRAST Date: 07/24/2024 2:30 PM Indication: Brain metastases, assess treatment response Comparison: April 18, 2024 and January 12, 2024 MRI exams.. Technique: Multiplanar multisequence MRI of the brain was performed with and without intravenous contrast using the brain tumor protocol. CONTRAST: GADOTERIDOL 279.3 MG/ML INTRAVENOUS SOLUTION Given:12 mL Findings: New 1.2 x 0.6 cm enhancing lesion along the septum pellucidum. Postsurgical changes of right parietal tumor resection with overlying craniotomy. Similar adjacent T2 hyperintense signal. Unchanged thin residual enhancement along the resection cavity margins is likely postsurgical. Postsurgical pachymeningeal enhancement. Unchanged thin gradient susceptibility along the resection cavity margins likely represents chronic blood products. No acute infarct. Mild subcortical and deep periventricular white matter FLAIR hyperintensities, a nonspecific finding, most commonly seen with chronic small vessel ischemic disease. No acute intracranial hemorrhage. Mild generalized cerebral and cerebellar volume loss. Concordant ex vacuo dilatation of the ventricles. The scalp and calvarium are normal. The pituitary and sella are normal. No Chiari malformation. Incompletely characterized degenerative spondylosis of the visualized upper cervical spine. The visualized orbits and globes are normal. The visualized paranasal sinuses are clear. The mastoid air cells are clear. Normal flow voids within the vertebral, basilar, and internal carotid arteries indicating patency. Procedure Note Varinder Campuzano MD - 07/24/2024 MRI BRAIN W WO CONTRAST Date: 07/24/2024 2:30 PM Indication: Brain metastases, assess treatment response Comparison: April 18, 2024 and January 12, 2024 MRI exams.. Technique: Multiplanar multisequence MRI of the brain was performed with and without intravenous contrast using the brain tumor protocol. CONTRAST: GADOTERIDOL 279.3 MG/ML INTRAVENOUS SOLUTION Given:12 mL Findings: New 1.2 x 0.6 cm enhancing lesion along the septum pellucidum. Postsurgical changes of right parietal tumor resection with overlying craniotomy. Similar adjacent T2 hyperintense signal. Unchanged thin residual enhancement along the resection cavity margins is likely postsurgical. Postsurgical pachymeningeal enhancement. Unchanged thin gradient susceptibility along the resection cavity margins likely represents chronic blood products. No acute infarct. Mild subcortical and deep periventricular white matter FLAIR hyperintensities, a nonspecific finding, most commonly seen with chronic small vessel ischemic disease. No acute intracranial hemorrhage. Mild generalized cerebral and cerebellar volume loss. Concordant ex vacuo dilatation of the ventricles. The scalp and calvarium are normal. The pituitary and sella are normal. No Chiari malformation. Incompletely characterized degenerative spondylosis of the visualized upper cervical spine. The visualized orbits and globes are normal. The visualized paranasal sinuses are clear. The mastoid air cells are clear. Normal flow voids within the vertebral, basilar, and internal carotid arteries indicating patency. IMPRESSION: 1. New 1.2 x 0.6 cm enhancing lesion along the septum pellucidum is concerning for disease progression. 2. Postsurgical changes of right parietal tumor resection. DICTATION LOCATION: Location 4 Javier French MD MR ORDERABLES Final Result * COMPREHENSIVE METABOLIC PANEL (07/23/2024 12:47 PM ELECTRICAL INSTRUMENT MAKER) Only the most recent of6 resultswithin the time period is included. Blood Joseph Arshad MD CHEMISTRY ORDERABLES Final Resu lt * CBC WITH DIFFERENTIAL (07/23/2024 11:34 AM ELECTRICAL INSTRUMENT MAKER) Only the most recent of2 resultswithin the time period is included. Blood Joseph Arshad MD HEMATOLOGY ORDERABLES Final Res ult * CT CHEST WO CONTRAST (06/28/2024 12:45 PM ELECTRICAL INSTRUMENT MAKER) Anatomical Region Laterality Modality Chest Other Joseph Arshad MD CT ORDERABLES Final Result from Last 3 Months Insurance MEDICARE PART A AND B [employer] OPEN ACCESS HMO MEDICARE PART A [place] B [employer] [place] RX [employer] RX [employer] Commercial Advance Directives For more information, please contact: [phone] * Full Code (Latest Code Status on File) Date Activated Date Inactivated Comments 05/03/2023 1:08 PM 05/06/2023 6:58 PM * Default Full Code - Needs Discussion Date Activated Date Inactivated Comments 05/02/2023 3:17 PM 05/03/2023 1:08 PM * Full Code Date Activated Date Inactivated Comments 05/02/2023 3:17 PM 05/02/2023 3:17 PM * Full Code Date Activated Date Inactivated Comments 04/22/2023 10:06 AM 04/26/2023 8:04 PM * Full Code Date Activated Date Inactivated Comments 04/08/2017 3:24 PM 04/11/2017 5:21 PM Care Teams Banking Services Advisor Relationship Specialty Start Date End Date Juan Rasheed MD [address] [place] [id number] PCP - General Family Practice 04/18/24
--- OUTSIDE RECORDS SUMMARY | 2024-08-22 21:10 | XMS_ITS | CONTINUITY OF CARE DOCUMENT ---
Author Name aaron walker Address Unknown Organization [facility] Address [address] [place] [address] Phone [phone] Care Team Providers Care Cooker Sulfate Name Role Phone Meenakshi HAYNES, Tommy Unavailable MARGO HAYNES, HOLLIE Unavailable [phone] MARGO HAYNES, HOLLIE Unavailable [phone] PROBLEMS Condition Status Date Provider Notes Coronary Heart Disease active Tommy Arrieta MD Hyperlipidemia active Tommy Arrieta MD Hypertension active Tommy Arrieta MD Atrial fib, paroxysmal active Tommy Arrieta MD Apical ventricular thrombus active Tommy atkins MD Cardiomyopathy, dilated active Tommy vivas MD Cardiology examination active Jossie Ventim iglia PARTITION SETTER Lung cancer active Jossie Ventimiglia PARTITION SETTER Snoring active Jossie Ventimiglia PARTITION SETTER Sleep apnea active Jossie Ventimiglia PARTITION SETTER ENCOUNTERS Date Type Provider Location Encounter Diag nosis - In-person encounter Office Visit Tommy Arrieta MD [facility] - In-person encounter Office Visit Tommy Arrieta MD [facility] Sleep apnea - In-person encounter Office Visit Tommy Arrieta MD [facility] Cardiology examinationLung cancerSnoring - In-person encounter Office Visit Tommy Arrieta MD [facility] Coronary Heart DiseaseHyperlipidemiaHypertensionAtrial fib, paroxysmalApical ventricular thrombusCardiomyopathy, dilated VITAL SIGNS Date Observation Value Provider Body Mass Index (Ratio) 22.32 kg/m2 Krishna Arrieta MD blood pressure, diastolic 70 mm[Hg] Tracey mckeon Spencer blood pressure, systolic 101 mm[Hg] [facility] E&M 12 /min [facility] oxygen saturation, oximetry 67 % [facility] pulse rate 60 /min [facility] weight E&M 126 [lb_av] [facility] height E&M 63 [in_i] [facility] blood pressure, cuff size [facility] Body Mass Index (Ratio) 22.85 kg/m2 Krishna Arrieta MD blood pressure, diastolic 85 mm[Hg] Sam yla [facility] blood pressure, systolic 122 mm[Hg] Gwendolyn la [facility] blood pressure, cuff size regular [facility], oximetry 100 % [facility] pulse rate 59 /min Le[facility] weight E&M 129 [lb_av] Leann [facility] height E&M 63 [in_i] Le[facility] Body Mass Index (Ratio) 22.85 kg/m2 Krishna Arrieta MD blood pressure, diastolic 68 mm[Hg] Charlene nkLogjack blood pressure, systolic 122 mm[Hg] Karo kLogjack blood pressure, cuff size regular Ponce Ramírez blood pressure, diastolic 68 mm[Hg] Ta tyler Ramírez blood pressure, systolic 122 mm[Hg] Tab itha Darrell oxygen saturation, oximetry 98 % Tisha [facility] pulse rate 83 /min Tisha [facility] weight E&M 129 [lb_av] Tisha [facility] respiratory rate E&M 12 /min Tisha [facility] height E&M 63 [in_i] Tisha [facility] Body Mass Index (Ratio) 22.14 kg/m2 Krishna Arrieta MD blood pressure, diastolic 94 mm[Hg] Charlene nkLog blood pressure, systolic 125 mm[Hg] Karo kLog pulse rate 89 /min [facility] blood pressure, cuff size regular [facility] blood pressure, diastolic 94 mm[Hg] [facility] blood pressure, systolic 125 mm[Hg] [facility], [facility] 98 % [facility] respiratory rate E&M 15 /min Leydi Jazlyn iller weight E&M 125 [lb_av] [facility] height E&M 63 [in_i] [facility] ALLERGIES Allergy Name Onset Date Reaction Criticality Status PENICILLINS High Criticality active IODINE High Criticality active CLINDAMYCIN High Criticality active HISTORY OF MEDICATION USE Medication Status Instructions Dates Provider Indications Com ments Eliquis 5 mg tablet active Take 1 tablet by mouth twice a day CaseId:[id number] ;Status:Approve d;Review Type:Prior Auth;Coverage Start Date:07/06/2024 ;Coverage End Date:07/06/2025 ; Queta CHASE Specialist metoprolol succinate 25 mg tablet extended release 24 hr completed Take 1 tablet by mouth once a day - Jossie CONTI metoprolol succinate 25 mg tablet extended release 24 hr completed - Ariela Simpson RN clopidogrel 75 mg tablet completed Take 1 tablet by mouth once a day - Jossie Ventimiglia [facility] Eliquis 5 mg tablet completed Take 1 tablet by mouth twice a day - Queta Ricks MS Specialist Eliquis 5 mg tablet completed TAKE 1 TABLET BY MOUTH TWICE DAILY - Lachelle Lima clopidogrel 75 mg tablet completed TAKE 1 TABLET BY MOUTH EVERY DAY - Lachelle Lima Eliquis 5 mg tablet completed - Tommy Arrieta MD atorvastatin 40 mg tablet active Take 1 tablet by mouth every evening Lachelle Lima Aspirin Childrens 81 mg tablet,chewable completed - Tommy Arrieta MD SOCIAL HISTORY Date Observation Value Provider personal history of marijuana use no Jossie Ventimiglia [facility] drug use no Jossie Ventimig horacio [facility] alcohol use no Jossie Ventimig horacio [facility] smoking, year quit 2016 Jossie Ve ntimiglia [facility] cigarette use yes Jossie Ventimi glia [facility] smoking status Former smoker Jossie Venti miglia [facility] personal history of marijuana use no Jossie Ventimiglia [facility] drug use no Jossie Ventimig horacio [facility] alcohol use no Jossie Ventimig horacio [facility] smoking, year quit 2016 Jossie Ve ntimiglia [facility] cigarette use yes Jossie Ventimi glia [facility] smoking status Former smoker Jossie Venti miglia [facility] personal history of marijuana use no Jossie Ventimiglia [facility] drug use no Jossie Ventimig horacio [facility] alcohol use no Jossie Ventimig horacio [employer]ITION SETTER smoking, year quit 2016 Jossie Ve ntimiglia PARTITION SETTER cigarette use yes Jossie Ventimi glia PARTITION SETTER smoking status Former smoker Jossie Venti miglia PARTITION SETTER smoking, year quit 2017 Leydi mora cigarette use yes Leydi Darrell smoking status Former smoker Leydi Ramírez FUNCTIONAL STATUS Date Observation Value Provider HRA, CV Assess/Plan, Angina (inactive) Management Plan continue current therapy Jossie Ventimiglia [facility] HRA, CV Assess/Plan, Angina (inactive) Management Plan continue current therapy Jossie Ventimiglia [facility] HRA, CV Assess/Plan, Angina (inactive) Management Plan continue current therapy Jossie Zurdomiglia [facility] INSURANCE PROVIDERS Payer name Policy type / Coverage type [place] [employer] party ID MEDICARE [place] [id number] [employer] [place] [employer] [id number] ADVANCE DIRECTIVES Name Date DISCUSSED - NO DECISION MADE TREATMENT PLAN Date Name Performer Cardiology: H er updated medication list for this problem includes: Atorvastatin 40 Mg Tablet (Atorvastatin) ..... Take 1 tablet by mouth every evening [facility] Cardiology:remains stable on sara mo [facility] Cardiology:will arrange cpap Panna Maria nda Ciaraia [facility] Cardiology:now hypotensive will monitor [facility] Cardiology:with EF o f 20-25% on last echo N o acute decompensation D oes not tolerate GDMT d/t hypotension W ill do f/u echo at time of next visit T he following medications were removed from the medication list: Metoprolol Succinate 25 Mg Tablet Extended Release 24 Hr (Metoprolol succinate) ..... Take 1 tablet by mouth once a day [facility] Cardiology:No new ch est pain or SOB W ill continue to monitor D oes not tolerate medication therpay d/t hypotension T he following medications were removed from the medication list: Metoprolol Succinate 25 Mg Tablet Extended Release 24 Hr (Metoprolol succinate) ..... Take 1 tablet by mouth once a day [facility] Cardiology:remains on chemo Andres da Ventimiglia [facility] Cardiology: H er updated medication list for this problem includes: Atorvastatin 40 Mg Tablet (Atorvastatin) ..... Take 1 tablet by mouth every evening [facility] Cardiology:mild on r ecent [facility] w ith continued apnea symptoms reported w ill plan for autopap [facility] Cardiology:BP well c ontrolled. continue present medication regimen H er updated medication list for this problem includes: Metoprolol Succinate 25 Mg Tablet Extended Release 24 Hr (Metoprolol succinate) ..... Take 1 tablet by mouth once a day [facility] Cardiology:currently regular rate and rhythm. R emains on BB and Eliquis T he following medications were removed from the medication list: Clopidogrel 75 Mg Tablet (Clopidogrel) ..... Take 1 tablet by mouth once a day Her updated medication list for this problem includes: Metoprolol Succinate 25 Mg Tablet Extended Release 24 Hr (Metoprolol succinate) ..... Take 1 tablet by mouth once a day [facility] Cardiology:She had r ecent LHC at [facility] that showed occluded stent in LAD with collateral blood flow W ill stop plavix as bleeding issues and concerns with both Eliquis and plavix c ontinue BB and statin T he following medications were removed from the medication list: Clopidogrel 75 Mg Tablet (Clopidogrel) ..... Take 1 tablet by mouth once a day Her updated medication list for this problem includes: Metoprolol Succinate 25 Mg Tablet Extended Release 24 Hr (Metoprolol succinate) ..... Take 1 tablet by mouth once a day [facility] Cardiology:will plan [facility] Cardiology:remains i n NSR o n Eliquis for aC H er updated medication list for this problem includes: Metoprolol Succinate 25 Mg Tablet Extended Release 24 Hr (Metoprolol succinate) Clopidogrel 75 Mg Tablet (Clopidogrel) ..... Take 1 tablet by mouth once a day [facility] Cardiology:On irinot ecan for chemo n o reported cardio toxicity c an resume as discussed wt Dr.Ramada Jossie Davis [facility] Cardiology: H er updated medication list for this problem includes: Atorvastatin 40 Mg Tablet (Atorvastatin) [facility] Cardiology:BP 122/68 W ill resume BB H er updated medication list for this problem includes: Metoprolol Succinate 25 Mg Tablet Extended Release 24 Hr (Metoprolol succinate) [facility] Cardiology:NSTEMI re cently with repeat cath reported and no new stent W ill get records from [place] H er updated medication list for this problem includes: Clopidogrel 75 Mg Tablet (Clopidogrel) ..... Take 1 tablet by mouth once a day [facility] Cardiology:Prescribe d losartan and metoprolol at ms C ould not toleraate d/t hypotension W ill trial Metoprolol alone H er updated medication list for this problem includes: Clopidogrel 75 Mg Tablet (Clopidogrel) ..... Take 1 tablet by mouth once a day [facility] Cardiology:Currently off meds as BP running 110. Tommy Arrieta MD Cardiology Tommy Arrieta MD Cardiology:Last EF 3 0% W ill recheck in 6 months Tommy Arrieta MD Cardiology:On Eliquis and ASA Ra vanessa Arrieta MD Cardiology Tommy Arrieta MD Date Name Complete Echo Sleep Study Home HISTORY OF PROCEDURES Procedure Date Procedure Name Provider Procedure Notes S tatus EKG Tommy Arrieta MD complete d
--- OUTSIDE RECORDS SUMMARY | 2024-08-22 21:10 | XMS_ITS | Data Portability ---
Author Organization [facility] Address [address] [place] [address] Care Team Providers Care Paint Spray Tender Name Role Phone VIR[place]YonatanEULAL[place] Primary Care Provider [phone] Assessment No assessment recorded. Plan of Treatment Reminders Order Date Submit Date Provider Last Modified By Organization Details Last Modified Time Details Appointments None recorded. Lab None recorded. Referral pain managemen t referral 2014 015 julieta Miguel MD, 3 [facility] [address], [address], 6 13:01:15 Procedures None recorded. Surgeries None recorded. Imaging MAMMO, screening , digital, bilateral 2015 016 [id number] [facility], [address], [facility] [address], [place], [address], 6 04:29:38 mammogram , screening - 3 view due to dense breasts. 2014 015 [email or web address] Not available 5 09:23:51 Medication Orders Robaxin 500 mg tablet 2014 015 [facility] #[id number], [address] , [place], [place], [id number], 5 15:24:00 gabapenti n 300 mg capsule 2014 015 [facility] [employer] [facility] #[id number], [address] [facility], [place], [place], [id number], 15:24:00 Patient TargetsNo targets recorded. Patient Instructions Encounter Date Encounter Id Patient Instructions Last Modified By Organization Details Last Modified Time 05/09/2015 [id number] influenza (flu) vaccine: care instructions [email or web address] Not available 05/12/2015 09:17:26 irritable bowel syndrome: care instructions [email or web address] Not available 05/12/2015 09:17:26 deciding about using medicines to quit smoking [email or web address] Not available 05/12/2015 09:17:26 Quitting Tobacco: Care Instructions [email or web address] Not available 05/12/2015 09:17:26 chronic obstructive pulmonary disease (COPD): care instructions [email or web address] Not available 05/12/2015 09:17:26 learning about copd and how to prevent lung infections [email or web address] Not available 05/12/2015 09:17:26 04/13/2016 [id number] learning about breast cancer screening [email or web address] Not available 04/13/2016 16:59:05 Reason for Referral Pain Management Referral for Chronic low back pain Referring Physician: Albaro Yap, Internal Medicine, Encounter Date: 05/09/2015 Results Created Date Observation Date Name Description Value Unit Range Abnormal Flag Note LastModifiedBy Organization Detail LastModifiedTime 02/07/20 15 02/04/2015 matt bernardo/anuj benitez tic resul t No observ ation record ed. [address], [address], 04/13/2016 13:01:15 02/19/20 15 02/17/2015 matt bernardo/anuj benitez tic resul t No observ ation record ed. [facility] Not Available 04/13 13:01:15 04/30/20 16 04/30/2016 dexa PT NAME: DARRYL CHOI : 1965 PT SEX/AG E: F/52 PT ACCT NUMBER : [id number] PT MR#: [id number] ROOM/B ED: PT STATUS : REG CLI DATE OF EXAMIN ATION: ORDERI PHYSIC ALETHA: ROSS LOPES MAN M.DRosemary ATTEND ING PHYSIC ALTEHA: ROSS LOPES MAN , M.D. DICTAT [facility] PHYSIC ALETHA: MARVA MIRAMONTES M.D. 039 EXAMIN ATION: DIGITA L MAMM SCREEN -LAKEISHA HISTOR Y: Screen ing mammog kelly TECHNI QUE: Full field digita l cranio caudal and mediol ateral obliqu e views of both breast s were obtain ed. CAD analys is was submit leanne and interp reted. COMPAR ANIKA: 11/29/12 , 12/25/13 , 5 BREAST PARENC HYMAL COMPOS ITION: The breast s are almost entire ly fatty. FINDIN GS: Stable right breast masses are presen t in the upper- outer quadra nt of the breast which are consid ered benign given the lack of interv al change . There is no eviden ce of suspic ious mass, calcif icatio n, or josue ectura l distor tion to sugges t malign sebastian. There has been no signif icant interv al change . IMPRES KAYCEE: 1. No mammog raphic eviden ce of malign sebastian. Recomm end routin e screen ing mammog maddie in one year. BI-RAD S Catego ry 2: Benign findin g(s) __ Review ed, dictat ed, and finali zed at Locati on A. __ Electr onical ly signed by: Dr. MARVA Aguilar Date: Time: 08:52 MARVA MIRAMONTES M.D.__ ___ [facility] [address] [place] [address] [facility] (Imaging) [address], [place], [address], 05/02/2016 13:30:15 04/30/20 16 MAMMO , scree zaira, digit al, bilat eral No observ ation record ed. [facility] [address], [place], [address], 05/02/2016 13:30:15 05/05/20 16 MAMMO , scree zaira, digit al, bilat eral No observ ation record ed. [facility] [address], [place], [address], 05/14/2016 11:30:54 Result Notes None recorded. Problems Name Problem SNOMED Code Status Onset Date Resolution Date Notes Provider Name and Address Organization Details Recorded Time Asthma 031892530 Active Felicita Maldonado [place] null, [place] - [facility] 5 10:24:06 Arthritis 7080412 Active Felicita Maldonado [place], [place] [facility] 5 10:24:06 Hyperlipidemia 72511276 Active Felicita Maldonado [place], [place] [facility] 5 10:24:06 Anxiety disorder 311306391 Active Felicita Maldonado [place], [place] [facility] 5 10:24:06 Sciatica 86027457 Active Felicita Maldonado MA null, [place] - [facility] 5 10:29:35 Chronic low back pain 314530247 Active Albaro Yap MD Attn: Colleen callahan,[address] [place], [address], [place] - [facility] 5 15:24:00 Chronic obstructive pulmonary disease 71848911 Active Albaro Yap MD Attn: Colleen callahan,[address] [place], [address], [facility] - [facility] 5 15:24:00 Tobacco dependence syndrome 97712978 Active Albaro Yap MD Attn: Colleen callahan,[address] [place], [address], [facility] - [facility] 5 15:24:00 Diverticulitis of colon 835289351 Active Albaro Yap MD Attn: Colleen callahan,[address] [place], [address], [facility] - [facility] 5 15:24:00 Irritable bowel syndrome 38391697 Active Albaro Yap MD Attn: Colleen callahan,[address] [place], [address], [facility] - [facility] 5 15:24:00 Problem Notes None recorded. Procedures Surgical History Date Name Laterality Status Provider Name and Address Organization Details Recorded Time 04/27/20 15 Screening pap smear by phys completed Daniel Milton MA [facility] 05/09/2015 14:47:30 06/27/19 15 Mammogram screening completed Daniel Milton MA [facility] 05/09/2015 14:47:30 12/26/19 14 Date of Last Pap Smear completed Felicita Maldonado MA [facility] 01/27/2015 10:29:18 12/26/19 14 Most Recent Mammogram completed Felicita Maldonado MA [facility] 01/27/2015 10:29:18 06/27/19 13 Hysterectomy completed Felicita Maldnoado MA [facility] 01/27/2015 10:16:59 06/27/19 13 Oophorectomy completed Felicita Maldonado MA [facility] 01/27/2015 10:37:14 06/27/19 13 Colonoscopy completed Felicita Maldonado MA [facility] 01/27/2015 10:37:14 06/27/19 13 Diagnostic colonoscopy completed Daniel Milton MA [facility] 05/09/2015 14:47:30 06/27/18 87 Tubal Ligation completed Felicita Maldonado MA [facility] 01/27/2015 10:37:14 Dilation and Curettage completed Felicita Maldonado MA [facility] 01/27/2015 10:37:14 Laparoscopy completed Felicita Maldonado MA [facility] 01/27/2015 10:16:59 Cholecystectomy completed Daniel Milton MA [facility] 05/09/2015 14:47:30 Eye Surgery completed Daniel Milton MA [facility] 05/09/2015 14:47:30 Imaging Results Imaging Date Name Status LastModified by Organiz ation Details LastModified Time 02/04/2015 imaging/diagno stic result completed [address] [place] [address], [address], 04/13/2016 13:01:15 02/17/2015 imaging/diagno stic result completed [facility] Information not available 04/13/2016 13:01:15 04/30/2016 dexa completed [facility] (Imaging) [address] [place] [address] [place] [address], [address], 05/02/2016 13:30:15 04/30/2016 MAMMO, screening, digital, bilateral completed [facility] [address], [place], [address], 05/02/2016 13:30:15 05/05/2016 MAMMO, screening, digital, bilateral active [facility] [address], [place], [address], 05/14/2016 11:30:54 Procedure Notes None recorded. Medical Equipment None Reported. Allergies Allergen ID Allergen Name Allergen Category Reaction Reaction Severity Criticality Documentation Date Start Date Code Code System Note Provider Name and Address Organization Details Recorded Time 06673 Product containin g penicilli n (product) medicatio n rash severe Not available 01/27/2015 98160 8001 SNOMED Not Available Not Available Not Available 95884 clindamyc in Not available rash severe Not available 01/27/2015 2582 RxNorm Not Available Not Available Not Available 50720 egg extract food,medi cation nausea moderate Not available 01/27/2015 58631 15 RxNorm more of an intol eranc e than an aller gy. Not Available Not Available Not Available 32602 Levaquin medicatio n rash moderate Not available 04/13/2016 75089 2 RxNorm Not Available Not Available Not Available Medications Name Sig Start Date Stop Date Status Note LastModified by Organization Details LastModified Time Robaxin 500 mg tablet Take 2 tablets 3 times a day by oral route for 30 days. 015 active Not Available Not Available Not Avai lable gabapentin 300 mg capsule Take 1 capsule 3 times a day by oral route for 30 days. 015 active Not Available Not Available Not Avai lable Vitals Date Recorded Body height Body mass index (BMI) Body weight Systolic blood pressure Diastolic blood pressure Provider Name and Address Organization Details Last Updated DateTime 01/27/2015 162.56 cm 24.9 kg/m2 22058.89 365 g 116 mm[Hg] 72 mm[Hg] Felicita Maldonado [place] - [facility] 5 10:43:43 Date Recorded Body weight Oxygen saturation Oxygen saturation in Arterial blood by Pulse oximetry Body height Body temperature Heart rate Body mass index (BMI) Systolic blood pressure Diastolic blood pressure Provider Name and Address Organization Details Last Updated DateTime 5 42980.1 65295 g 97 % 97 % 162.56 cm 98.1 [degF] 74 /min 25.4 kg/m2 136 mm[Hg] 80 mm[Hg] Daniel Milton MA [place] - [facility] 5 14:47:30 Date Recorded Body height Body weight Body mass index (BMI) Provider Name and Address Organization Details Last Updated DateTime 04/13/2016 162.56 cm 82494.19 g 27.3 kg/m2 Felicita Maldonado MA [facility] 04/13/2016 12:10:59 Social History Question Answer Notes LastModified by Organizat ion Details LastModified Time Tobacco Smoking Status Former Smoker quit in September 2015 Felicita Maldonado MA [facility] [place], [place] - [facility] 04/13/2016 12:14:32 Do You Have An Advance Directive? No Information not available 01/27/2015 What Is Your Level Of Alcohol Consumption? None [email or web address] Information not available 01/27/2015 Is Blood Transfusion Acceptable In An Emergency? Yes [email or web address] Information not available 01/27/2015 What Is Your Level Of Caffeine Consumption? Moderate Every Day [email or web address] Information not available 01/27/2015 How Much Tobacco Do You Chew? None [email or web address] Information not available 01/27/2015 Are You Currently Employed? No [email or web address] Information not available 01/27/2015 What Type Of Diet Are You Following? REGULAR [email or web address] Information not available 01/27/2015 Education 10 GED [email or web address] Information no t available 01/27/2015 Legally Blind In One Or Both Eyes? No [email or web address] Information not available 04/13/2016 Live Alone Or With Others? With Others [email or web address] Information not available 01/27/2015 Marital Status Single [email or web address] Informatio n not available 04/13/2016 How Many Children Do You Have? 3 Information not available 01/27/2015 Performs Monthly Self-breast Exam? Yes [email or web address] Information not available 01/27/2015 Do You Use Protection During Sex? No [email or web address] Information not available 01/27/2015 What Is Your Relationship Status? [email or web address] Information not available 01/27/2015 Seat Belts Used Routinely Yes [email or web address] Information not available 01/27/2015 Are You Sexually Active? Yes [email or web address] Information not available 01/27/2015 Smoke Alarm In Home Yes [email or web address] Information not available 04/13/2016 At What Age Did You Start Smoking Tobacco? 14 [email or web address] Information not available 01/27/2015 How Much Tobacco Do You Smoke? 1 PPD [email or web address] Information not available 01/27/2015 General Stress Level Medium [email or web address] Information not available 01/27/2015 Do You Use Sunscreen Routinely? Yes [email or web address] Information not available 01/27/2015 How Many Years Have You Smoked Tobacco? 30 Information not available 01/27/2015 Sex: Unknown Functional Status Question Answer Note LastModified by Organizat ion Details LastModified Time What is your exercise level? Occasional [email or web address] Information not available 01/27/2015 Mental Status None recorded. Family History Relationship Description Onset Age of this Age Resolved Age Notes LastModified by Organization Details LastModified Time Unspecified Relation Family history of malignant neoplasm mother s side patien t does not rememb er what type of cancer [email or web address] Not available 05/09/2015 14:47:30 Mother Alcohol abuse [email or web address] Not available 05/09 14:47:30 Father Alcohol abuse [email or web address] Not available 05/09 14:47:30 Medical History Condition Response Coronary Artery Disease N Blood Diseases N Kidney Cyst N Hyperthyroidism N Blood Transfusion N MRSA N Blood disorders N Emphysema N COPD Y Blood Clots N Depression N Pneumonia N Peripheral Arterial Disease N Premature N Edema N TIA N Headaches/Migraines N Anxiety Disorder Y Obesity N Infertility N Polyps N Acid Reflux (GERD) Y Hematuria N Stroke N Neck Injury N Polio N Hospital Admission other than Y Neurologic Disorder Y Other Sleep Disorders N Rheumatoid Arthritis N Fibromyalgia N Abdominal Aortic Aneurysm Repair N Kidney Disease N Heart Conditions N Heart Disease/Heart Problems N Hospitalizations Y Brain Tumors N Acne N Eating Disorder N Skin Problems N Constipation Y Meningitis N Tuberculosis N Cerebral Palsy N Myocardial Infarction N Asthma Y Substance Abuse N Peripheral Vascular Disease N Vertigo N Sleep Disorder N Cirrhosis N Pulmonary Embolism N Chicken Pox Y Flomax Use Past or Present N Hematologic Disease N Anxiety/Depression Y Thyroid Disease N Colon Cancer N Glaucoma N Lung Disease N Developmental or Behavioral Disorders N Bipolar N Pacemaker N Diverticulitis/Diverticulosis Y Anesthesia Complications N Orthopedic Problems N Orthotics N Head Injury/Concussion N Congenital Anomalies N Way Bite N Chronic Kidney Disease N Endometriosis Y Liver Disease N Dialysis N Schizophrenia N Speech Delay N Chronic Obstructive Pulmonary Disease N Parkinson's Disease N Thyroid Problems N GI Problems N Developmental Delay N Anemia N Immune System Disorder N Multiple Sclerosis N Colon Polyps N Heart Attack (MD) N Diabetes N Cardiomyopathy N Blood Transfusions N Heart Problems/Murmur N Eye Trauma Y Congestive Heart Failure (CHF) N Valvular Heart Disease N Hyperlipidemia Y Double Vision N Abuse/Domestic Violence N Hepatitis B N Lupus N Epilepsy/Seizures N Reflux/GERD Y Aneurysm N Bronchitis N Heart Disease N Hypertension N Pre-Eclampsia N Heart Failure N Other N Gout N High Blood Pressure N Atrial Fibrillation N Kidney Stones N Head Trauma/Injury N Congenital Heart Disease N Spine Problems N Gastrointestinal Disease N Lung Mass N Sinusitis N Obstructive Sleep Apnea N Muscle, Joint, or Bone Problems N Autoimmune disease N Vision or Eye Problems N Arthritis Y Blood Clot N Cancer N Seasonal allergies Y Leg or Foot Ulcers N Raynaud's Disease N Aortic Aneurysm N Arrhythmia N Headaches N Heart Problems N Ambloypia N Ear or Hearing Problems N Hyperparathyroidism N Migraines N Artificial Joints N Kidney or Bladder Problems N NSAID Use N Encephalitis N PTSD N Ulcers N Prostate Hypertrophy N Bleeding Disorder N AIDS/HIV N Urinary Tract Infection N Back Problems Y Allergies Y Atrial Flutter N GERD/Reflux Y Hepatitis N Autism Spectrum Disorder (ASD) N Breast Cancer N Hernia N Hypothyroidism N Breast Problem N Genitourinary Disease N Deep Vein Thrombosis N Varicose Veins N Cystic Fibrosis N Hearing Loss N Developmental Problems N Carotid Disease N Vitamin D Deficiency N ADHD N Bladder or Kidney Problems N High Cholesterol Y Meniers N Valvular Abnormalities N Psychiatric/Mental Health Condition N Organ Transplant N Foot Deformity N Allergies/Hayfever Y Dyslipidemia N Hyponatremia N Diabetic Eye Disease N Osteoporosis/Osteopenia N Back Pain Y Proteinuria N Mental Illness N Neurological Problems Y Ovarian Cancer N Bedwetting N Seizures/Epilepsy N Kidney Failure N Ocular trauma N Dementia N Diverticulitis Y Sleep Apnea N Mental Problems N Warfarin Management N Osteoporosis N Gynecological History Statement/Question Response Abnormal Pap N STIs/STDs N HPV Vaccine N Most Recent Mammogram 12/25/2013 Age at Menarche 10 Current Control Method Tubal Ligat ion Age at First Child 16 If Post Menopausal, Age at Menopause 45 Sexually Active? Y Menses Monthly N Date of Last Pap Smear 12/25/2013 Sexual Problems? N LMP Desired Control Method Sterilizati on Obstetrics History GPAL:G 3 P 3 0 0 3 Type Value Multiple Births 0 Full Term 3 Induced 0 Spontaneous 0 Premature 0 Living 3 Ectopics 0 Total 3 Immunizations Vaccine Type Date Status Note Provider Bill rush and Address Organization Details Recorded Time COVID-19 vaccine, vector-nr, rS-Ad26, PF, 0.5 mL 1 completed [facility] [place] - [facility] 12/31/2020 13:28:15 Influenza, split virus, quadrivalent, preservative 6 completed Not Available [facility] 07/28/2019 02:11:36 Influenza, split virus, quadrivalent, preservative 5 completed Not Available [facility] 07/14/2019 02:32:11 Past Encounters Encounter ID Performer Location Encounter Start Date Encounter Closed Date Diagnosis/Indication Diagnosis SNOMED-CT Code Diagnosis ICD10 Code Diagnosis Note [id number] SULLY Preciado (SPECIAL DELIVERY MAIL CARRIER) [address] [place] [phone] 01/27/2015 09:48:48 01/27/2015 11:00:11 Screening mammography [id number] MD Kelsie Castillo (Adult Med) [address] [place] [phone] 05/09/2015 14:21:09 05/12/2015 15:02:26 Chronic low back pain 075620018 M54.5 Chronic ob structive pulmonary disease 37493845 J44.9 Tobacco de pendence syndrome 55344022 F17.290 Diverticul itis of colon 334556198 K57.32 Irritable bowel syndrome 11476029 K58.9 Administra tion of influenza vaccine 73180644 Z23 [id number] Ross Lopesbuddy Iglesias (SPECIAL DELIVERY MAIL [employer]ER) [address] [place] [phone] 04/13/2016 11:00:41 04/13/2016 17:00:37 Screening for malignant neoplasm of breast 126272505 Z12.31 Health Concerns Section Related Observation LastModified by Organization Detai ls LastModified Time None Recorded Concern Status LastModified by Organization Details LastModified Time None Recorded Advance Directives Directive N: Payers Encounter Date Sequence Insurance Name Policy Number Policy Plata Covered Member ID Plata Member ID Guarantor Name 01/27/2015 [facility] Div[facility] Obenhaus [id number] Divina Obenhaus 05/09/2015 1 [place] [employer] Divina Obenhaus [id number] Divina Obenhaus 04/13/2016 [facility] Divina Obenhaus [id number] Divina Obenhaus Notes Date Note Type Note Provider Name and Address Organization Details Recorded Time 05/09/2015 text/html 1. Chronic lower back pain since she fell down the stairs in her childhood. 2. flu shot. 3. a cigarette smoker. She also had prior treatment from pain management., She will see her GI specialist for her diverticulitis and IBS, had histroy of colonoscopy ex. History of toal adominal hysterectomy and plaparoscopic cholecystectomy. Albaro Yap MD Attn: Accounting,[address] [place], [address], [facility] - [facility] 05/09/2015 15:24:18 04/13/2016 text/html Breast ProblemsReported bypatient.Quality:asym ptomatic; no bloody discharge; no brown discharge; no milky discharge; no yellow-clear discharge; no yellow-green discharge; non-tender; improving; no mass Context:prior mammogram normal; performs breast self-examination; no breast implants; no family history of breast cancer; no history of breast cancer; no radiation treatment; no chemotherapy; no cancer; no previous biopsies; no miscarriages; recent MRI normal; lymph node status negative Modifying Factors:no recent change in exercise habits; no recent changes in weight; no recent changes in diet; no recent changes in medication dosage of hormone replacement therapy Aggravating Factors:none Associated Symptoms:no fever; no chills; no breast reddening; no nipple discharge; no sore nipples; no nipple inversion; breasts feel normal; no breast swelling; no arm pain; no arm swelling; no chest pain; no malaise; no breast lump; no change in breast skin Ross Kyle [place], [place] - [facility] 04/13/2016 13:03:10 OBGyn Episode Ob Episode Information Episode Created Date Number of Fetuses Patient Bloodtype Patient rh Status Prepregnancy Weight lbs Domestic Partner Domestic Partner Phone Father Name Nurse Recruiter Status 01/28/20 15 1 CLOSED Fetus Data First Name Last Name Admitted to NICU Weight (g) Sex Living Outcome Pediatric Complications Fetus ID Race Codes Race Delivery Type 3460.90 696 M Full Term 10365 Vaginal Lamine Calculation Initial Lamine Date Initial Exam Date Initial Exam Provider Initial Ultrasound Date Last Menstrual Period Date Ultra Sound Weeks Gestation 0 Eighteen To Twenty Week Lamine Update Ultra Sound Date Fundal Height At Umbil Quickening Date Ultra Sound Latest Weeks Gestation Final Lamine Confirmed By Final Lamine Confirmed Date Final Lamine Date Ultra Sound Latest Days Gestation 0 0 Menstrual History Last Menstrual Date Menses Monthly On Bcp Conception Prior Menses Frequency Hcg Plus Date Menarche Onset Age Delivery Information Delivery Date Delivery Type Labor Anesthesia Weeks Gestation Incision Type Labor Labor Length Hrs Delivered By Post Complications Tubal Sterilization Discharge Date Comments 6 None 39 Discharge Information Feeding Method Contraceptive Method Maternal HG B and HCT Levels Ob Episode Information Episode Created Date Number of Fetuses Patient Bloodtype Patient rh Status Prepregnancy Weight lbs Domestic Partner Domestic Partner Phone Father Name Nurse Recruiter Status 01/28/20 15 1 CLOSED Fetus Data First Name Last Name Admitted to NICU Weight (g) Sex Living Outcome Pediatric Complications Fetus ID Race Codes Race Delivery Type 3488.12 248 M Full Term 39963 Vaginal Lamine Calculation Initial Lamine Date Initial Exam Date Initial Exam Provider Initial Ultrasound Date Last Menstrual Period Date Ultra Sound Weeks Gestation 0 Eighteen To Twenty Week Lamine Update Ultra Sound Date Fundal Height At Umbil Quickening Date Ultra Sound Latest Weeks Gestation Final Lamine Confirmed By Final Lamine Confirmed Date Final Lamine Date Ultra Sound Latest Days Gestation 0 0 Menstrual History Last Menstrual Date Menses Monthly On Bcp Conception Prior Menses Frequency Hcg Plus Date Menarche Onset Age Delivery Information Delivery Date Delivery Type Labor Anesthesia Weeks Gestation Incision Type Labor Labor Length Hrs Delivered By Post Complications Tubal Sterilization Discharge Date Comments 2 None 39 Discharge Information Feeding Method Contraceptive Method Maternal HG B and HCT Levels Ob Episode Information Episode Created Date Number of Fetuses Patient Bloodtype Patient rh Status Prepregnancy Weight lbs Domestic Partner Domestic Partner Phone Father Name Nurse Recruiter Status 01/28/20 15 1 CLOSED Fetus Data First Name Last Name Admitted to NICU Weight (g) Sex Living Outcome Pediatric Complications Fetus ID Race Codes Race Delivery Type 3034.53 048 F Full Term 57354 Vaginal Lamine Calculation Initial Lamine Date Initial Exam Date Initial Exam Provider Initial Ultrasound Date Last Menstrual Period Date Ultra Sound Weeks Gestation 0 Eighteen To Twenty Week Lamine Update Ultra Sound Date Fundal Height At Umbil Quickening Date Ultra Sound Latest Weeks Gestation Final Lamine Confirmed By Final Lamine Confirmed Date Final Lamine Date Ultra Sound Latest Days Gestation 0 0 Menstrual History Last Menstrual Date Menses Monthly On Bcp Conception Prior Menses Frequency Hcg Plus Date Menarche Onset Age Delivery Information Delivery Date Delivery Type Labor Anesthesia Weeks Gestation Incision Type Labor Labor Length Hrs Delivered By Post Complications Tubal Sterilization Discharge Date Comments 7 None Discharge Information Feeding Method Contraceptive Method Maternal HG B and HCT Levels
--- OUTSIDE RECORDS SUMMARY | 2024-08-22 21:10 | XMS_ITS | Continuity of Care Document ---
Author Organization [facility] Address [address] [facility] [address] [place] [address] Phone Care Team Providers Care Skirt Maker Name Role Phone Polanco OD, Adams Unavailable Unavailable Procedures Procedure Date Eye Exam, New Patient Refraction Advance Directives Directive Yes / No Effective Date File Name No Information Encounters Encounter Description Practice Location Reason(s) For Visit Diagnoses Date Provider Providers Copied on Encounter [facility], [address], [place], [place], [address], tel:[phone] [facility] No Information 7-200 9 Polanco OD Adams. [address] , [address], [place], [address], . tel:[phone] Family History Family Member Type Diagnosis Age At Onset No Information Payers Payer name Insurance type Covered alliance party ID Authoriza tion(s) [employer] Vision Plan CI [id number] Social History Type Description Quantity Date Captured Comments Sex Female Smoking Status No Information Chief Complaint And Reason For Visit No Information Reason For Referral Reason For Referral No Information History Of Present Illness Encounter Date Complaint History Of Prese nt Illness No Information Functional Status Date Functional Assessmen t No Information Instructions Date Instruction Additional Infor mation No Information Assessments Type Assessment Date No Information Patient Care Teams Name Effective Dates (start - stop) Status Members No Information
--- OUTSIDE RECORDS SUMMARY | 2024-08-22 21:10 | XMS_ITS | Encounter Summary ---
Author Organization [facility] EZEQUIEL [facility] Address [address] [place] [address] Care Team Providers Care Senior Tech Manufacturing Engineering Name Role Phone Juan Rasheed MD Primary Care Provider [phone] Encounter Details Date Type Department Care Team (Late st Contact Info) Description 08/20/2024 Orders Only [facility] Oncology and Hematology - [address] [facility] [address] [place] [address] Joseph Arshad MD [address] [facility] [address] [place] [address] Social History Tobacco Use Types Packs/Day Years [...] Description 09/24/2024 8:30 AM CDT Office Visit [facility] Oncology and Hematology - [place] [place] [address] Joseph Arshad MD [address] [facility] [address] [place] [address] documented as of this encounter Procedures Procedure Name Priority Date/Time Associated Diagnosis Comments BASIC METABOLIC PANEL Routine 08/20/2024 2:43 PM CORPORATE SERVICES MANAGER documented in this encounter Results * BASIC METABOLIC PANEL (08/20/2024 2:43 PM CORPORATE SERVICES MANAGER) Blood Joseph Arshad MD CHEMISTRY ORDERABLES Final Resu lt documented in this encounter Visit Diagnoses Not on filedocumented in this encounter Care Teams Senior Tech Manufacturing Engineering Relationship Specialty Start Date End Date Juan Rasheed MD [address] [place] [address] PCP - General Family Practice 04/18/24 documented as of this encounter
[2024-08-22 21:12] VITALS: BP 158/71; PULSE 71; RESP 18; TEMP 36.4; O2SAT 100
[2024-08-22 23:54] VITALS: BP 104/73; PULSE 72; RESP 18; O2SAT 99
--- NOTE | 2024-08-23 02:43 | PC.NURSE ---
no answer at triage for vital signs
--- OUTSIDE RECORDS SUMMARY | 2024-08-23 03:26 | XMS_ITS | Encounter Summary ---
Author Organization [facility] Address [address] [place] [address] Care Team Providers Care Tobacco Classer Name Role Phone Juan Rasheed MD Primary Care Provider [phone] Encounter Details Date Type Department Care Team (Late Contact Info) Description 05/30/2017 Chart Note [facility] Radiation Therapy [address] [place] [address] [place] [address] [place] [address] Social History Tobacco Use Types [...] Description 09/24/2024 8:30 AM CDT Office Visit [facility] Oncology and Hematology - [place] [facility] [address] [place] [address] Joseph Arshad MD [address] [facility] [address] [place] [address] documented as of this encounter Visit Diagnoses Not on filedocumented in this encounter Care Teams Tobacco Classer Relationship Specialty Start Date End Date Juan Rasheed MD [address] [place] [address] PCP - General Family Practice 04/18/24 documented as of this encounter
--- OUTSIDE RECORDS SUMMARY | 2024-08-23 03:26 | XMS_ITS | Encounter Summary ---
Author Organization [facility] Address [address] [facility] [facility] [place] [address] Phone Care Team Providers Care Assembly Machine Set Up Mechanic Name Role Phone Shadi Walker Primary Care Provider Reason for Visit * Reason Comments Medication Refill Encounter Details Date Type Department Care Team (Late st Contact Info) Description 06/17/2021 Refill [facility] - [facility] [address] [place] [address] Fabiola Swenson [address] [place] [address] Medication Refill Social History Tobacco Use Types [...] Gena Milligan RN - 06/22/2021 9:43 AM HOSIERY MATER Medication refilled and signed per [facility] medication standing order for pediatric and adult patients. ERY MATER * Telephone Encounter - Gena Milligan RN - 06/22/2021 9:31 AM HOSIERY MATER Pharmacy requesting refill of: Requested Prescriptions Pending Prescriptions Disp Refills ??? omeprazole (PriLOSEC) 40 MG CAPSULE DELAYED RELEASE [Pharmacy Med Name: Omeprazole 40 MG Oral Capsule Delayed Release] 30 Capsule 0 Sig: Take 1 capsule by mouth once daily Last fill: 02/13/2020 Patients last OV with GI: 03/28/2020 Next Office Visit with GI: None scheduled. Called patient, offered an appt. appt scheduled 07/08/2020. ERY MATER documented in this encounter Plan of Treatment Not on file documented as of this encounter Visit Diagnoses Diagnosis Gastroesophageal reflux disease without esophagitis Esophageal reflux documented in this encounter Care Teams Assembly Machine Set Up Mechanic Relationship Specialty Start Date End Date Shadi Walker DO [address] [address] PCP - General Internal Medicine 02/13/20 documented as of this encounter
--- OUTSIDE RECORDS SUMMARY | 2024-08-23 03:26 | XMS_ITS | Continuity of Care Document ---
Author Organization [facility] Address [address] [facility] [address] [place] [address] Phone Care Team Providers Care Manager Inpatient Name Role Phone Polanco OD, Adams Unavailable Unavailable Procedures Procedure Date Eye Exam, New Patient Refraction Advance Directives Directive Yes / No Effective Date File Name No Information Encounters Encounter Description Practice Location Reason(s) For Visit Diagnoses Date Provider Providers Copied on Encounter [facility], [address], [place], [place], [address], tel:[phone] [facility] No Information 7-200 9 Polanco OD Adams. [address] , [address], [place], [address], . tel:[phone] Family History Family Member Type Diagnosis Age At Onset No Information Payers Payer name Insurance type Covered constitution party ID Authoriza tion(s) [employer] Vision Plan CI [id number] Social History Type Description Quantity Date [...]
--- OUTSIDE RECORDS SUMMARY | 2024-08-23 03:27 | XMS_ITS | Clinical Summary ---
Author Organization [facility] Address [address] [facility], [address] [address] Phone Care Team Providers Care Telephone Order Clerk Name Role Phone Rei Walkere Gricel DO Primary Care Provider [phone] Allergies Active Allergy Reactions Criticality Noted Date [...] to Health Maintenance Insurance MEDICARE Care Teams Telephone Order Clerk Relationship Specialty Start Date End Date Shadi Walker DO [address] [address] PCP - General Internal Medicine 02/13/20
--- OUTSIDE RECORDS SUMMARY | 2024-08-23 03:27 | XMS_ITS ---
Author Organization [facility] Address [address] [place] [address] Care Team Providers Care Log Deckman Name Role Phone Juan Rasheed MD Primary Care Provider [phone] Active Problems Problem Noted Date Diagnosed Date [...]
--- OUTSIDE RECORDS SUMMARY | 2024-08-23 03:27 | XMS_ITS | Clinical Summary ---
Author Organization [facility] Address [address] [place] [address] Care Team Providers Care Receiving Lead Name Role Phone Juan Rasheed MD Primary Care Provider [phone] Allergies Active Allergy Reactions Criticality Noted Date [...] 22 Active fluticasone propionate (FLONASE) 50 mcg/spray [place], Suspension nasal inhaler Administer 2 Sprays in [...] Department Care Team Description 08/21/2024 2:00 PM SPECIALTY PERSON - 08/21/2024 11:59 PM SPECIALTY PERSON Hospital Encounter [facility] Radiation Therapy [address] [place] [address] Javier French MD Discharge Disposition: Home or Self Care 08/20/2024 9:30 AM SPECIALTY PERSON Office Visit [facility] Oncology and Hematology [facility] [address] [place] [address] Joseph Arshad MD Malignant neoplasm of lower lobe of left lung (CMS/HCC) (Primary Dx) 08/20/2024 Orders Only [facility] Oncology and Hematology [facility] [address] [place] [address] Joseph Arshad MD 08/17/2024 10:00 AM SPECIALTY PERSON - 08/17/2024 11:59 PM SPECIALTY PERSON Hospital Encounter [facility] Radiation Therapy [address] [place] [address] Javier French MD Discharge Disposition: Home or Self Care 08/16/2024 Refill [facility] Oncology and Hematology [facility] [address] [place] [address] Joseph Arshad MD Malignant neoplasm of lower lobe of left lung (CMS/HCC); Chronic anemia; 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); Agranulocytosis secondary to cancer chemotherapy (CODE) 08/15/2024 External Device Data STL ABSTRACTION Provider, Abstract 08/14/2024 1:55 PM SPECIALTY PERSON - 08/14/2024 11:59 PM SPECIALTY PERSON Hospital Encounter [facility] Radiation Therapy [address] [place] [address] Javier French MD Discharge Disposition: Home or Self Care 08/13/2024 Orders Only [facility] Oncology and Hematology [address] [place] [address] Joseph Arshad MD Malignant neoplasm of lower lobe of left lung (CMS/HCC) 08/08/2024 6:30 AM SPECIALTY PERSON - 08/08/2024 11:59 PM SPECIALTY PERSON Hospital Encounter [facility] Radiation Therapy [address] [place] [address] Discharge Disposition: Home or Self Care 08/07/2024 12:35 PM SPECIALTY PERSON - 08/07/2024 11:59 PM SPECIALTY PERSON Hospital Encounter [facility] Radiation Therapy [address] [place] [address] Discharge Disposition: Home or Self Care 08/03/2024 11:00 AM SPECIALTY PERSON - 08/03/2024 11:59 PM SPECIALTY PERSON Hospital Encounter [facility] Radiation Therapy [address] [place] [address] Javier French MD Discharge Disposition: Home or Self Care 08/03/2024 10:45 AM SPECIALTY PERSON - 08/03/2024 11:59 PM SPECIALTY PERSON Hospital Encounter [facility] MRI [address] [place] [address] Javier French MD Discharge Disposition: Home or Self Care 07/31/[address] 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) 07/24/2024 2:11 PM SPECIALTY PERSON - 07/24/2024 11:59 PM SPECIALTY PERSON Hospital Encounter [facility] MRI [address] [place] [address] Javier French MD Discharge Disposition: Home or Self Care 07/24/2024 Orders Only [facility] Oncology and Hematology - [address] [place] [address] Joseph Arshad MD 07/23/2024 Orders Only [facility] Emergency Department - [place] [address] [place] [address] Javier French MD 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) 07/18/2024 External Device Data STL ABSTRACTION Provider, Abstract 07/16/2024 Orders Only [facility] Oncology and Hematology - [address] [place] [address] Joseph Arshad MD Malignant neoplasm of lower lobe of left lung (CMS/HCC) 07/11/2024 8:45 AM SPECIALTY PERSON Office Visit [facility] Oncology and Hematology - [address] [place] [address] Joseph Arshad MD Malignant neoplasm of lower lobe of left lung (CMS/HCC) (Primary Dx) 07/11/2024 Orders Only [facility] Oncology and Hematology - [address] [place] [address] Joseph Arshad MD 07/09/2024 Orders Only [facility] Oncology and Hematology - [address] [place] [address] Joseph Arshad MD 07/05/2024 Orders Only [facility] Oncology and Hematology - [address] [place] [address] Joseph Arshad MD 07/04/2024 Orders Only [facility] Oncology and Hematology - [place] [place] [address] Joseph Arshad MD 07/02/2024 Orders Only [facility] Oncology and Hematology - [address] Joseph Arshad MD Malignant neoplasm of lower lobe of left lung (CMS/HCC) 06/18/2024 Orders Only [facility] Oncology and Hematology - [address] Joseph Arshad MD Malignant neoplasm of lower lobe of left lung (CMS/HCC) 06/07/2024 Orders Only [facility] Oncology and Hematology - [address] Joseph Arshad MD 06/04/2024 Orders Only [facility] Oncology and Hematology - [place] [place] [address] Joseph Arshad MD Malignant neoplasm of lower lobe of left lung (CMS/HCC) 05/30/2024 Orders Only [facility] Oncology and Hematology - [place] Joseph Arshad MD from Last 3 [...] Comments Blood Pressure 121/78 08/20/2024 9:32 AM SPECIALTY PERSON Pulse 98 08/20/2024 9:32 AM SPECIALTY PERSON Temperature 36.9 C (98.5 F) 08/20/2024 9:32 AM SPECIALTY PERSON Respiratory Rate 15 08/20/2024 9:32 AM SPECIALTY PERSON Oxygen Saturation 97% 08/20/2024 9:32 AM SPECIALTY PERSON Inhaled Oxygen Concentration - - Weight 53.2 kg (117 lb 3.2 oz) 08/20/2024 9:32 A M SPECIALTY PERSON Height 160 cm (5' 3 ) 05/02/2023 7:37 AM SPECIALTY PERSON Body Mass Index 20.76 05/02/2023 7:37 AM SPECIALTY PERSON Plan of Treatment Upcoming Encounters Date Type Department Care Team (Late st Contact Info) Description 09/24/2024 8:30 AM CDT Office Visit [facility] Oncology and Hematology [facility] [address] [facility] [address] [place] [address] Joseph Arshad MD [address] [facility] [address] [place] [address] Health Maintenance Due Date Last [...] this topic Medical Devices Implanted Type Area Automation Machine Operator Device Identifier Shelf Expiration Date Model / Serial / Lot Duragen + 4x5in Dp-1045 - [id number] Implanted:Qty : 1 on 05/02/2023 by Bibi Dang MD at [facility] Graft Right: Scalp [employer] 06/26/2025 [id number] / / [id number] Hemostatic Surgifoam Sz100 1973 - [id number] Implanted:Qty : 1 on 05/02/2023 by Bibi Dang MD at [facility] Hemostatic Right: Scalp J[employer]J- [employer] 01/26/2027 1974 / / [id number] Hemostatic Surgicel 2x14in 1950 - [id number] Implanted:Qty : 1 on 05/02/2023 by Bibi Dang MD at [facility] Hemostatic Right: Scalp J&J- [employer] [id number] 02/24/2027 195 / / [id number] Hemostatic Surgicel 1x2in 1960 - [id number] Implanted:Qty : 1 on 05/02/2023 by Bibi Dang MD at [facility] Hemostatic Right: Scalp J&J- [employer] [id number] 07/27/20241960 / / [id number] Hemostatic Surgiflo 8ml W/ Thrombin 2993 - [id number] Implanted:Qty : 1 on 05/02/2023 by Bibi Dang MD at [facility] Hemostatic Right: Scalp J&J- [employer] 05/26/2024 2994 / / [id number] Plate Matrxneuro Cranial 04.502.06 - [id number] Implanted:Qty : 1 on 05/02/2023 by Bibi Dang MD at [facility] Plate Right: Scalp J&J- DEPUY SYNTHES 502.06 2 / / Description:LOAD 38 Sterilized APR 28 2023 Plate Matrxneuro Bur Hl Cvr 502.021 - [id number] Implanted:Qty : 2 on 05/02/2023 by Bibi Dang MD at [facility] Plate Right: Scalp J&J- DE[employer] SYNTHES 502.02 1 / / Description:LOAD 38 APR 28 2023 Screw Matrixneuro Sd .503.104.01 - Ssterilized 04-28-23 Implanted:Qty : 6 on 05/02/2023 by Bibi Dang MD at [facility] Screw Right: Cranial J&J- DEPUY SYNTHES 503.10 4.01 / STERILIZE D 04-28-23 / Description:SYNTHES CMF REQU ISITION# [id number] Sealant Tisseel 10ml [id number] - [id number] Implanted:Qty : 1 on 04/08/2017 by Satnam Vann MD at [facility] Sealant Left: Lung GRUBER- BI[employer]ENCE [id number] 09/24/2018 [id number] / [id number] / [id number] Procedures Procedure Name Priority Date/Time Associated Diagnosis Comments BASIC METABOLIC PANEL Routine 08/20/2024 2:43 PM SPECIALTY PERSON MRI THERAPY PLANNING Routine 08/03/2024 12:15 PM SPECIALTY PERSON 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) MRI BRAIN W WO CONTRAST Stat 07/24/2024 2:30 PM SPECIALTY PERSON 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) BASIC METABOLIC PANEL Routine 07/23/2024 12:53 PM SPECIALTY PERSON COMPREHENSIVE METABOLIC PANEL Routine 07/23/2024 12:47 PM SPECIALTY PERSON CBC WITH DIFFERENTIAL Routine 07/23/2024 11:34 AM SPECIALTY PERSON BASIC METABOLIC PANEL Routine 07/11/2024 2:57 PM SPECIALTY PERSON COMPREHENSIVE METABOLIC PANEL Routine 07/11/2024 2:33 PM SPECIALTY PERSON COMPREHENSIVE METABOLIC PANEL Routine 07/04/2024 11:[address] CHEST WO CONTRAST Routine 06/28/2024 12:45 PM SPECIALTY PERSON BASIC METABOLIC PANEL Routine 06/26/2024 4:11 PM SPECIALTY PERSON COMPREHENSIVE METABOLIC PANEL Routine 06/26/2024 4:09 PM SPECIALTY PERSON COMPREHENSIVE METABOLIC PANEL Routine 06/05/2024 2:31 PM SPECIALTY PERSON BASIC METABOLIC PANEL Routine 05/29/2024 1:53 PM SPECIALTY PERSON COMPREHENSIVE METABOLIC PANEL Routine 05/29/2024 12:57 PM SPECIALTY PERSON CBC WITH DIFFERENTIAL Routine 05/29/2024 10:47 AM SPECIALTY PERSON BASIC METABOLIC PANEL Routine 05/29/2024 9:42 AM SPECIALTY PERSON from Last 3 Months Results * BASIC METABOLIC PANEL (08/20/2024 2:43 PM SPECIALTY PERSON) Only the most recent of6 resultswithin the time period is included. Blood us Joseph Arshad MD CHEMISTRY ORDERABLES Final Resu lt * MRI THERAPY PLANNING (08/03/2024 12:15 PM SPECIALTY PERSON) Anatomical Region Laterality Modality Magnetic Resonan ce 08/03/2024 1:39 PM SPECIALTY PERSON Impressions 08/04/2024 7:43 AM SPECIALTY PERSON IMPRESSION: 1. MR localization of intracranial enhancing lesions for radiation treatment planning. DICTATION LOCATION: Location 1 - [facility] Narrative 08/04/2024 7:43 AM SPECIALTY PERSON EXAMINATION: MRI THERAPY PLANNING HISTORY: radiation therapy. [...] treatment planning. DICTATION LOCATION: Location 1 - [facility] Javier French MD MR ORDERABLES Final Result * MRI BRAIN W WO CONTRAST (07/24/2024 2:30 PM SPECIALTY PERSON) Anatomical Region Laterality Modality Head Magnetic Resonan ce 07/24/2024 2:5 7 PM SPECIALTY PERSON Impressions 07/24/2024 3:16 PM SPECIALTY PERSON IMPRESSION: 1. New 1.2 x 0.6 cm enhancing lesion along the septum pellucidum is concerning for disease progression. 2. Postsurgical changes of right parietal tumor resection. DICTATION LOCATION: Location 4 Narrative 07/24/2024 3:16 PM SPECIALTY PERSON MRI BRAIN W WO CONTRAST Date: 07/24/2024 [...] * COMPREHENSIVE METABOLIC PANEL (07/23/2024 12:47 PM SPECIALTY PERSON) Only the most recent of6 resultswithin the time period is included. Blood Joseph Arshad MD CHEMISTRY ORDERABLES Final Resu lt * CBC WITH DIFFERENTIAL (07/23/2024 11:34 AM SPECIALTY PERSON) Only the most recent of2 resultswithin the time period is included. Blood Joseph Arshad MD HEMATOLOGY ORDERABLES Final Res ult * CT CHEST WO CONTRAST (06/28/2024 12:45 PM SPECIALTY PERSON) Anatomical Region Laterality Modality Chest Other Joseph Arshad MD CT ORDERABLES Final Result from Last 3 Months Insurance MEDICARE PART A AND B [employer] OPEN ACCESS HMO MEDICARE PART A AND B [employer] OPEN ACCESS HMO RX [employer] RX [employer] Commercial Advance Directives For more information, please contact: [phone] * Full Code (Latest Code Status on [...] 3:24 PM 04/11/2017 5:21 PM Care Teams Receiving Lead Relationship Specialty Start Date End Date Juan Rasheed MD [address] [place] [address] PCP - General Family Practice 04/18/24
--- OUTSIDE RECORDS SUMMARY | 2024-08-23 03:27 | XMS_ITS | Encounter Summary ---
Author Organization [facility] EZEQUIEL Tam [facility] Address [address] [place] [address] Care Team Providers Care Spool Winder Name Role Phone Juan Rasheed MD Primary Care Provider [phone] Encounter Details Date Type Department Care Team (Late st Contact Info) Description 08/20/2024 Orders Only [facility] Oncology and Hematology - Leonardo [address] [facility] [address] [place] [address] Joseph Arshad MD [address] [facility] [address] [place] [address] Social History Tobacco Use Types [...] Description 09/24/2024 8:30 AM CDT Office Visit [facility] Oncology and Hematology - Leonardo [address] [place] [address] Joseph Arshad MD [address] [facility] [address] [place] [address] documented as of this encounter Procedures Procedure Name Priority Date/Time Associated Diagnosis Comments BASIC METABOLIC PANEL Routine 08/20/2024 2:[address] SQL DEVELOPER documented in this encounter Results * BASIC METABOLIC PANEL (08/20/2024 2:[address] SQL DEVELOPER) Blood Joseph Arshad MD CHEMISTRY ORDERABLES Final Resu lt documented in this encounter Visit Diagnoses Not on filedocumented in this encounter Care Teams Spool Winder Relationship Specialty Start Date End Date Juan Rasheed MD [address] [place] [address] PCP - General Family Practice 04/18/24 documented as of this encounter
--- OUTSIDE RECORDS SUMMARY | 2024-08-23 03:27 | XMS_ITS | CONTINUITY OF CARE DOCUMENT ---
Author Name aaron walker Address Unknown Organization [facility] Address [address] [facility] [address] [place] [address] Phone [phone] Care Team Providers Care Exhibit Builder Name Role Phone Meenakshi HAYNES, Tommy Unavailable [phone] MARGO HAYNES, HOLLIE Unavailable [phone] MARGO HAYNES, HOLLIE Unavailable [phone] PROBLEMS Condition Status Date Provider Notes Coronary Heart Disease active Tommy Arrieta MD Hyperlipidemia active Tommy Arrieta MD Hypertension active Tommy Arrieta MD Atrial fib, paroxysmal active Tommy Arrieta MD Apical ventricular thrombus active Tommy atkins MD Cardiomyopathy, dilated active Tommy vivas MD Cardiology examination active Jossie Ventim iglia CHIEF PHARMACIST Lung cancer active Jossie Ventimiglia CHIEF PHARMACIST Snoring active Jossie Ventimiglia CHIEF PHARMACIST Sleep apnea active Jossie Ventimiglia CHIEF PHARMACIST ENCOUNTERS Date Type Provider Location Encounter Diag nosis - In-person encounter Office Visit Tommy Arrieta MD [place] [facility] - In-person encounter Office Visit Tommy Arrieta MD [facility] Sleep apnea - In-person encounter Office Visit Tommy Arrieta MD [place] [facility] Cardiology examinationLung cancerSnoring - In-person encounter Office Visit Tommy Arrieta MD [place] [facility] Coronary Heart DiseaseHyperlipidemiaHypertensionAtrial fib, paroxysmalApical ventricular thrombusCardiomyopathy, dilated VITAL SIGNS Date Observation Value Provider Body Mass Index (Ratio) 22.32 kg/m2 Krishna Arrieta MD blood pressure, diastolic 70 mm[Hg] Tracey mckeon [place] blood pressure, systolic 101 mm[Hg] [facility] E&M 12 /min [facility] oxygen saturation, oximetry 67 % [facility] pulse rate 60 /min [facility] weight E&M 126 [lb_av] [facility] height E&M 63 [in_i] [facility] blood pressure, cuff size regular [facility] Body Mass Index (Ratio) 22.85 kg/m2 Krishna Arrieta MD blood pressure, diastolic 85 mm[Hg] Sam yla [facility] blood pressure, systolic 122 mm[Hg] Gwendolyn la [facility] blood pressure, cuff size regular [facility], oximetry 100 % Leann [facility] pulse rate 59 /min Le[facility] weight E&M 129 [lb_av] Leann [facility] height E&M 63 [in_i] [facility] Body Mass Index (Ratio) 22.85 kg/m2 Krishna Arrieta MD blood pressure, diastolic 68 mm[Hg] Charlene nkLogjack blood pressure, systolic 122 mm[Hg] Karo kLogjack blood pressure, cuff size regular Ponce Ramírez blood pressure, diastolic 68 mm[Hg] Ta tyler Ramírez blood pressure, systolic 122 mm[Hg] Tab itha Darrell oxygen saturation, oximetry 98 % Tisha Eden pulse rate 83 /min Tisha Eden weight E&M 129 [lb_av] Tisha Eden respiratory rate E&M 12 /min Tisha Eden height E&M 63 [in_i] Tisha Eden Body Mass Index (Ratio) 22.14 kg/m2 Krishna Arrieta MD blood pressure, diastolic 94 mm[Hg] Charlene nkLog blood pressure, systolic 125 mm[Hg] Karo kLog pulse rate 89 /min [facility] blood pressure, cuff size regular [facility] blood pressure, diastolic 94 mm[Hg] [facility] blood pressure, systolic 125 mm[Hg] [facility], oximetry 98 % [facility] respiratory rate E&M 15 /min Leydi Jazlyn iller weight E&M 125 [lb_av] [facility] height E&M 63 [in_i] [facility] ALLERGIES Allergy Name Onset Date Reaction Criticality Status PENICILLINS High Criticality active IODINE High Criticality active CLINDAMYCIN High Criticality active HISTORY OF MEDICATION USE Medication Status Instructions Dates Provider Indications Com ments Eliquis 5 mg tablet active Take 1 tablet by mouth twice a day CaseId:[id number] ;Status:Approve d;Review Type:Prior Auth;Coverage Start Date:07/06/2024 ;Coverage [...] mouth once a day - Jossie Ventimiglia [facility] Eliquis 5 mg tablet completed Take 1 tablet by mouth twice a day - Queta Ricks [place] Specialist Eliquis 5 mg tablet completed TAKE [...] history of marijuana use no Jossie Ventimiglia [facility] drug use no Jossie Ventimig horacio [facility] alcohol use no Jossie Ventimig horacio [facility] smoking, year quit 2016 Jossie Ve ntimiglia [facility] cigarette use yes Jossie Ventimi glia [facility] smoking status Former smoker Jossie Venti miglia [facility] personal history of marijuana use no Jossie Ventimiglia [facility] drug use no Jossie Ventimig horacio [facility] alcohol use no Jossie Ventimig horacio [facility] smoking, year quit 2016 Jossie Ve ntimiglia [facility] cigarette use yes Jossie Ventimi glia [facility] smoking status Former smoker Jossie Venti miglia [facility] personal history of marijuana use no Jossie Ventimiglia [facility] drug use no Jossie Ventimig horacio [facility] alcohol use no Jossie Ventimig horacio CHIEF PHARMACIST smoking, year quit 2016 Jossie Ve ntimiglia CHIEF PHARMACIST cigarette use yes Jossie Ventimi glia CHIEF PHARMACIST smoking status Former smoker Jossie Venti miglia CHIEF PHARMACIST smoking, year quit 2017 Leydi mora cigarette use yes Leydi Darrell smoking status Former smoker Leydi Ramírez FUNCTIONAL STATUS Date Observation Value Provider HRA, CV Assess/Plan, Angina (inactive) Management Plan continue current therapy Jossie Ventimiglia [facility] HRA, CV Assess/Plan, Angina (inactive) Management Plan continue current therapy Jossie Ventimiglia [facility] HRA, CV Assess/Plan, Angina (inactive) Management Plan continue current therapy Jossie Zurdomiglia [facility] INSURANCE PROVIDERS Payer name Policy type / Coverage type [place] red constitution party ID MEDIC[place]OND[place] [id number] 0 CIG[employer] [facility] 10 [id number] ADVANCE DIRECTIVES Name Date DISCUSSED - NO DECISION MADE TREATMENT PLAN Date Name Performer Cardiology: H er updated medication list for this problem includes: Atorvastatin 40 Mg Tablet (Atorvastatin) ..... Take 1 tablet by mouth every evening [facility] Cardiology:remains stable on sara mo [facility] Cardiology:will arrange cpap [place] nda Ciaraia [facility] Cardiology:now hypotensive will monitor [facility] Cardiology:with EF o f 20-25% on last echo N o acute decompensation D oes not tolerate GDMT d/t hypotension W ill do f/u echo at time of next visit T he following medications were removed from the medication list: Metoprolol Succinate 25 Mg Tablet Extended Release 24 Hr (Metoprolol succinate) ..... Take 1 tablet by mouth once a day Reagan Ciaraglia [facility] Cardiology:No new ch est pain or SOB W ill continue to monitor D oes not tolerate medication therpay d/t hypotension T he following medications were removed from the medication list: Metoprolol Succinate 25 Mg Tablet Extended Release 24 Hr (Metoprolol succinate) ..... Take 1 tablet by mouth once a day Reagan Zurdomiglia [facility] Cardiology:remains on chemo Andres da Ventimiglia [facility] Cardiology: H er updated medication list for this problem includes: Atorvastatin 40 Mg Tablet (Atorvastatin) ..... Take 1 tablet by mouth every evening [facility] Cardiology:mild on r ecent IHS w ith continued apnea symptoms reported w ill plan for autopap [facility] Cardiology:BP well c ontrolled. continue present medication regimen H er updated medication list for this problem includes: Metoprolol Succinate 25 Mg Tablet Extended Release 24 Hr (Metoprolol succinate) ..... Take 1 tablet by mouth once a day [facility] Cardiology:currently regular rate and rhythm. R [...] 1 tablet by mouth once a day [facility] Cardiology:She had r ecent LHC at [facility] that showed occluded stent in LAD with [...] 1 tablet by mouth once a day [facility] Cardiology:will plan [facility]HS [facility] Cardiology:remains i n NSR o n Eliquis for aC H er updated medication list for this problem includes: Metoprolol Succinate 25 Mg Tablet Extended Release 24 Hr (Metoprolol succinate) Clopidogrel 75 Mg Tablet (Clopidogrel) ..... Take 1 tablet by mouth once a day [facility] Cardiology:On irinot ecan for chemo n o reported cardio toxicity c an resume as discussed wt Dr.Ramada Jossie Davis [facility] Cardiology: H er updated medication list for this problem includes: Atorvastatin 40 Mg Tablet (Atorvastatin) [facility] Cardiology:BP 122/68 W ill resume BB H er updated medication list for this problem includes: Metoprolol Succinate 25 Mg Tablet Extended Release 24 Hr (Metoprolol succinate) [facility] Cardiology:NSTEMI re cently with repeat cath reported and no new stent W ill get records from Noel H er updated medication list for this problem includes: Clopidogrel 75 Mg Tablet (Clopidogrel) ..... Take 1 tablet by mouth once a day [facility] Cardiology:Prescribe d losartan and metoprolol at id C ould not toleraate d/t hypotension W ill trial Metoprolol alone H er updated medication list for this problem includes: Clopidogrel 75 Mg Tablet (Clopidogrel) ..... Take 1 tablet by mouth once a day [facility] Cardiology:Currently off meds as BP running [...]
--- OUTSIDE RECORDS SUMMARY | 2024-08-23 03:27 | XMS_ITS | Encounter Summary ---
Author Organization [facility] Address [address] [place] [address] Care Team Providers Care Change Attendant Name Role Phone Juan Rasheed MD Primary Care Provider [phone] Encounter Details Date Type Department Care Team (Latest Contact Info) Description 08/21/2024 2:00 PM TECHNICAL SALES REPRESENTATIVES - 08/21/2024 11:59 PM TECHNICAL SALES REPRESENTATIVES Hospital Encounter [facility] Radiation Therapy [address] [place] [address] Javier French MD [address] [facility] [address] [place] [address] Discharge Disposition: Home or Self [...] Arianne Dumont RN - 08/20/2024 3:16 PM TECHNICAL SALES REPRESENTATIVES FOLLOW-UP Follow up with Dr French in 3 months. You have a follow up appointment scheduled with Dr French on ,, November 22, 2024 at 10:00 AM. Prescriptions given? No INSTRUCTIONS: Contact Dr French's nurse, Ariela, at [phone] if you experience any of new or [...] people smoke in your home. Please call [phone], our pulmonary rehabilitation department, to learn more about options to reduce your risks. DIET Your diet is: regular SKIN CARE For your skin: daily visual inspection and fragrant free moisturizer of choice until skin is no longer pink, dry, peeling, or itching. CONTACT US Call the radiation department at :[facility] [phone] and ask to speak to a nurse if you haveany questions or concerns. For immediate emergencies dial 911. For urgent issues you can reach the Radiation Oncologist macroeconomics professor AFTER HOURS at [phone]. Otherwise contact the radiation oncology department during normal business hours Divina Harrington will be discharged via ambulatory to home. NICAL SALES REPRESENTATIVES documented in this encounter Medications at Time [...] Tablet 07/04/2023 fluticasone propionate (FLONASE) 50 mcg/spray [place], Suspension nasal inhaler Administer 2 Sprays in [...] undergone prior RT with Dr. Candelario at [facility] 1) thoracic RT 62Gy/31 Fx 2017 2) [...] checked. SRS complete. Plan for follow-up at [facility] in 3 mo w/brain MR prior. I will notify the staff at [place] and Dr. Garcia to help arrange. Taper steroids as follows: continue dex 2 mg daily, 3/3 transition to 1 mg daily, 09/03 stop Ms. Harrington is noted to have 0/10 pain in clinic today. Her individualized pain management will therefore consist of no intervention needed as the patient notes no pain of significance. Javier French MD NICAL SALES REPRESENTATIVES documented in this encounter Procedure Notes * Javier French MD - 08/21/2024 2:00 PM CST Procedure Date: 08/21/2024 STEREOTACTIC RADIOSURGERY (SRS) SIMULATION AND PROCEDURE NOTE AND COLLISION CHECK SIMULATION FOR ISOCENTER VERIFICATION PURPOSE: The patient initially underwent virtual CT simulation for stereotactic radiosurgery. A simple simulation was performed on the TellApartknife unit utilizing the integrated kV imaging platform for isocenter verification and confirmation of plan deliverability (collision check). PATIENT ASSESSMENT: No complaints. EQUIPMENT USED: Simulation was performed on the TellApartknFriend Traveler linear accelerator. PROCEDURE DETAILS: This simulation was [...] then checked by the therapist with the accurBandcamp wand and no areas of potential collision [...] 3 mo follow-up and bMRI prior at [place]. I will notify Dr. Garcia. Javier French MD NICAL SALES REPRESENTATIVES documented in this encounter Miscellaneous Notes * [...] all instructions and confirm follow up appointment. NICAL SALES REPRESENTATIVES * Radiation Completion Notes - Javier French MD - 08/21/2024 2:00 PM CST RADIATION ONCOLOGY Completion of Therapy Note Identifying Data: Divina Harrington is a 58 y.o. female with extensive stage small cell lung cancer. Oncologist is . She had undergone prior RT with Dr. Candelario at [facility] 1) thoracic RT 62Gy/31 Fx 2017 2) [...] Disposition: SRS complete. Plan for follow-up at [facility] in 3 mo w/brain MR prior. I will notify the staff at [place] and Dr. Garcia to help arrange. She will continue to follow closely with in Oncology. Javier French MD NICAL SALES REPRESENTATIVES documented in this encounter Plan of Treatment Upcoming Encounters Date Type Department Care Team (Late st Contact Info) Description 09/24/2024 8:30 AM CDT Office Visit [facility] Oncology and Hematology [facility] [address] [facility] [address] [place] [address] Joseph Arshad MD [address] [facility] [address] [place] [address] documented as of this encounter Visit Diagnoses Not on filedocumented in this encounter Care Teams Change Attendant Relationship Specialty Start Date End Date Juan Rasheed MD [address] [place] [id number] PCP - General Family Practice 04/18/24 documented as of this encounter
== END 2024-08-23 02:43 | disposition left against medical advice (07) ==
LOC: ANHED 08-23 03:24
PROVIDERS: Emergency Provider Student in an Organized Health Care Education/Training Program; PCP Family Medicine
DX: R07.9 Chest pain, unspecified (principal)
CPT/HCPCS: 71046; 93005; 99199

== ENCOUNTER 2024-10-09 08:30 | Outpatient (CLI) | payer OTHER, MEDICARE, SELFPAY ==
--- NOTE | ~2024-10-09 | CT_ITS ---
Clinical Indication: Lung cancer CT Scan of the Chest, Abdomen, and Pelvis without Contrast: Technique: Contiguous sections were acquired throughout the chest, abdomen, and pelvis without IV con trast administration. Dose reduction technique was used on this scan by utilizing automated exposure control and iterative reconstruction technique. The dose-length product (DLP) was 436.94 mGy-cm. Comparison: 06/28/2024 Findings: There is no evidence of any significant mediastinal, hilar or axillary lymphadenopathy. Densely calci fied subcarinal and right hilar lymph nodes are present. There are extensive coronary artery calcific ations. There is leftward mediastinal shift.. There is no evidence of pleural or pericardial effusion. Status post left lower lobectomy. There is chronic left-sided volume loss with probable postradiation change with peribronchial vascular thickening and bronchiectasis at the left hilar region extending towards the left lung apex. Right lung is hyperinflated. There is a vague groundglass opacity in the right upper lobe, likely focal pneumonitis. Calcified right lower lobe granuloma noted. The liver, spleen, pancreas, adrenals and right kidney are within normal limits. 7 mm nonobstructing left renal stone present. Cholecystectomy clips are present. There are atherosclerotic calcifications of the aorta. No lymphadenopathy. No bowel obstruction or bowel wall thickening. There is no evidence to suggest acute appendicitis. Urinary bladder is unremarkable. No pelvic mass evident. No ascites. Impression: No evidence for active malignancy or metastatic disease. Stable probable postradiation changes in the left lung with underlying left lower lobectomy. Probable focal pneumonitis right upper lobe with vague groundglass opacity present. 7 mm nonobstructing left renal stone. Reviewed, dictated and finalized at [facility]. Impression: No evidence for active malignancy or metastatic disease. Stable probable postradiation changes in the left lung with underlying left low er lobectomy. Probable focal pneumonitis right upper lobe with vague groundglass opacity pres ent. 7 mm nonobstructing left renal stone.
== END 2024-10-09 08:31 | disposition home or self-care (01) ==
PROVIDERS: PCP Family Medicine; Visit Provider Internal Medicine Hematology & Oncology
DX: C34.32 Malignant neoplasm of lower lobe, left bronchus or lung (principal); N20.0 Calculus of kidney
CPT/HCPCS: 71250; 74176

== ENCOUNTER 2024-12-14 14:40 | Outpatient (CLI) | payer OTHER, MEDICARE, SELFPAY ==
--- NOTE | ~2024-12-14 | MR_ITS ---
EXAMINATION: MR brain/brain stem wo/w con DATE: 12/14/2024 15:48 INDICATION: Brain metastases TECHNIQUE: Magnetic resonance imaging (MRI) of the brain and brainstem was performed without and with 10 mL Multihance intravenous contrast. Sequences included sagittal and axial T1-weighted SE, axial d iffusion-weighted FS SE, axial T2*-weighted GRE, axial T2-weighted FLAIR, and axial T2-weighted FSE. Postcontrast axial and coronal T1-weighted SE was obtained. Apparent diffusion coefficient (ADC) maps were created. COMPARISON: 12/30/2023 FINDINGS: Again seen is is a thin smooth rim of enhancement at the margins of the resection cavity in the right parieto-occipital region with overlying craniotomy and intervening small chronic small subdural hygr apurva. There is associated ex vacuo dilation of the occipital horn of the right lateral ventricle. Ther e is been interval resolution of a couple enhancing nodules along the anterior horn of the left later al ventricle and the second along the cerebellar vermis. There has been interval growth of a couple e nhancing lesions along the septum pellucidum and cephalad aspect of the body the right lateral ventri jenaro which previously measured 13 x 8 x 5 mm and 10 x 6 x 7 mm and have grown together in the interval now measuring 2.1 x 1.6 x 1.4 cm. There is a new 1.5 x 1.1 x 1.1 cm enhancing lesion along the anter ior horn of the right lateral ventricle and with exert some mass effect upon the anterior horn of the right lateral ventricle. There are no areas of restricted diffusion to suggest acute infarction. No intracranial hemorrhage. There are scattered areas of nonspecific increased T2-weighted signal intens ity in the cerebral white matter, predominantly involving the deep and periventricular white matter. Flow voids are seen in the cerebral arteries on the T2-weighted sequences consistent with their expec leanne patency. Visualized orbits and soft tissues are unremarkable. IMPRESSION: 1. Stable appearance of a thin rim of enhancement at the margins of the resection cavity at the right parieto-occipital region. 2. Interval resolution of a couple previously enhancing brain lesions, increase in size of a couple o f the previously enhancing brain lesions and interval development of a new lesion along the anterior horn of the right lateral ventricle consistent with mixed response to treatment of metastatic disease . Reviewed, dictated and finalized at location [facility]. IMPRESSION: 1. Stable appearance of a thin rim of enhancement at the margins of the resecti on cavity at the right parieto-occipital region. 2. Interval resolution of a couple previously enhancing brain lesions, increase in size of a couple of the previously enhancing brain lesions and interval dev elopment of a new lesion along the anterior horn of the right lateral ventricle consistent with mixed response to treatment of metastatic disease.
== END 2024-12-14 14:41 | disposition home or self-care (01) ==
LOC: MICIMG 14:41
PROVIDERS: PCP Family Medicine; Visit Provider Radiology Radiation Oncology
DX: G93.89 Other specified disorders of brain (principal); C34.91 Malignant neoplasm of unspecified part of right bronchus or lung; C79.31 Secondary malignant neoplasm of brain
CPT/HCPCS: 70553; A9577

== ENCOUNTER 2024-12-14 14:42 | Outpatient (CLI) | payer OTHER, MEDICARE, SELFPAY ==
--- NOTE | ~2024-12-14 | CT_ITS ---
Clinical Indication: Lung cancer CT Scan of the Chest, Abdomen, and Pelvis with Contrast: Technique: Contiguous sections were acquired throughout the chest, abdomen, and pelvis after intraven ous administration of 100 cc of Omnipaque 350. Dose reduction technique was used on this scan by uti lizing automated exposure control and iterative reconstruction technique. The dose-length product (DL P) was 526.04 mGy-cm. Comparison: 10/09/2024 Findings: There is no evidence of any significant mediastinal, hilar or axillary lymphadenopathy. The mediastin al soft tissues and vascular structures appear normal. There is no evidence of pleural or pericardial effusion. Status post left lower lobectomy. There is stable chronic left-sided volume loss with chronic post ra diation and/or postsurgical changes in the left upper lung zone and left perihilar region. Right lung clear aside from calcified right basilar granuloma. The liver, spleen, pancreas, right kidney, and adrenal glands are within normal limits. Cholecystecto my clips are present. Nonobstructing left renal stones are present. No evidence of aortic aneurysm. No lymphadenopathy. No bowel obstruction or bowel wall thickening. There is no evidence to suggest acute appendicitis. Urinary bladder is unremarkable. No pelvic mass seen. No ascites. Impression: No evidence for active malignancy or metastatic disease. Stable postoperative and probable post radiation changes in the left lung, as detailed above. Nonobstructing left renal stones. Reviewed, dictated and finalized at [facility]. Impression: No evidence for active malignancy or metastatic disease. Stable postoperative and probable post radiation changes in the left lung, as d etailed above. Nonobstructing left renal stones.
== END 2024-12-14 14:43 | disposition home or self-care (01) ==
LOC: MICIMG 14:43
PROVIDERS: PCP Family Medicine; Visit Provider Internal Medicine Hematology & Oncology
DX: N20.0 Calculus of kidney (principal); Z90.2 Acquired absence of lung [part of]; C34.32 Malignant neoplasm of lower lobe, left bronchus or lung
CPT/HCPCS: 71260; 74177; Q9967

== ENCOUNTER 2025-01-29 14:22 | Emergency (ER) | payer OTHER, MEDICARE, SELFPAY ==
[2025-01-29] VITALS (7 sets, daily range): BP systolic 98–144; BP diastolic 67–109; PULSE 67–154; RESP 14–34; TEMP 36.6; O2SAT 92–100
--- NOTE | ~2025-01-29 | XR_ITS ---
EXAMINATION: XR chest ET placement, XR abdomen gastric tube insert DATE: 01/29/2025 15:39 INDICATION: Endotracheal tube placement. Orogastric tube placement TECHNIQUE: 1. Frontal view of the chest was obtained for assessment of endotracheal tube placement. 2. AP view of the abdomen was obtained for assessment for gastric placement COMPARISON: CT dated 10/09/2024 FINDINGS: Chest: Endotracheal tube tip in the right mainstem bronchus 5 cm below the valerio. Right subclavian central venous port catheter with distal tip at the caudal superior vena cava. Volume loss in the left hemithorax with focal consolidation in the left suprahilar region correspondi ng to region of likely radiation fibrosis with bronchiectatic changes on prior CT. Small left pleural effusion with blunting at the left costophrenic angle with fluid capping the left apex. Calcified no dules at the lateral right lower lung with calcified right hilar and mediastinal lymph nodes consiste nt with old granulomatous disease. Heart size is normal. Abdomen: Orogastric tube tip and proximal side port in the body the stomach. Cholecystectomy clips in right up per quadrant. Gaseous distention of the stomach. Additional gas scattered throughout nondilated loops of large and small bowel. IMPRESSION: 1. Endotracheal tube tip in the right mainstem bronchus. Recommend withdrawal by 7-[address] Herrera discussed these findings with Dr. Stevenson at 3:58 PM. 2. Volume loss in the left hemithorax reportedly post left upper lobectomy and radiation treatment fo r lung cancer. Suprahilar airspace opacity which could represent radiation fibrosis with atelectasis. Differential includes pneumonia. 3. Small left pleural effusion. Reviewed, dictated and finalized at location A. IMPRESSION: 1. Endotracheal tube tip in the right mainstem bronchus. Recommend withdrawal b y 7-[address] Herrera discussed these findings with Dr. Stevenson at 3:58 PM. 2. Volume loss in the left hemithorax reportedly post left upper lobectomy and radiation treatment for lung cancer. Suprahilar airspace opacity which could re present radiation fibrosis with atelectasis. Differential includes pneumonia. 3. Small left pleural effusion.
--- NOTE | ~2025-01-29 | CT_ITS ---
EXAMINATION: CT brain wo con DATE: 01/29/2025 14:48 INDICATION: Brain metastases. Seizure. TECHNIQUE: Computed tomography (CT) of the head was performed without intravenous contrast. Sagittal and coronal reconstructions were performed. The mA was adjusted according to patient size. Iterative reconstruction technique was employed. The dose-length product was 983.67 mGy-cm. COMPARISON: Reports from head CT dated 08/16/2023 and brain MR dated 12/15/2019 5 mm images of which ar e unavailable at this time for comparison. FINDINGS: Moderate-sized region of encephalomalacia in the right parieto-occipital region reportedly for resect ion of a prior malignant neoplasm and which underlies a prior craniotomy with plate and screw fixatio n. There is a small subdural hygroma measuring up to 4 mm in thickness between the craniotomy and the region of encephalomalacia. Small amount of layering high attenuation fluid suspicious for intravent ricular hemorrhage in the occipital horn of the right lateral ventricle. Additional minimal curviline ar high attenuation along the inferior margin of the resection cavity also suspicious for minimal brandie unt of hemorrhage. There are soft tissue density nodules along the margins of the anterior horn of th e right lateral ventricle, one near the foramen of Monro along the septum pellucidum which correspond to the larger of several enhancing lesions identified on the prior brain MRI consistent with metasta tic disease. There is scattered white matter hypoattenuation likely combination of chronic small vess el ischemic disease as well as vasogenic edema in the right cerebral hemisphere. No acute acute infar ction. Symmetric prominence of the sulci consistent with mild age-appropriate diffuse cerebral volume loss. Ex vacuo dilation of the posterior horn of the right lateral ventricle. The orbits, paranasa l sinuses and mastoid air cells are normal. IMPRESSION: 1. Status post right craniotomy with fusion with moderate-sized region of encephalomalacia at right p arietal occipital region consistent with reported resection of a prior malignancy. There are several soft tissue density nodules along the septum pellucidum and margins of the anterior horn of the right lateral ventricle which demonstrate enhancement on prior MRI consistent with metastatic disease. 2. Small amount of intraventricular hemorrhage at the occipital horn of the right lateral ventricle w ith possible additional minimal hemorrhage within the right parieto-occipital resection cavity. Dr. Gerri palomino discussed these findings with Dr. Stevenson at 2:50 PM. 3. Asymmetric calcific white matter hypoattenuation most prominent in the right cerebral hemisphere l ikely representing examination of chronic small vessel ischemic disease and superimposed right cerebr al vasogenic edema related to the metastatic disease. Reviewed, dictated and finalized at location A. IMPRESSION: 1. Status post right craniotomy with fusion with moderate-sized region of encep halomalacia at right parietal occipital region consistent with reported resecti on of a prior malignancy. There are several soft tissue density nodules along t he septum pellucidum and margins of the anterior horn of the right lateral vent ricle which demonstrate enhancement on prior MRI consistent with metastatic dis ease. 2. Small amount of intraventricular hemorrhage at the occipital horn of the rig ht lateral ventricle with possible additional minimal hemorrhage within the rig ht parieto-occipital resection cavity. Dr. Herrera discussed these findings wi Dr. Stevenson at 2:50 PM. 3. Asymmetric calcific white matter hypoattenuation most prominent in the right cerebral hemisphere likely representing examination of chronic small vessel is chemic disease and superimposed right cerebral vasogenic edema related to the m etastatic disease.
--- NOTE | ~2025-01-29 | XR_ITS ---
EXAMINATION: XR chest ET placement DATE: 01/29/2025 16:07 INDICATION: Endotracheal tube readjustment TECHNIQUE: frontal view of the chest was obtained. COMPARISON: Chest radiograph dated 01/29/[address] dated 10/09/2024 FINDINGS: Endotracheal tube has been retracted with distal tip now 1.1 cm above the valerio. Nasogastric tube wi th proximal side-port in the body the stomach and distal tip collimated beyond the inferior margin of the field of imaging. Right subclavian central venous port catheter with distal tip at the caudal modi perior vena cava. Again seen is volume loss in the left hemithorax with suture line at the elevated left hilum consiste nt with prior left upper lobectomy. Unchanged region of consolidation with bronchiectasis in the righ t suprahilar region likely related to chronic radiation fibrosis and scarring. Left apical capping an d blunting at the left costophrenic angle consistent with small left pleural effusion. Calcified nodu les at the lateral right lower lung some zone with calcified right hilar and mediastinal lymph nodes consistent with old granulomatous disease. Right lung is otherwise clear with no pulmonary edema or p leural effusion. No pneumothorax. Heart size is normal. Cholecystectomy clips in right upper quadrant . IMPRESSION: 1. Endotracheal tube has been retracted with distal tip now 1.1 cm above the valerio. 2. Stable appearance of postoperative changes of prior left upper lobectomy and likely radiation fibr osis in the left suprahilar region. 3. Small left pleural effusion. Reviewed, dictated and finalized at location A. IMPRESSION: 1. Endotracheal tube has been retracted with distal tip now 1.1 cm above the ca jose a. 2. Stable appearance of postoperative changes of prior left upper lobectomy and likely radiation fibrosis in the left suprahilar region. 3. Small left pleural effusion.
--- NOTE | 2025-01-29 14:33 | ECG_ITS ---
Test Date: 2025-01-29 14:36:56 Measurements Intervals [place] Rate: 135 P: 82 GA: 171 QRS: 101 QRSD: 94 T: 83 QT: 390 QTc: 585 Interpretive Statements SINUS TACHYCARDIA PATTERN CONSISTENT WITH PULMONARY DISEASE BORDERLINE ST-T WAVE ABNORMALITY- ANTEROLAT/INF LEADS BASELINE ARTIFACT- I, II, III, AVR, AVL,A VF, V1-V6 ABNORMAL ECG Compared to ECG 03/16/2024 08:10:42 HEART RATE HAS INCREASED Electronically Signed On 01-29-2025 14:49:30 CDT by Anthony Vines D.O.
--- NOTE | 2025-01-29 14:40 | PC.NURSE ---
Pt. taken to CT on a monitor with this RN at bedside. Pt. is on 4L NC.
[2025-01-29] MEDS: levETIRAcetam 500MG/NACL 100ML 500 MG/100 ML BAG 400 MG IVPB (15:00)
[2025-01-29] MEDS: SODIUM CHLORIDE 0.9% IV 1,000 ML 150 ML IV CONT (15:15)
--- NOTE | 2025-01-29 15:19 | PC.NURSE ---
Pt. continues to have L. gaze deviation. R. arm moves spontaneously. L. arm and bilateral legs are only responsive to pain. Pt. will intermittently open her mouth to moan.
--- OUTSIDE RECORDS SUMMARY | 2025-01-29 15:23 | XMS_ITS | Encounter Summary ---
Author Organization [facility] Address [address] [place] [address] Care Team Providers Care Deputy County Counsel Name Role Phone Juan Rasheed MD Primary Care Provider [phone] Encounter Details Date Type Department Care Team (Late Contact Info) Description 01/04/2025 Telephone [facility] Radiation Therapy [address] [place] [address] Jeanne Garcia MD [address] [facility] [address] [place] [address] Social History Tobacco Use Types Packs/Day Years [...] Department Care Team (Late Contact Info) Description 02/26/2025 9:30 AM CDT Office Visit [facility] Oncology and Hematology - Leon[address] [place] [address] Summer Bosch MD [address] [place] [address] documented as of this encounter Visit Diagnoses Not on filedocumented in this encounter Care Teams Deputy County Counsel Relationship Specialty Start Date End Date Juan Rasheed MD [address] [place] [address] PCP - General Family Practice 04/18/24 documented as of this encounter
--- OUTSIDE RECORDS SUMMARY | 2025-01-29 15:23 | XMS_ITS ---
Author Organization [facility] Address [address] [place] [address] Care Team Providers Care Senior [employer] D[employer] Name Role Phone Juan Rasheed MD Primary Care Provider [phone] Active Problems Problem Noted Date Diagnosed Date [...]
--- OUTSIDE RECORDS SUMMARY | 2025-01-29 15:23 | XMS_ITS | Encounter Summary ---
Author Organization [facility] Address [address] [place] [address] Care Team Providers Care Manager Protein Name Role Phone Juan Rasheed MD Primary Care Provider [phone] Encounter Details Date Type Department Care Team ([facility] Contact Info) Description 01/29/2025 Emergency [facility] [address] [place] [id number] Social History Tobacco Use Types Packs/Day Years [...] Description 02/26/2025 9:30 AM CDT Office Visit [facility] Oncology and Hematology - Leonardo [address] [place] [address] Summer Bosch MD [address] [place] [address] documented as of this encounter Visit Diagnoses Not on filedocumented in this encounter Care Teams Manager Protein Relationship Specialty Start Date End Date Juan Rasheed MD [address] [place] [address] PCP - General Family Practice 04/18/24 documented as of this encounter
--- OUTSIDE RECORDS SUMMARY | 2025-01-29 15:23 | XMS_ITS | Clinical Summary ---
Author Organization [facility] Address [address] [facility], [address] [address] Phone Care Team Providers Care Executive Legal Secretary Name Role Phone Denise Shadi Gricel DO Primary Care Provider [phone] Allergies Active Allergy Reactions Criticality Noted Date [...] 1:03 PM CDT Height 160 cm (5' 3) 03/28/2020 1:03 PM CDT Body Mass Index 23.03 03/28/2020 1:03 PM CDT Plan of Treatment Health Maintenance Due Date Last Done Comments Hepatitis C Virus (HCV) Screening 1965 TdaP Immunization 1965 Cologuard 10/28/2008 Immunochemical Fecal Occult Blood 10/28/2008 Pneumococcal Immunization (50+ years) (1 of 1 - PCV) 10/28/2013 Zoster Immunization (1 of 2) 10/28/2013 Colonoscopy 12/30/2021 12/30/2016, 06/27/2012 Colorectal Cancer Screening 12/30/2021 SARS-COV-2 Immunization ( season) 2024 05/26/2021, 09/01/2020 Influenza Immunization (#1) 02/25/202504/27, 06/05/2020, 04/28/2019, Additional history exists Respiratory Syncytial Virus (RSV) Immunization (Adult) (1 - 1-dose 75+ series) 10/28/2038 Hepatitis B Immunization Aged Out No longer eligible based on patient's age to complete this topic Human Papillomavirus (HPV) Immunization Aged Out No longer eligible based [...] to Health Maintenance Insurance MEDICARE Care Teams Executive Legal Secretary Relationship Specialty Start Date End Date Shadi Walker DO [address] [facility] [address] [place] [id number] PCP - General Internal Medicine 02/13/20
--- OUTSIDE RECORDS SUMMARY | 2025-01-29 15:23 | XMS_ITS | Encounter Summary ---
Author Organization [facility] [employer] [facility] Address [address] [place] [address] Care Team Providers Care Salesperson Used Cars Name Role Phone Juan Rasheed MD Primary Care Provider [phone] Reason for Visit * Reason Onset Date Comments Tempus Testing/Next steps 01/29/2025 Encounter Details Date Type Department Care Team (Late st Contact Info) Description 01/29/2025 Telephone [facility] Oncology and Hematology - [place] [facility] [address] [address] Joseph Arshad MD [address] [facility] [address] [place] [address] Tempus Testing/Next steps Social History Tobacco Use Types Packs/Day Years [...] encounter Miscellaneous Notes * Telephone Encounter - Dasha Geller - 01/29/2025 8:25 AM CDT Spoke with patients brice Smith about recommendations. He verbalized understanding with no further questions at this time. They are going to try and get in this week to have the labs drawn for the tempus testing. * Telephone Encounter - Dasha Geller - 01/29/2025 8:24 AM CDT ----- Message from Dr. Joseph Arshad sent at 01/28/2025 4:22 PM CDT ----- Regarding: RE: Follow up Questions I have spoken with Dr. Garcia. Plan is to order the Tempus testing XT and XF to see if there is any targetable mutation that we can target with the therapy that can potentially cross the blood-brainbarrier and might help the brain metastasis. She is not planning any further radiation to the brainas long as she is asymptomatic. She has discussed this case in the radiation oncology tumor board as well. ----- Message ----- From: Dasha Geller Sent: 01/28/2025 4:11 PM CDT To: Joseph Arshad MD Subject: Follow up Questions Patients son called and said that he was wondering if you had ever spoke with Dr. Garcia and had any other treatment options because they had not heard anything else. Please advise. 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) 01/29/2025 8:25 AM CDT TEMPUS XT NORMAL BLOOD Lab Routine Malignant neoplasm of lower lobe of left lung (CMS/HCC) 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) 01/29/2025 8:25 AM CDT Scheduled Orders Name Type Priority Associated Diagnoses Orde r Schedule MISCELLANEOUS LAB TEST Lab Routine Malignant neoplasm of lower lobe of left lung (CMS/HCC) 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) Expected: 01/29/2025, Expires: 01/29/2026 TEMPUS XT DNA AND RNA Lab Routine Malignant neoplasm of lower lobe of left lung (CMS/HCC) 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) Expected: 01/29/2025, Expires: 01/29/2026 TEMPUS XF Lab Routine Malignant neoplasm of lower lobe of left lung (CMS/HCC) 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) Expected: 01/29/2025, Expires: 01/29/2026 TEMPUS XT DNA AND RNA SOLID TUMOR Lab Routine Malignant neoplasm of lower lobe of left lung (CMS/HCC) 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
--- OUTSIDE RECORDS SUMMARY | 2025-01-29 15:23 | XMS_ITS | Encounter Summary ---
Author Organization [facility] Address [address] [place] [address] Care Team Providers Care Scale Agent Name Role Phone Juan Rasheed MD Primary Care Provider [phone] Encounter Details Date Type Department Care Team (Late Contact Info) Description 05/30/2017 Chart Note [facility] Radiation Therapy [address] [place] [address] [place] [address] [place] [address] Social History Tobacco Use Types [...] Description 02/26/2025 9:30 AM CDT Office Visit [facility] Oncology and Hematology - Leonardo [address] [place] [address] Summer Bosch MD [address] [place] [address] documented as of this encounter Visit Diagnoses Not on filedocumented in this encounter Care Teams Scale Agent Relationship Specialty Start Date End Date Juan Rasheed MD [address] [place] [phone] PCP - General Family Practice 04/18/24 documented as of this encounter
--- OUTSIDE RECORDS SUMMARY | 2025-01-29 15:23 | XMS_ITS | Encounter Summary ---
Author Organization [facility] Address [address] [facility] [place] [address] Phone Care Team Providers Care Staff Nuclear Weapons Officer Name Role Phone Shadi Walker Primary Care Provider [phone] Reason for Visit * Reason Comments Medication Refill Encounter Details Date Type Department Care Team (Late st Contact Info) Description 06/17/2021 Refill [facility] - Gastroenterology [facility] [address] [place] [address] Fabiola Swenson Clara, PAC [address] [place] [address] Medication Refill Social History Tobacco Use Types [...] Gena Milligan RN - 06/22/2021 9:43 AM AUDIO VISUAL PROJECT MANAGER Medication [facility] and [facility] for pediatric and adult patients. O VISUAL PROJECT MANAGER * Telephone Encounter - Gena Milligan RN - 06/22/2021 9:31 AM AUDIO VISUAL PROJECT MANAGER Pharmacy requesting refill of: Requested Prescriptions Pending Prescriptions Disp Refills ??? omeprazole (PriLOSEC) 40 MG CAPSULE DELAYED RELEASE [Pharmacy Med Name: Omeprazole 40 MG Oral Capsule Delayed Release] 30 Capsule 0 Sig: Take 1 capsule by mouth once daily Last fill: 02/13/2020 Patients last OV with GI: 03/28/2020 Next Office Visit with GI: None scheduled. Called patient, offered an appt. appt scheduled 07/08/2020. O VISUAL PROJECT MANAGER documented in this encounter Plan of Treatment Not on file documented as of this encounter Visit Diagnoses Diagnosis Gastroesophageal reflux disease without esophagitis Esophageal reflux documented in this encounter Care Teams Staff Nuclear Weapons Officer Relationship Specialty Start Date End Date Shadi Walker DO [address] [address] PCP - General Internal Medicine 02/13/20 documented as of this encounter
--- OUTSIDE RECORDS SUMMARY | 2025-01-29 15:23 | XMS_ITS | Clinical Summary ---
Author Organization [facility] Address [address] [address] Care Team Providers Care Music Instructor Name Role Phone Juan Rasheed MD Primary Care Provider [phone] Allergies Active Allergy Reactions Criticality Noted Date [...] inhalation 2 times daily. 1 Gram 3 7 Active triamcinolone acetonide (KENALOG) 0.1 % Cream Apply to affected area 2 times daily as needed . 8 Active dronabinol (MARINOL) 2.5 mg capsule TAKE 2 CAPSULES BY MOUTH TWICE DAILY 120 Capsule 1 9 Active cetirizine (ZyrTEC) 10 mg tablet Take 10 mg by mouth daily. Active polyethylene glycol 3350 (MIRALAX) 17 gram/dose Powder Use entire 255g bottle with 64oz of clear liquid as directed for colonoscopy prep. 7 Active medical marijuana, for documentation purposes, Cannabis oil as needed for nausea and appetite. Active cyclobenzaprine (FLEXERIL) 10 mg tablet Take 1 Tablet (10 mg) by mouth 3 times daily as needed for Spasm. 30 Tablet 0 Active hydrocortisone (PROCTOZONE-HC) 2.5 % cream with perineal applicator Apply to affected area. 7 Active loperamide (IMODIUM) 1 mg/5 mL solution Take by mouth. Act caro diphenhydrAMINE (BENADRYL) 25 mg capsuleIndication s:Allergy to iodine Take 25 mg one time one hour before the procedure 1 Capsule 1 Active ondansetron (ZOFRAN ODT) 4 mg Tablet, Rapid Dissolve DISSOLVE 1 TABLET IN MOUTH EVERY 8 HOURS NEEDED FOR NAUSEA AND VOMITING 2 Active mirtazapine (REMERON) 15 mg tablet TAKE 1 TABLET BY MOUTH ONCE DAILY AT BEDTIME 30 Tablet 2 Active fluticasone propionate (FLONASE) 50 mcg/spray [place], Suspension nasal inhaler Administer 2 Sprays in each nostril 1 time daily as needed for Allergies. 3 Active LORazepam (ATIVAN) 0.5 mg tabletIndications :Chemotherapy induced nausea and vomiting take 1 tablet by mouth every 6 hours as needed for anxiety 30 Tablet 4 Active atorvastatin (LIPITOR) 40 mg tablet Take 40 mg by mouth daily. Active metoprolol succinate (TOPROL XL) 25 mg Extended Release 24 hour tablet Take 25 mg by mouth daily. Active dexAMETHasone (DECADRON) 4 mg tablet Take 1 Tablet (4 mg) by mouth daily. Start taking on 07/25/24. 30 Tablet 5 Active potassium CHLORIDE (KLOR-CON M20) 20 mEq Extended Release tablet Take 1 Tablet (20 mEq) by mouth 2 times daily. 60 Tablet 2 5 Active omeprazole (PriLOSEC) 40 mg Capsule, Delayed Release(E.C.)Ines cations:Malignant neoplasm of lower lobe of left lung (CMS/HCC),Chronic anemia,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),Agranul ocytosis secondary to cancer chemotherapy (CODE) Take 1 tablet by mouth daily. 90 Capsule 5 Active lidocaine-priloca ine (EMLA) 2.5-2.5 % CreamIndications: Malignant neoplasm of lower lobe of left lung (CMS/HCC) APPLY TOPICALLY TO PORT SITE 30-60MIN BEFORE USE. 30 Gram 5 Active predniSONE (DELTASONE) 50 mg tablet Take 1 tablet 24 hours,12 hours and [address] scan 3 Tablet 5 Active prochlorperazine maleate (COMPAZINE) 10 mg tabletIndications :Chemotherapy induced nausea and vomiting TAKE 1 TABLET BY MOUTH EVERY 6 HOURS NEEDED FOR NAUSEA/EMESIS 120 Tablet 5 Active Active Problems Problem Noted Date Diagnosed [...] Encounters Date Type Department Care Team Description 01/29/2025 Emergency [facility] Emergency Department [address] [place] [address] 01/29/2025 Telephone [facility] Oncology and Hematology - [place] [address] [place] [phone] Joseph Arshad MD Tempus Testing/Next steps 01/17/2025 9:48 AM CDT - 01/17/2025 11:59 PM CDT Hospital Encounter [facility] MRI [address] [place] [address] Jeanne Garcia MD Discharge Disposition: Home or Self Care 01/04/2025 Orders Only [facility] Radiation Therapy [address] [place] [address] Jeanne Garcia MD 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) 01/04/2025 Telephone [facility] Radiation Therapy [address] [place] [address] Jeanne Garcia MD 12/26/2024 9:15 AM CDT Office Visit [facility] Oncology and Hematology - [place] [address] [place] [address] Joseph Arshad MD Malignant neoplasm of lower lobe of left lung (CMS/HCC) (Primary Dx) 12/26/2024 Orders Only [facility] Oncology and Hematology - [place] [address] [place] [address] Joseph Arshad MD 12/17/2024 Abstract [facility] Oncology and Hematology - [place] [address] [place] [phone] Joseph Arshad MD 12/17/2024 Orders Only [facility] Oncology and Hematology - [place] [address] [place] [address] Joseph Arshad MD Malignant neoplasm of lower lobe of left lung (CMS/HCC) 12/08/2024 Refill [facility] Oncology and Hematology - [place] [address] [place] [address] Joseph Arshad MD Chemotherapy induced nausea and vomiting 12/03/2024 Orders Only [facility] Oncology [facility] Hematology [facility] [address] [place] [address] Joseph Arshad MD Malignant neoplasm of lower lobe of left lung (CMS/HCC) 11/28/2024 10:00 AM CDT Office Visit [facility] Oncology [facility] Hematology [place] [address] [place] [address] Joseph Arshad MD Malignant neoplasm of lower lobe of left lung (CMS/HCC) (Primary Dx) 11/28/2024 Orders Only [facility] Oncology [facility] Hematology [place] [address] [place] [address] Joseph Arshad MD 11/19/2024 Orders Only [facility] Oncology and Hematology [facility] [address] [place] [address] Joseph Arshad MD Malignant neoplasm of lower lobe of left lung (CMS/HCC) 11/16/2024 External Device Data Initial Department [address] [place]: [place] [address] Keith Mccord Md 11/05/2024 Orders Only [facility] Oncology [facility] Hematology [facility] [address] [place] [address] Joseph Arshad MD Malignant neoplasm of lower lobe of left lung (CMS/HCC) from Last 3 Months Immunizations Immunization Administration [...] Sign Reading Time Taken Comments Blood Pressure 95/67 12/26/2024 9:16 AM CDT Pulse 66 12/26/2024 9:16 AM CDT Temperature 36.8 C (98.2 F) 12/26/2024 9:16 AM CDT Respiratory Rate 15 12/26/2024 9:16 AM CDT Oxygen Saturation 95% 12/26/2024 9:16 AM CDT Inhaled Oxygen Concentration - - Weight 51.4 kg (113 lb 6.4 oz) 12/26/2024 9:16 A M CDT Height 160 cm (5' 3) 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 Body Mass Index 20.09 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 Plan of Treatment Upcoming Encounters Date Type Department Care Team (Late st Contact Info) Description 02/26/2025 9:30 AM CDT Office Visit [facility] Oncology and Hematology - [place] [address] [place] [address] Summer Bosch MD [address] [place] [address] Health Maintenance Due Date Last Done Comments DTAP/TDAP/TD VACCINES (1 - Tdap) 10/28/1982 ZOSTER VACCINE (1 of 2) 10/28/1982 FIT-DNA Q 3 years 10/28/2008 FIT/FOBT Q 1 year 10/28/2008 Flex Sig/CT Colonography Q 5 years 10/28/2008 BREAST CANCER SCREENING 06/27/2015 06/27/2014, 06/26 COVID-19 Vaccine (2 - Jansse n risk series) 09/29/2020 09/01/2020 RSV VACCINE (60+ or ) (1 - Risk 60-74 years 1-dose series) 2023 INFLUENZA VACCINE (#1) 2025 , 04/28/2019, 05/09/2018, Additional history exists COLORECTAL SCREENING 12/30/2026 12/30/2016, 06/27/2012, 06/27/2012, Additional history exists Colorectal Cancer Screening 12/30/2026 Medical Devices Implanted Type Area Shagger Device Identifier Shelf Expiration Date Model / Serial / Lot Duragen + 4x5in Dp-1045 - [id number] Implanted:Qty : 1 on 05/02/2023 by Bibi Dang MD at [facility] Graft Right: Scalp [employer] 06/26/2025 [id number] / / [id number] Hemostatic Surgifoam Sz100 1973 - [id number] Implanted:Qty : 1 on 05/02/2023 by Bibi Dang MD at [facility] Hemostatic Right: Scalp [employer]- [employer] 01/26/2027 1974 / / [id number] Hemostatic Surgicel 2x14in 1950 - [id number] Implanted:Qty : 1 on 05/02/2023 by Bibi Dang MD at [facility] Hemostatic Right: Scalp [employer]- [employer] [id number] 02/24/20271950 / / [id number] Hemostatic Surgicel 1x2in 1960 - [id number] Implanted:Qty : 1 on 05/02/2023 by Bibi Dang MD at [facility] Hemostatic Right: Scalp [employer]- [employer] [id number] 07/27/20241960 / / [id number] Hemostatic Surgiflo 8ml W/ Thrombin 299 - [id number] Implanted:Qty : 1 on 05/02/2023 by Bibi Dang MD at [facility] Hemostatic Right: Scalp [employer]- [employer] 05/26/2024 2994 / / [id number] Plate Matrxneuro Cranial 04.502.062 - [id number] Implanted:Qty : 1 on 05/02/2023 by Bibi Dang MD at [facility] Plate Right: Scalp J&J- DEPUY SYNTHES 04.502.06 Description:LOAD 38 Sterilized NOV 2022 Plate Matrxneuro Bur Hl Cvr 04.502.021 - [id number] Implanted:Qty : 2 on 05/02/2023 by Bibi Dang MD at [facility] Plate Right: Scalp J&J- DE[employer] SYNTHES 502.02 1 / / Description:LOAD 38 APR 28 2023 Screw Matrixneuro Sd 04.503.104.01 - Ssterilized 04-28-23 Implanted:Qty : 6 on 05/02/2023 by Bibi Dang MD at [facility] Screw Right: Cranial J&J- DEPUY SYNTHES 503.10 4.01 / STERILIZE D 04-28-23 / Description:SYNTHES CMF REQU ISITION# [id number] Sealant Tisseel 10ml [id number] - [id number] Implanted:Qty : 1 on 04/08/2017 by Satnam Vann MD at [facility] Sealant Left: Lung GRUBER- PingMD [id number] 09/24/2018 [id number] / [id number] / [id number] Procedures Procedure Name Priority Date/Time Associated Diagnosis Comments MRI BRAIN W WO CONT W SPECT Routine 01/17/2025 11:35 AM CDT 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) BASIC METABOLIC PANEL Routine 12/26/2024 12:30 PM CDT CBC WITH DIFFERENTIAL Routine 12/26/2024 12:[address] CHEST ABDOMEN PELVIS W CONT Routine 12/14/2024 8:57 AM CDT BASIC METABOLIC PANEL Routine 11/28/2024 1:56 PM CDT CBC WITH DIFFERENTIAL Routine 11/28/2024 1:55 PM CDT from Last 3 Months Results * MRI BRAIN W WO CONT W SPECT (01/17/2025 11:35 AM CDT) Anatomical Region Laterality Modality Head Magnetic Resonan ce 01/17/2025 11:3 5 AM CDT Impressions 01/17/2025 1:03 PM CDT IMPRESSION: Further interval increase in enhancement along/within the lateral ventricles with extension into the corpus callosal body, cingulate gyrus, and right frontal lobe, likely representing disease progression. Spectroscopy demonstrates elevated choline/creatine ratio in an area of enhancement, also suggesting disease progression. DICTATION LOCATION: Location 4 Narrative 01/17/2025 1:03 PM CDT EXAMINATION: MRI BRAIN W WO CONT W SPECT HISTORY: Brain metastases suspected, Patient has small cell carcinoma and has been treated with prophylactic RT and SBRT to several areas at different times. Need to differntiate recurrence versus brain necrosis. 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 Spectroscopy and perfusion images were also performed. FINDINGS: Comparison is made with an outside institution MRI brain from 12/14/2024 Postoperative changes of right posterior parietal craniotomy are seen with a resection cavity subjacent to the craniotomy site in the right parieto-occipital lobe. There is hemosiderin deposition subjacent to the craniotomy site. There is a small unchanged extra-axial fluid collection subjacent to the craniotomy site. There is peripheral enhancement surrounding the resection cavity, most pronounced along the anterior margin, unchanged. Enhancement again extends along the right lateral ventricular occipital horn, unchanged. There is heterogeneous enhancement along/with the right lateral ventricular frontal horn and body, septum pellucidum, corpus callosal body, cingulate gyrus, and right frontal lobe, increased from the 12/14/2024 exam. These areas of enhancement have further increased compared to the 07/24/2024 exam. There is mild enhancement along the medial aspect of the right posterior lateral ventricular body, which is difficult to compare to the recent exam due to thick slice sequences on the previous exam. FLAIR hyperintensity surrounding the resection cavity has not significantly changed. FLAIR hyperintensity surrounding the areas of enhancement has mildly increased. There is an enhancing nodule in the left lateral ventricular occipital horn, measuring 1.0 x 1.0 cm in axial dimension, which has mildly increased from the recent previous exam. There is restricted effusion corresponding with many of the areas of enhancement. There is mild cerebral volume loss with associated ex vacuo ventricular dilatation. There is more pronounced ex vacuo dilation of the right lateral ventricular occipital horn. No significant midline shift is seen. Periventricular and subcortical white matter FLAIR hyperintensities likely represent sequelae of chronic small vessel ischemic disease and/or posttreatment change. The sella appears normal. The posterior fossa, brainstem, and craniocervical junction appear normal. Perfusion images demonstrate mild relative increase in cerebral blood volume in regions of enhancement along/within the right lateral ventricular frontal horn and ventricular body (series 1251, images 21 and 22). Spectroscopy images are limited by susceptibility artifact in the regions of the enhancement. However, there is elevated choline/creatine ratio in the area of right lateral ventricular frontal horn enhancement compared to the left cerebral hemispheric control, suggestive of increased cellular turnover/tumor. Visible portions of the orbits, paranasal sinuses, and mastoids appear normal. Normal flow voids are demonstrated in the carotid arteries and basilar artery. Degenerative changes are seen in the visible cervical spine. Procedure Note Del Kelly MD - 01/17/2025 EXAMINATION: MRI BRAIN W WO CONT W SPECT HISTORY: Brain metastases suspected, Patient has small cell carcinoma and has been treated with prophylactic RT and SBRT to several areas at different times. Need to differntiate recurrence versus brain necrosis. 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 Spectroscopy and perfusion images were also performed. FINDINGS: Comparison is made with an outside institution MRI brain from 12/14/2024 Postoperative changes of right posterior parietal craniotomy are seen with a resection cavity subjacent to the craniotomy site in the right parieto-occipital lobe. There is hemosiderin deposition subjacent to the craniotomy site. There is a small unchanged extra-axial fluid collection subjacent to the craniotomy site. There is peripheral enhancement surrounding the resection cavity, most pronounced along the anterior margin, unchanged. Enhancement again extends along the right lateral ventricular occipital horn, unchanged. There is heterogeneous enhancement along/with the right lateral ventricular frontal horn and body, septum pellucidum, corpus callosal body, cingulate gyrus, and right frontal lobe, increased from the 12/14/2024 exam. These areas of enhancement have further increased compared to the 07/24/2024 exam. There is mild enhancement along the medial aspect of the right posterior lateral ventricular body, which is difficult to compare to the recent exam due to thick slice sequences on the previous exam. FLAIR hyperintensity surrounding the resection cavity has not significantly changed. FLAIR hyperintensity surrounding the areas of enhancement has mildly increased. There is an enhancing nodule in the left lateral ventricular occipital horn, measuring 1.0 x 1.0 cm in axial dimension, which has mildly increased from the recent previous exam. There is restricted effusion corresponding with many of the areas of enhancement. There is mild cerebral volume loss with associated ex vacuo ventricular dilatation. There is more pronounced ex vacuo dilation of the right lateral ventricular occipital horn. No significant midline shift is seen. Periventricular and subcortical white matter FLAIR hyperintensities likely represent sequelae of chronic small vessel ischemic disease and/or posttreatment change. The sella appears normal. The posterior fossa, brainstem, and craniocervical junction appear normal. Perfusion images demonstrate mild relative increase in cerebral blood volume in regions of enhancement along/within the right lateral ventricular frontal horn and ventricular body (series 1251, images 21 and 22). Spectroscopy images are limited by susceptibility artifact in the regions of the enhancement. However, there is elevated choline/creatine ratio in the area of right lateral ventricular frontal horn enhancement compared to the left cerebral hemispheric control, suggestive of increased cellular turnover/tumor. Visible portions of the orbits, paranasal sinuses, and mastoids appear normal. Normal flow voids are demonstrated in the carotid arteries and basilar artery. Degenerative changes are seen in the visible cervical spine. IMPRESSION: Further interval increase in enhancement along/within the lateral ventricles with extension into the corpus callosal body, cingulate gyrus, and right frontal lobe, likely representing disease progression. Spectroscopy demonstrates elevated choline/creatine ratio in an area of enhancement, also suggesting disease progression. DICTATION LOCATION: Location 4 us Jeanne Garcia MD MR ORDERABLES Final Result * BASIC METABOLIC PANEL (12/26/2024 12:30 PM CDT) Only the most recent of2 resultswithin the time period is included. Blood us Joseph Arshad MD CHEMISTRY ORDERABLES Final Resu lt * CBC WITH DIFFERENTIAL (12/26/2024 12:24 PM CDT) Only the most recent of2 resultswithin the time period is included. Blood us Joseph Arshad MD HEMATOLOGY ORDERABLES Final Res ult * CT CHEST ABDOMEN PELVIS W CONT (12/14/2024 8:57 AM CDT) Anatomical Region Laterality Modality Chest Computed Tomogra phy Joseph Arshad MD CT ORDERABLES Final Result from Last 3 Months Insurance MEDICARE PART A AND B [employer] ACCESS O MEDICARE PART A AND B [employer] ACCESS HMO RX [employer] RX [employer] Commercial Advance Directives For more information, please contact: [phone] * Full Code (Latest Code Status on [...] 3:24 PM 04/11/2017 5:21 PM Care Teams Music Instructor Relationship Specialty Start Date End Date Juan Rasheed MD [address] [place] [id number] PCP - General Family Practice 04/18/24
[2025-01-29] MEDS: [UNRECOGNIZED DRUG - OTHER] IV CONT (15:29)
[2025-01-29] MEDS: HUMAN PROTHROMBIN COMPLEX IV CONT (15:29)
--- NOTE | 2025-01-29 15:32 | ED.SEIZURE ---
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 Upon arrival patient is unresponsive with a GCS of 4 mom. states that they were supposed to come to the hospital today for blood work to start chemo and radiation treatment. She is also on apixaban. MD complaint: seizure Description of Episode: tonic-clonic movement Witnessed: Yes - by Other () Trauma: No Seizure History: No Place: home Related Data Home Medications ?Medication ?Instructions ?Recorded ?Confirmed ?Last Taken ?Type budesonide-formoterol HFA 160 2 puff inhalation Q12H 04/18/19 05/14/24 03/14/24 20:00 History mcg-4.5 mcg/actuation aerosol inhaler (Symbicort) omeprazole 40 mg capsule,delayed 40 mg PO DAILY 06/01/19 05/14/24 03/15/24 08:00 History release loperamide 2 mg capsule (Imodium 2 mg PO PRN PRN Diarrhea 12/11/19 05/14/24 Unknown History A-D) mirtazapine 15 mg tablet 15 mg PO PRN PRN Nausea 11/12/20 05/14/24 Unknown History clopidogrel 75 mg tablet (Plavix) 75 mg PO HS 06/06/23 05/14/24 03/14/24 20:00 History Allergies Allergy/AdvReac Type Severity Reaction Status Date / Time amoxicillin Allergy Unknown Rash Verified 01/29/25 15:22 clindamycin Allergy Unknown Itching Verified 01/29/25 15:22 codeine Allergy Unknown Nausea and Verified 01/29/25 15:22 Vomiting Iodinated Contrast Media Allergy Unknown Hives Verified 01/29/25 15:22 levofloxacin Allergy Unknown itching, Verified 01/29/25 15:22 better with benadryl morphine Allergy Unknown Nausea and Verified 01/29/25 15:22 Vomiting Penicillins Allergy Unknown rash Verified 01/29/25 15:22 piperacillin Allergy Unknown Rash Verified 01/29/25 15:22 tazobactam Allergy Unknown Rash Verified 01/29/25 15:22 doxycycline Allergy Vomiting Verified 01/29/25 15:22 Sulfa (Sulfonamide Allergy Redness of Verified 01/29/25 15:22 Antibiotics) Skin sulfamethoxazole (From AdvReac Mild redness Verified 01/29/25 15:22 Sulfamethoxazole-Trimethoprim) trimethoprim (From AdvReac Mild redness Verified 01/29/25 15:22 Sulfamethoxazole-Trimethoprim) Review of Systems Review of Systems: ROS unobtainable: Yes unobtainable due to mental status PMFSH Past Medical History Medical History 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 Cardiomyopathy Dyslipidemia Kidney stone on left side Osteoporosis Benign essential hypertension Insomnia disorder Malignant neoplasm of lower lobe of left lung Other and unspecified hyperlipidemia Anxiety Chronic pain syndrome Irritable bowel syndrome Lumbar spondylosis Osteoarthritis GERD (gastroesophageal reflux disease) Lesion of pelvic bone Anemia in neoplastic disease Surgical History Surgical History S/P lobectomy of lung History of bilateral tubal ligation H/O: hysterectomy Family History Family History Mother Family history of malignant neoplasm Other Family history of alcoholism Family history of kidney disease Family history of seizure disorder Social History Social History Smoking packs per day: 1 Smoking cigarettes per day: 20.0 Years smoked: 36 Smoking pack-years: 36.00 Smoking status: Former smoker Tobacco type: cigarettes Second hand tobacco smoke exposure: No Smoking end date: 06/27/16 Alcohol intake: never Drinks per week: 1 Alcohol use details: 1-2 EVERY FEW MONTHS Substance use: current Substance use type: does not use Other substance usage details: CBD oils Do You Feel Safe in your Home?: Yes Lack of Transportation: YES Lack of Food: Never True Current Housing: I Have Housing Concerned About Future Housing: No Difficulty Paying Gas/Electric Bills: No Difficulty Paying for Meds: No Currently Unemployed: No Education: Bachelor's Degree Difficulty w/ Childcare or Family Care: No Living arrangements: with family Gender identity (if verbalized by the patient): Female Spiritual care concerns: No Exam Narrative: GENERAL: Unresponsive HEAD: Normocephalic, atraumatic. EYES: PERRLA and EOMI. ENT: Nares clear, no rhinorrhea or epistaxis. Mucous membranes moist. NECK: Supple. CHEST: Clear to auscultation. No respiratory distress. Has a port on the right side HEART: Regular rate and rhythm. No murmur heard. Normal peripheral pulses. ABDOMEN: Soft, nontender, nondistended, normal active bowel sounds. EXTREMITIES: Normal range of motion. No edema. SKIN: Warm, dry, no rash. NEURO: No focal deficits. PSYCH: Normal mood and affect. Course Course Emergency Course: Was notified by the radiologist that she has bleed along the resection site with no midline shift she reviewed I did inform the patient's about the CT findings he wants everything to be done. He wants her to be transferred to [facility]. Discussed with the ERP [facility] will accept the patient in transfer patient is on apixaban will start Kcentra. Upon arrival she was tachycardic heart rate 140s she still remained tachycardic will give Lopressor 5 mg IV. Vital Signs Vital signs: Vital Signs Temperature 36.6 C 01/29/25 14:23 Pulse Rate 143 H 01/29/25 14:23 Respiratory Rate 34 H 01/29/25 14:23 Blood Pressure 114/76 01/29/25 14:23 Pulse Oximetry 92 01/29/25 14:23 Oxygen Delivery Room Air 01/29/25 14:23 Temperature 36.6 C 01/29/25 14:23 Pulse Rate 154 H 01/29/25 15:21 Respiratory Rate 16 01/29/25 15:21 Blood Pressure 98/81 L 01/29/25 15:21 Pulse Oximetry 100 01/29/25 15:21 Oxygen Delivery Nasal Cannula 01/29/25 14:30 Oxygen Flow Rate 4 01/29/25 14:30 Procedures Intubation Intubation #1: Intubation Date: 01/29/25 Time out performed: Yes sedative: Etomidate Mg Given: 10 paralytic: Rocuronium Mg Given: 50 Laryngoscope: Alvin Tube Size (cm): 7.0 Method of Intubation: orotracheal Number of Attempts: 1 Tube Secured Location: teeth (26) Tube Placement Confirmation: visualized tube passing through cords Patient Tolerated Procedure: well Intubation Complications: none MDM - Seizure ECG Data EKG #1: ECG completion date: 01/29/25 EKG Interpretation: tachycardia (135), no ectopy, NL axis and no acute changes Critical Care Time Critical Care Time Total Critical Care Time: 45 Discharge Plan Discharge Clinical Impression: Seizure Metastatic disease Qualifiers: Area of secondary neoplastic involvement: nervous system structure Nervous system structure secondary neoplasm location: metastatic to brain Qualified Code(s): C79.31 - Secondary malignant neoplasm of brain Patient Disposition: Acute Care Hospital Condition: Stable Patient Language: Grenadian Prescriptions: No Action budesonide-formoterol [Symbicort] 160-4.5 mcg/actuation Hfa Aerosol Inhaler 2 puff INHALATION Q12H Patient Comments: . loperamide [Imodium A-D] 2 mg Capsule 2 mg PO PRN PRN (Reason: Diarrhea) Patient Comments: . clopidogrel [Plavix] 75 mg Tablet 75 mg PO HS Patient Comments: . not taking as of 09/10/24 omeprazole 40 mg capsule,delayed release(DR/EC) 40 mg PO DAILY Patient Comments: . mirtazapine 15 mg tablet 15 mg PO PRN PRN (Reason: Nausea) Patient Comments: . Rx Instructions: nausea and anxiety losartan 25 mg tablet 12.5 mg PO DAILY Qty: 15 0RF Patient Comments: .not taking as of 09/10/24 Eliquis 5 mg tablet 5 mg PO BID Qty: 180 3RF Patient Comments: ... atorvastatin 40 mg tablet 80 mg PO DAILY Qty: 180 1RF Patient Comments: .. lorazepam 0.5 mg tablet 0.5 mg PO DAILY PRN (Reason: Anxiety) Qty: 30 1RF Patient Comments: . trazodone 50 mg tablet 50 mg PO QHS PRN (Reason: sleep) Qty: 30 1RF Follow-up/Referrals: Juan Rasheed MD [Primary Care Provider] - Time of Disposition: 15:52
--- NOTE | 2025-01-29 15:38 | PC.NURSE ---
RT, Dr. Diaz and multiple RNs at bedside. Family escorted to family room. Crash cart outside of room and suction set up. 1520 10 etomidate administered IV 50 rocuronium administered IV [address] Diaz. ETT size 7.5mm 27 at the lip. Good color change. Equal chest rise and fall. Bilateral breathe sounds auscultated. 1525 x-ray at bedside to confirm ett placement.
[2025-01-29] MEDS: METOPROLOL TARTRATE INJ 5 MG/5 ML VIAL IV PUSH (15:47)
[2025-01-29 15:54] LABS: Alanine Aminotransferase 27 U/L (6-35); Albumin Level 3.6 g/dL (3.5-5.1); Alkaline Phosphatase 94 U/L (38-126); Anion Gap 24 mmol/L (4-12); Aspartate Amino Transferase 40 U/L (14-36); Bilirubin,Total 0.7 mg/dL (0.2-1.3); Blood Urea Nitrogen 8 mg/dL (7-17); Calcium 8.5 mg/dL (8.4-10.2); Carbon Dioxide 15 mmol/L (22-30); Chloride 99 mmol/L (98-107); Estimated CRCL calculation 33 ml/min; Estimated Glomerular Filt Rate 44; Glucose 298 mg/dL (65-110); Potassium 3.7 mmol/L (3.4-5.0); Sodium 138 mmol/L (137-145); Total Protein 6.0 g/dL (6.3-8.2)
--- NOTE | 2025-01-29 15:55 | PC.NURSE ---
Lab called to alert ANKIT Hart that the blue tube and purple tubes are clotted. Air evac at bedside ready to transport pt. Per Dr. Diaz, no need to re -collect tubes.
--- NOTE | 2025-01-29 15:59 | PC.NURSE ---
Air Evac at bedside. Michael and Michael to transport pt. Report given by this RN.
--- NOTE | 2025-01-29 15:59 | PC.NURSE ---
Per Dr. Diaz at bedside with air evac team. Per radiology report, pull back ETT 7cm. ETT now 20 at the lip. X-ray called to confirm placement after ETT adjustment.
[2025-01-29 16:56] LABS: Add Urine Microscopic? YES; Appearance Urine Clear (Clear); Glucose Urine UA 2+ mg/dL (Negative); Leukocyte Esterase Ur Negative LEU/UL (Negative); Need Manual Microscopic Reviewed; Nitrate Urine Negative (Negative); Specific Grav Ur 1.012 (1.001-1.035)
== END 2025-01-29 16:10 | disposition short-term general hospital (02) ==
PROVIDERS: Emergency Provider Family Medicine; PCP Family Medicine
DX: R56.9 Unspecified convulsions (principal); C79.31 Secondary malignant neoplasm of brain; C34.90 Malignant neoplasm of unspecified part of unspecified bronchus or lung; D63.0 Anemia in neoplastic disease; I42.9 Cardiomyopathy, unspecified; I10 Essential (primary) hypertension; E78.5 Hyperlipidemia, unspecified; G89.4 Chronic pain syndrome; K58.9 Irritable bowel syndrome, unspecified; K21.9 Gastro-esophageal reflux disease without esophagitis; M81.0 Age-related osteoporosis without current pathological fracture; M19.90 Unspecified osteoarthritis, unspecified site; F41.9 Anxiety disorder, unspecified; Z87.442 Personal history of urinary calculi; Z79.02 Long term (current) use of antithrombotics/antiplatelets; Z79.01 Long term (current) use of anticoagulants; Z79.899 Other long term (current) drug therapy; R94.31 Abnormal electrocardiogram [ECG] [EKG]; R00.0 Tachycardia, unspecified; Z79.60 Long term (current) use of unspecified immunomodulators and immunosuppressants
CPT/HCPCS: 31500; 36415; 70450; 80053; 81001; 83605; 87086; 93005; 96365; 96375; 99291; J0616; J1953; J7030; J7168